=== PATIENT | male | born 1940 | race Caucasian/White ===

== ENCOUNTER 2023-10-18 14:44 | Outpatient (CLI) | payer MEDICARE, SELFPAY ==
--- NOTE | 2023-10-18 14:47 | CA_ITS ---
APPROVED REPORT EXAM: Comprehensive 2D, Doppler, and color-flow Echocardiogram Animal Cytologist: Ebony Arciniega RVT Ht: 5 ft 8 in Wt: 213lbs BSA: 2.10 BP: 121/71 mmHg Indications: SOA,ABN EKG,DM,EDEMA M-Mode Dimensions RVDd 3.42 cm (0.9-2.6) LA Diam 3.79 cm (1.9-4.0) LVDd 4.49 cm (3.5-5.7) LVDs 3.32 cm (3.5-5.7) IVSd 0.75 cm (0.6-1.1) PWd 0.56 cm (0.6-1.1) EF (Teich) 51.30% FS 26.10% EDV (Teich) 92.00 mL TAPSE 1.70 (<1.7) ESV (Teich) 44.80 mL LV Diastology E Decel Time 187 (160-240 msec) E/A Ratio 0.8 Aortic Valve NATALIA Index 1.13 cm2/m2 AoV Peak Chuck. 123.0 (50-130 cm/s) AO Peak GR. 6.10 mmHg AO Mean GR. 3.30 (<5 mmHg) AO VTI 24.2 (18-25 cm) NATALIA (VTI) 2.43 (2.5-4.5 cm2) Mitral Valve MV E Max Chuck. 69.0 (40-130 cm/s) MV A Velocity 90.0 (40-130 cm/s) E/A Ratio 0.77 MV PHT 55.0 ms Pulmonary Valve PV Peak Velocity 77.0 (50-150 cm/s) Tricuspid Valve TR P. Velocity 208.00 cm/s RAP Estimate 10.00 mmHg RVSP 27.30 mmHg Left Ventricle The left ventricle is normal size. The left ventricular systolic function is normal. The left ventricular ejection fraction is within the normal range. There is increased LV wall thickness. There is normal LV segmental wall motion. Transmitral Doppler flow pattern suggests impaired LV relaxation. LVEF is 55%. Right Ventricle Right ventricle is mildly dilated. The right ventricular systolic function is normal. Atria The left atrium size is normal. The right atrium size is normal. There is no Doppler evidence of interatrial shunt. Aortic Valve The aortic valve is mildly thickened. There is no aortic valvular stenosis. No aortic regurgitation is present. Mitral Valve The mitral valve is normal in structure. No evidence of mitral valve stenosis. There is no mitral valve regurgitation noted. Tricuspid Valve The tricuspid valve leaflets are thin and pliable. Mild tricuspid regurgitation. RVSP is 12 mmHg + RA pressure. Pulmonic Valve The pulmonary valve is normal in structure. Trace pulmonic regurgitation. Great Vessels The aortic root is normal in size. The ascending aorta is not well visualized. The IVC is not well visualized. Pericardium There is no pericardial effusion. Incidental finding of a 3 x 5 cm anechoic hepatic density in the liver. This most likely represents hepatic cyst. Other Information Study Quality: Fair Conclusion Normal biventricular systolic function. Mild TR. Incidental finding of a 3 x 5 cm anechoic hepatic density in the liver. This most likely represents hepatic cyst. Electronically signed by : Jeanette Dixon MD 10/23/2023 17:53:35
== END 2023-10-18 23:59 ==
LOC: RT 14:47
PROVIDERS: PCP Family Medicine; Visit Provider Physician Assistant
DX: R06.02 Shortness of breath (principal); R94.31 Abnormal electrocardiogram [ECG] [EKG]; I45.10 Unspecified right bundle-branch block; E11.9 Type 2 diabetes mellitus without complications; Z79.84 Long term (current) use of oral hypoglycemic drugs
CPT/HCPCS: 93306

== ENCOUNTER 2023-10-31 08:43 | Outpatient (CLI) | payer MEDICARE, SELFPAY ==
[2023-10-31] VITALS (8 sets, daily range): BP systolic 105–147; BP diastolic 52–74; PULSE 59–82; RESP 18; TEMP 36.1; O2SAT 93–98; BMI 31.3
--- NOTE | 2023-10-31 08:44 | CT_ITS ---
APPROVED REPORT Medical Logistics Specialist: CLINICAL INDICATION Chest Pain TECHNIQUE Image Acquisition: A 128 slice MDCT scanner ([employer]) was used for data acquisition. A noncontrast coronary calcium scan was performed. A CT attenuation threshold of 130 Hounsfield units (HU) was used for the detection of calcium in contiguous voxels of 1 sq mm in area to be counted as individual lesions. Bolus tracking in the ascending aorta with a threshold of 180 HU was performed. Immediately afterwards, ECG synchronized cardiac CT was then performed from the cardiac base to apex using retrospective gating with ECG tube current modulation. A total of 85 mL of Isovue 370 mg/mL contrast medium was administered at 5 mL/sec followed by a saline flush using a biphasic injection protocol. A tube voltage of 120 KVp was used. The patient received the following medications prior to the cardiac CT. 125 mg of oral metoprolol 10 mg of intravenous metoprolol 15 mg of oral ivabradine 0.8 mg of sublingual nitroglycerin The average heart rate at the time of acquisition was 87 bpm and regular. Image Reconstruction Transaxial images were reconstructed at 0.67 mm slide thickness. Data was reviewed interactively on an advanced workstation capable of 2 and 3-dimensional displays in all conventional reconstruction formats, including multiplanar reformations, maximum intensity projections, curved multiplanar reformations, and volume rendered reconstructions. When applicable, selected routine images describing the relevant coronary anatomy and pathology were saved and sent to PACS. Complications None Technical Quality Overall image quality was fair due to elevated HR and difficulty visualizing the mid RCA segment. Coronary artery opacification was fair. Total DLP (Dose-Length Product) is 2283.3 mGy-cm. The reported value represents the total of one or more individual components during the CT acquisition of this date and at this time, and as such, the same value may appear in more than one CT report depending on the interpreting/reporting physicians. COMPARISON None FINDINGS CT Coronary Calcium Scoring LMA (Left Main Artery) = 54 LAD (Left Anterior Descending) = 505 LCX (Left Coronary Circumflex) = 0 RCA (Right Coronary Artery) = 288 Total Calcium Score = 847 using the AJ-130 method. The observed calcium score of 847 is at 65th percentile for subjects of the same age, sex, and race/ethnicity. The interpretation of the calcium heart score is based on the following continuum*: 0 = no calcified plaque detected (risk of coronary artery disease is very low ??? less than 5%) 1-10 = calcium detected in extremely minimal levels (risk of coronary diseases is still low ??? less than 10%) 11-100 = mild levels of plaque detected with certainty (mild or minimal narrowing of heart arteries is likely) 101-400 = definite,at least moderate levels of plaque detected (relatively high risk of a heart attack within 3-5 years) >401-999 = extensive levels of plaque detected (high risk of heart attack, high levels of vascular disease are present, high likelihood of at least one significant coronary narrowing) *The calcium heart score quantifies the burden of coronary calcification/plaque in the coronary arteries. The calcium heart score is not able to evaluate the presence or burden of non-calcified (i.e. soft) plaque. There is also identifiable calcification in the aortic valve, mitral annulus, and the ascending and descending thoracic aorta. Coronary CT Angiography The coronary arterial system is right dominant. Quantitative Stenosis Grading: Left Main (LM): The left main originates normally from the left sinus of Valsalva. The LM bifurcates into the left anterior descending artery and left circumflex artery. There is calcification present at the ostial LM, but with no luminal stenosis. Left Anterior Descending (LAD) and Diagonal Branches: The LAD gives off 3 diagonal branches. There is mixed calcified/noncalcified plaque noted along the entire LAD segment, most notably in the proximal and mid segments and involving the diagonal branch with up to 70-90% luminal stenosis. There is no evidence of LAD-myocardial bridge. Left Circumflex (LCX) and Obtuse Marginals (OM): The LCX is a small caliber vessel. The LCX gives off 1 Obtuse Marginal (OM) branch. The LCX and its branches are patent with no evidence of atherosclerosis. Right Coronary Artery (RCA): The RCA is difficult to visualize due to significant motion in the setting of elevated HR. The RCA originates normally from the right sinus of Valsalva. The RCA gives off a posterior descending artery (PDA) and posterolateral (PL) branches. There is calcification present along the RCA, most notably in the proximal and mid RCA with likely up to 70-90% luminal stenosis. Non-Coronary Cardiac Findings: Analysis of the left ventricular (LV) structure and function was performed after 3-D reconstruction of the LV from axial images, with user-corrected automatic contouring for assessment of LV volumes and user-defined reconstruction from oblique planes for measurement of 3-D cardiac structure and function. -The left ventricle systolic function is normal. -There is no opacification in the distal LA appendage. This may likely reflect absence of contrast due to early image acquisition (no delayed images), but cannot entirely rule out ANDRESSA thrombus. Two right pulmonary veins and two left pulmonary veins drain normally into the left atrium. -No pericardial thickening or calcification. -Central and branch pulmonary arteries in the [id number] are unremarkable. -Thoracic aorta within the visualized thoracic aortic-branches in the [id number] is unremarkable. Extracardiac Structures No significant extra-cardiac findings. Note, however, that this study is focused on the cardiac findings. IMPRESSION -Suboptimal image quality due to elevated HR. segments of the RCA were difficult to visualize due to significant motion -Presence of extensive coronary calcification with an Agatston score = 847 using the AJ-130 method. -The observed calcium score of 847 is at 65th percentile for subjects of the same age, sex, and race/ethnicity. -Presence of significant flow-limiting atherosclerosis of the coronary arteries in the proximal and mid LAD (involving the diagonal branch) and possibly in the proximal RCA.. -CAD-RADS 4A. Management recommendations per ACC/AHA guidelines*, as clinically appropriate. *Recommendations: CAD RADS 0: Reassurance. Consider non-atherosclerotic causes of chest pain. CAD RADS 1: Consider non-atherosclerotic causes of chest pain. Consider preventive therapy and risk factor modification. CAD RADS 2: Consider non-atherosclerotic causes of chest pain. Consider preventive therapy and risk factor modification, particularly for patients with nonobstructive plaque in multiple segments. CAD RADS 3: Consider further functional testing. Consider symptom-guided anti-ischemic and preventive pharmacotherapy as well as risk factor modification per published guideline statements. CAD RADS 4A: Consider further functional testing or invasive coronary angiography with revascularization per published guideline statements. Consider symptom-guided anti-ischemic and preventive pharmacotherapy as well as risk factor modification per published guideline statements. CAD RADS 4B: Invasive coronary angiography recommended with revascularization per published guideline statements. Consider symptom-guided anti-ischemic and preventive pharmacotherapy as well as risk factor modification per published guideline statements. CAD RADS 5: Consider invasive angiography and/or viability assessment with revascularization per published guideline statements. Consider symptom-guided anti-ischemic and preventive pharmacotherapy as well as risk factor modification per published guideline statements. CRITICAL RESULT None COMMUNICATION Per this written report The coronary and cardiac findings of this CCTA were reviewed, reported, and signed by Chun Dixon MD (Software Implementation Project Manager) Conclusion Electronically signed by : Jeanette Dixon MD 11/03/2023 13:01:21
[2023-10-31 09:32] LABS: POC Glucose,Bedside 214 (70-110)
[2023-10-31 09:32] LABS: Chloride 103 mmol/L (98-107)
[2023-10-31 09:33] LABS: Potassium 3.5 mmoL/L (3.5-5.1); Sodium 136 mmol/L (136-145)
[2023-10-31 09:36] LABS: Anion Gap 8.5 mEq/L (5-15); Blood Urea Nitrogen 29 mg/dl (9-20); Calcium 9.2 mg/dl (8.4-10.2); Carbon Dioxide 28 mmol/L (22.0-30.0); Creatinine Clearance Estimated 59 mL/min (50-200); Estimated Glomerular Filt Rate 53 ml/min (>60); GFR (African American) 64 ML/MIN (>60); Glucose 203 mg/dl (74-100)
[2023-10-31] MEDS: METOPROLOL TARTRATE 50MG TABLET PO ×2 (09:41→10:26)
[2023-10-31] MEDS: METOPROLOL TARTRATE 25MG TABLET 25 MG (09:41)
[2023-10-31] MEDS: IVABRADINE HCL 7.5MG TABLET PO (09:41)
[2023-10-31] MEDS: METOPROLOL TARTRATE 5MG/5ML VIAL 5 MG IV ×2 (11:11→11:16)
[2023-10-31] MEDS: NITROGLYCERIN 0.4MG SL TABLET SL (11:16)
[2023-10-31] MEDS: IOPAMIDOL-370 (76%);100ML BOTTLE 85 ML IV (12:35)
[2023-10-31] MEDS: 0.9 % SODIUM CHLORIDE 50 ML VIAL IV (12:35)
== END 2023-10-31 12:00 | disposition home or self-care (01) ==
PROVIDERS: PCP Family Medicine; Visit Provider Physician Assistant
DX: I45.10 Unspecified right bundle-branch block (principal); R94.31 Abnormal electrocardiogram [ECG] [EKG]; R06.02 Shortness of breath; E13.69 Other specified diabetes mellitus with other specified complication; Z79.84 Long term (current) use of oral hypoglycemic drugs
CPT/HCPCS: 75571; 75574; 80048; 82962; Q9967

== ENCOUNTER 2023-11-08 12:59 | Observation (INO) | payer MEDICARE, SELFPAY ==
[2023-11-08] VITALS (16 sets, daily range): BP systolic 115–139; BP diastolic 62–85; PULSE 76–98; RESP 15–18; TEMP 36.4–36.8; O2SAT 94–98; BMI 32.3; BMI 31.9
--- NOTE | 2023-11-08 07:05 | IR_ITS ---
APPROVED REPORT Patient Location: Outpatient Assembly Person: REE Silveira RT (R) PROCEDURES Left heart catheterization Left ventriculogram Selective coronary angiogram Intravascular lithotripsy to the proximal LAD Intravascular ultrasound to the proximal LAD Drug-eluting stent deployment to the proximal and mid LAD in a contiguous manner Drug-eluting stent deployment to the ostial proximal first diagonal artery INDICATION Coronary artery disease, Angina pectoris, Extensive coronary calcification, Informed consent was obtained prior to the procedure. COMPLICATIONS None Estimated Blood Loss: Less than10 mls TECHNIQUE One percent lidocaine used to anesthetize the right anterior aspect of the wrist. The right radial artery was accessed via the Seldinger technique. A 6 Lebanese sheath was placed in the right radial artery. 2.5 mg of Verapamil, 800 mcg of nitroglycerin, 1mg Lidocaine and 5000 U Heparin were given through the arterial sheath. The papa catheter was also used to perform left heart catheterization, left ventriculogram and selective coronary angiogram. At the end of the diagnostic procedure therapeutic heparin was administered giving a therapeutic ACT and the guide catheter was placed in the left main artery followed by wire was placed into the first diagonal artery and LAD. A guide liner was required and predilatation was made. A total of 12 balloons were used during this procedure along with 5 various drug-eluting stents. Predilatation was made in the mid LAD and a 2.5 x 26 mm Ryder frontier stent was placed in the proximal to mid LAD and deployed at 26 erik. Postdilatation with a 3 mm x 12 mm noncompliant balloon was performed. An additional 3.5 x 12 mm Selden frontier stent was placed proximal to the for stent yet still overlapping it and deployed at 22 erik. The balloon was advanced and deployed at 20 erik. An additional 2.5 x 22 mm Selden frontier stent was placed distal to the first 2.5 stent yet still overlapping it and deployed at 20 erik. The balloon was brought back and deployed at 24 erik to mesh the 2 stents. There was a dissection identified in the first diagonal artery therefore wire was placed into the first diagonal artery where predilatation was made. Eventually an EBU 3.75 guide catheter was placed in the left main artery with wires placed on the LAD and first diagonal artery. A 2.25 x 18 mm Ryder frontier stent was placed in the proximal diagonal artery and deployed at 20 erik. An additional 2.5 x 8 mm Ryder frontier stent was placed proximal to this yet still overlapping and extending out into the LAD and deployed at 20 erik. An additional balloon was used to push the 2.5 mm struts out of the LAD and this was followed by a 3.75 x 12 mm noncompliant balloon deployed at 25 erik to further post dilate. Prior to the 3.5 mm stent being placed a shockwave 3.5 x 12 mm balloon was deployed at 4 erik with a total of 60 pulsations in the proximal and mid LAD to reduce the extensive calcification. The intravascular ultrasound probe was advanced due to extensive calcification in 2 to Nayeli the best size of post stent dilatation. Intravascular ultrasound demonstrated a critical heavily calcified proximal LAD stenosis with an MLA less than 3 mm??? at the end of the procedure JACEK-3 flow was present with wide patency down the first diagonal artery and LAD. The apparatus was removed the sheath was removed and hemostasis was achieved using TR banding patient was transferred to the postop holding in stable addition ANGIOGRAPHIC RESULTS The left main artery Normal The left anterior descending artery Has a proximal highly eccentric heavily calcified 80% stenosis followed by an additional 50% stenosis proximal to a large bifurcating septal manager of transportation. There is an additional 50% stenosis distal to the septal manager of transportation within the LAD. Further into the mid LAD is a concentric 80% calcified stenosis along a tortuous bend The circumflex artery Is nondominant and widely patent. The first obtuse marginal artery has proximal calcified 30% stenosis The right coronary artery Is a dominant vessel and has mid vessel calcified 30 to 40% stenosis with distal calcified 40% stenosis The IBRAHIM ventriculogram reveals Normal 65% The left ventricular end-diastolic pressure 10 mmHg IMPRESSION Severe proximal calcified LAD disease Successful intravascular lithotripsy with successful stenting of the proximal to mid LAD 3 drug-eluting stents used to reduce the calcified stenosis to less than 10% Successful stenting of the first diagonal artery severe disease reduced to 0% with 2 contiguous drug-eluting stents Normal ejection fraction Normal left ventricular end-diastolic pressure PLAN 1. Plavix 75 mg daily plus aspirin 81 mg daily 2. Patient received copious contrast today along with a complex procedure and should be admitted to the hospital for IV fluids and monitoring. 3. Chemistry panel and CBC in the morning to check for blood loss and contrast nephropathy 4. Cardiac rehabilitation 5. Avoidance of tobacco products 6. LDL less than 55 to achieve that high intensity statin Electronically signed by : Coleman Mercedes MD 11/08/2023 13:13:35
[2023-11-08 09:16] LABS: Basophils # 0.1 K/mm3 (0-0.2); Basophils % 0.9 % (0.1-2.0); Chloride 106 mmol/L (98-107); Eosinophils # 0.1 K/mm3 (0.0-0.4); Eosinophils % 0.8 % (0.1-12.0); Hematocrit 34.1 % (42.0-52.0); Hemoglobin 10.5 g/dL (14.1-18.0); Lymphocytes # 2.2 K/mm3 (0.7-4.5); Lymphocytes % 32.4 % (10-50); Mean Corpuscular HGB Conc 30.8 g/dL (31.8-35.4); Mean Corpuscular Hemoglobin 26.3 pg (27.0-31.2); Mean Corpuscular Volume 85.5 fl (80-94); Mean Platelet Volume 10.3 fl (7.4-10.4); Monocytes # 1.6 K/mm3 (0.1-1.0); Monocytes % 23.3 % (1.7-9.3); Neutrophils # 2.9 K/mm3 (1.8-7.8); Neutrophils % 42.6 % (37.0-80.0); Platelet Count 149 K/mm3 (142-424); Potassium 4.5 mmoL/L (3.5-5.1); Red Blood Count 3.99 M/mm3 (4.60-6.20); Red Cell Distribution Width 15.1 % (11.5-17.5); Sodium 138 mmol/L (136-145); White Blood Count 6.9 K/mm3 (4.8-10.8)
[2023-11-08 09:19] LABS: Blood Urea Nitrogen 20 mg/dl (9-20); Creatinine Clearance Estimated 79 mL/min (50-200); Estimated Glomerular Filt Rate 81 ml/min (>60); GFR (African American) 98 ML/MIN (>60)
[2023-11-08 09:20] LABS: Anion Gap 9.5 mEq/L (5-15); Calcium 9.2 mg/dl (8.4-10.2); Carbon Dioxide 27 mmol/L (22.0-30.0); Glucose 175 mg/dl (74-100)
[2023-11-08 09:37] LABS: MANUAL DIFFERENTIAL MANUAL DIFFERENTIAL (MANUAL DIFF)
[2023-11-08] MEDS: 0.9 % SODIUM CHLORIDE 500 ML 25 ML IV (10:57)
[2023-11-08] MEDS: VERAPAMIL 2.5MG/ML 2ML VIAL 2.5 MG IV (10:57)
[2023-11-08] MEDS: LIDOCAINE 1% 10ML MDV 20 ML IJ (10:57)
[2023-11-08] MEDS: diphenhydrAMINE 50MG/ML VIAL 50 MG IV (10:57)
[2023-11-08] MEDS: HEPARIN 1,000 UNITS/500ML NS (CATH LAB) 3000 UNIT IV (10:57)
[2023-11-08] MEDS: HEPARIN 1,000 UNITS/ML 10ML VIAL (CATH LAB) 10000 UNIT IV ×4 (10:57→12:59)
[2023-11-08] MEDS: NITROGLYCERIN 800MCG/8ML SYR (CATH LAB) 800 MCG IA (10:58)
[2023-11-08] MEDS: FENTANYL 100MCG/2ML VIAL 50 MCG IV ×2 (11:03→12:03)
[2023-11-08] MEDS: MIDAZOLAM HCL 1MG/1ML 5ML VIAL 1 MG IV (11:03)
[2023-11-08] MEDS: MIDAZOLAM 2MG/2ML VIAL 1 MG IV (12:03)
[2023-11-08] MEDS: PROPOFOL 10MG/ML 20ML VIAL 60 MG IV (12:03)
[2023-11-08 12:06] LABS: Lymphocytes % 43 % (10-50); Monocytes % 5 % (2-9); Neutrophils % 52 % (42-76); Total Cells Counted 100
[2023-11-08 12:11] LABS: Hypochromasia 1+; Platelet Estimate Normal
[2023-11-08] MEDS: CLOPIDOGREL 300MG TABLET 600 MG PO (12:40)
--- NOTE | 2023-11-08 13:11 | HMH.PHAINT1 ---
Pharmacy Intervention Comments: HOME MEDICATION LIST VERIFIED VIA OUTSIDE PHARMACY
[2023-11-08] MEDS: IOPAMIDOL-370 (76%);100ML BOTTLE 350 ML IV (13:41)
[2023-11-08 13:48] LABS: CATHL Activated Clotting Time 296 SEC (74-125)
[2023-11-08 13:49] LABS: CATHL Activated Clotting Time 305 SEC (74-125)
--- NOTE | 2023-11-08 13:49 | PC.NURSE ---
PT TO FLOOR VIA STRETCHER AT 1347.
[2023-11-08 13:50] LABS: CATHL Activated Clotting Time > 400 SEC (74-125)
--- NOTE | 2023-11-08 17:33 | EXP.HP ---
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 Patient initially presented to [employer] [employer] for cardiac catheterization, patient denies chest pain shortness of breath nausea vomiting diarrhea constipation dysuria fevers chills. Patient was admitted to the hospital for observation post cath. Patient was reportedly given significant amounts of contrast during cardiac cath, patient was admitted for observation for kidney function. Patient otherwise denies chest pain. [facility] Disclaimer: The information contained in this section may have been updated after the patient was seen, as this information can be updated by other users. Medical History (Updated 11/08/23 @ 17:34 by Jerri Nickerson MD) Shortness of breath Edema Seasonal allergies Essential tremor Diabetes Surgical History History of cataract surgery History of shoulder replacement S/P deep brain stimulator placement History of back surgery History of ankle surgery History of hand surgery History of colonoscopy Family History Father Stroke Mother Heart attack Sister Cancer Stroke Social History Smoking Status: Never smoker second hand exposure: No alcohol intake: current counseling given: No substance use type: denies use current occupational status: retired Travel in the last 8 weeks: None adopted: No caregiver/support person: No foster care: No household members: spouse housing: house lives independently: Yes marital status: Review of Systems Review of Systems Review of systems:: pertinent systems reviewed and negative unless documented below Meds Home Medications and Allergies Home Medications Medication Instructions Recorded Confirmed Type aspirin 81 mg tablet,delayed 81 mg PO DAILY 10/18/23 11/08/23 History release (Adult Aspirin Regimen) atorvastatin 20 mg tablet 20 mg PO HS 10/18/23 11/08/23 History blood sugar diagnostic (Accu-Chek #10 ea 10/18/23 11/08/23 History Reta Plus test strips) blood-glucose meter (Accu-Chek #1 ea 10/18/23 11/08/23 History Guide Me Glucose Meter) cetirizine 10 mg tablet 10 mg PO DAILY 10/18/23 11/08/23 History empagliflozin 25 mg tablet 25 mg PO DAILY 10/18/23 11/08/23 History (Jardiance) finasteride 5 mg tablet 5 mg PO HS 10/18/23 11/08/23 History fluticasone 250 mcg-salmeterol 50 1 inh inhalation DAILY 10/18/23 11/08/23 History mcg/dose blistr powdr for inhalation fluticasone propionate 50 2 spray intranasal DAILY 10/18/23 11/08/23 History mcg/actuation nasal spray,suspension glimepiride 4 mg tablet 4 mg PO BID 10/18/23 11/08/23 History lancets (Accu-Chek Softclix #100 ea 10/18/23 11/08/23 History Lancets) mecobalamin (vitamin B12) 1,000 1,000 mcg PO DAILY 10/18/23 11/08/23 History mcg lozenges montelukast 10 mg tablet 10 mg PO HS 10/18/23 11/08/23 History pioglitazone 15 mg tablet 15 mg PO DAILY 10/18/23 11/08/23 History propranolol 80 mg capsule,24 80 mg PO DAILY 10/18/23 11/08/23 History hr,extended release sitagliptin phosphate 100 mg 100 mg PO DAILY 10/18/23 11/08/23 History tablet (Januvia) tamsulosin 0.4 mg capsule 0.4 mg PO BID 10/18/23 11/08/23 History triamterene 37.5 1 cap PO DAILY 10/18/23 11/08/23 History mg-hydrochlorothiazide 25 mg capsule albuterol sulfate 90 mcg/actuation 1 mcg inhalation NEEDED PRN 10/31/23 11/08/23 History aerosol inhaler Shortness Of Breath New Prescriptions to Start Prescriptions: Allergies Allergy/AdvReac Type Severity Reaction Status Date / Time codiene Allergy Mild Rash Uncoded 10/18/23 13:31 Exam Data for Last 24 hours Vital signs and Labs for Last 24 Hours: Temp Pulse Resp BP Pulse Ox O2 Del Method 97.6 F 90 16 135/75 97 Room Air 11/08/23 13:24 11/08/23 16:00 11/08/23 13:30 11/08/23 13:30 11/08/23 13:30 11/08/23 17:00 Laboratory Results - last 24 hr 04/16/24 08:55: WBC 6.9, RBC 3.99 L, Hgb 10.5 L, Hct 34.1 L, MCV 85.5, MCH 26.3 L, MCHC 30.8 L, RDW 15.1, Plt Count 149, MPV 10.3, Neut % (Auto) 42.6, Lymph % (Auto) 32.4, Bladen % (Auto) 23.3 H, Eos % (Auto) 0.8, Baso % (Auto) 0.9, Neut # (Auto) 2.9, Lymph # (Auto) 2.2, Bladen # (Auto) 1.6 H, Eos # (Auto) 0.1, Baso # (Auto) 0.1, Total Counted 100, Neutrophils % (Manual) 52, Lymphocytes % (Manual) 43, Monocytes % (Manual) 5, Platelet Estimate Normal, Hypochromasia 1+, Sodium 138, Potassium 4.5, Chloride 106, Carbon Dioxide 27, Anion Gap 9.5, BUN 20, Creatinine 0.90, Estimated Creat Clear 79, Estimated GFR 81, Est GFR ( Amer) 98, Glucose 175 H, Calcium 9.2 11/08/23 11:11: Activated Clotting Time > 400 H* 11/08/23 12:02: Activated Clotting Time 305 H* D 11/08/23 12:39: Activated Clotting Time 296 H* I & O for Last 24 hours: Intake & Output 11/05/23 11/06/23 11/07/23 11/08/23 23:59 23:59 23:59 23:59 Weight 95.283 kg Constitutional Constitutional: no acute distress *Routine HEENT Exam Head: Present normocephalic Eye: Present EOMI and PERRL ENT: Present mucous membranes moist *Routine Neck Exam Neck: Present supple; Absent lymphadenopathy *Routine Respiratory Exam Respiratory: Present CTA bilaterally *Routine Cardiovascular Exam Cardiovascular: Present RRR *Routine Abdominal Exam Abdominal: Present soft and normoactive bowel sounds; Absent tenderness *Routine Rectal Exam Rectal:: deferred *Routine Genitalia Exam Genitalia:: deferred *Routine Extremities Exam Extremities: Absent cyanosis, clubbing or edema *Routine Skin Exam Skin: Present warm; Absent rash *Routine Neurological Exam Neurological: Present alert and oriented X3 Assessment and Plan *Assessment and plan (1) Abnormal electrocardiogram [ECG] [EKG]: Status: Acute Category: Medical Code(s): R94.31 - Abnormal electrocardiogram [ECG] [EKG] (2) Diabetes: Status: Acute Qualifiers: 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 type: other specified (including SHAMAR) 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 detention insulin use: unspecified intermediate teacher insulin use status 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 complication status: with other specified complication Qualified Code(s): E13.69 - Other specified diabetes mellitus with other specified complication Category: Medical Code(s): E11.9 - Type 2 diabetes mellitus without complications (3) HTN (hypertension): Status: Acute Category: Medical Code(s): I10 - Essential (primary) hypertension (4) CAD (coronary artery disease): Status: Acute Category: Medical Code(s): I25.10 - Atherosclerotic heart disease of [place] coronary artery without angina pectoris Plan patient is a 83-year-old male who 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 Patient initially presented to [employer] [employer] for cardiac catheterization, patient denies chest pain shortness of breath nausea vomiting diarrhea constipation dysuria fevers chills. Patient was admitted to the hospital for observation post cath. Patient was reportedly given significant amounts of contrast during cardiac cath, patient was admitted for observation for kidney function. Patient otherwise denies chest pain. Assessment and plan Severe proximal LAD disease CAD s/p cardiac cath with lithotripsy, status post stenting Started on aspirin and Plavix, continue IV fluids Monitor creatinine Monitor CBC Consult cardiology Monitor on cardiac telemetry 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 Hypertension Hyperlipidemia -Resume Jardiance, propranolol, Januvia, HCTZ- DVT prophylaxis-heparin
[2023-11-08] MEDS: 0.9 % SODIUM CHLORIDE 1000ML 1,000 ML 75 ML IV (17:49)
--- NOTE | 2023-11-08 18:07 | PC.NURSE ---
pt alert and orientated x3, at bs. cath site rt radial,when pt first came to floor cath site was bleeding. more air added to band with no other issues. vss. TR band off at 1800. education and instructions given to pt and on cath site care and to avoid applying pressure/using the rt hand at this time. cb within reach.
[2023-11-08] MEDS: TAMSULOSIN 0.4MG CAPSULE 0.400000000000000022 MG PO (20:09)
[2023-11-08] MEDS: ATORVASTATIN 20MG TABLET 20 MG PO (20:09)
[2023-11-08] MEDS: MONTELUKAST SODIUM 10MG TAB 10 MG PO (20:09)
[2023-11-09] VITALS: BP 119/66; PULSE 100; PULSE 102; RESP 16; TEMP 36.7; O2SAT 93
[2023-11-09 00:21] LABS: POC Glucose,Bedside 103 (70-110)
[2023-11-09 04:00] VITALS: BP 126/71; PULSE 100; PULSE 101; RESP 18; TEMP 36.6; O2SAT 96; BMI 32.6
--- NOTE | 2023-11-09 04:58 | PC.NURSE ---
Pt A&Ox4. Room air. Post right radial cath with 5 stents placed. Dressing is C/D/I over site. Pt has had no complaints through the night. IV fluids infusing at 75/hr. VSS this shift
[2023-11-09] MEDS: 0.9 % SODIUM CHLORIDE 1000ML 1,000 ML 75 ML IV (05:21)
[2023-11-09 05:32] LABS: POC Glucose,Bedside 137 (70-110)
[2023-11-09 06:03] LABS: Basophils # 0.1 K/mm3 (0-0.2); Basophils % 0.5 % (0.1-2.0); Eosinophils % 0.3 % (0.1-12.0); Hematocrit 29.3 % (42.0-52.0); Lymphocytes # 1.8 K/mm3 (0.7-4.5); Lymphocytes % 20.1 % (10-50); Mean Corpuscular HGB Conc 30.6 g/dL (31.8-35.4); Mean Corpuscular Hemoglobin 26.2 pg (27.0-31.2); Mean Corpuscular Volume 85.7 fl (80-94); Mean Platelet Volume 9.9 fl (7.4-10.4); Monocytes % 22.7 % (1.7-9.3); Neutrophils % 56.3 % (37.0-80.0); Platelet Count 122 K/mm3 (142-424); Red Blood Count 3.42 M/mm3 (4.60-6.20); Red Cell Distribution Width 15.1 % (11.5-17.5); White Blood Count 8.9 K/mm3 (4.8-10.8)
[2023-11-09 06:06] LABS: Chloride 110 mmol/L (98-107); Potassium 3.9 mmoL/L (3.5-5.1); Sodium 139 mmol/L (136-145)
[2023-11-09 06:09] LABS: Anion Gap 9.9 mEq/L (5-15); Blood Urea Nitrogen 13 mg/dl (9-20); Calcium 8.4 mg/dl (8.4-10.2); Carbon Dioxide 23 mmol/L (22.0-30.0); Creatinine Clearance Estimated 80 mL/min (50-200); Estimated Glomerular Filt Rate 93 ml/min (>60); GFR (African American) 112 ML/MIN (>60); Glucose 125 mg/dl (74-100); MANUAL DIFFERENTIAL MANUAL DIFFERENTIAL (MANUAL DIFF)
[2023-11-09 07:32] LABS: Lymphocytes % 17 % (10-50); Monocytes % 12 % (2-9); Neutrophils % 67 % (42-76); Total Cells Counted 100
[2023-11-09 07:37] LABS: Anisocytosis 1+; Hypochromasia 1+; Platelet Estimate Slight Decrease
[2023-11-09 08:00] VITALS: BP 120/76; PULSE 100; PULSE 82; RESP 23; TEMP 36.4; O2SAT 94
[2023-11-09] MEDS: ONDANSETRON 4MG/2ML VIAL 4 MG IV (08:56)
[2023-11-09] MEDS: FLUTICASONE PROP 50MCG NASAL SPRAY 16GM 2 SPRAY NS (08:56)
[2023-11-09] MEDS: EMPAGLIFLOZIN 10MG TABLET 20 MG PO (08:57)
[2023-11-09] MEDS: ASPIRIN EC 81MG TABLET 81 MG PO (08:57)
[2023-11-09] MEDS: CLOPIDOGREL 75MG TAB 75 MG PO (08:58)
[2023-11-09] MEDS: SITAGLIPTIN 50MG TABLET 100 MG PO (09:00)
[2023-11-09] MEDS: LORATADINE 10MG TABLET 10 MG PO (09:00)
[2023-11-09] MEDS: PIOGLITAZONE 15MG TAB 15 MG PO (09:01)
--- NOTE | 2023-11-09 10:53 | EXP.CARD.CON ---
History of Present Illness History of Present Illness Consult date: 11/09/23 Requesting physician: Jerri Nickerson Consult reason: known to you Chief complaint: CRENSHAW History of present illness: 83-year-old white male recently established in our office for worsening dyspnea on exertion for 3 to 4 months following COVID. He underwent CCTA which showed significant flow-limiting disease in LAD and RCA. He was referred for elective left heart cath. Yesterday left heart cath revealed severe proximal calcified LAD which required lithotripsy and 3 stents. He also received stenting of the first diagonal. RCA and left circumflex with 30 to 40% lesions which were left to medical management. Outpatient echo shows normal LV function. Patient was admitted overnight for hydration and repeat labs. This morning he reports no pain at his cath site. Denies chest pain shortness of breath or palpitations. His creatinine is unchanged. His hemoglobin is down from 10.5-9. [facility] Disclaimer: The information contained in this section may have been updated after the patient was seen, as this information can be updated by other users. Medical History Shortness of breath Edema Seasonal allergies Essential tremor Diabetes Surgical History History of cataract surgery History of shoulder replacement S/P deep brain stimulator placement History of back surgery History of ankle surgery History of hand surgery History of colonoscopy Family History Father Stroke Mother Heart attack Sister Cancer Stroke Social History Smoking Status: Never smoker second hand exposure: No alcohol intake: current counseling given: No substance use type: denies use current occupational status: retired Travel in the last 8 weeks: None adopted: No caregiver/support person: No foster care: No household members: spouse housing: house lives independently: Yes marital status: Review of Systems Constitutional Constitutional: Denies fatigue and Denies weakness Eyes Eyes: Denies loss of vision ENT Ears, Nose, Mouth, and Throat: Denies hearing loss and Denies vertigo *Cardiovascular Cardiovascular: Denies chest pain, Denies dyspnea and Denies syncope *Respiratory Respiratory: Denies cough and Denies dyspnea *Gastrointestinal Gastrointestinal: Denies change in stool character, Denies nausea and Denies vomiting *Genitourinary Genitourinary: Denies difficulty urinating *Musculoskeletal Musculoskeletal: Denies muscle weakness Integumentary/Breasts Skin/Breast: Denies changing lesions *Neurologic Neurologic: Denies loss of vision, Denies syncope, Denies vertigo and Denies weakness Endocrine Endocrine: Denies fatigue Exam Data for Last 24 hours Vital signs and Labs for Last 24 Hours: Temp Pulse Resp BP Pulse Ox O2 Del Method 97.6 F 82 23 120/76 94 L Room Air 11/09/23 08:00 11/09/23 08:00 11/09/23 08:00 11/09/23 08:00 11/09/23 08:00 11/09/23 09:00 Laboratory Results - last 24 hr 11/08/23 08:55: Total Counted 100, Neutrophils % (Manual) 52, Lymphocytes % (Manual) 43, Monocytes % (Manual) 5, Platelet Estimate Normal, Hypochromasia 1+ 11/08/23 11:11: Activated Clotting Time > 400 H* 11/08/23 12:02: Activated Clotting Time 305 H* D 11/08/23 12:39: Activated Clotting Time 296 H* 11/09/23 00:13: POC Glucose 103 11/09/23 05:24: WBC 8.9 D, RBC 3.42 L, Hgb 9.0 L D, Hct 29.3 L, MCV 85.7, MCH 26.2 L, MCHC 30.6 L, RDW 15.1, Plt Count 122 L, MPV 9.9, Neut % (Auto) 56.3, Lymph % (Auto) 20.1, [place] % (Auto) 22.7 H, Eos % (Auto) 0.3, Baso % (Auto) 0.5, Neut # (Auto) 5.0, Lymph # (Auto) 1.8, [place] # (Auto) 2.0 H, Eos # (Auto) 0.0, Baso # (Auto) 0.1, Total Counted 100, Neutrophils % (Manual) 67, Band Neutrophils % 4.0, Lymphocytes % (Manual) 17, Monocytes % (Manual) 12 H, Platelet Estimate Slight decrease, Hypochromasia 1+, Anisocytosis 1+, Sodium 139, Potassium 3.9, Chloride 110 H, Carbon Dioxide 23, Anion Gap 9.9, BUN 13 D, Creatinine 0.80, Estimated Creat Clear 80, Estimated GFR 93, Est GFR ( Amer) 112, Glucose 125 H D, POC Glucose 137 H, Calcium 8.4 I & O for Last 24 hours: Intake & Output 11/06/23 11/07/23 11/08/23 11/09/23 23:59 23:59 23:59 23:59 Intake Total 360 / 560 200 / 200 Output Total 0 / 0 300 / 300 Balance 360 / 560 -100 / -100 Weight 210 lb 1 oz 215 lb 4.8 oz Constitutional Constitutional: no acute distress and cooperative *Routine HEENT Exam Eye: Present PERRL *Routine Respiratory Exam Respiratory: Present CTA bilaterally; Absent accessory muscle use, wheezes or crackles *Routine Cardiovascular Exam Cardiovascular: Present RRR, Normal S1 and Normal S2; Absent murmur, gallop or rubs Comments: Mild bruising noted at right radial cath site but no pain redness or induration *Routine Abdominal Exam Abdominal: Present soft; Absent tenderness *Routine Extremities Exam Extremities: Present pulses intact; Absent cyanosis or edema *Routine Skin Exam Skin: Present intact; Absent erythema or wounds *Routine Neurological Exam Neurological: Present alert and oriented X3 Routine Psychiatric Exam Psychiatric: Present cooperative Meds Home Medications and Allergies Home Medications Medication Instructions Recorded Confirmed Type aspirin 81 mg tablet,delayed 81 mg PO DAILY 10/18/23 11/08/23 History release (Adult Aspirin Regimen) atorvastatin 20 mg tablet 20 mg PO HS 10/18/23 11/08/23 History blood sugar diagnostic (Accu-Chek #10 ea 10/18/23 11/08/23 History Reta Plus test strips) blood-glucose meter (Accu-Chek #1 ea 10/18/23 11/08/23 History Guide Me Glucose Meter) cetirizine 10 mg tablet 10 mg PO DAILY 10/18/23 11/08/23 History empagliflozin 25 mg tablet 25 mg PO DAILY 10/18/23 11/08/23 History (Jardiance) finasteride 5 mg tablet 5 mg PO HS 10/18/23 11/08/23 History fluticasone 250 mcg-salmeterol 50 1 inh inhalation BID 10/18/23 11/09/23 History mcg/dose blistr powdr for inhalation fluticasone propionate 50 2 spray intranasal DAILY 10/18/23 11/08/23 History mcg/actuation nasal spray,suspension glimepiride 4 mg tablet 4 mg PO BID 10/18/23 11/08/23 History lancets (Accu-Chek Softclix #100 ea 10/18/23 11/08/23 History Lancets) mecobalamin (vitamin B12) 1,000 1,000 mcg PO DAILY 10/18/23 11/08/23 History mcg lozenges montelukast 10 mg tablet 10 mg PO HS 10/18/23 11/08/23 History pioglitazone 15 mg tablet 15 mg PO DAILY 10/18/23 11/08/23 History propranolol 80 mg capsule,24 80 mg PO DAILY 10/18/23 11/08/23 History hr,extended release sitagliptin phosphate 100 mg 100 mg PO DAILY 10/18/23 11/08/23 History tablet (Januvia) tamsulosin 0.4 mg capsule 0.8 mg PO HS 10/18/23 11/09/23 History triamterene 37.5 1 cap PO DAILY 10/18/23 11/08/23 History mg-hydrochlorothiazide 25 mg capsule albuterol sulfate 90 mcg/actuation 1 puff inhalation Q6HP PRN 10/31/23 11/09/23 History aerosol inhaler Shortness Of Breath aspirin 81 mg tablet,delayed 81 mg PO DAILY 30 days #30 tabs 11/09/23 Rx release atorvastatin 40 mg tablet 80 mg (2 x 40 mg) PO HS 30 days 11/09/23 Rx #60 tabs clopidogrel 75 mg tablet 75 mg PO DAILY 30 days #30 tabs 11/09/23 Rx New Prescriptions to Start Prescriptions: aspirin Krishan,Irfan atorvastatin Krishan,Irfan clopidogrel Krishan,Irfan Allergies Allergy/AdvReac Type Severity Reaction Status Date / Time codiene Allergy Mild Rash Uncoded 10/18/23 13:31 Assessment and Plan *Assessment and plan (1) CAD (coronary artery disease): Status: Acute Category: Medical Code(s): I25.10 - Atherosclerotic heart disease of [place] coronary artery without angina pectoris (2) HTN (hypertension): Status: Acute Category: Medical Code(s): I10 - Essential (primary) hypertension (3) Anemia: Status: Acute Category: Medical Code(s): D64.9 - Anemia, unspecified Plan Multivessel CAD -New diagnosis this admission -[facility] 11/07 Severe prox LAD s/p lithotripsy and 3 stents. 1st Diag - stent. 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 He needs cardiac rehab arranged. He would like this done closer to home. Nurse will check with him and discussed best location. Patient needs follow-up in our office in 2 weeks. He needs repeat CBC in 1 week to check status of anemia
[2023-11-09] MEDS: IRBESARTAN 75MG TABLET 75 MG PO (10:57)
--- NOTE | 2023-11-09 11:12 | HMH.PHAINT1 ---
Pharmacy Intervention Comments: DISCHARGE MEDICATION COUNSELING WAS PROVIDED TO PATIENT AND FAMILY MEMBER ON CLOPIDOGREL AND IRBSARTAN FOR INDICATION, DOSE, AND POSSIBLE SIDE EFFECTS; AND THE DOSE CHANGE FOR ATORVASTATIN. THE PATIENT AND FAMILY MEMBER VERBALIZED UNDERSTANDING WITH NO FURTHER QUESTIONS.
--- NOTE | 2023-11-09 11:14 | EXP.DC.SUM ---
General Admission date:: 11/08/23 Discharge date: 11/09/23 HPI HPI HPI: patient is a 83-year-old male who presented to hospital from cardiac medical lab [facility]. Patient initially presented to [facility] for cardiac catheterization, patient denies chest pain shortness of breath nausea vomiting diarrhea constipation dysuria fevers chills. Patient was admitted to the hospital for observation post cath. Patient was reportedly given significant amounts of contrast during cardiac cath, patient was admitted for observation for kidney function. Patient otherwise denies chest pain. 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 Patient initially presented to [facility] for cardiac catheterization, patient denies chest pain shortness of breath nausea vomiting diarrhea constipation dysuria fevers chills. Patient was admitted to the hospital for observation post cath. Patient was reportedly given significant amounts of contrast during cardiac cath, patient was admitted for observation for kidney function. Patient otherwise denies chest pain. Assessment and plan Severe proximal LAD disease CAD s/p cardiac cath with lithotripsy, status post stenting Started on aspirin and Plavix, high intensity atorvastatin stable for discharge per cardiology standpoint and follow up as OP Exam Data for Last 24 hours Vital signs and Labs for Last 24 Hours: Temp Pulse Resp BP Pulse Ox O2 Del Method 97.6 F 82 23 120/76 94 L Room Air 11/09/23 08:00 11/09/23 08:00 11/09/23 08:00 11/09/23 08:00 11/09/23 08:00 11/09/23 09:00 Laboratory Results - last 24 hr 11/08/23 08:55: Total Counted 100, Neutrophils % (Manual) 52, Lymphocytes % (Manual) 43, Monocytes % (Manual) 5, Platelet Estimate Normal, Hypochromasia 1+ 11/08/23 11:11: Activated Clotting Time > 400 H* 11/08/23 12:02: Activated Clotting Time 305 H* D 11/08/23 12:39: Activated Clotting Time 296 H* 11/09/23 00:13: POC Glucose 103 11/09/23 05:24: WBC 8.9 D, RBC 3.42 L, Hgb 9.0 L D, Hct 29.3 L, MCV 85.7, MCH 26.2 L, MCHC 30.6 L, RDW 15.1, Plt Count 122 L, MPV 9.9, Neut % (Auto) 56.3, Lymph % (Auto) 20.1, [place] % (Auto) 22.7 H, Eos % (Auto) 0.3, Baso % (Auto) 0.5, Neut # (Auto) 5.0, Lymph # (Auto) 1.8, [place] # (Auto) 2.0 H, Eos # (Auto) 0.0, Baso # (Auto) 0.1, Total Counted 100, Neutrophils % (Manual) 67, Band Neutrophils % 4.0, Lymphocytes % (Manual) 17, Monocytes % (Manual) 12 H, Platelet Estimate Slight decrease, Hypochromasia 1+, Anisocytosis 1+, Sodium 139, Potassium 3.9, Chloride 110 H, Carbon Dioxide 23, Anion Gap 9.9, BUN 13 D, Creatinine 0.80, Estimated Creat Clear 80, Estimated GFR 93, Est GFR ( Amer) 112, Glucose 125 H D, POC Glucose 137 H, Calcium 8.4 I & O for Last 24 hours: Intake & Output 11/06/23 11/07/23 11/08/23 11/09/23 23:59 23:59 23:59 23:59 Intake Total 360 / 560 200 / 200 Output Total 0 / 0 300 / 300 Balance 360 / 560 -100 / -100 Weight 95.283 kg 97.658 kg Constitutional Constitutional: no acute distress *Routine HEENT Exam Head: Present normocephalic Eye: Present EOMI and PERRL ENT: Present mucous membranes moist *Routine Neck Exam Neck: Present supple; Absent lymphadenopathy *Routine Respiratory Exam Respiratory: Present CTA bilaterally *Routine Cardiovascular Exam Cardiovascular: Present RRR *Routine Abdominal Exam Abdominal: Present soft and normoactive bowel sounds; Absent tenderness *Routine Extremities Exam Extremities: Absent cyanosis, clubbing or edema *Routine Skin Exam Skin: Present warm; Absent rash *Routine Neurological Exam Neurological: Present alert and oriented X3 Results Data Completed and Pending Labs on day of discharge: Labs from last 24 hours 11/09/23 11/09/23 11/08/23 05:24 00:13 12:39 WBC 8.9 D RBC 3.42 L Hgb 9.0 L D Hct 29.3 L MCV 85.7 MCH 26.2 L MCHC 30.6 L RDW 15.1 Plt Count 122 L MPV 9.9 Neut % (Auto) 56.3 Lymph % (Auto) 20.1 [place] % (Auto) 22.7 H Eos % (Auto) 0.3 Baso % (Auto) 0.5 Neut # (Auto) 5.0 Lymph # (Auto) 1.8 [place] # (Auto) 2.0 H Eos # (Auto) 0.0 Baso # (Auto) 0.1 Total Counted 100 Neutrophils % (Manual) 67 Band Neutrophils % 4.0 Lymphocytes % (Manual) 17 Monocytes % (Manual) 12 H Platelet Estimate Slight decrease Hypochromasia 1+ Anisocytosis 1+ Activated Clotting Time 296 H* Sodium 139 Potassium 3.9 Chloride 110 H Carbon Dioxide 23 Anion Gap 9.9 BUN 13 D Creatinine 0.80 Estimated Creat Clear 80 Estimated GFR 93 Est GFR ( Amer) 112 Glucose 125 H D POC Glucose 137 H 103 Calcium 8.4 11/08/23 11/08/23 11/08/23 12:02 11:11 08:55 WBC RBC Hgb Hct MCV MCH MCHC RDW Plt Count MPV Neut % (Auto) Lymph % (Auto) [place] % (Auto) Eos % (Auto) Baso % (Auto) Neut # (Auto) Lymph # (Auto) [place] # (Auto) Eos # (Auto) Baso # (Auto) Total Counted 100 Neutrophils % (Manual) 52 Band Neutrophils % Lymphocytes % (Manual) 43 Monocytes % (Manual) 5 Platelet Estimate Normal Hypochromasia 1+ Anisocytosis Activated Clotting Time 305 H* D > 400 H* Sodium Potassium Chloride Carbon Dioxide Anion Gap BUN Creatinine Estimated Creat Clear Estimated GFR Est GFR ( Amer) Glucose POC Glucose Calcium DS: Diagnosis Discharge Diagnosis (1) CAD (coronary artery disease): Status: Acute Code(s): I25.10 - Atherosclerotic heart disease of [place] coronary artery without angina pectoris (2) HTN (hypertension): Status: Acute Code(s): I10 - Essential (primary) hypertension (3) Anemia: Status: Acute Code(s): D64.9 - Anemia, unspecified Meds Home Medications and Allergies Home Medications Medication Instructions Recorded Confirmed Type aspirin 81 mg tablet,delayed 81 mg PO DAILY 10/18/23 11/08/23 History release (Adult Aspirin Regimen) blood sugar diagnostic (Accu-Chek #10 ea 10/18/23 11/08/23 History Reta Plus test strips) blood-glucose meter (Accu-Chek #1 ea 10/18/23 11/08/23 History Guide Me Glucose Meter) cetirizine 10 mg tablet 10 mg PO DAILY 10/18/23 11/08/23 History empagliflozin 25 mg tablet 25 mg PO DAILY 10/18/23 11/08/23 History (Jardiance) finasteride 5 mg tablet 5 mg PO HS 10/18/23 11/08/23 History fluticasone 250 mcg-salmeterol 50 1 inh inhalation BID 10/18/23 11/09/23 History mcg/dose blistr powdr for inhalation fluticasone propionate 50 2 spray intranasal DAILY 10/18/23 11/08/23 History mcg/actuation nasal spray,suspension glimepiride 4 mg tablet 4 mg PO BID 10/18/23 11/08/23 History lancets (Accu-Chek Softclix #100 ea 10/18/23 11/08/23 History Lancets) mecobalamin (vitamin B12) 1,000 1,000 mcg PO DAILY 10/18/23 11/08/23 History mcg lozenges montelukast 10 mg tablet 10 mg PO HS 10/18/23 11/08/23 History pioglitazone 15 mg tablet 15 mg PO DAILY 10/18/23 11/08/23 History propranolol 80 mg capsule,24 80 mg PO DAILY 10/18/23 11/08/23 History hr,extended release sitagliptin phosphate 100 mg 100 mg PO DAILY 10/18/23 11/08/23 History tablet (Januvia) tamsulosin 0.4 mg capsule 0.8 mg PO HS 10/18/23 11/09/23 History triamterene 37.5 1 cap PO DAILY 10/18/23 11/08/23 History mg-hydrochlorothiazide 25 mg capsule albuterol sulfate 90 mcg/actuation 1 puff inhalation Q6HP PRN 10/31/23 11/09/23 History aerosol inhaler Shortness Of Breath aspirin 81 mg tablet,delayed 81 mg PO DAILY 30 days #30 tabs 11/09/23 Rx release atorvastatin 40 mg tablet 80 mg (2 x 40 mg) PO HS 30 days 11/09/23 Rx #60 tabs clopidogrel 75 mg tablet 75 mg PO DAILY 30 days #30 tabs 11/09/23 Rx irbesartan 75 mg tablet 75 mg PO DAILY 30 days #30 tabs 11/09/23 Rx New Prescriptions to Start Prescriptions: aspirin Krishan,Irfan atorvastatin Krishan,Irfan clopidogrel Krishan,Irfan irbesartan Krishan,Irfan Allergies Allergy/AdvReac Type Severity Reaction Status Date / Time codeine Allergy Mild Rash Verified 11/09/23 11:08 Discharge Plan Disposition Patient Disposition: Home, Self-Care Condition: Good Follow up Plan Follow up with: Marck Ribera DO [Primary Care Provider] - 11/16/23 2:30 pm Coleman Mercedes MD [Staff Physician] - 11/15/23 1:00 pm Prescriptions/Medication Reconciliation: New atorvastatin 40 mg Tablet 80 mg PO HS 30 Days Qty: 60 0RF clopidogrel 75 mg Tablet 75 mg PO DAILY 30 Days Qty: 30 0RF aspirin 81 mg Tablet,Delayed Release (Dr/Ec) 81 mg PO DAILY 30 Days Qty: 30 0RF irbesartan 75 mg Tablet 75 mg PO DAILY 30 Days Qty: 30 0RF Continued fluticasone propionate 50 mcg/actuation spray,suspension 2 spray intranasal DAILY Patient Comments: SHAKE LIQUID AND USE 2 SPRAYS IN EACH NOSTRIL DAILY glimepiride 4 mg tablet 4 mg PO BID Patient Comments: TAKE 1 TABLET BY MOUTH TWICE DAILY mecobalamin (vitamin B12) 1,000 mcg lozenge 1,000 mcg PO DAILY Rx Instructions: allow to dissolve in mouth OR may chew lightly before swallowing triamterene-hydrochlorothiazid 37.5-25 mg capsule 1 cap PO DAILY Patient Comments: TAKE 1 CAPSULE BY MOUTH DAILY cetirizine 10 mg tablet 10 mg PO DAILY Patient Comments: TAKE 1 TABLET BY MOUTH DAILY aspirin [Adult Aspirin Regimen] 81 mg tablet,delayed release (DR/EC) 81 mg PO DAILY fluticasone propion-salmeterol 250-50 mcg/dose blister with device 1 inh inhalation BID Patient Comments: INHALE 1 PUFF BY MOUTH TWICE DAILY (DME) blood-glucose meter [Accu-Chek Guide Me Glucose Mtr] Misc See Rx Instructions .ROUTE .MEDSUPPLY Qty: 1 Patient Comments: TEST EVERY DAY Rx Instructions: As directed (DME) Accu-Chek Reta Plus test strp Strip See Rx Instructions .ROUTE .MEDSUPPLY Qty: 10 Patient Comments: TEST TWICE DAILY Rx Instructions: As directed (DME) lancets [Accu-Chek Softclix Lancets] Misc See Rx Instructions .ROUTE .MEDSUPPLY Qty: 100 Patient Comments: TEST ONCE TO TWICE A DAY Rx Instructions: As directed Jardiance 25 mg tablet 25 mg PO DAILY Patient Comments: TAKE 1 TABLET BY MOUTH EVERY DAY tamsulosin 0.4 mg capsule 0.8 mg PO HS Patient Comments: TAKE 2 CAPSULES BY MOUTH AT BEDTIME propranolol 80 mg capsule,extended release 24 hr 80 mg PO DAILY Patient Comments: TAKE 1 CAPSULE BY MOUTH EVERY DAY Januvia 100 mg tablet 100 mg PO DAILY Patient Comments: TAKE 1 TABLET BY MOUTH DAILY pioglitazone 15 mg tablet 15 mg PO DAILY Patient Comments: TAKE 1 TABLET BY MOUTH DAILY finasteride 5 mg tablet 5 mg PO HS Patient Comments: TAKE 1 TABLET BY MOUTH DAILY AT BEDTIME montelukast 10 mg tablet 10 mg PO HS Patient Comments: TAKE 1 TABLET BY MOUTH DAILY albuterol sulfate 90 mcg/actuation HFA aerosol inhaler 1 puff INHALATION Q6HP PRN (Reason: Shortness Of Breath) Patient Comments: INHALE 1 PUFF BY MOUTH EVERY 6 HOURS NEEDED FOR SHORTNESS OF BREATH Discontinued atorvastatin 20 mg tablet 20 mg PO HS Patient Comments: TAKE 1 TABLET BY MOUTH DAILY Problem Reconciliation Problems Reviewed?: Yes Patient Discharge Instructions ACTIVITY: Ambulate as tolerated DIET: continue same diet Patient Instructions: DI for Cardiac Catheterization, DI for Surgical Site Infection, DI for Moderate Sedation Providers Primary Care Provider: Marck Ribera Admit Provider: Jerri Nickerson Attending Provider: Jerri Nickerson
[2023-11-09 12:00] VITALS: BP 118/57; PULSE 98; PULSE 99; RESP 21; TEMP 36.5; O2SAT 94
[2023-11-09 17:01] LABS: POC Glucose,Bedside 138 (70-110)
--- NOTE | 2023-11-10 10:45 | CARE MANAGER ---
Contacted patient's related to hospital discharge as patient was asleep. She states he is doing well. We discussed how they were sent in a prescription of 81mg ASA and he already took ASA. There is not listed anywhere in the chart that the patient needed to increase dose so he is just to take the one ASA 81mg. Cardiology had stated he needed to follow up in 2 weeks, but the appointment was scheduled for 1 week. Offered to transfer her to cardiology to change appt but she declined at this time and will call back later. She denies any other questions or concerns. LEE Sifuentes
== END 2023-11-09 12:30 | disposition home or self-care (01) ==
LOC: 2ND 12:59
PROVIDERS: Internal Medicine; Admitting Provider Internal Medicine; PCP Family Medicine; Visit Provider Internal Medicine
DX: R94.31 Abnormal electrocardiogram [ECG] [EKG] (principal); R93.1 Abnormal findings on diagnostic imaging of heart and coronary circulation; R06.02 Shortness of breath; E11.9 Type 2 diabetes mellitus without complications; I10 Essential (primary) hypertension; I25.118 Atherosclerotic heart disease of native coronary artery with other forms of angina pectoris; D64.9 Anemia, unspecified; Z86.16 Personal history of COVID-19; Z79.84 Long term (current) use of oral hypoglycemic drugs; Z79.899 Other long term (current) drug therapy
CPT/HCPCS: 36415; 80048; 82962; 85007; 85025; 85347; 92928; 92929; 92972; 92978; 93458; 99152; 99153; C1725; C1760; C1761; C1769; C1874; C1876; C9600; C9601; G0378; J1644; J2405; Q9967

== ENCOUNTER 2023-11-21 14:27 | Observation (INO) | payer MEDICARE, SELFPAY ==
[2023-11-21 14:44] VITALS: BP 108/56; PULSE 72; RESP 18; TEMP 36.5; O2SAT 96; BMI 31.3
--- NOTE | 2023-11-21 14:44 | PC.NURSE ---
arrived from ER admissions by w/c
[2023-11-21 14:57] VITALS: PULSE 70
--- NOTE | 2023-11-21 15:18 | CA_ITS ---
APPROVED REPORT EXAM: Limited 2D Echocardiogram [employer] Inspector Preflight: Ebony Arciniega RVT Ht: 5 ft 8 in Wt: 206lbs BSA: 2.07 BP: 100/65 mmHg Indications: LIMITED EF CHECK,DM,CAD,EDEMA,FATIGUE M-Mode Dimensions RVDd 2.63 cm (0.9-2.6) LA Diam 3.41 cm (1.9-4.0) LVDd 3.55 cm (3.5-5.7) LVDs 2.59 cm (3.5-5.7) IVSd 1.58 cm (0.6-1.1) PWd 0.89 cm (0.6-1.1) EF (Teich) 53.60% FS 27.00% EDV (Teich) 52.60 mL ESV (Teich) 24.40 mL Other Information Study Quality: Fair Conclusion This is a limited TTE to evaluate for LVEF and wall motion. Limited windows were obtained. The left ventricle is normal in size. There is increased LV wall thickness. The left ventricular systolic function is hyperdynamic. No regional wall motion abnormalities are noted. LVEF is 70%. Electronically signed by : Jeanette Dixon MD 11/23/2023 23:31:13
[2023-11-21 15:31] LABS: Basophils # 0.1 K/mm3 (0-0.2); Basophils % 0.9 % (0.1-2.0); Eosinophils % 0.5 % (0.1-12.0); Hematocrit 31.9 % (42.0-52.0); Hemoglobin 9.6 g/dL (14.1-18.0); Lymphocytes # 1.8 K/mm3 (0.7-4.5); Lymphocytes % 22.5 % (10-50); Mean Corpuscular HGB Conc 30.1 g/dL (31.8-35.4); Mean Corpuscular Hemoglobin 25.1 pg (27.0-31.2); Mean Corpuscular Volume 83.2 fl (80-94); Mean Platelet Volume 10.3 fl (7.4-10.4); Monocytes # 1.9 K/mm3 (0.1-1.0); Monocytes % 23.3 % (1.7-9.3); Neutrophils # 4.2 K/mm3 (1.8-7.8); Neutrophils % 52.9 % (37.0-80.0); Platelet Count 220 K/mm3 (142-424); Red Blood Count 3.83 M/mm3 (4.60-6.20); Red Cell Distribution Width 16.3 % (11.5-17.5)
--- NOTE | 2023-11-21 15:32 | XR_ITS ---
FINAL REPORT CLINICAL HISTORY: SOB COMPARISON: None FINDINGS: There is mild right basilar atelectasis. The left lung is clear. There is no evidence of effusion or pneumothorax. Mediastinum is unremarkable. Heart size is normal. IMPRESSION: Mild right basilar atelectasis. Reviewed, Interpreted and Dictated by Ochoa Gonzalez MD Transcribed by Lamar Chamberlain Authenticated and [facility]
[2023-11-21 15:34] LABS: Chloride 103 mmol/L (98-107); MANUAL DIFFERENTIAL MANUAL DIFFERENTIAL (MANUAL DIFF); Potassium 3.8 mmoL/L (3.5-5.1); Sodium 138 mmol/L (136-145)
[2023-11-21 15:36] LABS: Alanine Aminotransferase 16 U/L (12-78); Bilirubin,Unconjugated 0.2 mg/dL (0.0-1.1); Blood Urea Nitrogen 18 mg/dl (9-20); Creatinine Clearance Estimated 70 mL/min (50-200); Estimated Glomerular Filt Rate 64 ml/min (>60); GFR (African American) 78 ML/MIN (>60)
[2023-11-21 15:37] LABS: Albumin Level 4.2 g/dl (3.5-5.0); Alkaline Phosphatase 106 U/L (38-126); Anion Gap 7.8 mEq/L (5-15); Aspartate Amino Transferase 20 U/L (17-59); Bilirubin,Direct 0.3 mg/dl (0.0-0.4); Bilirubin,Indirect 0.2 mg/dL (0.0-0.9); Bilirubin,Total 0.5 mg/dl (0.2-1.3); Calcium 9.7 mg/dl (8.4-10.2); Carbon Dioxide 31 mmol/L (22.0-30.0); Glucose 168 mg/dl (74-100)
[2023-11-21 15:46] LABS: NT Pro Brain Natriuretic Pep. 351 pg/mL (0-450)
[2023-11-21 16:00] VITALS: BP 124/63; PULSE 77; PULSE 90; RESP 18; TEMP 36.4; O2SAT 96
[2023-11-21 16:01] LABS: Troponin I < 0.01 ng/ml (0.00-0.034)
--- NOTE | 2023-11-21 16:16 | CA_ITS ---
FINAL REPORT CLINICAL HISTORY: Patient has a mobile mass/knot in the right lateral aspect of wrist near radial artery. Patient had a heart cath with right radial access 11/08/23. Patient states he noticed the knot when bandages were removed 11/11/23. No pain noted in this area. HTN, HLD, CAD. FINDINGS: Spectral and Doppler waveform evaluations of the right wrist was performed. Spectral analysis was performed. The right radial artery is widely patent. There is no evidence of pseudoaneurysm. There is soft tissue swelling with a superficial adjacent presumed hematoma measuring up to 13 mm. IMPRESSION: Right radial artery patent without evidence of pseudoaneurysm. Superficial presumed hematoma. Reviewed, Interpreted and Dictated by Ochoa Gonzalez MD Transcribed by Ailyn Martin Authenticated and [facility]
[2023-11-21] MEDS: ENOXAPARIN 40MG/0.4ML SYRINGE 40 MG SQ (16:24)
[2023-11-21 17:08] LABS: Hypochromasia 1+; Lymphocytes % 19 % (10-50); Monocytes % 23 % (2-9); Neutrophils % 58 % (42-76); Platelet Estimate Normal; Total Cells Counted 100
--- NOTE | 2023-11-21 18:01 | P.HP_ITS ---
History of Present Illness *Admission Date: 11/21/23 *Reason for visit:: SOB *History of present illness: Patient is a 83-year-old male who presents to the hospital as a direct admit from cardiology clinic, patient initially presented to cardiology office for shortness of breath and for follow-up on his cardiac catheterization. Patient has been noticed to have increased weight gain of around 9 pounds as well as bilateral lower extremity edema, he also has been noticed to have drop in hemoglobin. Patient otherwise denied chest pain nausea vomiting diarrhea constipation dysuria fevers and chills. He has noticed bilateral lower extremity edema as well as exertional shortness of breath. [facility] Disclaimer: The information contained in this section may have been updated after the patient was seen, as this information can be updated by other users. Medical History Shortness of breath Edema Seasonal allergies Essential tremor Diabetes Surgical History History of cataract surgery History of shoulder replacement S/P deep brain stimulator placement History of back surgery History of ankle surgery History of hand surgery History of colonoscopy Family History Father Stroke Mother Heart attack Sister Cancer Stroke Social History (Updated 11/21/23 @ 14:48 by Janneth Dinero RN) Smoking Status: Never smoker second hand exposure: No alcohol intake: current alcohol intake frequency: a few times a week counseling given: No substance use type: denies use current occupational status: retired Travel in the last 8 weeks: None adopted: No caregiver/support person: No foster care: No household members: spouse housing: house lives independently: Yes marital status: Review of Systems Review of Systems Review of systems:: pertinent systems reviewed and negative unless documented below Meds Home Medications and Allergies Home Medications Medication Instructions Recorded Confirmed Type aspirin 81 mg tablet,delayed 81 mg PO DAILY 10/18/23 11/21/23 History release (Adult Aspirin Regimen) blood sugar diagnostic (Accu-Chek #10 ea 10/18/23 11/21/23 History Reta Plus test strips) blood-glucose meter (Accu-Chek #1 ea 10/18/23 11/21/23 History Guide Me Glucose Meter) cetirizine 10 mg tablet 10 mg PO DAILY 10/18/23 11/21/23 History empagliflozin 25 mg tablet 25 mg PO DAILY 10/18/23 11/21/23 History (Jardiance) finasteride 5 mg tablet 5 mg PO HS 10/18/23 11/21/23 History fluticasone 250 mcg-salmeterol 50 1 inh inhalation BID 10/18/23 11/21/23 History mcg/dose blistr powdr for inhalation fluticasone propionate 50 2 spray intranasal DAILY 10/18/23 11/21/23 History mcg/actuation nasal spray,suspension glimepiride 4 mg tablet 4 mg PO BID 10/18/23 11/21/23 History lancets (Accu-Chek Softclix #100 ea 10/18/23 11/21/23 History Lancets) mecobalamin (vitamin B12) 1,000 1,000 mcg PO DAILY 10/18/23 11/21/23 History mcg lozenges montelukast 10 mg tablet 10 mg PO HS 10/18/23 11/21/23 History pioglitazone 15 mg tablet 15 mg PO DAILY 10/18/23 11/21/23 History propranolol 80 mg capsule,24 80 mg PO DAILY 10/18/23 11/21/23 History hr,extended release sitagliptin phosphate 100 mg 100 mg PO DAILY 10/18/23 11/21/23 History tablet (Januvia) tamsulosin 0.4 mg capsule 0.8 mg PO HS 10/18/23 11/21/23 History triamterene 37.5 1 cap PO DAILY 10/18/23 11/21/23 History mg-hydrochlorothiazide 25 mg capsule albuterol sulfate 90 mcg/actuation 1 puff inhalation Q6HP PRN 10/31/23 11/21/23 History aerosol inhaler Shortness Of Breath atorvastatin 40 mg tablet 80 mg (2 x 40 mg) PO HS 30 days 11/09/23 11/21/23 Rx #60 tabs clopidogrel 75 mg tablet 75 mg PO DAILY 30 days #30 tabs 11/09/23 11/21/23 Rx irbesartan 75 mg tablet 75 mg PO DAILY 30 days #30 tabs 11/09/23 11/21/23 Rx ascorbate calcium (vitamin C) 500 500 mg PO DAILY 11/21/23 11/21/23 History mg tablet ferrous sulfate 325 mg (65 mg 325 mg PO DAILY 11/21/23 11/21/23 History iron) tablet (FeroSul) New Prescriptions to Start Prescriptions: Allergies Allergy/AdvReac Type Severity Reaction Status Date / Time codeine Allergy Mild Rash Verified 11/21/23 13:41 Exam Data for Last 24 hours Vital signs and Labs for Last 24 Hours: Temp Pulse Resp BP Pulse Ox O2 Del Method 97.6 F 77 18 124/63 96 Room Air 11/21/23 16:00 11/21/23 16:00 11/21/23 16:00 11/21/23 16:00 11/21/23 16:00 11/21/23 17:00 Laboratory Results - last 24 hr 11/21/23 14:55: WBC 8.0, RBC 3.83 L, Hgb 9.6 L, Hct 31.9 L, MCV 83.2, MCH 25.1 L , MCHC 30.1 L, RDW 16.3, Plt Count 220, MPV 10.3, Neut % (Auto) 52.9, Lymph % (Auto) 22.5, [place] % (Auto) 23.3 H, Eos % (Auto) 0.5, Baso % (Auto) 0.9, Neut # (Auto) 4.2, Lymph # (Auto) 1.8, [place] # (Auto) 1.9 H, Eos # (Auto) 0.0, Baso # (Auto) 0.1, Total Counted 100, Neutrophils % (Manual) 58, Lymphocytes % (Manual) 19, Monocytes % (Manual) 23 H, Platelet Estimate Normal, Hypochromasia 1+, Sodium 138, Potassium 3.8, Chloride 103, Carbon Dioxide 31 H, Anion Gap 7.8, BUN 18, Creatinine 1.10, Estimated Creat Clear 70, Estimated GFR 64, Est GFR ( Amer) 78, Glucose 168 H, Calcium 9.7, Total Bilirubin 0.5, Direct Bilirubin 0.3, Conjugated Bilirubin 0.0, Indirect Bilirubin 0.2, Unconjugated Bilirubin 0.2, AST 20, ALT 16, Alkaline Phosphatase 106, Troponin I < 0.01, NT-Pro-B Natriuret Pep 351, Total Protein 7.0, Albumin 4.2 I & O for Last 24 hours: Intake & Output 04/2611/19/23 11/20/23 11/21/23 23:59 23:59 23:59 23:59 Weight 93.525 kg Constitutional Constitutional: no acute distress *Routine HEENT Exam Head: Present normocephalic Eye: Present EOMI and PERRL ENT: Present mucous membranes moist *Routine Neck Exam Neck: Present supple; Absent lymphadenopathy *Routine Respiratory Exam Respiratory: Present CTA bilaterally *Routine Cardiovascular Exam Cardiovascular: Present RRR *Routine Abdominal Exam Abdominal: Present soft and normoactive bowel sounds; Absent tenderness *Routine Rectal Exam Rectal:: deferred *Routine Genitalia Exam Genitalia:: deferred *Routine Extremities Exam Extremities: Present edema; Absent cyanosis or clubbing Comments: b/l LE edema noted *Routine Skin Exam Skin: Present warm; Absent rash *Routine Neurological Exam Neurological: Present alert and oriented X3 Assessment and Plan *Assessment and plan (1) CAD (coronary artery disease): Status: Acute Qualifiers: Associated angina: unspecified whether angina present Coronary Disease- Associated Artery/Lesion type: [place] artery [place] vs. transplanted heart: [place] heart Qualified Code(s): I25.10 - Atherosclerotic heart disease of [place] coronary artery without angina pectoris Category: Medical Code(s): I25.10 - Atherosclerotic heart disease of [place] coronary artery without angina pectoris (2) Anemia: Status: Acute Qualifiers: Anemia type: iron deficiency Iron deficiency anemia type: unspecified iron deficiency Qualified Code(s): D50.9 - Iron deficiency anemia, unspecified Category: Medical Code(s): D64.9 - Anemia, unspecified (3) Shortness of breath: Status: Acute Category: Medical Code(s): R06.02 - Shortness of breath (4) HTN (hypertension): Status: Acute Category: Medical Code(s): I10 - Essential (primary) hypertension (5) Diabetes: Status: Acute Qualifiers: 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 complication status: with other specified complication 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 care home 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 Patient has been noticed to have increased weight gain of around 9 pounds as well as bilateral lower extremity edema, he also has been noticed to have drop in hemoglobin. Patient otherwise denied chest pain nausea vomiting diarrhea constipation dysuria fevers and chills. He has noticed bilateral lower extremity edema as well as exertional shortness of breath. Assessment and plan Exertional shortness of breath, bilateral lower extremity edema suspect acute CHF Check proBNP, monitor on cardiac telemetry Consult cardiology Will order 1 time 40 IV lasix and monitor response Chest x-ray performed negative for pulmonary effusions, does show right basilar atelectasis Recent echo 09/2023 did show EF 55%, increased LV wall thickness, no regional wall motion abnormalities Resume home aspirin, Plavix, high intensity statin 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 Insulin sliding scale Hypertension Hyperlipidemia Resume home Jardiance, propranolol, Januvia, HCTZ DVT prophylaxis-heparin
[2023-11-21] MEDS: FUROSEMIDE 40MG/4ML VIAL 40 MG IV (18:41)
--- NOTE | 2023-11-21 18:43 | PC.NURSE ---
PT ALREADY TOOK HOME MEDICATIONS THAT WERE REORDERED FOR 1800 THIS EVENING BEFORE ARRIVING TO THE HOSPITAL. MEDICATIONS WERE REVIEWED BY THIS RN AND PATIENT AT THE BEDSIDE WITH A COPY OF PATIENTS HOME MEDICATIONS LIST. THE MEDICATIONS THAT THE PATIENT ALREADY RECEIVED TODAY WERE HELD.
[2023-11-21 19:17] LABS: Troponin I < 0.01 ng/ml (0.00-0.034)
[2023-11-21 20:00] VITALS: BP 128/57; PULSE 80; PULSE 82; RESP 18; TEMP 36.7; O2SAT 97
[2023-11-21] MEDS: ATORVASTATIN 40MG TABLET 80 MG PO (20:51)
[2023-11-21] MEDS: MONTELUKAST SODIUM 10MG TAB 10 MG PO (20:51)
[2023-11-21] MEDS: TAMSULOSIN 0.4MG CAPSULE 0.800000000000000044 MG PO (20:51)
[2023-11-21] MEDS: FLUTICASONE/SALMETEROL 250/50MCG DISKUS 1 PUFF IH (20:59)
[2023-11-21] MEDS: humaLOG 100 UNITS/ML 3ML VIAL (SSI) SQ (21:00)
[2023-11-21 21:01] LABS: POC Glucose,Bedside 191 (70-110)
[2023-11-21 21:22] LABS: POC Glucose,Bedside 192 (70-110)
[2023-11-21] MEDS: MELATONIN 5MG TABLET 5 MG PO (21:22)
[2023-11-21 21:57] LABS: Troponin I < 0.01 ng/ml (0.00-0.034)
[2023-11-22] VITALS (26 sets, daily range): BP systolic 105–143; BP diastolic 41–62; PULSE 70–90; RESP 16–18; TEMP 36.5–37.3; O2SAT 95–100; BMI 31.7
--- NOTE | 2023-11-22 04:15 | PC.NURSE ---
Pt has slept well throughout the night. He requested medication to help him sleep; Dr. Guallpa ordered Melatonin and stated to skip midnight vitals so he could sleep a period of time without interruption. Rounds still completed on pt but without waking pt up. Pt has been NPO since midnight per MD order. He states he continues to feel short of breath; this has not changed since admission. Vital signs stable; pt on room air with pulse ox in high 90s.
[2023-11-22 06:06] LABS: POC Glucose,Bedside 187 (70-110)
[2023-11-22] MEDS: humaLOG 100 UNITS/ML 3ML VIAL (SSI) SQ ×4 (06:06→21:59)
[2023-11-22 06:23] LABS: Basophils # 0.1 K/mm3 (0-0.2); Basophils % 0.9 % (0.1-2.0); Eosinophils % 0.4 % (0.1-12.0); Hematocrit 27.6 % (42.0-52.0); Hemoglobin 8.7 g/dL (14.1-18.0); Lymphocytes # 1.9 K/mm3 (0.7-4.5); Lymphocytes % 25.5 % (10-50); Mean Corpuscular HGB Conc 31.5 g/dL (31.8-35.4); Mean Corpuscular Hemoglobin 25.4 pg (27.0-31.2); Mean Corpuscular Volume 80.5 fl (80-94); Mean Platelet Volume 10.8 fl (7.4-10.4); Monocytes # 1.9 K/mm3 (0.1-1.0); Monocytes % 26.2 % (1.7-9.3); Neutrophils # 3.4 K/mm3 (1.8-7.8); Platelet Count 190 K/mm3 (142-424); Red Blood Count 3.43 M/mm3 (4.60-6.20); Red Cell Distribution Width 16.4 % (11.5-17.5); White Blood Count 7.3 K/mm3 (4.8-10.8)
[2023-11-22] MEDS: FLUTICASONE/SALMETEROL 250/50MCG DISKUS 1 PUFF IH ×2 (06:26→20:48)
[2023-11-22 06:27] LABS: MANUAL DIFFERENTIAL MANUAL DIFFERENTIAL (MANUAL DIFF)
[2023-11-22 06:29] LABS: Chloride 102 mmol/L (98-107); Sodium 136 mmol/L (136-145)
[2023-11-22 06:30] LABS: Potassium 3.4 mmoL/L (3.5-5.1)
[2023-11-22 06:32] LABS: Anion Gap 6.4 mEq/L (5-15); Blood Urea Nitrogen 21 mg/dl (9-20); Carbon Dioxide 31 mmol/L (22.0-30.0); Creatinine Clearance Estimated 65 mL/min (50-200); Estimated Glomerular Filt Rate 58 ml/min (>60); GFR (African American) 70 ML/MIN (>60)
[2023-11-22 06:33] LABS: Cholesterol 81 mg/dl (140-200); Glucose 171 mg/dl (74-100); HDL Cholesterol 27 mg/dl (40-60); Triglycerides 128 mg/dl (30-150); VLDL Cholesterol 26 mg/dL (0-40)
[2023-11-22 06:44] LABS: Direct LDL Cholesterol 37.18 mg/dL (100-129)
[2023-11-22 06:47] LABS: Iron 28 ug/dL (49-181)
[2023-11-22 06:56] LABS: Total Iron Binding Capacity 338 ug/dL (261-462)
[2023-11-22 07:22] LABS: Ferritin 6.94 ng/ml (17.9-464)
[2023-11-22 07:27] LABS: Eosinophils % 1 % (0-3); Hypochromasia 1+; Lymphocytes % 37 % (10-50); Monocytes % 10 % (2-9); Neutrophils % 52 % (42-76); Platelet Estimate Normal; Total Cells Counted 100
--- NOTE | 2023-11-22 08:12 | HMH.PHAINT1 ---
Pharmacy Intervention Comments: HOME MEDICATION LIST VERIFIED USING LIST FROM OUTPATIENT PHARMACY
[2023-11-22] MEDS: FLUTICASONE PROP 50MCG NASAL SPRAY 16GM 2 SPRAY NS (08:13)
[2023-11-22] MEDS: CLOPIDOGREL 75MG TAB 75 MG PO (08:13)
[2023-11-22] MEDS: ASPIRIN EC 81MG TABLET 81 MG PO (08:13)
[2023-11-22] MEDS: LORATADINE 10MG TABLET 10 MG PO (08:14)
[2023-11-22] MEDS: IRBESARTAN 75MG TABLET 75 MG PO (08:14)
[2023-11-22] MEDS: HCTZ PO (08:14)
[2023-11-22] MEDS: TRIAMTERENE PO (08:14)
--- NOTE | 2023-11-22 10:25 | HMH.PTEV ---
Physical Therapy Evaluation Rehab PT IP Evaluation Start: 11/21/23 20:54 Freq: ONCE Status: Active Protocol: Document 11/22/23 10:10 ELIZABETH (Rec: 11/22/23 10:25 PHOBASHIR [id number]) Subjective/History History History This is this initial evaluation for Kennedy Oconnor, 83 yowm, who presents to [facility] with primary complaints of SOB and SOA. The patient was sent to the ED from the cardilogist clinic. He recently had 5 stents placed. His PMH is significant for Shortness of breath Edema Seasonal allergies Essential tremor Diabetes Subjective Subjective The patient is agreeable to PT and oriented x4. He reports that he is fully independent with all ADLs, dressing, bathing, and ambulation. He has both a cane and a walker but he does not use them currently. He reports that he gets up and walks, but he does get out of breath quickly which is his normal for now. Rehab PT IP Eval Objective Appearance Patient Behavior Appropriate,Patient Baseline Patient Orientation Person,Place,Time,Birthday Difficulty following instructions none Speech Pattern Clear,Patient Baseline Ambulation Patient Able to Ambulate Yes Ambulation Observation IP General Gait Pattern Observation No Deviations/Normal Ambulation Distance (feet) 20 Ambulation Assistive Device None Ambulation Ability Supervision/Stand by Balance Ability to Arise Able, w/o using arms Sitting Balance Steady, safe Standing Balance Narrow stance w/o support Dynamic Sitting Balance Ability Normal Dynamic Standing Balance Ability Normal Transfers Bed Transfer Ability Independent Sit to Stand Bed Transfer Ability Independent Rehab PT IP prob,goals,plan Problems Date of Evaluation: 11/22/23 Discharge Plan PT Discharge Plan Patient presents for Initial evaluation and presents at his baseline for functional mobility. Skilled PT is not indicated for this patient during his stay. The patient presents safely for discharge to home, when deemed medically stable. Eval Complexity Eval Charge Codes 58633 - High Complexity PHYSICIAN CERTIFICATION: I certify the specified therapy services for Kennedy Oconnor are required, authorized, and reviewed every 30 days.
--- NOTE | 2023-11-22 10:56 | HMH.OTEV ---
OT Inpatient Evaluation Rehab OT IP Evaluation Start: 11/21/23 20:54 Freq: ONCE Status: Active Protocol: Document 11/22/23 10:46 CATALINA (Rec: 11/22/23 10:55 CATALINA [id number]) Rehab OT IP Assessment Subjective History Patient is a 83-year-old male who presents to the hospital as a direct admit from cardiology clinic, patient initially presented to cardiology office for shortness of breath and for follow-up on his cardiac catheterization. Patient has been noticed to have increased weight gain of around 9 pounds as well as bilateral lower extremity edema, he also has been noticed to have drop in hemoglobin. Patient otherwise denied chest pain nausea vomiting diarrhea constipation dysuria fevers and chills. He has noticed bilateral lower extremity edema as well as exertional shortness of breath. I can get up. Patient lives with in 1 story home with 2-3 SPIKE. Patient independent with ADLs and fx'l mobility prior to hospitalization. drives with transportation and completes all household tasks at needed. Patient reported having AE/devices of RW, w/c and straight cane. Subjective I can get up. Analysis Patient's bed mobility, transfers, and LB drsg during initial evaluation . Patient independent with all tasks. Patient required RB in between due to SOB. Instructed Patient on PLB during task for enegry conservation strategies. Objective Patient Orientation Person,Place,Name,Age,Birthday ,Year Right Upper Extremity Gross ROM WFL Left Upper Extremity Gross ROM WFL Bed Mobility bed mobility - supine/sit Assist Level Independent Transfer Training Sit/Stand/Pivot Transfer Assist Level Independent Chair Transfer Ability Independent Chair Transfer Technique Sit to/from Ambulatory Chair Transfer Assistive Devices None Lower Body Dressing Ability Independent Rehab OT IP prob,goals,plan Problems Date of Evaluation: 11/22/23 Rehab Potential Rehab Potential Innapropriate for Skilled Therapy Discharge Plan OT Discharge Plan Recommend patient to return home after medical d/c. Patient is planned to have cardiac rehab after d/c. Eval Complexity Eval Charge Codes 91474 - Low Complexity PHYSICIAN CERTIFICATION: I certify the specified therapy services for Kennedy Oconnor are required, authorized, and reviewed every 30 days.
[2023-11-22 11:19] LABS: POC Glucose,Bedside 211 (70-110)
--- NOTE | 2023-11-22 11:21 | PC.NURSE ---
Patient down to [employer]
--- NOTE | 2023-11-22 11:52 | EXP.CARD.CON ---
History of Present Illness History of Present Illness Consult date: 11/22/23 Requesting physician: Raudel Guallpa Consult reason: shortness of breath Chief complaint: SOA History of present illness: This is an 83-year-old white gentleman who was directly admitted to the hospital yesterday from cardiology clinic due to shortness of breath following recent cardiac catheterization. The patient underwent left cardiac catheterization on 11/08/2023 and he had successful lithotripsy and stenting to the proximal LAD with 3 drug-eluting stents and 2 stents placed to the first diagonal artery. He did tolerate that procedure well. However, he states that he has had no improvement in his symptoms since that time. His shortness of breath may have even worsened a little bit. He states that he is fine when he is at rest but any amount of exertion causes profound shortness of breath. He states that he cannot even walk to the bathroom without being significantly short of breath. He denies any chest pain or pressure. He denies any lower extremity edema. He denies any fever, chills, nausea, vomiting, diarrhea, PND or orthopnea. He does report that he has gained 9 pounds since his procedure on the . [facility] Disclaimer: The information contained in this section may have been updated after the patient was seen, as this information can be updated by other users. Medical History (Updated 11/22/23 @ 11:59 by Chantelle Mccarthy APRN) Hyperlipidemia HTN (hypertension) CAD (coronary artery disease) Anemia Atypical angina Shortness of breath Edema Seasonal allergies Essential tremor Diabetes Surgical History History of cataract surgery History of shoulder replacement S/P deep brain stimulator placement History of back surgery History of ankle surgery History of hand surgery History of colonoscopy Family History Father Stroke Mother Heart attack Sister Cancer Stroke Social History (Updated 11/21/23 @ 14:48 by Janneth Dinero RN) Smoking Status: Never smoker second hand exposure: No alcohol intake: current alcohol intake frequency: a few times a week counseling given: No substance use type: denies use current occupational status: retired Travel in the last 8 weeks: None adopted: No caregiver/support person: No foster care: No household members: spouse housing: house lives independently: Yes marital status: Review of Systems Review of Systems Review of systems:: pertinent systems reviewed and negative unless documented below Constitutional Constitutional: Reports system reviewed and no additional complaints, except as documented Eyes Eyes: Reports system reviewed and no additional complaints, except as documented ENT Ears, Nose, Mouth, and Throat: Reports system reviewed and no additional complaints, except as documented *Cardiovascular Cardiovascular: Reports system reviewed and no additional complaints, except as documented, Denies chest pain, Reports dyspnea, Reports dyspnea on exertion and Denies leg edema *Respiratory Respiratory: Reports system reviewed and no additional complaints, except as documented, Denies cough, Reports dyspnea and Reports dyspnea on exertion *Gastrointestinal Gastrointestinal: Reports system reviewed and no additional complaints, except as documented *Genitourinary Genitourinary: Reports system reviewed and no additional complaints, except as documented *Musculoskeletal Musculoskeletal: Reports system reviewed and no additional complaints, except as documented Integumentary/Breasts Skin/Breast: Reports system reviewed and no additional complaints, except as documented *Neurologic Neurologic: Reports system reviewed and no additional complaints, except as documented Psychiatric Psychiatric: Reports system reviewed and no additional complaints, except as documented Endocrine Endocrine: Reports system reviewed and no additional complaints, except as documented Hematologic/Lymphatic Hematologic/Lymphatic: Reports system reviewed and no additional complaints, except as documented Allergic/Immunologic Allergic/Immunologic: Reports system reviewed and no additional complaints, except as documented Exam Data for Last 24 hours Vital signs and Labs for Last 24 Hours: Temp Pulse Resp BP Pulse Ox O2 Del Method 98.1 F 87 18 109/62 L 95 Room Air 11/22/23 08:00 11/22/23 08:00 11/22/23 08:00 11/22/23 08:00 11/22/23 08:00 11/22/23 11:00 Laboratory Results - last 24 hr 11/21/23 14:55: WBC 8.0, RBC 3.83 L, Hgb 9.6 L, Hct 31.9 L, MCV 83.2, MCH 25.1 L, MCHC 30.1 L, RDW 16.3, Plt Count 220, MPV 10.3, Neut % (Auto) 52.9, Lymph % (Auto) 22.5, [place] % (Auto) 23.3 H, Eos % (Auto) 0.5, Baso % (Auto) 0.9, Neut # (Auto) 4.2, Lymph # (Auto) 1.8, [place] # (Auto) 1.9 H, Eos # (Auto) 0.0, Baso # (Auto) 0.1, Total Counted 100, Neutrophils % (Manual) 58, Lymphocytes % (Manual) 19, Monocytes % (Manual) 23 H, Platelet Estimate Normal, Hypochromasia 1+, Sodium 138, Potassium 3.8, Chloride 103, Carbon Dioxide 31 H, Anion Gap 7.8, BUN 18, Creatinine 1.10, Estimated Creat Clear 70, Estimated GFR 64, Est GFR ( Amer) 78, Glucose 168 H, Calcium 9.7, Total Bilirubin 0.5, Direct Bilirubin 0.3, Conjugated Bilirubin 0.0, Indirect Bilirubin 0.2, Unconjugated Bilirubin 0.2, AST 20, ALT 16, Alkaline Phosphatase 106, Troponin I < 0.01, NT-Pro-B Natriuret Pep 351, Total Protein 7.0, Albumin 4.2 11/21/23 18:30: Troponin I < 0.01 11/21/23 20:38: POC Glucose 191 H 11/21/23 21:15: POC Glucose 192 H 11/21/23 21:25: Troponin I < 0.01 11/22/23 05:50: WBC 7.3, RBC 3.43 L, Hgb 8.7 L, Hct 27.6 L, MCV 80.5, MCH 25.4 L, MCHC 31.5 L, RDW 16.4, Plt Count 190, MPV 10.8 H, Neut % (Auto) 47.0, Lymph % (Auto) 25.5, [place] % (Auto) 26.2 H, Eos % (Auto) 0.4, Baso % (Auto) 0.9, Neut # (Auto) 3.4, Lymph # (Auto) 1.9, [place] # (Auto) 1.9 H, Eos # (Auto) 0.0, Baso # (Auto) 0.1, Total Counted 100, Neutrophils % (Manual) 52, Lymphocytes % (Manual) 37, Monocytes % (Manual) 10 H, Eosinophils % (Manual) 1, Platelet Estimate Normal, Hypochromasia 1+, Sodium 136, Potassium 3.4 L, Chloride 102, Carbon Dioxide 31 H, Anion Gap 6.4, BUN 21 H, Creatinine 1.20, Estimated Creat Clear 65, Estimated GFR 58 L, Est GFR ( Amer) 70, Glucose 171 H, Calcium 9.0, Iron 28 L, TIBC 338, Iron Saturation 8.19783 L, Ferritin 6.94 L, Triglycerides 128, Cholesterol 81 L, LDL Cholesterol Direct 37.18 L, VLDL Cholesterol 26, HDL Cholesterol 27 L, Cholesterol/HDL Ratio 3.0 11/22/23 05:51: POC Glucose 187 H 11/22/23 11:12: POC Glucose 211 H I & O for Last 24 hours: Intake & Output 11/19/23 11/20/23 11/21/23 11/22/23 23:59 23:59 23:59 23:59 Intake Total 390 / 390 Output Total 0 / 0 0 / 0 Balance 390 / 390 0 / 0 Weight 206 lb 2.997 oz 209 lb 6 oz Constitutional Constitutional: no acute distress and obese *Routine HEENT Exam Head: Present normocephalic and atraumatic ENT: Present mucous membranes moist *Routine Neck Exam Neck: Present supple, full ROM and normal carotid upstroke; Absent JVD, carotid bruit or lymphadenopathy *Routine Respiratory Exam Respiratory: Present CTA bilaterally, normal respiratory effort, able to speak in complete sentences and symmetric chest movement *Routine Cardiovascular Exam Cardiovascular: Present RRR, Normal S1 and Normal S2; Absent murmur or gallop *Routine Abdominal Exam Abdominal: Present soft and normoactive bowel sounds; Absent tenderness, distended or organomegaly *Routine Extremities Exam Extremities: Present full ROM, pulses intact and normal capillary refill; Absent cyanosis, clubbing or edema *Routine Skin Exam Skin: Present intact and warm; Absent erythema *Routine Neurological Exam Neurological: Present alert, oriented X3 and CN II-XII intact; Absent sensory deficit or motor deficit Routine Psychiatric Exam Psychiatric: Present normal affect Meds Home Medications and Allergies Home Medications Medication Instructions Recorded Confirmed Type aspirin 81 mg tablet,delayed 81 mg PO DAILY 10/18/23 11/21/23 History release (Adult Aspirin Regimen) cetirizine 10 mg tablet 10 mg PO DAILY 10/18/23 11/21/23 History empagliflozin 25 mg tablet 25 mg PO DAILY 10/18/23 11/21/23 History (Jardiance) finasteride 5 mg tablet 5 mg PO HS 10/18/23 11/21/23 History fluticasone 250 mcg-salmeterol 50 1 inh inhalation BID 10/18/23 11/21/23 History mcg/dose blistr powdr for inhalation fluticasone propionate 50 2 spray intranasal DAILY 10/18/23 11/21/23 History mcg/actuation nasal spray,suspension glimepiride 4 mg tablet 4 mg PO BID 10/18/23 11/21/23 History mecobalamin (vitamin B12) 1,000 1,000 mcg PO DAILY 10/18/23 11/21/23 History mcg lozenges montelukast 10 mg tablet 10 mg PO HS 10/18/23 11/21/23 History pioglitazone 15 mg tablet 15 mg PO DAILY 10/18/23 11/21/23 History propranolol 80 mg capsule,24 80 mg PO DAILY 10/18/23 11/21/23 History hr,extended release sitagliptin phosphate 100 mg 100 mg PO DAILY 10/18/23 11/21/23 History tablet (Januvia) tamsulosin 0.4 mg capsule 0.8 mg PO HS 10/18/23 11/21/23 History triamterene 37.5 1 cap PO DAILY 10/18/23 11/21/23 History mg-hydrochlorothiazide 25 mg capsule albuterol sulfate 90 mcg/actuation 1 puff inhalation Q6HP PRN 10/31/23 11/21/23 History aerosol inhaler Shortness Of Breath atorvastatin 40 mg tablet 80 mg (2 x 40 mg) PO HS 30 days 11/09/23 11/21/23 Rx #60 tabs clopidogrel 75 mg tablet 75 mg PO DAILY 30 days #30 tabs 11/09/23 11/21/23 Rx irbesartan 75 mg tablet 75 mg PO DAILY 30 days #30 tabs 11/09/23 11/21/23 Rx ascorbate calcium (vitamin C) 500 500 mg PO DAILY 11/21/23 11/21/23 History mg tablet ferrous sulfate 325 mg (65 mg 325 mg PO DAILY 11/21/23 11/21/23 History iron) tablet (FeroSul) New Prescriptions to Start Prescriptions: Allergies Allergy/AdvReac Type Severity Reaction Status Date / Time codeine Allergy Mild Rash Verified 11/21/23 13:41 Assessment and Plan *Assessment and plan (1) Atypical angina: Status: Acute Category: Medical Code(s): I20.89 - Other forms of angina pectoris (2) Shortness of breath: Status: Acute Category: Medical Code(s): R06.02 - Shortness of breath (3) Anemia: Status: Acute Qualifiers: Anemia type: iron deficiency Iron deficiency anemia type: unspecified iron deficiency Qualified Code(s): D50.9 - Iron deficiency anemia, unspecified Category: Medical Code(s): D64.9 - Anemia, unspecified (4) CAD (coronary artery disease): Status: Acute Qualifiers: Associated angina: with unstable angina Coronary Disease-Associated Artery/Lesion type: [place] artery Teller vs. 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 The patient was admitted to the hospital with unstable angina/atypical angina. The patient had 5 stents placed on November 08, 2023 and he has had no improvement in his symptoms and if anything his shortness of breath may have worsened. His shortness of breath is likely his anginal equivalent. Will plan to proceed with left cardiac catheterization today to reevaluate his coronary artery disease and the recent stents that he had placed. 2. The patient has been educated the risk and benefits of proceeding with left cardiac catheterization. The patient verbalized understanding and is agreeable in proceeding with the procedure. 3. The patient will be n.p.o. in preparation for left cardiac catheterization. 4. Coronary artery disease is present. He remains on his aspirin and Plavix for dual antiplatelet therapy. 5. His blood pressure is well-controlled. 6. His LDL goal is less than 55. His LDL is 37. He is on a statin. 7. The patient is diabetic. He will need aggressive control of his diabetes. Will defer this to the hospitalist. 8. The patient does have iron deficiency anemia. He is scheduled to get IV iron replacement today. This may be contributing to his shortness of breath as well. He denies any black tarry stools or blood in his stool or urine. 9. His BNP is negative and no signs of pulmonary edema on chest x-ray. 10. Further recommendations will be made pending the patient's response to treatment and the results of his left cardiac catheterization today. Thank you for the opportunity to participate in the care of this patient. All recommendations and orders are per Dr. Dixon. 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 His hemoglobin today was down to 8.7. Dr. Mercedes canceled his left cardiac catheterization due to concerns of the patient having an active bleed. Dr. Mercedes has ordered a unit of packed red blood cells to be transfused today. The patient has also been started on a Protonix drip for possible GI bleed. Consider proceeding with left cardiac catheterization tomorrow if his anemia improves. AMB Pre-cath Criteria Pre-cath considerations: How many antianginals is the patient taking?: 1 Patient is taking:: beta fatuma Risks and benefits:: We will plan to proceed with LHC/coronary angiography with right radial access. The patient has been educated on the risks and benefits of proceeding with LHC/coronary angiography with right radial access. The patient verbalized understanding and is agreeable in proceeding with the procedure.
[2023-11-22 11:59] LABS: Basophils # 0.1 K/mm3 (0-0.2); Basophils % 0.9 % (0.1-2.0); Eosinophils % 0.5 % (0.1-12.0); Hematocrit 28.1 % (42.0-52.0); Hemoglobin 8.7 g/dL (14.1-18.0); Lymphocytes # 1.9 K/mm3 (0.7-4.5); Mean Corpuscular HGB Conc 30.9 g/dL (31.8-35.4); Mean Corpuscular Hemoglobin 25.5 pg (27.0-31.2); Mean Corpuscular Volume 82.6 fl (80-94); Mean Platelet Volume 10.3 fl (7.4-10.4); Monocytes # 1.8 K/mm3 (0.1-1.0); Monocytes % 24.1 % (1.7-9.3); Neutrophils # 3.7 K/mm3 (1.8-7.8); Neutrophils % 49.5 % (37.0-80.0); Platelet Count 209 K/mm3 (142-424); Red Blood Count 3.41 M/mm3 (4.60-6.20); Red Cell Distribution Width 16.5 % (11.5-17.5); White Blood Count 7.4 K/mm3 (4.8-10.8)
--- NOTE | 2023-11-22 12:26 | P.DS_ITS ---
General Admission date:: 11/21/23 HPI HPI HPI: Patient is a 83-year-old male who presents to the hospital as a direct admit from cardiology clinic, patient initially presented to cardiology office for shortness of breath and for follow-up on his cardiac catheterization. Patient has been noticed to have increased weight gain of around 9 pounds as well as bilateral lower extremity edema, he also has been noticed to have drop in hemogl obin. Patient otherwise denied chest pain nausea vomiting diarrhea constipation dysuria fevers and chills. He has noticed bilateral lower extremity edema as well as exertional shortness of breath. Exam Data for Last 24 hours Vital signs and Labs for Last 24 Hours: Temp Pulse Resp BP Pulse Ox O2 Del Method 98.1 F 87 18 109/62 L 95 Room Air 11/22/23 08:00 11/22/23 08:00 11/22/23 08:00 11/22/23 08:00 11/22/23 08:00 11/22/23 11:00 Laboratory Results - last 24 hr 11/21/23 14:55: WBC 8.0, RBC 3.83 L, Hgb 9.6 L, Hct 31.9 L, MCV 83.2, MCH 25.1 L , MCHC 30.1 L, RDW 16.3, Plt Count 220, MPV 10.3, Neut % (Auto) 52.9, Lymph % (Auto) 22.5, Humphreys % (Auto) 23.3 H, Eos % (Auto) 0.5, Baso % (Auto) 0.9, Neut # (Auto) 4.2, Lymph # (Auto) 1.8, [place] # (Auto) 1.9 H, Eos # (Auto) 0.0, Baso # (Auto) 0.1, Total Counted 100, Neutrophils % (Manual) 58, Lymphocytes % (Manual) 19, Monocytes % (Manual) 23 H, Platelet Estimate Normal, Hypochromasia 1+, Sodium 138, Potassium 3.8, Chloride 103, Carbon Dioxide 31 H, Anion Gap 7.8, BUN 18, Creatinine 1.10, Estimated Creat Clear 70, Estimated GFR 64, Est GFR ( Amer) 78, Glucose 168 H, Calcium 9.7, Total Bilirubin 0.5, Direct Bilirubin 0.3, Conjugated Bilirubin 0.0, Indirect Bilirubin 0.2, Unconjugated Bilirubin 0.2, AST 20, ALT 16, Alkaline Phosphatase 106, Troponin I < 0.01, NT-Pro-B Natriuret Pep 351, Total Protein 7.0, Albumin 4.2 11/21/23 18:30: Troponin I < 0.01 11/21/23 20:38: POC Glucose 191 H 11/21/23 21:15: POC Glucose 192 H 11/21/23 21:25: Troponin I < 0.01 11/22/23 05:50: WBC 7.3, RBC 3.43 L, Hgb 8.7 L, Hct 27.6 L, MCV 80.5, MCH 25.4 L , MCHC 31.5 L, RDW 16.4, Plt Count 190, MPV 10.8 H, Neut % (Auto) 47.0, Lymph % (Auto) 25.5, [place] % (Auto) 26.2 H, Eos % (Auto) 0.4, Baso % (Auto) 0.9, Neut # (Auto) 3.4, Lymph # (Auto) 1.9, [place] # (Auto) 1.9 H, Eos # (Auto) 0.0, Baso # (Auto) 0.1, Total Counted 100, Neutrophils % (Manual) 52, Lymphocytes % (Manual) 37, Monocytes % (Manual) 10 H, Eosinophils % (Manual) 1, Platelet Estimate Normal, Hypochromasia 1+, Sodium 136, Potassium 3.4 L, Chloride 102, Carbon Dioxide 31 H, Anion Gap 6.4, BUN 21 H, Creatinine 1.20, Estimated Creat Clear 65, Estimated GFR 58 L, Est GFR ( Amer) 70, Glucose 171 H, Calcium 9.0, Iron 28 L, TIBC 338, Iron Saturation 8.57130 L, Ferritin 6.94 L, Triglycerides 128, Cholesterol 81 L, LDL Cholesterol Direct 37.18 L, VLDL Cholesterol 26, HDL Cholesterol 27 L, Cholesterol/HDL Ratio 3.0 11/22/23 05:51: POC Glucose 187 H 11/22/23 11:12: POC Glucose 211 H 11/22/23 11:55: WBC 7.4, RBC 3.41 L, Hgb 8.7 L, Hct 28.1 L, MCV 82.6, MCH 25.5 L , MCHC 30.9 L, RDW 16.5, Plt Count 209, MPV 10.3, Neut % (Auto) 49.5, Lymph % (Auto) 25.0, Humphreys % (Auto) 24.1 H, Eos % (Auto) 0.5, Baso % (Auto) 0.9, Neut # (Auto) 3.7, Lymph # (Auto) 1.9, [place] # (Auto) 1.8 H, Eos # (Auto) 0.0, Baso # (Auto) 0.1 I & O for Last 24 hours: Intake & Output 11/19/23 11/20/23 11/21/23 11/22/23 23:59 23:59 23:59 23:59 Intake Total 390 / 390 Output Total 0 / 0 0 / 0 Balance 390 / 390 0 / 0 Weight 93.525 kg 94.971 kg Results Data Completed and Pending Labs on day of discharge: Labs from last 24 hours 11/22/23 11/22/23 11/22/23 11:55 11:12 05:51 WBC 7.4 RBC 3.41 L Hgb 8.7 L Hct 28.1 L MCV 82.6 MCH 25.5 L MCHC 30.9 L RDW 16.5 Plt Count 209 MPV 10.3 Neut % (Auto) 49.5 Lymph % (Auto) 25.0 Humphreys % (Auto) 24.1 H Eos % (Auto) 0.5 Baso % (Auto) 0.9 Neut # (Auto) 3.7 Lymph # (Auto) 1.9 Humphreys # (Auto) 1.8 H Eos # (Auto) 0.0 Baso # (Auto) 0.1 Total Counted Neutrophils % (Manual) Lymphocytes % (Manual) Monocytes % (Manual) Eosinophils % (Manual) Platelet Estimate Hypochromasia Sodium Potassium Chloride Carbon Dioxide Anion Gap BUN Creatinine Estimated Creat Clear Estimated GFR Est GFR ( Amer) Glucose POC Glucose 211 H 187 H Calcium Iron TIBC Iron Saturation Ferritin Total Bilirubin Direct Bilirubin Conjugated Bilirubin Indirect Bilirubin Unconjugated Bilirubin AST ALT Alkaline Phosphatase Troponin I NT-Pro-B Natriuret Pep Total Protein Albumin Triglycerides Cholesterol LDL Cholesterol Direct VLDL Cholesterol HDL Cholesterol Cholesterol/HDL Ratio 11/22/23 11/21/23 11/21/23 05:50 21:25 21:15 WBC 7.3 RBC 3.43 L Hgb 8.7 L Hct 27.6 L MCV 80.5 MCH 25.4 L MCHC 31.5 L RDW 16.4 Plt Count 190 MPV 10.8 H Neut % (Auto) 47.0 Lymph % (Auto) 25.5 Humphreys % (Auto) 26.2 H Eos % (Auto) 0.4 Baso % (Auto) 0.9 Neut # (Auto) 3.4 Lymph # (Auto) 1.9 Humphreys # (Auto) 1.9 H Eos # (Auto) 0.0 Baso # (Auto) 0.1 Total Counted 100 Neutrophils % (Manual) 52 Lymphocytes % (Manual) 37 Monocytes % (Manual) 10 H Eosinophils % (Manual) 1 Platelet Estimate Normal Hypochromasia 1+ Sodium 136 Potassium 3.4 L Chloride 102 Carbon Dioxide 31 H Anion Gap 6.4 BUN 21 H Creatinine 1.20 Estimated Creat Clear 65 Estimated GFR 58 L Est GFR ( Amer) 70 Glucose 171 H POC Glucose 192 H Calcium 9.0 Iron 28 L TIBC 338 Iron Saturation 8.96210 L Ferritin 6.94 L Total Bilirubin Direct Bilirubin Conjugated Bilirubin Indirect Bilirubin Unconjugated Bilirubin AST ALT Alkaline Phosphatase Troponin I < 0.01 NT-Pro-B Natriuret Pep Total Protein Albumin Triglycerides 128 Cholesterol 81 L LDL Cholesterol Direct 37.18 L VLDL Cholesterol 26 HDL Cholesterol 27 L Cholesterol/HDL Ratio 3.0 11/21/23 11/21/23 11/21/23 20:38 18:30 14:55 WBC 8.0 RBC 3.83 L Hgb 9.6 L Hct 31.9 L MCV 83.2 MCH 25.1 L MCHC 30.1 L RDW 16.3 Plt Count 220 MPV 10.3 Neut % (Auto) 52.9 Lymph % (Auto) 22.5 Humphreys % (Auto) 23.3 H Eos % (Auto) 0.5 Baso % (Auto) 0.9 Neut # (Auto) 4.2 Lymph # (Auto) 1.8 Humphreys # (Auto) 1.9 H Eos # (Auto) 0.0 Baso # (Auto) 0.1 Total Counted 100 Neutrophils % (Manual) 58 Lymphocytes % (Manual) 19 Monocytes % (Manual) 23 H Eosinophils % (Manual) Platelet Estimate Normal Hypochromasia 1+ Sodium 138 Potassium 3.8 Chloride 103 Carbon Dioxide 31 H Anion Gap 7.8 BUN 18 Creatinine 1.10 Estimated Creat Clear 70 Estimated GFR 64 Est GFR ( Amer) 78 Glucose 168 H POC Glucose 191 H Calcium 9.7 Iron TIBC Iron Saturation Ferritin Total Bilirubin 0.5 Direct Bilirubin 0.3 Conjugated Bilirubin 0.0 Indirect Bilirubin 0.2 Unconjugated Bilirubin 0.2 AST 20 ALT 16 Alkaline Phosphatase 106 Troponin I < 0.01 < 0.01 NT-Pro-B Natriuret Pep 351 Total Protein 7.0 Albumin 4.2 Triglycerides Cholesterol LDL Cholesterol Direct VLDL Cholesterol HDL Cholesterol Cholesterol/HDL Ratio DS: Diagnosis Discharge Diagnosis (1) Atypical angina: Status: Acute Code(s): I20.89 - Other forms of angina pectoris (2) Shortness of breath: Status: Acute Code(s): R06.02 - Shortness of breath (3) Anemia: Status: Acute Code(s): D64.9 - Anemia, unspecified Qualifiers: Anemia type: iron deficiency Iron deficiency anemia type: unspecified iron deficiency Qualified Code(s): D50.9 - Iron deficiency anemia, unspecified (4) CAD (coronary artery disease): Status: Acute Code(s): I25.10 - Atherosclerotic heart disease of [place] coronary artery without angina pectoris Qualifiers: Coronary Disease-Associated Artery/Lesion type: [place] artery [place] vs. transplanted heart: [place] heart Associated angina: with unstable angina Qualified Code(s): I25.110 - Atherosclerotic heart disease of [place] coronary artery with unstable angina pectoris (5) HTN (hypertension): Status: Acute Code(s): I10 - Essential (primary) hypertension Qualifiers: Hypertension type: primary hypertension Qualified Code(s): I10 - Essential (primary) hypertension (6) Diabetes: Status: Acute Code(s): E11.9 - Type 2 diabetes mellitus without complications Qualifiers: 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 type: other specified (including SHAMAR) 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 tank terminal gauger insulin use: unspecified tank terminal gauger insulin use status 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 complication status: with other specified complication Qualified Code(s): E13.69 - Other specified diabetes mellitus with other specified complication (7) Hyperlipidemia: Status: Acute Code(s): E78.5 - Hyperlipidemia, unspecified Qualifiers: Hyperlipidemia type: mixed hyperlipidemia Qualified Code(s): E78.2 - Mixed hyperlipidemia Meds Home Medications and Allergies Home Medications Medication Instructions Recorded Confirmed Type aspirin 81 mg tablet,delayed 81 mg PO DAILY 10/18/23 11/21/23 History release (Adult Aspirin Regimen) cetirizine 10 mg tablet 10 mg PO DAILY 10/18/23 11/21/23 History empagliflozin 25 mg tablet 25 mg PO DAILY 10/18/23 11/21/23 History (Jardiance) finasteride 5 mg tablet 5 mg PO HS 10/18/23 11/21/23 History fluticasone 250 mcg-salmeterol 50 1 inh inhalation BID 10/18/23 11/21/23 History mcg/dose blistr powdr for inhalation fluticasone propionate 50 2 spray intranasal DAILY 10/18/23 11/21/23 History mcg/actuation nasal spray,suspension glimepiride 4 mg tablet 4 mg PO BID 10/18/23 11/21/23 History mecobalamin (vitamin B12) 1,000 1,000 mcg PO DAILY 10/18/23 11/21/23 History mcg lozenges montelukast 10 mg tablet 10 mg PO HS 10/18/23 11/21/23 History pioglitazone 15 mg tablet 15 mg PO DAILY 10/18/23 11/21/23 History propranolol 80 mg capsule,24 80 mg PO DAILY 10/18/23 11/21/23 History hr,extended release sitagliptin phosphate 100 mg 100 mg PO DAILY 10/18/23 11/21/23 History tablet (Januvia) tamsulosin 0.4 mg capsule 0.8 mg PO HS 10/18/23 11/21/23 History triamterene 37.5 1 cap PO DAILY 10/18/23 11/21/23 History mg-hydrochlorothiazide 25 mg capsule albuterol sulfate 90 mcg/actuation 1 puff inhalation Q6HP PRN 10/31/23 11/21/23 History aerosol inhaler Shortness Of Breath atorvastatin 40 mg tablet 80 mg (2 x 40 mg) PO HS 30 days 11/09/23 11/21/23 Rx #60 tabs clopidogrel 75 mg tablet 75 mg PO DAILY 30 days #30 tabs 11/09/23 11/21/23 Rx irbesartan 75 mg tablet 75 mg PO DAILY 30 days #30 tabs 11/09/23 11/21/23 Rx ascorbate calcium (vitamin C) 500 500 mg PO DAILY 11/21/23 11/21/23 History mg tablet ferrous sulfate 325 mg (65 mg 325 mg PO DAILY 11/21/23 11/21/23 History iron) tablet (FeroSul) New Prescriptions to Start Prescriptions: Allergies Allergy/AdvReac Type Severity Reaction Status Date / Time codeine Allergy Mild Rash Verified 11/21/23 13:41 Discharge Plan Disposition Patient Disposition: Home, Self-Care Condition: Fair Follow up Plan Follow up with: Dakota Klein MD [Primary Care Provider] - Enter time for follow up Coleman Mercedes MD [Staff Physician] - Enter time for follow up Prescriptions/Medication Reconciliation: No Action fluticasone propionate 50 mcg/actuation spray,suspension 2 spray intranasal DAILY Patient Comments: SHAKE LIQUID AND USE 2 SPRAYS IN EACH NOSTRIL DAILY glimepiride 4 mg tablet 4 mg PO BID Patient Comments: TAKE 1 TABLET BY MOUTH TWICE DAILY mecobalamin (vitamin B12) 1,000 mcg lozenge 1,000 mcg PO DAILY Rx Instructions: allow to dissolve in mouth OR may chew lightly before swallowing triamterene-hydrochlorothiazid 37.5-25 mg capsule 1 cap PO DAILY Patient Comments: TAKE 1 CAPSULE BY MOUTH DAILY cetirizine 10 mg tablet 10 mg PO DAILY Patient Comments: TAKE 1 TABLET BY MOUTH DAILY aspirin [Adult Aspirin Regimen] 81 mg tablet,delayed release (DR/EC) 81 mg PO DAILY fluticasone propion-salmeterol 250-50 mcg/dose blister with device 1 inh inhalation BID Patient Comments: INHALE 1 PUFF BY MOUTH TWICE DAILY Jardiance 25 mg tablet 25 mg PO DAILY Patient Comments: TAKE 1 TABLET BY MOUTH EVERY DAY tamsulosin 0.4 mg capsule 0.8 mg PO HS Patient Comments: TAKE 2 CAPSULES BY MOUTH AT BEDTIME propranolol 80 mg capsule,extended release 24 hr 80 mg PO DAILY Patient Comments: TAKE 1 CAPSULE BY MOUTH EVERY DAY Januvia 100 mg tablet 100 mg PO DAILY Patient Comments: TAKE 1 TABLET BY MOUTH DAILY pioglitazone 15 mg tablet 15 mg PO DAILY Patient Comments: TAKE 1 TABLET BY MOUTH DAILY finasteride 5 mg tablet 5 mg PO HS Patient Comments: TAKE 1 TABLET BY MOUTH DAILY AT BEDTIME montelukast 10 mg tablet 10 mg PO HS Patient Comments: TAKE 1 TABLET BY MOUTH DAILY ferrous sulfate [FeroSul] 325 mg (65 mg iron) tablet 325 mg PO DAILY Patient Comments: TAKE 1 TABLET BY MOUTH EVERY DAY WITH BREAKFAST ascorbate calcium (vitamin C) 500 mg tablet 500 mg PO DAILY albuterol sulfate 90 mcg/actuation HFA aerosol inhaler 1 puff INHALATION Q6HP PRN (Reason: Shortness Of Breath) Patient Comments: INHALE 1 PUFF BY MOUTH EVERY 6 HOURS NEEDED FOR SHORTNESS OF BREATH atorvastatin 40 mg Tablet 80 mg PO HS 30 Days Qty: 60 0RF clopidogrel 75 mg Tablet 75 mg PO DAILY 30 Days Qty: 30 0RF irbesartan 75 mg Tablet 75 mg PO DAILY 30 Days Qty: 30 0RF Problem Reconciliation Problems Reviewed?: Yes Patient Discharge Instructions ACTIVITY: Continue current activity DIET: continue same diet Patient Instructions: Anemia, DI for Cardiac Catheterization, DI for Shortness of Breath, DI for Surgical Site Infection, DI for Coronary Artery Disease, How to Manage Shortness of Breath Providers Primary Care Provider: Dakota Klein Admcharly Provider: Jerri Nickerson Attending Provider: Jerri Nickerson
[2023-11-22] MEDS: SUCRALFATE 1GM/10ML SUSP UDC 1 GM PO ×3 (12:52→21:43)
[2023-11-22] MEDS: IRON SUCROSE COMPLEX 200 MG in 0.9 % SODIUM CHLORIDE 100 ML 220 MG IV (12:53)
--- NOTE | 2023-11-22 13:13 | P.PN_ITS ---
Subjective *Date: 11/22/23 *Time: 15:42 Interval history: Continues to have dyspnea with exertion. Stable on room air. Had no nausea, vomiting, chest pain, confusion. Denies any melenic stools or diarrhea. Alert and oriented x 3 on exam. Medical Exam Vital signs and Labs for Last 24 Hours: Vital Signs Temp Pulse Pulse Resp BP Pulse Ox O2 Del Method 11/22/23 13:00 Room Air 11/22/23 11:00 Room Air 11/22/23 08:44 Room Air 11/22/23 08:00 90 11/22/23 08:00 Room Air 11/22/23 08:00 98.1 F 87 18 109/62 L 95 Room Air 11/22/23 06:37 Room Air 11/22/23 05:00 Room Air 11/22/23 04:00 97.7 F 84 18 124/59 L 95 Room Air 11/22/23 04:00 81 11/22/23 03:00 Room Air 11/22/23 00:47 Room Air 11/22/23 00:00 79 11/21/23 23:00 Room Air 11/21/23 21:00 Room Air 11/21/23 20:00 82 11/21/23 20:00 98.1 F 80 18 128/57 L 97 Room Air 11/21/23 19:49 Room Air 11/21/23 18:46 Room Air 11/21/23 17:00 Room Air 11/21/23 16:00 90 11/21/23 16:00 97.6 F 77 18 124/63 96 Room Air 11/21/23 15:10 Room Air 11/21/23 15:05 Room Air 11/21/23 14:57 70 11/21/23 14:44 97.7 F 72 18 108/56 L 96 Room Air Intake and Output 11/21/23 11/22/23 11/22/23 23:59 07:59 15:59 Intake Total 390 / 390 Output Total 0 / 0 0 / 0 0 / 0 Balance 390 / 390 0 / 0 0 / 0 Intake: Intake, Oral Amount 390 / 390 Output: Output, Urine Amount 0 / 0 0 / 0 0 / 0 Other: Number of Unmeasured Voids 2 1 1 Weight 94.971 kg Patient Weight 11/22/23 23:59 Weight 94.971 kg Laboratory Results - last 24 hr 11/21/23 14:55: WBC 8.0, RBC 3.83 L, Hgb 9.6 L, Hct 31.9 L, MCV 83.2, MCH 25.1 L , MCHC 30.1 L, RDW 16.3, Plt Count 220, MPV 10.3, Neut % (Auto) 52.9, Lymph % (Auto) 22.5, [place] % (Auto) 23.3 H, Eos % (Auto) 0.5, Baso % (Auto) 0.9, Neut # (Auto) 4.2, Lymph # (Auto) 1.8, [place] # (Auto) 1.9 H, Eos # (Auto) 0.0, Baso # (Auto) 0.1, Total Counted 100, Neutrophils % (Manual) 58, Lymphocytes % (Manual) 19, Monocytes % (Manual) 23 H, Platelet Estimate Normal, Hypochromasia 1+, Sodium 138, Potassium 3.8, Chloride 103, Carbon Dioxide 31 H, Anion Gap 7.8, BUN 18, Creatinine 1.10, Estimated Creat Clear 70, Estimated GFR 64, Est GFR ( Amer) 78, Glucose 168 H, Calcium 9.7, Total Bilirubin 0.5, Direct Bilirubin 0.3, Conjugated Bilirubin 0.0, Indirect Bilirubin 0.2, Unconjugated Bilirubin 0.2, AST 20, ALT 16, Alkaline Phosphatase 106, Troponin I < 0.01, NT-Pro-B Natriuret Pep 351, Total Protein 7.0, Albumin 4.2 11/21/23 18:30: Troponin I < 0.01 11/21/23 20:38: POC Glucose 191 H 11/21/23 21:15: POC Glucose 192 H 11/21/23 21:25: Troponin I < 0.01 11/22/23 05:50: WBC 7.3, RBC 3.43 L, Hgb 8.7 L, Hct 27.6 L, MCV 80.5, MCH 25.4 L , MCHC 31.5 L, RDW 16.4, Plt Count 190, MPV 10.8 H, Neut % (Auto) 47.0, Lymph % (Auto) 25.5, [place] % (Auto) 26.2 H, Eos % (Auto) 0.4, Baso % (Auto) 0.9, Neut # (Auto) 3.4, Lymph # (Auto) 1.9, [place] # (Auto) 1.9 H, Eos # (Auto) 0.0, Baso # (Auto) 0.1, Total Counted 100, Neutrophils % (Manual) 52, Lymphocytes % (Manual) 37, Monocytes % (Manual) 10 H, Eosinophils % (Manual) 1, Platelet Estimate Normal, Hypochromasia 1+, Sodium 136, Potassium 3.4 L, Chloride 102, Carbon Dioxide 31 H, Anion Gap 6.4, BUN 21 H, Creatinine 1.20, Estimated Creat Clear 65, Estimated GFR 58 L, Est GFR ( Amer) 70, Glucose 171 H, Calcium 9.0, Iron 28 L, TIBC 338, Iron Saturation 8.49703 L, Ferritin 6.94 L, Triglycerides 128, Cholesterol 81 L, LDL Cholesterol Direct 37.18 L, VLDL Cholesterol 26, HDL Cholesterol 27 L, Cholesterol/HDL Ratio 3.0 11/22/23 05:51: POC Glucose 187 H 11/22/23 11:12: POC Glucose 211 H 11/22/23 11:55: WBC 7.4, RBC 3.41 L, Hgb 8.7 L, Hct 28.1 L, MCV 82.6, MCH 25.5 L , MCHC 30.9 L, RDW 16.5, Plt Count 209, MPV 10.3, Neut % (Auto) 49.5, Lymph % (Auto) 25.0, [place] % (Auto) 24.1 H, Eos % (Auto) 0.5, Baso % (Auto) 0.9, Neut # (Auto) 3.7, Lymph # (Auto) 1.9, [place] # (Auto) 1.8 H, Eos # (Auto) 0.0, Baso # (Auto) 0.1 11/22/23 12:40: Crossmatch (AHG) See Detail I & O for Labs for Last 24 Hours: Intake & Output 11/19/23 11/20/23 11/21/23 11/22/23 23:59 23:59 23:59 23:59 Intake Total 390 / 390 Output Total 0 / 0 0 / 0 Balance 390 / 390 0 / 0 Weight 93.525 kg 94.971 kg Constitutional: Present no acute distress, obese and cooperative Head: Present atraumatic and normocephalic ENT: Present normal exam Neck: Present normal inspection Respiratory: Present normal respiratory effort; Absent rhonchi, wheezes or crackles Cardiac: Present Reg Rate and Rhythm GI: Present soft and normal bowel sounds; Absent distention or tenderness Extremities: Present normal inspection, full ROM and edema Skin: Present intact; Absent erythema Neuro: Present Grossly Intact, alert, awake, oriented x 3 and moves all extremities Assessment and Plan *Assessment and plan (1) CAD (coronary artery disease): Status: Acute Qualifiers: Coronary Disease-Associated Artery/Lesion type: [place] artery [place] vs. transplanted heart: [place] heart Associated angina: with unstable angina Qualified Code(s): I25.110 - Atherosclerotic heart disease of [place] coronary artery with unstable angina pectoris Category: Medical Code(s): I25.10 - Atherosclerotic heart disease of [place] coronary artery without angina pectoris (2) Atypical angina: Status: Acute Category: Medical Code(s): I20.89 - Other forms of angina pectoris (3) Anemia: Status: Acute Qualifiers: Anemia type: iron deficiency [place] deficiency anemia type: unspecified iron deficiency Qualified Code(s): D50.9 - Iron deficiency anemia, unspecified Category: Medical Code(s): D64.9 - Anemia, unspecified (4) Shortness of breath: Status: Acute Category: Medical Code(s): R06.02 - Shortness of breath (5) HTN (hypertension): Status: Acute Qualifiers: Hypertension type: primary hypertension Qualified Code(s): I10 - Essential (primary) hypertension Category: Medical Code(s): I10 - Essential (primary) hypertension (6) Diabetes: Status: Acute Qualifiers: 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 type: other specified (including SHAMAR) 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 termite helper insulin use: unspecified termite helper insulin use status 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 complication status: with other specified complication Qualified Code(s): E13.69 - Other specified diabetes mellitus with other specified complication Category: Medical Code(s): E11.9 - Type 2 diabetes mellitus without complications (7) Hyperlipidemia: Status: Acute Qualifiers: Hyperlipidemia type: mixed hyperlipidemia Qualified Code(s): E78.2 - Mixed hyperlipidemia Category: Medical Code(s): E78.5 - Hyperlipidemia, unspecified Plan Patient is a 83-year-old male who presents to the hospital as a direct admit from cardiology clinic, patient initially presented to cardiology office for shortness of breath and for follow-up on his cardiac catheterization. Patient has been noticed to have increased weight gain of around 9 pounds as well as bilateral lower extremity edema, he also has been noticed to have drop in hemoglobin. Patient otherwise denied chest pain nausea vomiting diarrhea constipation dysuria fevers and chills. He has noticed bilateral lower extremity edema as well as exertional shortness of breath. Cardiology assisting with care. Continues to require inpatient management. Cath aborted this mor bossman due to anemia and low blood pressure when arrived to the [employer] [facility]. Receiving 2 units packed red blood cells. Reevaluate cath in the morning. Problems addressed as follows: CAD Atypical angina Exertional dyspnea -Attention/hyperlipidemia -BNP 351. No signs of CHF. Recent echo from 2 weeks ago showed normal EF and no diastolic dysfunction. -Discussed case with cardiology, original plan was to go for heart cath. Patient noted to be anemic at 8.7 (within the range of his normal) but was hypotensive when he arrived to the [employer] [facility]. Decision made to abort cath, transfuse, reevaluate need for heart cath in the morning. -Continue aspirin 81 mg daily, Plavix 75 mg daily, Lipitor 80 mg daily. -Continue empagliflozin 25 mg daily for CHF and diabetes -Continue propranolol, Januvia, HCTZ. -Kidney function at baseline with BUN 21, creatinine 1.2 Iron deficiency anemia -Ferritin 6.9, iron saturation low at 8.2%. Recently started on outpatient oral iron replacement. Hemoglobin 8.7. -Will administer 200 mg Venofer x 1 -Transfuse 2 units packed red blood cells today. Hemoglobin transfusion threshold less than 9 in the setting of CAD and ACS. -Protonix 40 mg IV twice daily -Repeat BMP, CBC ordered for the morning. 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 - A1c pending. Continue sliding scale insulin with fingersticks ACHS. Tamsulosin 0.8 mg nightly for BPH Discontinue DVT prophylaxis in the setting of anemia Regular diet Full code
[2023-11-22] MEDS: PANTOPRAZOLE SODIUM 80 MG in 0.9 % SODIUM CHLORIDE 100 ML 100 MG IV (14:02)
[2023-11-22] MEDS: 0.9 % SODIUM CHLORIDE 250 ML 25 ML IV ×2 (14:26→17:00)
[2023-11-22 17:40] LABS: POC Glucose,Bedside 223 (70-110)
--- NOTE | 2023-11-22 18:51 | PC.NURSE ---
A&OX4. TOLERATING RA WELL. PT HAS HAD NO C/O SOA TODAY. HAS STATED HE FEELS DIZZY WHEN HE SITS UP FROM LYING DOWN. RECEIVING 2 UNITS OF PRBC, TOLERATING WELL. ASKED TO NOT BE BOTHERED AFTER 10PM UNTIL LABS IN THE MORNING. MD MARKS AWARE, WILL PASS ON TO NEXT SHIFT. VSS.
[2023-11-22 21:24] LABS: Hematocrit 34.1 % (42.0-52.0)
--- NOTE | 2023-11-22 21:26 | PC.NURSE ---
Notified hospice of pt passing at this time.
[2023-11-22 21:31] LABS: Hemoglobin 10.7 g/dL (14.1-18.0)
[2023-11-22] MEDS: PAT OWN MED ***MONTELUKAST SODIUM 10MG 10 MG PO (21:42)
[2023-11-22] MEDS: PANTOPRAZOLE 40MG VIAL 40 MG IV (21:42)
[2023-11-22] MEDS: PAT OWN MED ***TAMSULOSIN 0.4MG 0.800000000000000044 MG PO (21:42)
[2023-11-22] MEDS: PAT OWN MED ***ATORVASTATIN 40MG 80 MG PO (21:42)
[2023-11-22 21:57] LABS: POC Glucose,Bedside 176 (70-110)
[2023-11-23] VITALS: PULSE 95
[2023-11-23 04:00] VITALS: PULSE 89; BMI 31.7
[2023-11-23 05:30] VITALS: BP 126/55; PULSE 100; RESP 14; TEMP 36.5; O2SAT 93
[2023-11-23 05:59] LABS: POC Glucose,Bedside 159 (70-110)
[2023-11-23] MEDS: humaLOG 100 UNITS/ML 3ML VIAL (SSI) SQ (06:04)
[2023-11-23] MEDS: SITAGLIPTIN 100 MG 1 EACH PO (06:04)
[2023-11-23] MEDS: FLUTICASONE/SALMETEROL 250/50MCG DISKUS 1 PUFF IH (06:27)
[2023-11-23 06:37] LABS: Basophils % 0.6 % (0.1-2.0); Eosinophils % 0.4 % (0.1-12.0); Hematocrit 33.8 % (42.0-52.0); Hemoglobin 10.6 g/dL (14.1-18.0); Lymphocytes # 1.9 K/mm3 (0.7-4.5); Lymphocytes % 25.5 % (10-50); Mean Corpuscular HGB Conc 31.4 g/dL (31.8-35.4); Mean Corpuscular Hemoglobin 25.3 pg (27.0-31.2); Mean Corpuscular Volume 80.7 fl (80-94); Monocytes # 1.9 K/mm3 (0.1-1.0); Monocytes % 26.2 % (1.7-9.3); Neutrophils # 3.4 K/mm3 (1.8-7.8); Neutrophils % 47.2 % (37.0-80.0); Platelet Count 173 K/mm3 (142-424); Red Blood Count 4.19 M/mm3 (4.60-6.20); Red Cell Distribution Width 17.2 % (11.5-17.5); White Blood Count 7.3 K/mm3 (4.8-10.8)
[2023-11-23 06:45] LABS: MANUAL DIFFERENTIAL MANUAL DIFFERENTIAL (MANUAL DIFF)
[2023-11-23 06:47] LABS: Anion Gap 9.2 mEq/L (5-15); Blood Urea Nitrogen 25 mg/dl (9-20); Calcium 8.6 mg/dl (8.4-10.2); Carbon Dioxide 28 mmol/L (22.0-30.0); Chloride 103 mmol/L (98-107); Creatinine Clearance Estimated 60 mL/min (50-200); Estimated Glomerular Filt Rate 53 ml/min (>60); GFR (African American) 64 ML/MIN (>60); Glucose 153 mg/dl (74-100); Potassium 3.2 mmoL/L (3.5-5.1); Sodium 137 mmol/L (136-145)
[2023-11-23 08:00] VITALS: BP 110/73; PULSE 110; PULSE 113; RESP 17; TEMP 36.3; O2SAT 94
[2023-11-23] MEDS: SUCRALFATE 1GM/10ML SUSP UDC 1 GM PO ×2 (08:41→13:15)
[2023-11-23] MEDS: LORATADINE 10MG TABLET 10 MG PO (08:41)
[2023-11-23] MEDS: FLUTICASONE PROP 50MCG NASAL SPRAY 16GM 2 SPRAY NS (08:42)
[2023-11-23] MEDS: PAT OWN MED ***ASPIRIN EC 81MG 81 MG PO (08:42)
[2023-11-23] MEDS: PAT OWN MED ***CLOPIDOGREL 75MG 75 MG PO (08:42)
[2023-11-23] MEDS: PROPRANOLOL 80 MG 1 EACH PO (08:43)
[2023-11-23] MEDS: EMPAGLIFLOZIN 25 MG 1 EACH PO (08:43)
[2023-11-23] MEDS: PANTOPRAZOLE 40MG VIAL 40 MG IV (08:44)
[2023-11-23] MEDS: SODIUM CHLORIDE 0.9% 10ML VIAL 10 ML IV (08:44)
[2023-11-23 09:02] LABS: Eosinophils % 2 % (0-3); Lymphocytes % 16 % (10-50); Monocytes % 25 % (2-9); Neutrophils % 53 % (42-76); Total Cells Counted 100
[2023-11-23 09:04] LABS: Anisocytosis 1+; Hypochromasia 1+; Platelet Estimate Normal
[2023-11-23 09:10] LABS: Macrocytosis 1+; Poikilocytosis 1+; Spherocytes 1+
[2023-11-23] MEDS: POTASSIUM CHLORIDE 20MEQ TAB 40 MEQ PO (11:34)
[2023-11-23 11:45] LABS: POC Glucose,Bedside 157 (70-110)
[2023-11-23 12:00] VITALS: BP 150/69; PULSE 100; PULSE 93; RESP 17; TEMP 36.6; O2SAT 95
[2023-11-23 12:36] LABS: Hemoglobin A1C 6.5 % (4.0-6.0)
--- NOTE | 2023-11-23 13:32 | P.DS_ITS ---
General Admission date:: 11/21/23 Discharge date: 11/23/23 HPI HPI HPI: Patient is a 83-year-old male who presents to the hospital as a direct admit from cardiology clinic, patient initially presented to cardiology office for shortness of breath and for follow-up on his cardiac catheterization. Patient has been noticed to have increased weight gain of around 9 pounds as well as bilateral lower extremity edema, he also has been noticed to have drop in hemoglobin. Patient otherwise denied chest pain nausea vomiting diarrhea constipation dysuria fevers and chills. He has noticed bilateral lower extremity edema as well as exertional shortness of breath. Hospital Course Hospital Course Hospital Course: Patient is a 83-year-old male who presents to the hospital as a direct admit from cardiology clinic, patient initially presented to cardiology office for shortness of breath and for follow-up on his cardiac catheterization. Patient has been noticed to have increased weight gain of around 9 pounds as well as bilateral lower extremity edema, he also has been noticed to have drop in hemoglobin. Patient otherwise denied chest pain nausea vomiting diarrhea constipation dysuria fevers and chills. He has noticed bilateral lower extremity edema as well as exertion shortness of breath. Exertional shortness of breath, bilateral lower extremity edema suspect acute CHF - stable 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 Insulin sliding scale Hypertension Hyperlipidemia Resume home -- Jardiance, propranolol, Januvia, HCTZ, follow up with cardiology as OP Exam Data for Last 24 hours Vital signs and Labs for Last 24 Hours: Temp Pulse Resp BP Pulse Ox O2 Del Method 97.8 F 93 H 17 150/69 H 95 Room Air 11/23/23 12:00 11/23/23 12:00 11/23/23 12:00 11/23/23 12:00 11/23/23 12:00 11/23/23 12:43 Laboratory Results - last 24 hr 11/22/23 05:50: Blood Type Confirm O Positive 11/22/23 12:40: Blood Type O Positive, Antibody Screen Negative, Crossmatch ([facility]) See Detail 11/22/23 17:29: POC Glucose 223 H 11/22/23 21:06: Hgb 10.7 L D, Hct 34.1 L 11/22/23 21:41: POC Glucose 176 H 11/23/23 05:52: POC Glucose 159 H 11/23/23 05:55: WBC 7.3, RBC 4.19 L, Hgb 10.6 L, Hct 33.8 L, MCV 80.7, MCH 25.3 L, MCHC 31.4 L, RDW 17.2, Plt Count 173, MPV 10.0, Neut % (Auto) 47.2, Lymph % (Auto) 25.5, [place] % (Auto) 26.2 H, Eos % (Auto) 0.4, Baso % (Auto) 0.6, Neut # (Auto) 3.4, Lymph # (Auto) 1.9, [place] # (Auto) 1.9 H, Eos # (Auto) 0.0, Baso # (Auto) 0.0, Total Counted 100, Neutrophils % (Manual) 53, Band Neutrophils % 4.0, Lymphocytes % (Manual) 16, Monocytes % (Manual) 25 H, Eosinophils % (Manual) 2, Platelet Estimate Normal, Hypochromasia 1+, Poikilocytosis 1+, Anisocytosis 1+, Macrocytosis 1+, Spherocytes 1+, Sodium 137, Potassium 3.2 L, Chloride 103, Carbon Dioxide 28, Anion Gap 9.2, BUN 25 H, Creatinine 1.30 H, Estimated Creat Clear 60, Estimated GFR 53 L, Est GFR ( Amer) 64, Glucose 153 H, Hemoglobin A1c 6.5 H, Calcium 8.6 11/23/23 11:36: POC Glucose 157 H I & O for Last 24 hours: Intake & Output 11/20/23 11/21/23 11/22/23 11/23/23 23:59 23:59 23:59 23:59 Intake Total 390 / 390 520 / 520 720 / 720 Output Total 0 / 0 0 / 0 Balance 390 / 390 520 / 520 720 / 720 Weight 93.525 kg 94.971 kg 94.971 kg Constitutional Constitutional: no acute distress *Routine HEENT Exam Head: Present normocephalic Eye: Present EOMI and PERRL ENT: Present mucous membranes moist *Routine Neck Exam Neck: Present supple; Absent lymphadenopathy *Routine Respiratory Exam Respiratory: Present CTA bilaterally *Routine Cardiovascular Exam Cardiovascular: Present RRR *Routine Abdominal Exam Abdominal: Present soft and normoactive bowel sounds; Absent tenderness *Routine Extremities Exam Extremities: Absent cyanosis, clubbing or edema *Routine Skin Exam Skin: Present warm; Absent rash *Routine Neurological Exam Neurological: Present alert and oriented X3 Results Data Completed and Pending Labs on day of discharge: Labs from last 24 hours 11/23/23 11/23/23 11/23/23 11:36 05:55 05:52 WBC 7.3 RBC 4.19 L Hgb 10.6 L Hct 33.8 L MCV 80.7 MCH 25.3 L MCHC 31.4 L RDW 17.2 Plt Count 173 MPV 10.0 Neut % (Auto) 47.2 Lymph % (Auto) 25.5 [place] % (Auto) 26.2 H Eos % (Auto) 0.4 Baso % (Auto) 0.6 Neut # (Auto) 3.4 Lymph # (Auto) 1.9 [place] # (Auto) 1.9 H Eos # (Auto) 0.0 Baso # (Auto) 0.0 Total Counted 100 Neutrophils % (Manual) 53 Band Neutrophils % 4.0 Lymphocytes % (Manual) 16 Monocytes % (Manual) 25 H Eosinophils % (Manual) 2 Platelet Estimate Normal Hypochromasia 1+ Poikilocytosis 1+ Anisocytosis 1+ Macrocytosis 1+ Spherocytes 1+ Sodium 137 Potassium 3.2 L Chloride 103 Carbon Dioxide 28 Anion Gap 9.2 BUN 25 H Creatinine 1.30 H Estimated Creat Clear 60 Estimated GFR 53 L Est GFR ( Amer) 64 Glucose 153 H POC Glucose 157 H 159 H Hemoglobin A1c 6.5 H Calcium 8.6 Blood Type Blood Type Confirm Antibody Screen Crossmatch ([facility]) 11/22/23 11/22/23 11/22/23 21:41 21:06 17:29 WBC RBC Hgb 10.7 L D Hct 34.1 L MCV MCH MCHC RDW Plt Count MPV Neut % (Auto) Lymph % (Auto) [place] % (Auto) Eos % (Auto) Baso % (Auto) Neut # (Auto) Lymph # (Auto) [place] # (Auto) Eos # (Auto) Baso # (Auto) Total Counted Neutrophils % (Manual) Band Neutrophils % Lymphocytes % (Manual) Monocytes % (Manual) Eosinophils % (Manual) Platelet Estimate Hypochromasia Poikilocytosis Anisocytosis Macrocytosis Spherocytes Sodium Potassium Chloride Carbon Dioxide Anion Gap BUN Creatinine Estimated Creat Clear Estimated GFR Est GFR ( Amer) Glucose POC Glucose 176 H 223 H Hemoglobin A1c Calcium Blood Type Blood Type Confirm Antibody Screen Crossmatch ([facility]) 11/22/23 11/22/23 12:40 05:50 WBC RBC Hgb Hct MCV MCH MCHC RDW Plt Count MPV Neut % (Auto) Lymph % (Auto) [place] % (Auto) Eos % (Auto) Baso % (Auto) Neut # (Auto) Lymph # (Auto) [place] # (Auto) Eos # (Auto) Baso # (Auto) Total Counted Neutrophils % (Manual) Band Neutrophils % Lymphocytes % (Manual) Monocytes % (Manual) Eosinophils % (Manual) Platelet Estimate Hypochromasia Poikilocytosis Anisocytosis Macrocytosis Spherocytes Sodium Potassium Chloride Carbon Dioxide Anion Gap BUN Creatinine Estimated Creat Clear Estimated GFR Est GFR ( Amer) Glucose POC Glucose Hemoglobin A1c Calcium Blood Type O Positive Blood Type Confirm O Positive Antibody Screen Negative Crossmatch ([facility]) See Detail DS: Diagnosis Discharge Diagnosis (1) CAD (coronary artery disease): Status: Acute Code(s): I25.10 - Atherosclerotic heart disease of [place] coronary artery without angina pectoris Qualifiers: Coronary Disease-Associated Artery/Lesion type: [place] artery [place] vs. transplanted heart: [place] heart Associated angina: with unstable angina Qualified Code(s): I25.110 - Atherosclerotic heart disease of [place] coronary artery with unstable angina pectoris (2) Atypical angina: Status: Acute Code(s): I20.89 - Other forms of angina pectoris (3) Anemia: Status: Acute Code(s): D64.9 - Anemia, unspecified Qualifiers: Anemia type: iron deficiency Iron deficiency anemia type: unspecified iron deficiency Qualified Code(s): D50.9 - Iron deficiency anemia, unspecified (4) Shortness of breath: Status: Acute Code(s): R06.02 - Shortness of breath (5) HTN (hypertension): Status: Acute Code(s): I10 - Essential (primary) hypertension Qualifiers: Hypertension type: primary hypertension Qualified Code(s): I10 - Essential (primary) hypertension (6) Diabetes: Status: Acute Code(s): E11.9 - Type 2 diabetes mellitus without complications Qualifiers: 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 type: other specified (including SHAMAR) 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 manufacturing project manager insulin use: unspecified manufacturing project manager insulin use status 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 complication status: with other specified complication Qualified Code(s): E13.69 - Other specified diabetes mellitus with other specified complication (7) Hyperlipidemia: Status: Acute Code(s): E78.5 - Hyperlipidemia, unspecified Qualifiers: Hyperlipidemia type: mixed hyperlipidemia Qualified Code(s): E78.2 - Mixed hyperlipidemia Meds Home Medications and Allergies Home Medications Medication Instructions Recorded Confirmed Type aspirin 81 mg tablet,delayed 81 mg PO DAILY 10/18/23 11/21/23 History release (Adult Aspirin Regimen) cetirizine 10 mg tablet 10 mg PO DAILY 10/18/23 11/21/23 History empagliflozin 25 mg tablet 25 mg PO DAILY 10/18/23 11/21/23 History (Jardiance) finasteride 5 mg tablet 5 mg PO HS 10/18/23 11/21/23 History fluticasone 250 mcg-salmeterol 50 1 inh inhalation BID 10/18/23 11/21/23 History mcg/dose blistr powdr for inhalation fluticasone propionate 50 2 spray intranasal DAILY 10/18/23 11/21/23 History mcg/actuation nasal spray,suspension glimepiride 4 mg tablet 4 mg PO BID 10/18/23 11/21/23 History mecobalamin (vitamin B12) 1,000 1,000 mcg PO DAILY 10/18/23 11/21/23 History mcg lozenges montelukast 10 mg tablet 10 mg PO HS 10/18/23 11/21/23 History pioglitazone 15 mg tablet 15 mg PO DAILY 10/18/23 11/21/23 History propranolol 80 mg capsule,24 80 mg PO DAILY 10/18/23 11/21/23 History hr,extended release sitagliptin phosphate 100 mg 100 mg PO DAILY 10/18/23 11/21/23 History tablet (Januvia) tamsulosin 0.4 mg capsule 0.8 mg PO HS 10/18/23 11/21/23 History triamterene 37.5 1 cap PO DAILY 10/18/23 11/21/23 History mg-hydrochlorothiazide 25 mg capsule albuterol sulfate 90 mcg/actuation 1 puff inhalation Q6HP PRN 10/31/23 11/21/23 History aerosol inhaler Shortness Of Breath atorvastatin 40 mg tablet 80 mg (2 x 40 mg) PO HS 30 days 11/09/23 11/21/23 Rx #60 tabs clopidogrel 75 mg tablet 75 mg PO DAILY 30 days #30 tabs 11/09/23 11/21/23 Rx irbesartan 75 mg tablet 75 mg PO DAILY 30 days #30 tabs 11/09/23 11/21/23 Rx ascorbate calcium (vitamin C) 500 500 mg PO DAILY 11/21/23 11/21/23 History mg tablet ferrous sulfate 325 mg (65 mg 325 mg PO DAILY 11/21/23 11/21/23 History iron) tablet (FeroSul) New Prescriptions to Start Prescriptions: Allergies Allergy/AdvReac Type Severity Reaction Status Date / Time codeine Allergy Mild Rash Verified 11/21/23 13:41 Discharge Plan Disposition Patient Disposition: Home, Self-Care Condition: Fair Follow up Plan Follow up with: Dakota Klein MD [Primary Care Provider] - Enter time for follow up Coleman Mercedes MD [Staff Physician] - Enter time for follow up Prescriptions/Medication Reconciliation: Continued fluticasone propionate 50 mcg/actuation spray,suspension 2 spray intranasal DAILY Patient Comments: SHAKE LIQUID AND USE 2 SPRAYS IN EACH NOSTRIL DAILY glimepiride 4 mg tablet 4 mg PO BID Patient Comments: TAKE 1 TABLET BY MOUTH TWICE DAILY mecobalamin (vitamin B12) 1,000 mcg lozenge 1,000 mcg PO DAILY Rx Instructions: allow to dissolve in mouth OR may chew lightly before swallowing triamterene-hydrochlorothiazid 37.5-25 mg capsule 1 cap PO DAILY Patient Comments: TAKE 1 CAPSULE BY MOUTH DAILY cetirizine 10 mg tablet 10 mg PO DAILY Patient Comments: TAKE 1 TABLET BY MOUTH DAILY aspirin [Adult Aspirin Regimen] 81 mg tablet,delayed release (DR/EC) 81 mg PO DAILY fluticasone propion-salmeterol 250-50 mcg/dose blister with device 1 inh inhalation BID Patient Comments: INHALE 1 PUFF BY MOUTH TWICE DAILY Jardiance 25 mg tablet 25 mg PO DAILY Patient Comments: TAKE 1 TABLET BY MOUTH EVERY DAY tamsulosin 0.4 mg capsule 0.8 mg PO HS Patient Comments: TAKE 2 CAPSULES BY MOUTH AT BEDTIME propranolol 80 mg capsule,extended release 24 hr 80 mg PO DAILY Patient Comments: TAKE 1 CAPSULE BY MOUTH EVERY DAY Januvia 100 mg tablet 100 mg PO DAILY Patient Comments: TAKE 1 TABLET BY MOUTH DAILY pioglitazone 15 mg tablet 15 mg PO DAILY Patient Comments: TAKE 1 TABLET BY MOUTH DAILY finasteride 5 mg tablet 5 mg PO HS Patient Comments: TAKE 1 TABLET BY MOUTH DAILY AT BEDTIME montelukast 10 mg tablet 10 mg PO HS Patient Comments: TAKE 1 TABLET BY MOUTH DAILY ferrous sulfate [FeroSul] 325 mg (65 mg iron) tablet 325 mg PO DAILY Patient Comments: TAKE 1 TABLET BY MOUTH EVERY DAY WITH BREAKFAST ascorbate calcium (vitamin C) 500 mg tablet 500 mg PO DAILY albuterol sulfate 90 mcg/actuation HFA aerosol inhaler 1 puff INHALATION Q6HP PRN (Reason: Shortness Of Breath) Patient Comments: INHALE 1 PUFF BY MOUTH EVERY 6 HOURS NEEDED FOR SHORTNESS OF BREATH atorvastatin 40 mg Tablet 80 mg PO HS 30 Days Qty: 60 0RF clopidogrel 75 mg Tablet 75 mg PO DAILY 30 Days Qty: 30 0RF irbesartan 75 mg Tablet 75 mg PO DAILY 30 Days Qty: 30 0RF Problem Reconciliation Problems Reviewed?: Yes Patient Discharge Instructions ACTIVITY: Continue current activity DIET: continue same diet Patient Instructions: Anemia, DI for Cardiac Catheterization, DI for Shortness of Breath, DI for Surgical Site Infection, DI for Coronary Artery Disease, How to Manage Shortness of Breath Providers Primary Care Provider: Dakota Klein Admit Provider: Jerri Nickerson Attending Provider: Jerri Nickerson
--- NOTE | 2023-11-23 13:41 | P.PN_ITS ---
Subjective Subjective Date: 11/23/23 Time: 09:30 Principal diagnosis: SOA, iron deficiency anemia Interval history: This is an 83-year-old gentleman who is admitted to the hospital from cardiology clinic due to shortness of breath following a recent cardiac catheterization. The patient was scheduled to undergo a repeat left cardiac catheterization yesterday when he got down to the cardiac Welding Equipment Sales Representative the patient became hypotensive with a blood pressure in the 50s over 30s and he was anemic with a hemoglobin of 8.7. The cardiac catheterization was aborted and the patient was transfused with 2 units of packed red blood cells. He states that his shortness of breath has significantly improved today. He states that he is feeling much better. He denies any chest pain or pressure. He denies any fever, chills, nausea, vomiting, diarrhea, PND or orthopnea. He denies any lower extremity edema. Exam Data for Last 24 hours Vital signs and Labs for Last 24 Hours: Temp Pulse Resp BP Pulse Ox O2 Del Method 97.8 F 93 H 17 150/69 H 95 Room Air 11/23/23 12:00 11/23/23 12:00 11/23/23 12:00 11/23/23 12:00 11/23/23 12:00 11/23/23 12:43 Laboratory Results - last 24 hr 11/22/23 05:50: Blood Type Confirm O Positive 11/22/23 12:40: Blood Type O Positive, Antibody Screen Negative, Crossmatch ([facility]) See Detail 11/22/23 17:29: POC Glucose 223 H 11/22/23 21:06: Hgb 10.7 L D, Hct 34.1 L 11/22/23 21:41: POC Glucose 176 H 11/23/23 05:52: POC Glucose 159 H 11/23/23 05:55: WBC 7.3, RBC 4.19 L, Hgb 10.6 L, Hct 33.8 L, MCV 80.7, MCH 25.3 L, MCHC 31.4 L, RDW 17.2, Plt Count 173, MPV 10.0, Neut % (Auto) 47.2, Lymph % (Auto) 25.5, [place] % (Auto) 26.2 H, Eos % (Auto) 0.4, Baso % (Auto) 0.6, Neut # (Auto) 3.4, Lymph # (Auto) 1.9, [place] # (Auto) 1.9 H, Eos # (Auto) 0.0, Baso # (Auto) 0.0, Total Counted 100, Neutrophils % (Manual) 53, Band Neutrophils % 4.0, Lymphocytes % (Manual) 16, Monocytes % (Manual) 25 H, Eosinophils % (Manual) 2, Platelet Estimate Normal, Hypochromasia 1+, Poikilocytosis 1+, Anisocytosis 1+, Macrocytosis 1+, Spherocytes 1+, Sodium 137, Potassium 3.2 L, Chloride 103, Carbon Dioxide 28, Anion Gap 9.2, BUN 25 H, Creatinine 1.30 H, Estimated Creat Clear 60, Estimated GFR 53 L, Est GFR ( Amer) 64, Glucose 153 H, Hemoglobin A1c 6.5 H, Calcium 8.6 11/23/23 11:36: POC Glucose 157 H I & O for Last 24 hours: Intake & Output 11/20/23 11/21/23 11/22/23 11/23/23 23:59 23:59 23:59 23:59 Intake Total 390 / 390 520 / 520 720 / 720 Output Total 0 / 0 0 / 0 Balance 390 / 390 520 / 520 720 / 720 Weight 206 lb 2.997 oz 209 lb 6 oz 209 lb 6.003 oz Constitutional Constitutional: no acute distress and obese *Routine HEENT Exam Head: Present normocephalic and atraumatic ENT: Present mucous membranes moist *Routine Neck Exam Neck: Present supple, full ROM and normal carotid upstroke; Absent JVD, carotid bruit or lymphadenopathy *Routine Respiratory Exam Respiratory: Present CTA bilaterally, normal respiratory effort, able to speak in complete sentences and symmetric chest movement *Routine Cardiovascular Exam Cardiovascular: Present RRR, Normal S1 and Normal S2; Absent murmur or gallop *Routine Abdominal Exam Abdominal: Present soft and normoactive bowel sounds; Absent tenderness, distended or organomegaly *Routine Extremities Exam Extremities: Present full ROM, pulses intact and normal capillary refill; Absent cyanosis, clubbing or edema *Routine Skin Exam Skin: Present intact and warm; Absent erythema *Routine Neurological Exam Neurological: Present alert, oriented X3 and CN II-XII intact; Absent sensory deficit or motor deficit Routine Psychiatric Exam Psychiatric: Present normal affect Progress Note: A&P Assessment and plan (1) Shortness of breath: Status: Acute (2) CAD (coronary artery disease): Status: Acute (3) Anemia: Status: Acute (4) HTN (hypertension): Status: Acute (5) Diabetes: Status: Acute (6) Hyperlipidemia: Status: Acute Assessment and Plan Assessment and Plan for All Diagnoses:: Plan: 1. The patient was admitted to the hospital with shortness of breath. He was also anemic and did get hypotensive yesterday. There was a concern for an acute bleed so his left cardiac catheterization was canceled and the patient was transfused with 2 units of packed red blood cells. His hemoglobin has improved to 10.6 today and he states that his shortness of breath has significantly improved. No plans for invasive left cardiac catheterization at this time as his shortness of breath was most likely from his anemia. 2. We do recommend that the patient continue with IV iron as an outpatient due to his iron deficiency anemia. This can be set up on an outpatient basis. 3. The patient will need to have a workup with GI due to his iron deficiency anemia. The patient already sees a double cut off saw operator as he does have an extensive history of having colonoscopies and bowel surgeries due to polyps in his colon. The patient is going to call his double cut off saw operator and get an appointment to be evaluated due to the new onset iron deficiency anemia. 4. Coronary artery disease is present. He ruled out for an DC. No plans for invasive left cardiac catheterization at this time. His coronary artery disease is likely stable. 5. His blood pressure is well-controlled. 6. His LDL goal is less than 55. His LDL was 37. He is on a statin. 7. The patient is diabetic. He will need aggressive control of his diabetes. Will defer this to the hospitalist. 8. No overt signs of CHF noted. No diuresis at this time. 9. The patient can be discharged home today from a cardiac standpoint. The patient will need to follow-up in cardiology clinic in 1 to 2 weeks on an outpatient basis. 10. The patient can be discharged on the following cardiac medications: Aspirin 81 mg daily, atorvastatin 80 mg p.o. nightly, Plavix 75 mg daily, Jardiance 25 mg daily, irbesartan 75 mg p.o. daily, propranolol ER 80 mg p.o. daily, Protonix 40 mg p.o. twice daily, Maxide 37.5/25 mg p.o. daily. Thank you for the opportunity to help participate in the care of this patient. All recommendations and orders are per Dr. Dixon.
--- NOTE | 2023-11-24 10:48 | CARE MANAGER ---
Contacted patient and related to hospital discharge. They state he is doing much better. He had no new medications and they are aware of their appointments. Deny any questions or concerns. LEE Sifuentes
== END 2023-11-23 14:49 | disposition home or self-care (01) ==
PROVIDERS: Family Medicine; Internal Medicine; Internal Medicine Adolescent Medicine; Nurse Practitioner Family; Admitting Provider Internal Medicine; PCP Internal Medicine; Visit Provider Internal Medicine
DX: D50.9 Iron deficiency anemia, unspecified; R06.02 Shortness of breath; I10 Essential (primary) hypertension; E78.5 Hyperlipidemia, unspecified; I25.110 Atherosclerotic heart disease of native coronary artery with unstable angina pectoris; Z79.899 Other long term (current) drug therapy; Z95.5 Presence of coronary angioplasty implant and graft; Z79.84 Long term (current) use of oral hypoglycemic drugs; R60.0 Localized edema; E13.59 Other specified diabetes mellitus with other circulatory complications
CPT/HCPCS: G0379; 36415; 36430; 71045; 80048; 80061; 80076; 82728; 82962; 83036; 83540; 83550; 83880; 84484; 85007; 85014; 85018; 85025; 86850; 93308; 93931; 94640; 97163; 97165; G0378; J1756; P9016

== ENCOUNTER 2023-12-07 15:01 | Outpatient (CLI) | payer MEDICARE, SELFPAY ==
[2023-12-07 15:51] LABS: Basophils # 0.1 K/mm3 (0-0.2); Basophils % 0.7 % (0.1-2.0); Eosinophils # 0.1 K/mm3 (0.0-0.4); Eosinophils % 0.8 % (0.1-12.0); Hematocrit 35.9 % (42.0-52.0); Hemoglobin 11.1 g/dL (14.1-18.0); Lymphocytes # 2.1 K/mm3 (0.7-4.5); Lymphocytes % 26.5 % (10-50); Mean Corpuscular HGB Conc 30.8 g/dL (31.8-35.4); Mean Corpuscular Hemoglobin 26.3 pg (27.0-31.2); Mean Corpuscular Volume 85.2 fl (80-94); Mean Platelet Volume 9.6 fl (7.4-10.4); Monocytes # 1.7 K/mm3 (0.1-1.0); Monocytes % 21.2 % (1.7-9.3); Neutrophils % 50.9 % (37.0-80.0); Platelet Count 223 K/mm3 (142-424); Red Blood Count 4.22 M/mm3 (4.60-6.20); Red Cell Distribution Width 18.6 % (11.5-17.5); White Blood Count 7.9 K/mm3 (4.8-10.8)
[2023-12-07 15:52] LABS: MANUAL DIFFERENTIAL MANUAL DIFFERENTIAL (MANUAL DIFF)
[2023-12-07 16:26] LABS: Alanine Aminotransferase 16 U/L (12-78); Alkaline Phosphatase 94 U/L (38-126); Aspartate Amino Transferase 21 U/L (17-59); Bilirubin,Direct 0.1 mg/dl (0.0-0.4); Bilirubin,Indirect 0.4 mg/dL (0.0-0.9); Bilirubin,Total 0.5 mg/dl (0.2-1.3); Bilirubin,Unconjugated 0.4 mg/dL (0.0-1.1); Blood Urea Nitrogen 28 mg/dl (9-20); Calcium 9.5 mg/dl (8.4-10.2); Carbon Dioxide 26 mmol/L (22.0-30.0); Chloride 99 mmol/L (98-107); Chol/HDL Ratio 2.3 (1-3.5); Cholesterol 104 mg/dl (140-200); Estimated Glomerular Filt Rate 64 ml/min (>60); GFR (African American) 78 ML/MIN (>60); Glucose 160 mg/dl (74-100); HDL Cholesterol 46 mg/dl (40-60); Sodium 135 mmol/L (136-145); Total Protein,Serum 6.4 g/dl (6.3-8.2); Triglycerides 131 mg/dl (30-150); VLDL Cholesterol 26 mg/dL (0-40)
[2023-12-07 16:29] LABS: Eosinophils % 1 % (0-3); Lymphocytes % 23 % (10-50); Monocytes % 17 % (2-9); Neutrophils % 58 % (42-76); Platelet Estimate Normal; RBC Morphology Normal; Total Cells Counted 100
[2023-12-07 16:37] LABS: Direct LDL Cholesterol 47.64 mg/dL (100-129)
[2023-12-07 16:41] LABS: Free T4 (Free Thyroxine) 1.05 ng/dl (0.78-2.19)
[2023-12-07 16:57] LABS: Thyroid Stimulating Hormone 1.44 uIU/mL (0.465-4.68)
== END 2023-12-07 23:59 | disposition home or self-care (01) ==
LOC: LAB 15:03
PROVIDERS: PCP Internal Medicine; Visit Provider Nurse Practitioner Family
DX: I25.110 Atherosclerotic heart disease of native coronary artery with unstable angina pectoris (principal); D50.9 Iron deficiency anemia, unspecified; I45.10 Unspecified right bundle-branch block; R94.31 Abnormal electrocardiogram [ECG] [EKG]; R06.02 Shortness of breath; R60.9 Edema, unspecified; G25.0 Essential tremor; E13.69 Other specified diabetes mellitus with other specified complication; Z79.899 Other long term (current) drug therapy
CPT/HCPCS: 36415; 80048; 80061; 80076; 83735; 84439; 84443; 85007; 85025

== ENCOUNTER 2024-01-19 12:07 | Observation (INO) | payer MEDICARE, SELFPAY ==
[2024-01-19] VITALS (12 sets, daily range): BP systolic 87–156; BP diastolic 40–68; PULSE 82–143; RESP 16–23; TEMP 36.4–36.8; O2SAT 94–100; BMI 30.4; BMI 36.0
--- NOTE | 2024-01-19 12:12 | ECG_ITS ---
APPROVED REPORT Exam: Resting ECG HR:116 bpm ECG Measurements Heart Rate 116 AXES WY 170 P 50 QRSd 101 QRS 247 QT 324 T 15 QTc 393 Conclusion SINUS TACHYCARDIA WITH OCCASIONAL SUPRAVENTRICULAR PREMATURE COMPLEXES PATTERN CONSISTENT WITH PULMONARY DISEASE INCOMPLETE RIGHT BUNDLE BRANCH BLOCK [90+ ms QRS DURATION, TERMINAL R IN V1/V2, 40+ ms S IN I/aVL/V4/V5/V6] RIGHT VENTRICULAR HYPERTROPHY [SOME/ALL OF: PROMINENT R IN V1, LATE TRANSITION, RAD, GLORIA, SSS] Electronically signed by : PEPE RAMIREZ, 01/20/2024 16:00:09
--- NOTE | 2024-01-19 12:23 | XR_ITS ---
FINAL REPORT CLINICAL HISTORY: Shortness of breath COMPARISON: 11/21/2023 FINDINGS: No acute pulmonary opacity is present. The lungs are hypoinflated. There is no evidence of effusion or pneumothorax. Mediastinum is unremarkable. Heart size is normal. IMPRESSION: No acute abnormality. Reviewed, Interpreted and Dictated by Ochoa Gonzalez MD Transcribed by Lamar Chamberlain Authenticated and [facility]
--- NOTE | 2024-01-19 12:24 | PC.NURSE ---
DR RAMIREZ AT BEDSIDE
--- NOTE | 2024-01-19 12:24 | PC.NURSE ---
DR RAMIREZ AT BEDSIDE
[2024-01-19 12:31] LABS: Basophils % 0.3 % (0.1-2.0); Eosinophils % 0.2 % (0.1-12.0); Hemoglobin 10.7 g/dL (14.1-18.0); Lymphocytes # 1.2 K/mm3 (0.7-4.5); Lymphocytes % 14.5 % (10-50); Mean Corpuscular HGB Conc 31.5 g/dL (31.8-35.4); Mean Corpuscular Hemoglobin 27.4 pg (27.0-31.2); Mean Corpuscular Volume 86.9 fl (80-94); Mean Platelet Volume 8.9 fl (7.4-10.4); Monocytes # 1.7 K/mm3 (0.1-1.0); Neutrophils # 5.5 K/mm3 (1.8-7.8); Platelet Count 219 K/mm3 (142-424); Red Blood Count 3.91 M/mm3 (4.60-6.20); Red Cell Distribution Width 17.7 % (11.5-17.5); White Blood Count 8.4 K/mm3 (4.8-10.8)
[2024-01-19 12:34] LABS: MANUAL DIFFERENTIAL MANUAL DIFFERENTIAL (MANUAL DIFF)
[2024-01-19 12:38] LABS: Chloride 101 mmol/L (98-107); Potassium 3.8 mmoL/L (3.5-5.1); Sodium 135 mmol/L (136-145)
[2024-01-19] MEDS: IPRATROPIUM/ALBUTEROL 3 ML NEB IH (12:38)
[2024-01-19 12:40] LABS: Blood Urea Nitrogen 24 mg/dl (9-20); Creatinine Clearance Estimated 68 mL/min (50-200); Estimated Glomerular Filt Rate 64 ml/min (>60); GFR (African American) 78 ML/MIN (>60)
[2024-01-19 12:41] LABS: Alanine Aminotransferase 17 U/L (12-78); Albumin Level 4.1 g/dl (3.5-5.0); Albumin/Globulin Ratio 1.6 (1.1-1.8); Alkaline Phosphatase 105 U/L (38-126); Anion Gap 9.8 mEq/L (5-15); Aspartate Amino Transferase 19 U/L (17-59); Bilirubin,Total 0.3 mg/dl (0.2-1.3); Calcium 9.5 mg/dl (8.4-10.2); Carbon Dioxide 28 mmol/L (22.0-30.0); Globulin 2.5 g/dL (1.3-3.2); Glucose 166 mg/dl (74-100); Total Protein,Serum 6.6 g/dl (6.3-8.2)
--- NOTE | 2024-01-19 12:42 | PC.NURSE ---
PORTABLE XRAY AT BEDSIDE
[2024-01-19 12:46] LABS: D-Dimer 0.36 ug/mL (0.0-0.5)
[2024-01-19 12:51] LABS: NT Pro Brain Natriuretic Pep. 104 pg/mL (0-450)
--- NOTE | 2024-01-19 12:55 | ED_ITS ---
Discharge Plan Disposition Patient Disposition: Admitted Condition: Good Prescriptions Prescriptions: No Action fluticasone propionate 50 mcg/actuation spray,suspension 2 spray intranasal DAILY Patient Comments: SHAKE LIQUID AND USE 2 SPRAYS IN EACH NOSTRIL DAILY glimepiride 4 mg tablet 4 mg PO BID Patient Comments: TAKE 1 TABLET BY MOUTH TWICE DAILY mecobalamin (vitamin B12) 1,000 mcg lozenge 1,000 mcg PO DAILY Rx Instructions: allow to dissolve in mouth OR may chew lightly before swallowing triamterene-hydrochlorothiazid 37.5-25 mg capsule 1 cap PO DAILY Patient Comments: TAKE 1 CAPSULE BY MOUTH DAILY cetirizine 10 mg tablet 10 mg PO DAILY Patient Comments: TAKE 1 TABLET BY MOUTH DAILY aspirin [Adult Aspirin Regimen] 81 mg tablet,delayed release (DR/EC) 81 mg PO DAILY fluticasone propion-salmeterol 250-50 mcg/dose blister with device 1 inh inhalation BID Patient Comments: INHALE 1 PUFF BY MOUTH TWICE DAILY Jardiance 25 mg tablet 25 mg PO DAILY Patient Comments: TAKE 1 TABLET BY MOUTH EVERY DAY tamsulosin 0.4 mg capsule 0.8 mg PO HS Patient Comments: TAKE 2 CAPSULES BY MOUTH AT BEDTIME propranolol 80 mg capsule,extended release 24 hr 80 mg PO DAILY Patient Comments: TAKE 1 CAPSULE BY MOUTH EVERY DAY Januvia 100 mg tablet 100 mg PO DAILY Patient Comments: TAKE 1 TABLET BY MOUTH DAILY pioglitazone 15 mg tablet 15 mg PO DAILY Patient Comments: TAKE 1 TABLET BY MOUTH DAILY finasteride 5 mg tablet 5 mg PO HS Patient Comments: TAKE 1 TABLET BY MOUTH DAILY AT BEDTIME montelukast 10 mg tablet 10 mg PO HS Patient Comments: TAKE 1 TABLET BY MOUTH DAILY Breztri Aerosphere 160-9-4.8 mcg/actuation HFA aerosol inhaler 2 inh inhalation BID Patient Comments: INHALE 2 PUFFS BY MOUTH TWICE DAILY ferrous sulfate [FeroSul] 325 mg (65 mg iron) tablet 325 mg PO DAILY Patient Comments: TAKE 1 TABLET BY MOUTH EVERY DAY WITH BREAKFAST ascorbate calcium (vitamin C) 500 mg tablet 500 mg PO DAILY clopidogrel 75 mg tablet 75 mg PO DAILY Qty: 90 3RF albuterol sulfate 90 mcg/actuation HFA aerosol inhaler 1 puff INHALATION Q6HP PRN (Reason: Shortness Of Breath) Patient Comments: INHALE 1 PUFF BY MOUTH EVERY 6 HOURS NEEDED FOR SHORTNESS OF BREATH atorvastatin 40 mg Tablet 80 mg PO HS 30 Days Qty: 60 0RF Referrals Follow up/Referrals: Marck Ribera DO [Referring] - See instructions Activity Restrictions/Add. Instructions Additional Instructions/Restrictions: Please see Dr. Mercedes tomorrow at 10am. Return to the ED for new or worsening symptoms. Clinical Impressions Clinical Impression: Exertional shortness of breath, Orthostatic hypotension, Chronic anemia, COPD (chronic obstructive pulmonary disease) Discharge ED Provider: Inna Villasenor HPI <Inna Villasenor DO - Last Filed: 01/19/24 15:08> General Chief Complaint: Shortness of Breath/Dyspnea Stated Complaint: soa, weakness Time Seen by Provider: 01/19/24 12:14 Mode of Arrival: Wheelchair Source of Information: Patient and Spouse Limitations: No Limitations Description of Symptoms (Recalled from ER Triage Doc. by RN): PT REPORTS INCREASED SHORTNESS OF BREATH, CHEST TIGHTNESS AND FATIGUE SINCE 01/07/2024. RECENT FOLLOW-UP WITH CARDIOLOGY AND PULMONOLOGY History of Present Illness HPI narrative: This patient is an 83-year-old male with a history of symptomatic anemia, hypertension, diabetes, hyperlipidemia, CAD status post stenting, COPD, and known right bundle branch block presenting to the emergency department for evaluation with concern for shortness of breath. Patient reports shortness of breath is been present since 01/07/2024. He notes that it feels similar to back in October when he was found to have anemia and required blood transfusion. He states that his symptoms significant improved that time after blood transfusion. On medical record review, his hemoglobin is around 8.7 at that time, and after transfusion he had increased to 10.7. He is been stable around there since then. He notes that he is also had cough. He was prescribed inhalers by pulmonology for wheezing, and he states that initially he was having difficulty getting the inhaler, so his PCP prescribed him a different one. This 1 seem to help, but then his occupational therapist's assistant changed it because the other 1 was making him anxious and jittery. Since then, he is gotten no relief with inhalers. He denies any fevers, chills, chest pain, significant cough, abdominal pain, vomiting, or other concerns. His shortness of breath is significantly worse with ambulation. Related Data Home Medications Medication Instructions Recorded Confirmed aspirin 81 mg tablet,delayed 81 mg PO DAILY 10/18/23 01/05/24 release (Adult Aspirin Regimen) cetirizine 10 mg tablet 10 mg PO DAILY 10/18/23 01/05/24 empagliflozin 25 mg tablet 25 mg PO DAILY 10/18/23 01/05/24 (Jardiance) finasteride 5 mg tablet 5 mg PO HS 10/18/23 01/05/24 fluticasone 250 mcg-salmeterol 50 1 inh inhalation BID 10/18/23 01/05/24 mcg/dose blistr powdr for inhalation fluticasone propionate 50 2 spray intranasal DAILY 10/18/23 01/05/24 mcg/actuation nasal spray,suspension glimepiride 4 mg tablet 4 mg PO BID 10/18/23 01/05/24 mecobalamin (vitamin B12) 1,000 1,000 mcg PO DAILY 10/18/23 01/05/24 mcg lozenges montelukast 10 mg tablet 10 mg PO HS 10/18/23 01/05/24 pioglitazone 15 mg tablet 15 mg PO DAILY 10/18/23 01/05/24 propranolol 80 mg capsule,24 80 mg PO DAILY 10/18/23 01/05/24 hr,extended release sitagliptin phosphate 100 mg 100 mg PO DAILY 10/18/23 01/05/24 tablet (Januvia) tamsulosin 0.4 mg capsule 0.8 mg PO HS 10/18/23 01/05/24 triamterene 37.5 1 cap PO DAILY 10/18/23 01/05/24 mg-hydrochlorothiazide 25 mg capsule albuterol sulfate 90 mcg/actuation 1 puff inhalation Q6HP PRN 10/31/23 01/05/24 aerosol inhaler Shortness Of Breath ascorbate calcium (vitamin C) 500 500 mg PO DAILY 11/21/23 01/05/24 mg tablet ferrous sulfate 325 mg (65 mg 325 mg PO DAILY 11/21/23 01/05/24 iron) tablet (FeroSul) budesonide 160 mcg-glycopyr 9 2 inh inhalation BID 01/05/24 01/05/24 mcg-formot 4.8 mcg/actuation HFA inhaler (Breztri Aerosphere) Previous Rx's Medication Instructions Recorded atorvastatin 40 mg tablet 80 mg (2 x 40 mg) PO HS 30 days 11/09/23 #60 tabs clopidogrel 75 mg tablet 75 mg PO DAILY #90 tabs 12/07/23 Allergies Allergy/AdvReac Type Severity Reaction Status Date / Time codeine Allergy Mild Rash Verified 01/05/24 13:43 PFS <Inna Villasenor DO - Last Filed: 01/19/24 15:08> [facility] Disclaimer: The information contained in this section may have been updated after the patient was seen, as this information can be updated by other users. Medical History Abnormal computed tomography angiography of heart Hyperlipidemia HTN (hypertension) CAD (coronary artery disease) Anemia Atypical angina Shortness of breath Edema Seasonal allergies Essential tremor Diabetes Surgical History History of cataract surgery History of shoulder replacement S/P deep brain stimulator placement History of back surgery History of ankle surgery History of hand surgery History of colonoscopy Family History Father Stroke Mother Heart attack Sister Cancer Stroke Social History Smoking Status: Never smoker second hand exposure: No alcohol intake: current alcohol intake frequency: a few times a week counseling given: No substance use type: denies use current occupational status: retired Travel in the last 8 weeks: None adopted: No caregiver/support person: No foster care: No household members: spouse housing: house lives independently: Yes marital status: <Inna Villasenor DO - Last Filed: 01/19/24 15:08> ROS Obtained: Yes All systems reviewed & no additional complaints except as documented Physical Exam <Inna Villasenor DO - Last Filed: 01/19/24 15:08> General General appearance: alert, in no apparent distress and obese Head Head exam: atraumatic and normocephalic Eye Eye exam: Present normal appearance, PERRL and EOMI ENT ENT exam: Present normal exam, normal oropharynx, mucous membranes moist and normal external ear exam Neck Neck exam: Present normal inspection, full ROM and trachea midline; Absent tenderness Chest Chest inspection: Present normal inspection and symmetric chest wall rise; Absent tenderness Respiratory Respiratory exam: Present normal lung sounds bilaterally; Absent respiratory distress, wheezes, stridor or accessory muscle use Cardiovascular Cardiovascular exam: Present regular rate and normal rhythm Abdominal Exam Abdominal exam: Present soft; Absent distention, tenderness or guarding Extremities Exam Extremities exam: Present normal inspection, full ROM and normal capillary refill; Absent tenderness or edema Back Exam Back exam: Present normal inspection and full ROM; Absent tenderness Neurological Exam Neurological exam: Present alert, oriented X3, CN II-XII intact and normal gait; Absent motor sensory deficit Psychiatric Psychiatric exam: Present normal affect and normal mood Skin Skin exam: Present warm and dry HEART Score <Inna Villasenor DO - Last Filed: 01/19/24 15:08> HEART Score HEART Score assessment performed?: Yes History (anamnesis): Slightly suspicious ECG: Normal Age: >65 years Risk factors: Atherosclerosis history Troponin: </= normal limit HEART Score: 4 <Samson Boswell MD - Last Filed: 01/19/24 16:24> HEART Score HEART Score: 4 Procedures <Inna Villasenor DO - Last Filed: 01/19/24 15:08> Risk/Benefits of Procedure(s) Were Explained: Yes Limited Ultrasound Findings:: Limited cardiac ultrasound Indication: Shortness of breath, weakness Identified cardiac views: [-Cardiac parasternal long axis] [-Cardiac apical four-chamber] Findings: [-Cardiac activity present -Gross wall motion normal -Pericardial effusion absent -Right heart strain absent] Impression: -[From above] Images were saved to permanent archive The study was technically adequate CPT: 54258 This study was performed by me, and I personally interpreted all images/videos. Based on my clinical judgement, these images were adequate and did not necessitate further imaging. Critical Care <Inna Villasenor DO - Last Filed: 01/19/24 15:08> Critical Care Time Critical Care Time: No <Samson Boswell MD - Last Filed: 01/19/24 16:24> Critical Care Time Critical Care Time: Yes Attestation: On 01/19/24, the high probability of a clinically significant, sudden or life threatening deterioration of the following system(s) required my full and direct attention, intervention and personal management. The time I documented below is in addition to time spent performing reported procedures but includes the following listed in this critical care notation. Total Time Total Critical Care Time: 2 Medical Decision Making <Inna Villasenor DO - Last Filed: 01/19/24 15:08> Medical Records Medical records reviewed: Yes I reviewed the patient's medical records. [place]rade Inquiry Pt receiving controlled substance: No Vital Signs Vital Signs: 01/19/24 12:08 01/19/24 12:16 01/19/24 12:31 Temperature 98.0 F Temperature Source Oral Pulse Rate 82 121 H Pulse Rate [Apical] 124 H Pulse Rate [Orthostatic Lying Left Radial] Pulse Rate [Orthostatic Sitting Left Radial] Pulse Rate [Orthostatic Standing Left Radial] Respiratory Rate 18 20 Blood Pressure 106/61 L 96/48 L Blood Pressure [Orthostatic Lying Right Arm] Blood Pressure [Orthostatic Sitting Right Arm] Blood Pressure [Orthostatic Standing Right Arm] Blood Pressure [Right Arm] 106/61 L Blood Pressure Mean [Right Arm] 76 Blood Pressure Source [Right Arm] Automatic Cuff Blood Pressure Position [Right Arm] Sitting 02 Sat by Pulse Oximetry 98 94 L 99 Oxygen Delivery Method Room Air Room Air Room Air 01/19/24 13:00 01/19/24 13:27 01/19/24 14:00 Temperature Temperature Source Pulse Rate 112 H 101 H Pulse Rate [Apical] Pulse Rate [Orthostatic Lying Left Radial] 124 H Pulse Rate [Orthostatic Sitting Left Radial] 110 H Pulse Rate [Orthostatic Standing Left Radial] 143 H Respiratory Rate 20 18 Blood Pressure 104/55 L 111/51 L Blood Pressure [Orthostatic Lying Right Arm] 103/47 L Blood Pressure [Orthostatic Sitting Right Arm] 107/40 L Blood Pressure [Orthostatic Standing Right Arm] 87/55 L Blood Pressure [Right Arm] Blood Pressure Mean [Right Arm] Blood Pressure Source [Right Arm] Blood Pressure Position [Right Arm] 02 Sat by Pulse Oximetry 100 94 L Oxygen Delivery Method Room Air Room Air 01/19/24 14:30 Temperature Temperature Source Pulse Rate 109 H Pulse Rate [Apical] Pulse Rate [Orthostatic Lying Left Radial] Pulse Rate [Orthostatic Sitting Left Radial] Pulse Rate [Orthostatic Standing Left Radial] Respiratory Rate 17 Blood Pressure 120/52 L Blood Pressure [Orthostatic Lying Right Arm] Blood Pressure [Orthostatic Sitting Right Arm] Blood Pressure [Orthostatic Standing Right Arm] Blood Pressure [Right Arm] Blood Pressure Mean [Right Arm] Blood Pressure Source [Right Arm] Blood Pressure Position [Right Arm] 02 Sat by Pulse Oximetry 95 Oxygen Delivery Method Room Air Lab Data Labs: Lab Results 01/19/24 12:25: WBC 8.4, RBC 3.91 L, Hgb 10.7 L, Hct 34.0 L, MCV 86.9, MCH 27.4, MCHC 31.5 L, RDW 17.7 H, Plt Count 219, MPV 8.9, Neut % (Auto) 65.0, Lymph % (Auto) 14.5, [place] % (Auto) 20.0 H, Eos % (Auto) 0.2, Baso % (Auto) 0.3, Neut # (Auto) 5.5, Lymph # (Auto) 1.2, [place] # (Auto) 1.7 H, Eos # (Auto) 0.0, Baso # (Auto) 0.0, Total Counted 100, Neutrophils % (Manual) 63, Lymphocytes % (Manual) 15, Monocytes % (Manual) 22 H, Platelet Estimate Normal, Hypochromasia 1+, D- Dimer 0.36, Sodium 135 L, Potassium 3.8, Chloride 101, Carbon Dioxide 28, Anion Gap 9.8, BUN 24 H, Creatinine 1.10, Estimated Creat Clear 68, Estimated GFR 64, Est GFR ( Amer) 78, Glucose 166 H, Calcium 9.5, Total Bilirubin 0.3, AST 19, ALT 17, Alkaline Phosphatase 105, Troponin I < 0.01, NT-Pro-B Natriuret Pep 104, Total Protein 6.6, Albumin 4.1, Globulin 2.5, Albumin/Globulin Ratio 1.6 01/19/24 12:40: Blood Type O Positive, Antibody Screen Negative 01/19/24 12:25 01/19/24 12:25 Response Orders (Tests/Meds): ED MEDICATIONS Discontinued Medications Generic Name Dose Route Start Last Admin Trade Name Freq PRN Reason Stop Dose Admin Albuterol/Ipratropium 3 ml 01/19/24 12:31 01/19/24 12:38 Ipratropium/Albuterol 3 Ml Neb IH 01/19/24 12:32 3 ml ONCE ONE Administration Lactated Ringer's 1,000 mls @ 999 mls/hr 01/19/24 14:03 01/19/24 14:08 Lactated Ringer's 1000 Ml Bag IV 01/19/24 15:03 999 mls/hr .Q1H1M ONE Administration Iopamidol 70 ml 01/19/24 14:09 01/19/24 14:10 Iopamidol-370 (76%);100ml Bottle IV 01/19/24 14:10 70 ml ONCE ONE Administration Sodium Chloride 10 ml 01/19/24 14:09 01/19/24 14:10 Sodium Chloride 0.9% 10ml Syr (Rad Only) IV 01/19/24 14:10 10 ml ONCE ONE Administration Sodium Chloride 50 ml 01/19/24 14:09 01/19/24 14:10 0.9 % Sodium Chloride 50 Ml Vial IV 01/19/24 14:10 50 ml ONCE ONE Administration ORDERS Category Date Time Status Type and Screen Stat BBK 01/19/24 12:40 Completed CTA Chest [CT angio chest PE protocol] Stat Cat Scan 01/19/24 13:27 Completed POCUS Point of Care (ER Only) Stat Exams 01/19/24 14:33 Ordered XR chest portable Stat Exams 01/19/24 12:23 Completed BNP [NT Pro Brain Natriuretic Pep.] Stat Lab 01/19/24 12:25 Completed Basic Metabolic Panel AMLAB Lab 01/20/24 06:00 Ordered Basic Metabolic Panel AMLAB Lab 01/21/24 06:00 Ordered Basic Metabolic Panel AMLAB Lab 01/22/24 06:00 Ordered Complete Blood Count Auto Diff AMLAB Lab 01/20/24 06:00 Ordered Complete Blood Count Auto Diff AMLAB Lab 01/21/24 06:00 Ordered Complete Blood Count Auto Diff AMLAB Lab 01/22/24 06:00 Ordered Complete Blood Count Auto Diff Stat Lab 01/19/24 12:25 Completed Comprehensive Metabolic Panel Stat Lab 01/19/24 12:25 Completed D-Dimer Stat Lab 01/19/24 12:25 Completed Trop I [Troponin I] Stat Lab 01/19/24 12:25 Completed Troponin I Q3H Lab 01/19/24 15:40 Received Troponin I Q3H Lab 01/19/24 18:30 Ordered ECG Data Tracing #1: Attestation: I reviewed this ECG and interpreted as documented below: ECG Narrative: Sinus tachycardia with a ventricular rate of [address] changes concerning for ischemia. Incomplete right bundle branch block noted. ECG initial impression date: 01/19/24 ECG initial impression time: 12:14 MDM Narrative Medical Decision Narrative: In summary, this patient is a 83-year-old male presenting to the Emergency Department for evaluation of shortness of breath. Differential diagnoses considered include but are not limited to symptomatic anemia, COPD exacerbation, pneumonia, ACS, dysrhythmia, CHF exacerbation, PE. Ruling out the most morbid conditions drove assessment. It should be noted patient's history includes CAD, hypertension, hyperlipidemia, and chronic anemia which may or may not be at goal therapy. This complicates all aspects of care by increasing patient's risk for morbidity. I reviewed patient's past medical records and noted previous admission back in October/November as per HPI at which point patient had symptomatic anemia. He also had cardiac cath with stent placement/. On exam, the patient is resting comfortably in a wheelchair. He is tachycardic but oxygen saturation is normal on room air. Sinus tachycardia in the 1 teens to 120s. Cardiopulmonary exam is reassuring. Patient did have significant drop in his blood pressure and increase in his heart rate with standing. Positive for orthostatic hypotension. Workup included CBC, CMP, troponin, BNP, D-dimer, EKG, and chest x-ray. He was given a DuoNeb to assess for symptomatic improvement. I independently interpreted chest x-ray prior to the radiologist read and noted no acute focal consolidation. Please see their read for final interpretation. Labs were obtained that demonstrated stable anemia from baseline. Patient does have mildly elevated BUN and very mild hyponatremia. Thyroid studies are reassuring. Initial troponin negative. D-dimer is negative. On reassessment, patient states he got no improvement from DuoNeb. He states he could tell no difference at all. He continues to be significantly short of air. I did a bedside cardiac ultrasound which demonstrated a hyperdynamic heart but no pericardial effusion and no obvious gross wall motion abnormalities. Given his continued shortness of breath, decision was made to order CT PE protocol. At this time, workup is only been positive for orthostatic hypotension and hyperdynamic heart on cardiac ultrasound, for which a liter bolus of IV fluids was ordered. CT scan pending. Patient care was signed out to the oncoming provider, Dr. Boswell. <Samson Boswell MD - Last Filed: 01/19/24 16:24> Vital Signs Vital Signs: 01/19/24 12:08 01/19/24 12:16 01/19/24 12:31 Temperature 98.0 F Temperature Source Oral Pulse Rate 82 121 H Pulse Rate [Apical] 124 H Pulse Rate [Orthostatic Lying Left Radial] Pulse Rate [Orthostatic Sitting Left Radial] Pulse Rate [Orthostatic Standing Left Radial] Respiratory Rate 18 20 Blood Pressure 106/61 L 96/48 L Blood Pressure [Orthostatic Lying Right Arm] Blood Pressure [Orthostatic Sitting Right Arm] Blood Pressure [Orthostatic Standing Right Arm] Blood Pressure [Right Arm] 106/61 L Blood Pressure Mean [Right Arm] 76 Blood Pressure Source [Right Arm] Automatic Cuff Blood Pressure Position [Right Arm] Sitting 02 Sat by Pulse Oximetry 98 94 L 99 Oxygen Delivery Method Room Air Room Air Room Air 01/19/24 13:00 01/19/24 13:27 01/19/24 14:00 Temperature Temperature Source Pulse Rate 112 H 101 H Pulse Rate [Apical] Pulse Rate [Orthostatic Lying Left Radial] 124 H Pulse Rate [Orthostatic Sitting Left Radial] 110 H Pulse Rate [Orthostatic Standing Left Radial] 143 H Respiratory Rate 20 18 Blood Pressure 104/55 L 111/51 L Blood Pressure [Orthostatic Lying Right Arm] 103/47 L Blood Pressure [Orthostatic Sitting Right Arm] 107/40 L Blood Pressure [Orthostatic Standing Right Arm] 87/55 L Blood Pressure [Right Arm] Blood Pressure Mean [Right Arm] Blood Pressure Source [Right Arm] Blood Pressure Position [Right Arm] 02 Sat by Pulse Oximetry 100 94 L Oxygen Delivery Method Room Air Room Air 01/19/24 14:30 Temperature Temperature Source Pulse Rate 109 H Pulse Rate [Apical] Pulse Rate [Orthostatic Lying Left Radial] Pulse Rate [Orthostatic Sitting Left Radial] Pulse Rate [Orthostatic Standing Left Radial] Respiratory Rate 17 Blood Pressure 120/52 L Blood Pressure [Orthostatic Lying Right Arm] Blood Pressure [Orthostatic Sitting Right Arm] Blood Pressure [Orthostatic Standing Right Arm] Blood Pressure [Right Arm] Blood Pressure Mean [Right Arm] Blood Pressure Source [Right Arm] Blood Pressure Position [Right Arm] 02 Sat by Pulse Oximetry 95 Oxygen Delivery Method Room Air Lab Data Lab results reviewed: Yes I reviewed the patient's lab results. Labs: Lab Results 01/19/24 12:25: WBC 8.4, RBC 3.91 L, Hgb 10.7 L, Hct 34.0 L, MCV 86.9, MCH 27.4, MCHC 31.5 L, RDW 17.7 H, Plt Count 219, MPV 8.9, Neut % (Auto) 65.0, Lymph % (Auto) 14.5, [place] % (Auto) 20.0 H, Eos % (Auto) 0.2, Baso % (Auto) 0.3, Neut # (Auto) 5.5, Lymph # (Auto) 1.2, [place] # (Auto) 1.7 H, Eos # (Auto) 0.0, Baso # (Auto) 0.0, Total Counted 100, Neutrophils % (Manual) 63, Lymphocytes % (Manual) 15, Monocytes % (Manual) 22 H, Platelet Estimate Normal, Hypochromasia 1+, D- Dimer 0.36, Sodium 135 L, Potassium 3.8, Chloride 101, Carbon Dioxide 28, Anion Gap 9.8, BUN 24 H, Creatinine 1.10, Estimated Creat Clear 68, Estimated GFR 64, Est GFR ( Amer) 78, Glucose 166 H, Calcium 9.5, Total Bilirubin 0.3, AST 19, ALT 17, Alkaline Phosphatase 105, Troponin I < 0.01, NT-Pro-B Natriuret Pep 104, Total Protein 6.6, Albumin 4.1, Globulin 2.5, Albumin/Globulin Ratio 1.6 01/19/24 12:40: Blood Type O Positive, Antibody Screen Negative Response Orders (Tests/Meds): ED MEDICATIONS Discontinued Medications Generic Name Dose Route Start Last Admin Trade Name Freq PRN Reason Stop Dose Admin Albuterol/Ipratropium 3 ml 01/19/24 12:31 01/19/24 12:38 Ipratropium/Albuterol 3 Ml Neb IH 01/19/24 12:32 3 ml ONCE ONE Administration Lactated Ringer's 1,000 mls @ 999 mls/hr 01/19/24 14:03 01/19/24 14:08 Lactated Ringer's 1000 Ml Bag IV 01/19/24 15:03 999 mls/hr .Q1H1M ONE Administration Iopamidol 70 ml 01/19/24 14:09 01/19/24 14:10 Iopamidol-370 (76%);100ml Bottle IV 01/19/24 14:10 70 ml ONCE ONE Administration Sodium Chloride 10 ml 01/19/24 14:09 01/19/24 14:10 Sodium Chloride 0.9% 10ml Syr (Rad Only) IV 01/19/24 14:10 10 ml ONCE ONE Administration Sodium Chloride 50 ml 01/19/24 14:09 01/19/24 14:10 0.9 % Sodium Chloride 50 Ml Vial IV 01/19/24 14:10 50 ml ONCE ONE Administration ORDERS Category Date Time Status Type and Screen Stat BBK 01/19/24 12:40 Completed CTA Chest [CT angio chest PE protocol] Stat Cat Scan 01/19/24 13:27 Completed POCUS Point of Care (ER Only) Stat Exams 01/19/24 14:33 Ordered XR chest portable Stat Exams 01/19/24 12:23 Completed BNP [NT Pro Brain Natriuretic Pep.] Stat Lab 01/19/24 12:25 Completed Basic Metabolic Panel AMLAB Lab 01/20/24 06:00 Ordered Basic Metabolic Panel AMLAB Lab 01/21/24 06:00 Ordered Basic Metabolic Panel AMLAB Lab 01/22/24 06:00 Ordered Complete Blood Count Auto Diff AMLAB Lab 01/20/24 06:00 Ordered Complete Blood Count Auto Diff AMLAB Lab 01/21/24 06:00 Ordered Complete Blood Count Auto Diff AMLAB Lab 01/22/24 06:00 Ordered Complete Blood Count Auto Diff Stat Lab 01/19/24 12:25 Completed Comprehensive Metabolic Panel Stat Lab 01/19/24 12:25 Completed D-Dimer Stat Lab 01/19/24 12:25 Completed Trop I [Troponin I] Stat Lab 01/19/24 12:25 Completed Troponin I Q3H Lab 01/19/24 15:40 Received Troponin I Q3H Lab 01/19/24 18:30 Ordered MDM Narrative Medical Decision Narrative: In summary, this patient is a 83-year-old male presenting to the Emergency Department for evaluation of shortness of breath. Differential diagnoses considered include but are not limited to symptomatic anemia, COPD exacerbation, pneumonia, ACS, dysrhythmia, CHF exacerbation, PE. Ruling out the most morbid conditions drove assessment. It should be noted patient's history includes CAD, hypertension, hyperlipidemia, and chronic anemia which may or may not be at goal therapy. This complicates all aspects of care by increasing patient's risk for morbidity. I reviewed patient's past medical records and noted previous admission back in October/November as per HPI at which point patient had symptomatic anemia. He also had cardiac cath with stent placement/. On exam, the patient is resting comfortably in a wheelchair. He is tachycardic but oxygen saturation is normal on room air. Sinus tachycardia in the 1 teens to 120s. Cardiopulmonary exam is reassuring. Patient did have significant drop in his blood pressure and increase in his heart rate with standing. Positive for orthostatic hypotension. Workup included CBC, CMP, troponin, BNP, D-dimer, EKG, and chest x-ray. He was given a DuoNeb to assess for symptomatic improvement. I independently interpreted chest x-ray prior to the radiologist read and noted no acute focal consolidation. Please see their read for final interpretation. Labs were obtained that demonstrated stable anemia from baseline. Patient does have mildly elevated BUN and very mild hyponatremia. Thyroid studies are reassuring. Initial troponin negative. D-dimer is negative. On reassessment, patient states he got no improvement from DuoNeb. He states he could tell no difference at all. He continues to be significantly short of air. I did a bedside cardiac ultrasound which demonstrated a hyperdynamic heart but no pericardial effusion and no obvious gross wall motion abnormalities. Given his continued shortness of breath, decision was made to order CT PE protocol. At this time, workup is only been positive for orthostatic hypotension and hyperdynamic heart on cardiac ultrasound, for which a liter bolus of IV fluids was ordered. CT scan pending. Patient care was signed out to the oncoming provider, Dr. Boswell. Reassessment this is Dr. Boswell took over from Dr. Villasenor at 3 PM. I personally viewed the patient's images and labs no evidence of ischemia and troponin negative no evidence of pulmonary embolism or acute abnormality on CT scan. Dr. Burrows spoke with Dr. Mercedes who is okay with outpatient follow-up however patient is still severely symptomatic on my reassessment still having exertional dyspnea with any minimal exertion also he lives 2 hours away and would prefer to stay in the hospital possible. I spoke with Dr. Nickerson who agreed to accept the patient for further management.
[2024-01-19 13:04] LABS: Lymphocytes % 15 % (10-50); Monocytes % 22 % (2-9); Neutrophils % 63 % (42-76); Total Cells Counted 100
[2024-01-19 13:05] LABS: Hypochromasia 1+; Platelet Estimate Normal
--- NOTE | 2024-01-19 13:06 | PC.NURSE ---
ROUNDED ON PT WAS GIVEN A WATER NO OTHER NEEDS AT THIS TIME,CALL LIGHT AT BS ALONG WITH HIS IN ROOM
--- NOTE | 2024-01-19 13:07 | PC.NURSE ---
DR RAMIREZ AT BEDSIDE TO REEVALUATE AND UPDATE PT
[2024-01-19 13:12] LABS: Troponin I < 0.01 ng/ml (0.00-0.034)
--- NOTE | 2024-01-19 13:27 | CT_ITS ---
FINAL REPORT CLINICAL HISTORY: SOA FINDINGS: CTA CHEST WITH CONTRAST TECHNIQUE: Thin section axial CT with IV contrast supplemented with 3D reconstructed MIP images. FINDINGS: Pulmonary vessels enhance in a normal fashion without evidence of embolic disease. Thoracic aorta is normal in caliber without evidence of aneurysm or dissection. Mild scarring or atelectasis is noted lung bases. There is no evidence of pneumonia or edema.. No pleural or pericardial effusion is seen . No adenopathy or mass lesion is present . IMPRESSION: 1. No evidence of pulmonary embolism. This study was performed using automated techniques to achieve radiation exposure as low as reasonably achievable Authenticated and ERN
[2024-01-19] MEDS: LACTATED RINGERS 1000ML 1,000 ML 999 ML IV (14:08)
[2024-01-19] MEDS: 0.9 % SODIUM CHLORIDE 50 ML VIAL IV (14:10)
[2024-01-19] MEDS: SODIUM CHLORIDE 0.9% 10ML SYR (RAD ONLY) 10 ML IV (14:10)
[2024-01-19] MEDS: IOPAMIDOL-370 (76%);100ML BOTTLE 70 ML IV (14:10)
--- NOTE | 2024-01-19 14:30 | PC.NURSE ---
PT TO CT
--- NOTE | 2024-01-19 14:30 | PC.NURSE ---
DR RAMIREZ AT BEDSIDE
--- NOTE | 2024-01-19 14:30 | PC.NURSE ---
PT TRANSPORTED TO RADIOLOGY VIA WHEELCHAIR.
--- NOTE | 2024-01-19 14:43 | PC.NURSE ---
PT RETURNED FROM CT
--- NOTE | 2024-01-19 14:53 | PC.NURSE ---
DR GONZALEZ PAGED
--- NOTE | 2024-01-19 15:08 | PC.NURSE ---
DR GONZALEZ PAGED AGAIN
--- NOTE | 2024-01-19 15:08 | PC.NURSE ---
DR RAMIREZ SPEAKING WITH DR GONZALEZ
--- NOTE | 2024-01-19 16:11 | PC.NURSE ---
PT AND FAMILY UPDATED AT THIS TIME
--- NOTE | 2024-01-19 16:16 | PC.NURSE ---
DR SOUZA AT BEDSIDE TO EVALUATE PT
--- NOTE | 2024-01-19 16:18 | PC.NURSE ---
DR SOUZA SPEAKING WITH DR GONZALES FOR ADMISSION
--- NOTE | 2024-01-19 16:28 | PC.NURSE ---
PT AND SPOUSE PROVIDED SANDWICH AND CHIPS
[2024-01-19 16:32] LABS: Troponin I < 0.01 ng/ml (0.00-0.034)
--- NOTE | 2024-01-19 16:41 | PC.NURSE ---
report called to jacqueline on second floor. per nurse on second floor, room needs to be cleaned. pt will be transported when room clean.
--- NOTE | 2024-01-19 17:41 | P.HP_ITS ---
History of Present Illness *Admission Date: 01/19/24 *Reason for visit:: SOB *History of present illness: Patient is a 83-year-old male with past medical history of COPD CAD hypertension hyperlipidemia diabetes mellitus who presents to the hospital due to shortness of breath. Patient has been feeling shortness of breath for past 10 days, it has been getting worse. Patient mentions his shortness of breath initially improved after blood transfusion due to anemia. He mentions his shortness of breath is worse with ambulation, He also has cough wheezing. Patient mentions he has been using home breathing treatments without much relief, he mentions he has been compliant with his medications. Patient otherwise denies chest pain, nausea vomiting diarrhea constipation dysuria. [facility] Disclaimer: The information contained in this section may have been updated after the patient was seen, as this information can be updated by other users. Medical History Abnormal computed tomography angiography of heart Hyperlipidemia HTN (hypertension) CAD (coronary artery disease) Anemia Atypical angina Shortness of breath Edema Seasonal allergies Essential tremor Diabetes Surgical History History of cataract surgery History of shoulder replacement S/P deep brain stimulator placement History of back surgery History of ankle surgery History of hand surgery History of colonoscopy Family History Father Stroke Mother Heart attack Sister Cancer Stroke Social History Smoking Status: Never smoker second hand exposure: No alcohol intake: current alcohol intake frequency: a few times a week counseling given: No substance use type: denies use current occupational status: retired Travel in the last 8 weeks: None adopted: No caregiver/support person: No foster care: No household members: spouse housing: house lives independently: Yes marital status: Review of Systems Review of Systems Review of systems:: pertinent systems reviewed and negative unless documented below Meds Home Medications and Allergies Home Medications Medication Instructions Recorded Confirmed Type aspirin 81 mg tablet,delayed 81 mg PO DAILY 10/18/23 01/19/24 History release (Adult Aspirin Regimen) cetirizine 10 mg tablet 10 mg PO DAILY 10/18/23 01/19/24 History empagliflozin 25 mg tablet 25 mg PO DAILY 10/18/23 01/19/24 History (Jardiance) finasteride 5 mg tablet 5 mg PO HS 10/18/23 01/19/24 History fluticasone 250 mcg-salmeterol 50 1 inh inhalation BID 10/18/23 01/19/24 History mcg/dose blistr powdr for inhalation fluticasone propionate 50 2 spray intranasal DAILY 10/18/23 01/19/24 History mcg/actuation nasal spray,suspension glimepiride 4 mg tablet 4 mg PO BID 10/18/23 01/19/24 History mecobalamin (vitamin B12) 1,000 1,000 mcg PO DAILY 10/18/23 01/19/24 History mcg lozenges montelukast 10 mg tablet 10 mg PO HS 10/18/23 01/19/24 History pioglitazone 15 mg tablet 15 mg PO DAILY 10/18/23 01/19/24 History propranolol 80 mg capsule,24 80 mg PO DAILY 10/18/23 01/19/24 History hr,extended release sitagliptin phosphate 100 mg 100 mg PO DAILY 10/18/23 01/19/24 History tablet (Januvia) tamsulosin 0.4 mg capsule 0.8 mg PO HS 10/18/23 01/19/24 History triamterene 37.5 1 cap PO DAILY 10/18/23 01/19/24 History mg-hydrochlorothiazide 25 mg capsule albuterol sulfate 90 mcg/actuation 1 puff inhalation Q6HP PRN 10/31/23 01/19/24 History aerosol inhaler Shortness Of Breath atorvastatin 40 mg tablet 80 mg (2 x 40 mg) PO HS 30 days 11/09/23 01/19/24 Rx #60 tabs ascorbate calcium (vitamin C) 500 500 mg PO DAILY 11/21/23 01/19/24 History mg tablet ferrous sulfate 325 mg (65 mg 325 mg PO DAILY 11/21/23 01/19/24 History iron) tablet (FeroSul) clopidogrel 75 mg tablet 75 mg PO DAILY #90 tabs 12/07/23 01/19/24 Rx budesonide 160 mcg-glycopyr 9 2 inh inhalation BID 01/05/24 01/19/24 History mcg-formot 4.8 mcg/actuation HFA inhaler (Breztri Aerosphere) irbesartan 75 mg tablet 75 mg PO DAILY 01/19/24 01/19/24 History New Prescriptions to Start Prescriptions: Allergies Allergy/AdvReac Type Severity Reaction Status Date / Time codeine Allergy Mild Rash Verified 01/19/24 17:36 Exam Data for Last 24 hours Vital signs and Labs for Last 24 Hours: Temp Pulse Resp BP Pulse Ox O2 Del Method 98.0 F 102 H 23 142/68 H 100 Room Air 01/19/24 17:01/19/24 17:01/19/24 17:01/19/24 17:01/19/24 16:28 01/19/24 16:28 Laboratory Results - last 24 hr 01/19/24 12:25: WBC 8.4, RBC 3.91 L, Hgb 10.7 L, Hct 34.0 L, MCV 86.9, MCH 27.4, MCHC 31.5 L, RDW 17.7 H, Plt Count 219, MPV 8.9, Neut % (Auto) 65.0, Lymph % (Auto) 14.5, [place] % (Auto) 20.0 H, Eos % (Auto) 0.2, Baso % (Auto) 0.3, Neut # (Auto) 5.5, Lymph # (Auto) 1.2, [place] # (Auto) 1.7 H, Eos # (Auto) 0.0, Baso # (Auto) 0.0, Total Counted 100, Neutrophils % (Manual) 63, Lymphocytes % (Manual) 15, Monocytes % (Manual) 22 H, Platelet Estimate Normal, Hypochromasia 1+, D- Dimer 0.36, Sodium 135 L, Potassium 3.8, Chloride 101, Carbon Dioxide 28, Anion Gap 9.8, BUN 24 H, Creatinine 1.10, Estimated Creat Clear 68, Estimated GFR 64, Est GFR ( Amer) 78, Glucose 166 H, Calcium 9.5, Total Bilirubin 0.3, AST 19, ALT 17, Alkaline Phosphatase 105, Troponin I < 0.01, NT-Pro-B Natriuret Pep 104, Total Protein 6.6, Albumin 4.1, Globulin 2.5, Albumin/Globulin Ratio 1.6 01/19/24 12:40: Blood Type O Positive, Antibody Screen Negative 01/19/24 15:40: Troponin I < 0.01 I & O for Last 24 hours: Intake & Output 01/16/24 01/17/24 01/18/24 01/19/24 23:59 23:59 23:59 23:59 Weight 90.718 kg Constitutional Constitutional: no acute distress *Routine HEENT Exam Head: Present normocephalic Eye: Present EOMI and PERRL ENT: Present mucous membranes moist *Routine Neck Exam Neck: Present supple; Absent lymphadenopathy *Routine Respiratory Exam Respiratory: Present CTA bilaterally *Routine Cardiovascular Exam Cardiovascular: Present RRR *Routine Abdominal Exam Abdominal: Present soft and normoactive bowel sounds; Absent tenderness *Routine Rectal Exam Rectal:: deferred *Routine Genitalia Exam Genitalia:: deferred *Routine Extremities Exam Extremities: Absent cyanosis, clubbing or edema *Routine Skin Exam Skin: Present warm; Absent rash *Routine Neurological Exam Neurological: Present alert and oriented X3 Assessment and Plan *Assessment and plan (1) CAD (coronary artery disease): Status: Acute Qualifiers: Associated angina: with unstable angina Coronary Disease-Associated Artery/Lesion type: [place] artery [place] vs. transplanted heart: minto heart Qualified Code(s): I25.110 - Atherosclerotic heart disease of [place] coronary artery with unstable angina pectoris Category: Medical Code(s): I25.10 - Atherosclerotic heart disease of m[place] coronary artery without angina pectoris (2) Anemia: Status: Acute Qualifiers: Anemia type: iron deficiency Iron deficiency anemia type: unspecified iron deficiency Qualified Code(s): D50.9 - Iron deficiency anemia, unspecified Category: Medical Code(s): D64.9 - Anemia, unspecified (3) Shortness of breath: Status: Acute Category: Medical Code(s): R06.02 - Shortness of breath (4) HTN (hypertension): Status: Acute Qualifiers: Hypertension type: primary hypertension Qualified Code(s): I10 - Essential (primary) hypertension Category: Medical Code(s): I10 - Essential (primary) hypertension (5) Diabetes: Status: Acute Qualifiers: 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 complication status: with other specified complication 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 tank terminal gauger insulin use: unspecified custodial insulin use status 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 type: other specified (including SHAMAR) Qualified Code(s): E13.69 - Other specified diabetes mellitus with other specified complication Category: Medical Code(s): E11.9 - Type 2 diabetes mellitus without complications (6) Hyperlipidemia: Status: Acute Qualifiers: Hyperlipidemia type: mixed hyperlipidemia Qualified Code(s): E78.2 - Mixed hyperlipidemia Category: Medical Code(s): E78.5 - Hyperlipidemia, unspecified Plan Patient is a 83-year-old male with past medical history of COPD CAD hypertension hyperlipidemia diabetes mellitus who presents to the hospital due to shortness of breath. Patient has been feeling shortness of breath for past 10 days, it has been getting worse. Patient mentions his shortness of breath initially improved after blood transfusion due to anemia. He mentions his shortness of breath is worse with ambulation, He also has cough wheezing. Patient mentions he has been using home breathing treatments without much relief, he mentions he has been compliant with his medications. Patient otherwise denies chest pain, nausea vomiting diarrhea constipation dysuria. Assessment and plan Shortness of breath likely multifactorial, COPD CHF, chronic anemia, CAD Check proBNP Check troponin Monitor on cardiac telemetry Consult cardiology Check blood gas DuoNebs CTA chest performed-negative for PE Will defer ordering echocardiogram to cardiology Check respiratory viral panel As needed Robitussin Orthostatic hypotension Monitor Recheck in the morning Hypertension Hyperlipidemia 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 Insulin sliding scale DVT PPx - heparin
[2024-01-19 18:41] LABS: VBG Base Excess 0.7 mmol/L (-2.4-2.3); VBG HCO3 25.7 mmol/L (23-30); VBG Oxygen Saturation 69.5 % (50-70); VBG PH 7.39 mmol/L (7.31-7.41); VBG PO2 39.8 mmol/L (28-40); VBG Total CO2 27.1 mmol/L (23-27)
[2024-01-19] MEDS: HEPARIN SODIUM 5,000 UNIT/ML VIAL 5000 UNIT SQ (18:43)
[2024-01-19 18:45] LABS: Lactate Venous 3.1 mmol/L (0.4-2.0)
[2024-01-19 18:51] LABS: NT Pro Brain Natriuretic Pep. 105 pg/mL (0-450)
[2024-01-19 19:00] LABS: Troponin I < 0.01 ng/ml (0.00-0.034)
[2024-01-19 20:37] LABS: Coronavirus 19, PCR Not Detected (NotDetected); Influenza A, PCR Not Detected (NotDetected); Influenza B, PCR Not Detected (NotDetected)
[2024-01-19 20:42] LABS: POC Glucose,Bedside 197 (70-110)
[2024-01-19] MEDS: ATORVASTATIN 40MG TABLET 80 MG PO (21:04)
[2024-01-19] MEDS: MONTELUKAST SODIUM 10MG TAB 10 MG PO (21:04)
[2024-01-19] MEDS: TAMSULOSIN 0.4MG CAPSULE 0.8 MG PO (21:04)
[2024-01-19 22:44] LABS: Reflex Lactic Add Lactic Reflex
[2024-01-19 23:49] LABS: Lactic Acid Follow Up (RFLX 1) 1.9 mmol/L (0.7-2.1)
[2024-01-20] VITALS (20 sets, daily range): BP systolic 95–137; BP diastolic 47–87; PULSE 82–113; RESP 16–25; TEMP 36.6–37.2; O2SAT 94–99; BMI 36.8
[2024-01-20 00:02] LABS: Troponin I < 0.01 ng/ml (0.00-0.034)
[2024-01-20] MEDS: HEPARIN SODIUM 5,000 UNIT/ML VIAL 5000 UNIT SQ ×2 (00:08→09:02)
[2024-01-20 05:44] LABS: POC Glucose,Bedside 127 (70-110)
--- NOTE | 2024-01-20 06:11 | PC.NURSE ---
Patient is alert and oriented x4. Patient's has remained with him at bedside during the night. Patient has rested very comfortably and states he feels better this morning. Patient was swabbed for a viral culture respiratory panel; nothing was detected. Patient's lung sounds were clear upon auscultation. His heart rate on telemetry has shown sinus tachycardia with occasional SVTs during exertion throughout the night. A continuous pulse ox was applied earlier this shift. Patient tolerates room air; his oxygen sats have remained between 95 and 94 this shift. His IV is saline locked. Patient's bowel sounds were active in all 4 quadrants; he has had a bowel movement and has gotten up to void multiple times during the night. He had some swelling in his lower extremities. Patient has tremors; he stated that his tremoring is worse on his right side. Patient stated he has been having trouble voiding due to an enlarged prostate from receiving his inhalers. Patient also stated that he refuses to take any more inhalers because they make him feel worse. Patient's fingerstick reading at 21:00 was 197; his reading at around 05:30 was 127. Patient did not have any complaints of dizziness, pain, or nausea during this shift. He did not report of any worsening of shortness of air. No acute changes at this time. Patient has been NPO since midnight for his cardiology consult today. Patient is resting in bed at this time. Call light is within reach.
[2024-01-20 06:31] LABS: Chloride 101 mmol/L (98-107)
[2024-01-20 06:32] LABS: Potassium 4.4 mmoL/L (3.5-5.1); Sodium 130 mmol/L (136-145)
[2024-01-20 06:34] LABS: Blood Urea Nitrogen 22 mg/dl (9-20); Creatinine Clearance Estimated 77 mL/min (50-200); Estimated Glomerular Filt Rate 81 ml/min (>60); GFR (African American) 98 ML/MIN (>60)
[2024-01-20 06:35] LABS: Anion Gap 8.4 mEq/L (5-15); Calcium 8.4 mg/dl (8.4-10.2); Carbon Dioxide 25 mmol/L (22.0-30.0); Glucose 105 mg/dl (74-100)
[2024-01-20 07:23] LABS: Basophils % 0.5 % (0.1-2.0); Eosinophils # 0.1 K/mm3 (0.0-0.4); Eosinophils % 0.8 % (0.1-12.0); Hematocrit 29.1 % (42.0-52.0); Lymphocytes # 1.7 K/mm3 (0.7-4.5); Lymphocytes % 20.7 % (10-50); Mean Corpuscular HGB Conc 32.2 g/dL (31.8-35.4); Mean Corpuscular Hemoglobin 28.5 pg (27.0-31.2); Mean Corpuscular Volume 88.4 fl (80-94); Mean Platelet Volume 8.3 fl (7.4-10.4); Monocytes # 1.9 K/mm3 (0.1-1.0); Monocytes % 22.8 % (1.7-9.3); Neutrophils # 4.5 K/mm3 (1.8-7.8); Neutrophils % 55.2 % (37.0-80.0); Platelet Count 178 K/mm3 (142-424); Red Blood Count 3.29 M/mm3 (4.60-6.20); Red Cell Distribution Width 17.6 % (11.5-17.5); White Blood Count 8.2 K/mm3 (4.8-10.8)
[2024-01-20 07:52] LABS: MANUAL DIFFERENTIAL MANUAL DIFFERENTIAL (MANUAL DIFF)
[2024-01-20] MEDS: LORATADINE 10MG TABLET 10 MG PO (08:57)
[2024-01-20] MEDS: ASPIRIN EC 81MG TABLET 81 MG PO (08:57)
[2024-01-20] MEDS: PROPRANOLOL 20MG TAB 20 MG PO (08:57)
[2024-01-20] MEDS: CLOPIDOGREL 75MG TAB 75 MG PO (08:57)
[2024-01-20] MEDS: ASCORBIC ACID 500MG TAB 500 MG PO (08:58)
[2024-01-20] MEDS: FERROUS SULFATE 325MG TABLET 325 MG PO (08:58)
[2024-01-20] MEDS: SITAGLIPTIN 50MG TABLET 100 MG PO (08:58)
[2024-01-20] MEDS: EMPAGLIFLOZIN 10MG TABLET 20 MG PO (08:58)
[2024-01-20] MEDS: HCTZ PO (08:59)
[2024-01-20] MEDS: TRIAMTERENE PO (08:59)
[2024-01-20] MEDS: FLUTICASONE PROP 50MCG NASAL SPRAY 16GM 2 SPRAY NS (08:59)
--- NOTE | 2024-01-20 09:44 | EXP.PULM.CON ---
History of Present Illness History of present illness: Mr. Oconnor is a 83-year-old male with reported history of COPD, CAD hypertension dyslipidemia diabetes mellitus presented with abnormal worsening respiratory distress worsening for the last 10 days prior to admission pulmonary was called for further evaluation and management. Patient admits baseline respiratory symptoms, interfering with activities of daily living. [facility] Disclaimer: The information contained in this section may have been updated after the patient was seen, as this information can be updated by other users. Medical History (Updated 01/20/24 @ 11:40 by Jaden Ortiz MD) Dyspnea on exertion COPD (chronic obstructive pulmonary disease) Abnormal computed tomography angiography of heart Hyperlipidemia HTN (hypertension) CAD (coronary artery disease) Anemia Atypical angina Shortness of breath Edema Seasonal allergies Essential tremor Diabetes Surgical History History of cataract surgery History of shoulder replacement S/P deep brain stimulator placement History of back surgery History of ankle surgery History of hand surgery History of colonoscopy Family History Father Stroke Mother Heart attack Sister Cancer Stroke Social History Smoking Status: Never smoker second hand exposure: No alcohol intake: current alcohol intake frequency: a few times a week counseling given: No substance use type: denies use current occupational status: retired Travel in the last 8 weeks: None adopted: No caregiver/support person: No foster care: No household members: spouse housing: house lives independently: Yes marital status: Review of Systems Constitutional Constitutional: Denies anorexia, Denies body ache(s) and Denies fatigue Eyes Eyes: Denies eye discharge, Denies dry eyes, Denies irritation and Denies itchy eyes ENT Ears, Nose, Mouth, and Throat: Denies epistaxis, Denies facial pain, Denies lip swelling and Denies throat swelling *Cardiovascular Cardiovascular: Reports dyspnea and Reports dyspnea on exertion *Respiratory Respiratory: Denies chest congestion, Denies cough, Reports dyspnea, Reports dyspnea on exertion, Denies excessive phlegm production, Denies hemoptysis, Denies pain on inspiration, Denies pain with cough and Denies wheezing *Gastrointestinal Gastrointestinal: Denies abdominal pain, Denies belching and Denies cramping Psychiatric Psychiatric: Denies homicidal ideation and Denies suicidal ideation Endocrine Endocrine: Denies fatigue and Denies heat intolerance Hematologic/Lymphatic Hematologic/Lymphatic: Denies easy bleeding and Denies lymphadenopathy Allergic/Immunologic Allergic/Immunologic: Denies itchy eyes, Denies lip swelling, Denies throat swelling and Denies wheezing Pulmonology Exam Inpatient Vital signs and Labs for Last 24 Hours: Temp Pulse Resp BP Pulse Ox O2 Del Method 97.9 F 110 H 25 H 133/65 96 Room Air 01/20/24 07:44 01/20/24 08:00 01/20/24 07:44 01/20/24 07:44 01/20/24 07:44 01/20/24 07:44 Laboratory Results - last 24 hr 01/19/24 12:25: WBC 8.4, RBC 3.91 L, Hgb 10.7 L, Hct 34.0 L, MCV 86.9, MCH 27.4, MCHC 31.5 L, RDW 17.7 H, Plt Count 219, MPV 8.9, Neut % (Auto) 65.0, Lymph % (Auto) 14.5, [place] % (Auto) 20.0 H, Eos % (Auto) 0.2, Baso % (Auto) 0.3, Neut # (Auto) 5.5, Lymph # (Auto) 1.2, [place] # (Auto) 1.7 H, Eos # (Auto) 0.0, Baso # (Auto) 0.0, Total Counted 100, Neutrophils % (Manual) 63, Lymphocytes % (Manual) 15, Monocytes % (Manual) 22 H, Platelet Estimate Normal, Hypochromasia 1+, D-Dimer 0.36, Sodium 135 L, Potassium 3.8, Chloride 101, Carbon Dioxide 28, Anion Gap 9.8, BUN 24 H, Creatinine 1.10, Estimated Creat Clear 68, Estimated GFR 64, Est GFR ( Amer) 78, Glucose 166 H, Calcium 9.5, Total Bilirubin 0.3, AST 19, ALT 17, Alkaline Phosphatase 105, Troponin I < 0.01, NT-Pro-B Natriuret Pep 104, Total Protein 6.6, Albumin 4.1, Globulin 2.5, Albumin/Globulin Ratio 1.6 01/19/24 12:40: Blood Type O Positive, Antibody Screen Negative 01/19/24 15:40: Troponin I < 0.01 01/19/24 17:41: VBG pH 7.39, VBG pCO2 44.0, VBG pO2 39.8, VBG HCO3 25.7, VBG Total CO2 27.1 H, VBG O2 Saturation 69.5, VBG Base Excess 0.7, VBG Lactic Acid 3.1 H 01/19/24 18:10: Troponin I < 0.01, NT-Pro-B Natriuret Pep 105 01/19/24 20:18: POC Glucose 197 H 01/19/24 20:30: SARS-CoV-2 (PCR) Not detected, Influenza A Untype (PCR) Not detected, Influenza Type B (PCR) Not detected 01/19/24 23:34: Lactate 1.9, Troponin I < 0.01 01/20/24 05:32: WBC 8.2, RBC 3.29 L, Hct 29.1 L, MCV 88.4, MCH 28.5, MCHC 32.2, RDW 17.6 H, Plt Count 178, MPV 8.3, Neut % (Auto) 55.2, Lymph % (Auto) 20.7, [place] % (Auto) 22.8 H, Eos % (Auto) 0.8, Baso % (Auto) 0.5, Neut # (Auto) 4.5, Lymph # (Auto) 1.7, [place] # (Auto) 1.9 H, Eos # (Auto) 0.1, Baso # (Auto) 0.0, Sodium 130 L, Potassium 4.4, Chloride 101, Carbon Dioxide 25, Anion Gap 8.4, BUN 22 H, Creatinine 0.90, Estimated Creat Clear 77, Estimated GFR 81, Est GFR ( Amer) 98 D, Glucose 105 H D, Calcium 8.4 01/20/24 05:35: POC Glucose 127 H I & O for Labs for Last 24 Hours: Intake & Output 01/17/24 01/18/24 01/19/24 01/20/24 23:59 23:59 23:59 23:59 Intake Total 240 / 462 222 / 222 Output Total 0 / 0 0 / 0 Balance 240 / 462 222 / 222 Weight 203 lb 5 oz 207 lb 14.4 oz Constitutional: Present mild distress Head: Present normocephalic and atraumatic ENT: Present normal exam, normal oropharynx and mucous membranes moist Neck: Present normal inspection and full ROM Respiratory: Present normal respiratory effort and able to speak in complete sentences; Absent respiratory distress, wheezes, crackles or diminished air movement Cardiac: Present S1/S2, Tachycardia and radial pulses present GI: Present soft and distention; Absent tenderness or guarding Skin: Present intact; Absent cyanosis or jaundice Neuro: Present alert, awake and oriented x 3 Extremities: Present normal inspection; Absent clubbing or cyanosis Psychiatric: Present normal affect and cooperative Meds Home Medications and Allergies Home Medications Medication Instructions Recorded Confirmed Type aspirin 81 mg tablet,delayed 81 mg PO DAILY 10/18/23 01/19/24 History release (Adult Aspirin Regimen) cetirizine 10 mg tablet 10 mg PO DAILY 10/18/23 01/19/24 History empagliflozin 25 mg tablet 25 mg PO DAILY 10/18/23 01/19/24 History (Jardiance) finasteride 5 mg tablet 5 mg PO HS 10/18/23 01/19/24 History fluticasone propionate 50 2 spray intranasal DAILY 10/18/23 01/19/24 History mcg/actuation nasal spray,suspension glimepiride 4 mg tablet 4 mg PO BID 10/18/23 01/19/24 History mecobalamin (vitamin B12) 1,000 1,000 mcg PO DAILY 10/18/23 01/19/24 History mcg lozenges montelukast 10 mg tablet 10 mg PO HS 10/18/23 01/19/24 History pioglitazone 15 mg tablet 15 mg PO DAILY 10/18/23 01/19/24 History propranolol 80 mg capsule,24 80 mg PO DAILY 10/18/23 01/19/24 History hr,extended release sitagliptin phosphate 100 mg 100 mg PO DAILY 10/18/23 01/19/24 History tablet (Januvia) tamsulosin 0.4 mg capsule 0.8 mg PO HS 10/18/23 01/19/24 History triamterene 37.5 1 cap PO DAILY 10/18/23 01/19/24 History mg-hydrochlorothiazide 25 mg capsule albuterol sulfate 90 mcg/actuation 1 puff inhalation Q6HP PRN 10/31/23 01/19/24 History aerosol inhaler Shortness Of Breath ascorbate calcium (vitamin C) 500 500 mg PO DAILY 11/21/23 01/19/24 History mg tablet ferrous sulfate 325 mg (65 mg 325 mg PO DAILY 11/21/23 01/19/24 History iron) tablet (FeroSul) clopidogrel 75 mg tablet 75 mg PO DAILY #90 tabs 12/07/23 01/19/24 Rx budesonide 160 mcg-glycopyr 9 2 inh inhalation BID 01/05/24 01/19/24 History mcg-formot 4.8 mcg/actuation HFA inhaler (Breztri Aerosphere) irbesartan 75 mg tablet 75 mg PO DAILY 01/19/24 01/19/24 History atorvastatin 80 mg tablet 80 mg PO HS 01/20/24 01/20/24 History fluticasone fur. 100 mcg-umeclid 1 ea inhalation DAILY 01/20/24 01/20/24 History 62.5 mcg-vilant 25 mcg inhalat.powder (Trelegy Ellipta) New Prescriptions to Start Prescriptions: Allergies Allergy/AdvReac Type Severity Reaction Status Date / Time codeine Allergy Mild Rash Verified 01/19/24 17:36 Results Laboratory Findings 01/20/24 05:32 01/20/24 05:32 PT/INR, D-dimer D-Dimer 0.36 ug/mL (0.0-0.5) 01/19/24 12:25 Abnormal lab findings: Abnormal Labs 01/19/24 01/19/24 01/19/24 12:25 17:41 20:18 RBC 3.91 L Hgb 10.7 L Hct 34.0 L MCHC 31.5 L RDW 17.7 H [place] % (Auto) 20.0 H [place] # (Auto) 1.7 H Monocytes % (Manual) 22 H VBG Total CO2 27.1 H VBG Lactic Acid 3.1 H Sodium 135 L BUN 24 H Glucose 166 H POC Glucose 197 H 01/20/24 01/20/24 05:32 05:35 RBC 3.29 L Hgb Hct 29.1 L MCHC RDW 17.6 H [place] % (Auto) 22.8 H [place] # (Auto) 1.9 H Monocytes % (Manual) VBG Total CO2 VBG Lactic Acid Sodium 130 L BUN 22 H Glucose 105 H D POC Glucose 127 H Assessment and Plan *Assessment and plan (1) Dyspnea on exertion: Status: Acute Category: Medical Code(s): R06.09 - Other forms of dyspnea (2) COPD (chronic obstructive pulmonary disease): Status: Acute Qualifiers: COPD type: unspecified COPD Qualified Code(s): J44.9 - Chronic obstructive pulmonary disease, unspecified Category: Medical Code(s): J44.9 - Chronic obstructive pulmonary disease, unspecified Plan Mr. Oconnor is a 83-year-old male with reported history of COPD, CAD hypertension dyslipidemia diabetes mellitus presented with abnormal worsening respiratory distress worsening for the last 10 days prior to admission pulmonary was called for further evaluation and management. Patient admits baseline respiratory symptoms, interfering with activities of daily living. 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 PFT November 2023, V1 VC ratio 67, FEV1 and VC at 70% predicted, 1.84 L and VC at 81% predicted, 2.76 L with no significant reversibility. TLC within normal limits at 82% predicted, 4.79 L. Diffusion capacity within normal limits at 92% predicted. CTA upon admission no evidence of pulmonary embolism. No emphysematous changes noted. Bilateral diffuse groundglass opacities noted along with small left pleural effusion concernign for volume overload. No dense consolidative changes noted. Afebrile. Hemodynamically stable. No evidence of leukocytosis. Blood gas upon admission did not show any evidence of hypoxic/hypercarbic respiratory failure. Lactic acidosis noted. COVID-19 and flu PCR panel negative. Patient on examination does not appear to be in any respiratory distress. Saturating 98% on room air. He previously using rescue inhaler with side effects, no significant improvement in his symptoms. Plan: Initiate levalbuterol inhaler every 6 hours on as-needed basis Volume optimization as per cardiology and primary team. # Thank you for involving pulmonary in this patient care. Patient can be discharged from pulmonary standpoint at this point of time. Recommend 6-minute walk testing prior to discharge.
[2024-01-20 09:52] LABS: Hemoglobin 9.4 g/dL (14.1-18.0)
[2024-01-20 10:01] LABS: Lymphocytes % 27 % (10-50); Monocytes % 11 % (2-9); Neutrophils % 62 % (42-76); Platelet Estimate Normal; RBC Morphology Normal; Total Cells Counted 100
--- NOTE | 2024-01-20 11:01 | EXP.CARD.CON ---
History of Present Illness History of Present Illness Consult date: 01/20/24 Requesting physician: Jerri Nickerson Consult reason: shortness of breath Chief complaint: SOA History of present illness: This is an 83-year-old white gentleman who presented to the emergency department complaints of shortness of breath. He has a past medical history of coronary artery disease, hypertension, hyperlipidemia, diabetes, COPD and iron deficiency anemia. The patient has been profoundly short of breath for the last 10 days. He states that he is short of breath all the time and this is worse with exertion. It does improve with rest but does not completely resolve. The patient was admitted to the hospital in October for the same symptoms but was found to be profoundly anemic and transfused with packed red blood cells with improvement in his shortness of breath. He states that his shortness of breath was only improved for about 2 or 3 days after discharge and then the shortness of breath came back and has progressively worsened. He did have a recent coronary stenting with 5 stents to the LAD and first diagonal artery. He denies any chest pain or pressure. He denies any lower extremity edema. He denies any fever, chills, nausea, vomiting, diarrhea, PND or orthopnea. His reports that even standing up from his chair causes profound shortness of breath and fatigue that is very unusual for him. [facility] Disclaimer: The information contained in this section may have been updated after the patient was seen, as this information can be updated by other users. Medical History (Updated 01/20/24 @ 11:04 by Chantelle Mccarthy APRN) COPD (chronic obstructive pulmonary disease) Abnormal computed tomography angiography of heart Hyperlipidemia HTN (hypertension) CAD (coronary artery disease) Anemia Atypical angina Shortness of breath Edema Seasonal allergies Essential tremor Diabetes Surgical History History of cataract surgery History of shoulder replacement S/P deep brain stimulator placement History of back surgery History of ankle surgery History of hand surgery History of colonoscopy Family History Father Stroke Mother Heart attack Sister Cancer Stroke Social History Smoking Status: Never smoker second hand exposure: No alcohol intake: current alcohol intake frequency: a few times a week counseling given: No substance use type: denies use current occupational status: retired Travel in the last 8 weeks: None adopted: No caregiver/support person: No foster care: No household members: spouse housing: house lives independently: Yes marital status: Review of Systems Review of Systems Review of systems:: pertinent systems reviewed and negative unless documented below Constitutional Constitutional: Reports system reviewed and no additional complaints, except as documented, Reports fatigue and Reports lethargy Eyes Eyes: Reports system reviewed and no additional complaints, except as documented ENT Ears, Nose, Mouth, and Throat: Reports system reviewed and no additional complaints, except as documented *Cardiovascular Cardiovascular: Reports system reviewed and no additional complaints, except as documented, Denies chest pain, Reports dyspnea and Reports dyspnea on exertion *Respiratory Respiratory: Reports system reviewed and no additional complaints, except as documented, Reports dyspnea and Reports dyspnea on exertion *Gastrointestinal Gastrointestinal: Reports system reviewed and no additional complaints, except as documented *Genitourinary Genitourinary: Reports system reviewed and no additional complaints, except as documented *Musculoskeletal Musculoskeletal: Reports system reviewed and no additional complaints, except as documented Integumentary/Breasts Skin/Breast: Reports system reviewed and no additional complaints, except as documented *Neurologic Neurologic: Reports system reviewed and no additional complaints, except as documented Psychiatric Psychiatric: Reports system reviewed and no additional complaints, except as documented Endocrine Endocrine: Reports system reviewed and no additional complaints, except as documented and Reports fatigue Hematologic/Lymphatic Hematologic/Lymphatic: Reports system reviewed and no additional complaints, except as documented Allergic/Immunologic Allergic/Immunologic: Reports system reviewed and no additional complaints, except as documented Exam Data for Last 24 hours Vital signs and Labs for Last 24 Hours: Temp Pulse Resp BP Pulse Ox O2 Del Method 97.9 F 110 H 25 H 133/65 96 Room Air 01/20/24 07:44 01/20/24 08:00 01/20/24 07:44 01/20/24 07:44 01/20/24 07:44 01/20/24 07:44 Laboratory Results - last 24 hr 01/19/24 12:25: WBC 8.4, RBC 3.91 L, Hgb 10.7 L, Hct 34.0 L, MCV 86.9, MCH 27.4, MCHC 31.5 L, RDW 17.7 H, Plt Count 219, MPV 8.9, Neut % (Auto) 65.0, Lymph % (Auto) 14.5, [place] % (Auto) 20.0 H, Eos % (Auto) 0.2, Baso % (Auto) 0.3, Neut # (Auto) 5.5, Lymph # (Auto) 1.2, [place] # (Auto) 1.7 H, Eos # (Auto) 0.0, Baso # (Auto) 0.0, Total Counted 100, Neutrophils % (Manual) 63, Lymphocytes % (Manual) 15, Monocytes % (Manual) 22 H, Platelet Estimate Normal, Hypochromasia 1+, D-Dimer 0.36, Sodium 135 L, Potassium 3.8, Chloride 101, Carbon Dioxide 28, Anion Gap 9.8, BUN 24 H, Creatinine 1.10, Estimated Creat Clear 68, Estimated GFR 64, Est GFR ( Amer) 78, Glucose 166 H, Calcium 9.5, Total Bilirubin 0.3, AST 19, ALT 17, Alkaline Phosphatase 105, Troponin I < 0.01, NT-Pro-B Natriuret Pep 104, Total Protein 6.6, Albumin 4.1, Globulin 2.5, Albumin/Globulin Ratio 1.6 01/19/24 12:40: Blood Type O Positive, Antibody Screen Negative 01/19/24 15:40: Troponin I < 0.01 01/19/24 17:41: VBG pH 7.39, VBG pCO2 44.0, VBG pO2 39.8, VBG HCO3 25.7, VBG Total CO2 27.1 H, VBG O2 Saturation 69.5, VBG Base Excess 0.7, VBG Lactic Acid 3.1 H 01/19/24 18:10: Troponin I < 0.01, NT-Pro-B Natriuret Pep 105 01/19/24 20:18: POC Glucose 197 H 01/19/24 20:30: SARS-CoV-2 (PCR) Not detected, Influenza A Untype (PCR) Not detected, Influenza Type B (PCR) Not detected 01/19/24 23:34: Lactate 1.9, Troponin I < 0.01 01/20/24 05:32: WBC 8.2, RBC 3.29 L, Hgb 9.4 L D, Hct 29.1 L, MCV 88.4, MCH 28.5, MCHC 32.2, RDW 17.6 H, Plt Count 178, MPV 8.3, Neut % (Auto) 55.2, Lymph % (Auto) 20.7, [place] % (Auto) 22.8 H, Eos % (Auto) 0.8, Baso % (Auto) 0.5, Neut # (Auto) 4.5, Lymph # (Auto) 1.7, [place] # (Auto) 1.9 H, Eos # (Auto) 0.1, Baso # (Auto) 0.0, Total Counted 100, Neutrophils % (Manual) 62, Lymphocytes % (Manual) 27, Monocytes % (Manual) 11 H, Platelet Estimate Normal, RBC Morphology Normal, Sodium 130 L, Potassium 4.4, Chloride 101, Carbon Dioxide 25, Anion Gap 8.4, BUN 22 H, Creatinine 0.90, Estimated Creat Clear 77, Estimated GFR 81, Est GFR ( Amer) 98 D, Glucose 105 H D, Calcium 8.4 01/20/24 05:35: POC Glucose 127 H I & O for Last 24 hours: Intake & Output 01/17/24 01/18/24 01/19/24 01/20/24 23:59 23:59 23:59 23:59 Intake Total 240 / 462 222 / 222 Output Total 0 / 0 0 / 0 Balance 240 / 462 222 / 222 Weight 203 lb 5 oz 207 lb 14.4 oz Constitutional Constitutional: no acute distress and average body habitus *Routine HEENT Exam Head: Present normocephalic and atraumatic ENT: Present mucous membranes moist *Routine Neck Exam Neck: Present supple, full ROM and normal carotid upstroke; Absent JVD, carotid bruit or lymphadenopathy *Routine Respiratory Exam Respiratory: Present CTA bilaterally, normal respiratory effort, able to speak in complete sentences and symmetric chest movement *Routine Cardiovascular Exam Cardiovascular: Present RRR, Normal S1 and Normal S2; Absent murmur or gallop *Routine Abdominal Exam Abdominal: Present soft and normoactive bowel sounds; Absent tenderness, distended or organomegaly *Routine Extremities Exam Extremities: Present full ROM, pulses intact and normal capillary refill; Absent cyanosis, clubbing or edema *Routine Skin Exam Skin: Present intact and warm; Absent erythema *Routine Neurological Exam Neurological: Present alert, oriented X3 and CN II-XII intact; Absent sensory deficit or motor deficit Routine Psychiatric Exam Psychiatric: Present normal affect Meds Home Medications and Allergies Home Medications Medication Instructions Recorded Confirmed Type aspirin 81 mg tablet,delayed 81 mg PO DAILY 10/18/23 01/19/24 History release (Adult Aspirin Regimen) cetirizine 10 mg tablet 10 mg PO DAILY 10/18/23 01/19/24 History empagliflozin 25 mg tablet 25 mg PO DAILY 10/18/23 01/19/24 History (Jardiance) finasteride 5 mg tablet 5 mg PO HS 10/18/23 01/19/24 History fluticasone propionate 50 2 spray intranasal DAILY 10/18/23 01/19/24 History mcg/actuation nasal spray,suspension glimepiride 4 mg tablet 4 mg PO BID 10/18/23 01/19/24 History mecobalamin (vitamin B12) 1,000 1,000 mcg PO DAILY 10/18/23 01/19/24 History mcg lozenges montelukast 10 mg tablet 10 mg PO HS 10/18/23 01/19/24 History pioglitazone 15 mg tablet 15 mg PO DAILY 10/18/23 01/19/24 History propranolol 80 mg capsule,24 80 mg PO DAILY 10/18/23 01/19/24 History hr,extended release sitagliptin phosphate 100 mg 100 mg PO DAILY 10/18/23 01/19/24 History tablet (Januvia) tamsulosin 0.4 mg capsule 0.8 mg PO HS 10/18/23 01/19/24 History triamterene 37.5 1 cap PO DAILY 10/18/23 01/19/24 History mg-hydrochlorothiazide 25 mg capsule albuterol sulfate 90 mcg/actuation 1 puff inhalation Q6HP PRN 10/31/23 01/19/24 History aerosol inhaler Shortness Of Breath ascorbate calcium (vitamin C) 500 500 mg PO DAILY 11/21/23 01/19/24 History mg tablet ferrous sulfate 325 mg (65 mg 325 mg PO DAILY 11/21/23 01/19/24 History iron) tablet (FeroSul) clopidogrel 75 mg tablet 75 mg PO DAILY #90 tabs 12/07/23 01/19/24 Rx budesonide 160 mcg-glycopyr 9 2 inh inhalation BID 01/05/24 01/19/24 History mcg-formot 4.8 mcg/actuation HFA inhaler (Breztri Aerosphere) irbesartan 75 mg tablet 75 mg PO DAILY 01/19/24 01/19/24 History atorvastatin 80 mg tablet 80 mg PO HS 01/20/24 01/20/24 History fluticasone fur. 100 mcg-umeclid 1 ea inhalation DAILY 01/20/24 01/20/24 History 62.5 mcg-vilant 25 mcg inhalat.powder (Trelegy Ellipta) New Prescriptions to Start Prescriptions: Allergies Allergy/AdvReac Type Severity Reaction Status Date / Time codeine Allergy Mild Rash Verified 01/19/24 17:36 Assessment and Plan *Assessment and plan (1) Shortness of breath: Status: Acute Category: Medical Code(s): R06.02 - Shortness of breath (2) Atypical angina: Status: Acute Category: Medical Code(s): I20.89 - Other forms of angina pectoris (3) CAD (coronary artery disease): Status: Acute Qualifiers: Associated angina: with unstable angina Coronary Disease-Associated Artery/Lesion type: lummi artery [place] vs. transplanted heart: lummi heart Qualified Code(s): I25.110 - Atherosclerotic heart disease of lummi coronary artery with unstable angina pectoris Category: Medical Code(s): I25.10 - Atherosclerotic heart disease of lummi coronary artery without angina pectoris (4) HTN (hypertension): Status: Acute Qualifiers: Hypertension type: primary hypertension Qualified Code(s): I10 - Essential (primary) hypertension Category: Medical Code(s): I10 - Essential (primary) hypertension (5) Hyperlipidemia: Status: Acute Qualifiers: Hyperlipidemia type: mixed hyperlipidemia Qualified Code(s): E78.2 - Mixed hyperlipidemia Category: Medical Code(s): E78.5 - Hyperlipidemia, unspecified (6) Chronic anemia: Status: Acute Category: Medical Code(s): D64.9 - Anemia, unspecified (7) COPD (chronic obstructive pulmonary disease): Status: Acute Qualifiers: COPD type: unspecified COPD Qualified Code(s): J44.9 - Chronic obstructive pulmonary disease, unspecified Category: Medical Code(s): J44.9 - Chronic obstructive pulmonary disease, unspecified Plan Plan: 1. The patient was admitted to the hospital with shortness of breath. He states that he has been progressively worse with his shortness of breath over the last 10 days. He states that since his coronary stenting back in October he has never really had a significant recovery with his shortness of breath. He states that since that time he has been short of breath but did have an admission to the hospital where he was found to be anemic and was transfused with blood and did have improvement in his shortness of breath for a few days but then his shortness of breath came right back and has been progressively worsening since that time. 2. Shortness of breath has been his atypical angina previously. He did have recent stenting to the proximal LAD with 3 stents and 2 stents placed to the first diagonal artery. There is a high pretest likelihood of worsening of his coronary artery disease or even that the stents may have been jailed causing worsening symptoms. Will plan to proceed with left cardiac catheterization today to reevaluate his coronary artery disease. 3. The patient has been educated the risk and benefits of proceeding with left cardiac catheterization. The patient verbalized understanding and is agreeable in proceeding with the procedure. 4. The patient will be n.p.o. in preparation for left cardiac catheterization. 5. Chest x-ray and CTA of the chest are normal and have ruled out a PE. 6. His BNP is negative. 7. Recent echocardiogram shows normal ejection fraction. 8. His blood pressure is well-controlled. Continue Maxide, propranolol and irbesartan. 9. His LDL goal is less than 55. His LDL was 47 in November 2023. Continue statin. 10. Continue aspirin and Plavix for dual antiplatelet therapy. 11. He is diabetic and will need aggressive control of his diabetes. Will defer this to the hospitalist. 12. The patient is also concerned about his new diagnosis of COPD and not having any inhalers that work for him. 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 13. Further recommendations will be made pending the patient's response to treatment and the results of his left cardiac catheterization today. Thank you for the opportunity to help participate in the care of this patient. All recommendations and orders are per Dr. Dixon. AMB Pre-cath Criteria Pre-cath considerations: Clinical evaluation and indication for coronary angiography includes:: know CAD, new onset angina <= 2 months and worsening angina Patient is describing chest pain symtom as:: atypical angina Clinical risk factors:: CAD, HTN, HLD, DM How many antianginals is the patient taking?: 1 Patient is taking:: beta fatuma Risks and benefits:: We will plan to proceed with LHC/coronary angiography with right radial access. The patient has been educated on the risks and benefits of proceeding with LHC/coronary angiography with right radial access. The patient verbalized understanding and is agreeable in proceeding with the procedure.
--- NOTE | 2024-01-20 11:29 | IR_ITS ---
APPROVED REPORT Patient Location: Inpatient PROCEDURES Left heart catheterization Left ventriculogram Selective coronary angiogram FFR angiography to the right coronary artery INDICATION Coronary artery disease, Persistent angina pectoris, Angiographic ambiguity to the right coronary Informed consent was obtained prior to the procedure. COMPLICATIONS NONE Estimated Blood Loss: LESS THAN 10 ML TECHNIQUE One percent lidocaine used to anesthetize the right anterior aspect of the wrist. The right radial artery was accessed via the Seldinger technique. A 6 Bulgarian sheath was placed in the right radial artery. 2.5 mg of Verapamil, 800 mcg of nitroglycerin, 1mg Lidocaine and 5000 U Heparin were given through the arterial sheath. The papa catheter was also used to perform left heart catheterization, left ventriculogram and selective coronary angiogram. At the end of the diagnostic angiogram cath works FFR angiography was performed which indicated the RCA lesion had a 0.89 FFR index. Given this to not achieve hemodynamic significance the apparatus was removed the sheath was removed and hemostasis was achieved to use TR banding patient was transferred to the postop putting in stable condition ANGIOGRAPHIC RESULTS The left main artery Normal The left anterior descending artery Has an ostial 20 to 30% stenosis followed by widely patent proximal stent which is widely patent free of in-stent restenosis with excellent distal transitioning. The stent bifurcates into the large first diagonal artery which is also widely patent with excellent proximal distal transitioning The circumflex artery Nondominant with 10% luminal irregularities The right coronary artery Large dominant with a distal 60 to 70% stenosis which produced an FFR index of 0.89 The IBRAHIM ventriculogram reveals Normal 65% The left ventricular end-diastolic pressure 10 mmHg IMPRESSION Coronary artery disease as described above Normal ejection fraction Normal left ventricular end-diastolic pressure PLAN 1. Treatment of noncardiac chest pain 2. It is still reasonable continue with antianginal medications and perform risk factor modification Electronically signed by : Coleman Mercedes MD 01/20/2024 14:05:48
[2024-01-20] MEDS: MIDODRINE HCL 5 MG TABLET PO (11:39)
--- NOTE | 2024-01-20 11:41 | PC.NURSE ---
CARDIAC CATH TEAM OK'D ADMIN OF MIDODRINE
[2024-01-20 11:58] LABS: POC Glucose,Bedside 181 (70-110)
[2024-01-20] MEDS: 0.9 % SODIUM CHLORIDE 500 ML 25 ML IV (13:34)
[2024-01-20] MEDS: HEPARIN 1,000 UNITS/500ML NS (CATH LAB) 3000 UNIT IV (13:34)
[2024-01-20] MEDS: LIDOCAINE 1% 10ML MDV 20 ML IJ (13:34)
[2024-01-20] MEDS: NITROGLYCERIN 800MCG/8ML SYR (CATH LAB) 800 MCG IA (13:35)
[2024-01-20] MEDS: HEPARIN 1,000 UNITS/ML 10ML VIAL (CATH LAB) 10000 UNIT IV (13:35)
[2024-01-20] MEDS: diphenhydrAMINE 50MG/ML VIAL 50 MG IV (13:35)
[2024-01-20] MEDS: VERAPAMIL 2.5MG/ML 2ML VIAL 2.5 MG IV (13:35)
[2024-01-20] MEDS: FENTANYL 100MCG/2ML VIAL 50 MCG IV (14:02)
[2024-01-20] MEDS: MIDAZOLAM HCL 1MG/1ML 5ML VIAL 1 MG IV (14:02)
--- NOTE | 2024-01-20 14:21 | EXP.DC.SUM ---
General Admission date:: 01/19/24 Discharge date: 01/20/24 HPI HPI HPI: Patient is a 83-year-old male with past medical history of COPD CAD hypertension hyperlipidemia diabetes mellitus who presents to the hospital due to shortness of breath. Patient has been feeling shortness of breath for past 10 days, it has been getting worse. Patient mentions his shortness of breath initially improved after blood transfusion due to anemia. He mentions his shortness of breath is worse with ambulation, He also has cough wheezing. Patient mentions he has been using home breathing treatments without much relief, he mentions he has been compliant with his medications. Patient otherwise denies chest pain, nausea vomiting diarrhea constipation dysuria. Hospital Course Hospital Course Hospital Course: Patient is a 83-year-old male with past medical history of COPD CAD hypertension hyperlipidemia diabetes mellitus who presents to the hospital due to shortness of breath. Patient has been feeling shortness of breath for past 10 days, it has been getting worse. Patient mentions his shortness of breath initially improved after blood transfusion due to anemia. He mentions his shortness of breath is worse with ambulation, He also has cough wheezing. Patient mentions he has been using home breathing treatments without much relief, he mentions he has been compliant with his medications. Patient otherwise denies chest pain, nausea vomiting diarrhea constipation dysuria. patient is s/p cardiac cath, which was unremarkable for any acute blockages, patient was also evaluated by pulmonary who recommended levalbuterol as needed. Patient will be dischagred in stable condition per cardiology recommendations. On the date of discharge, the patient reported feeling stable. The patient was found not to be in any acute distress, and no new abnormalities on physical examination. Further, the patient expressed appropriate understanding of, and agreement with, the discharge recommendations, medications, and plan. Time spent 37 mins Exam Data for Last 24 hours Vital signs and Labs for Last 24 Hours: Temp Pulse Resp BP Pulse Ox O2 Del Method 98.4 F 91 H 18 110/65 96 Room Air 01/20/24 12:00 01/20/24 14:15 01/20/24 14:15 01/20/24 14:15 01/20/24 14:15 01/20/24 12:00 Laboratory Results - last 24 hr 01/19/24 15:40: Troponin I < 0.01 01/19/24 17:41: VBG pH 7.39, VBG pCO2 44.0, VBG pO2 39.8, VBG HCO3 25.7, VBG Total CO2 27.1 H, VBG O2 Saturation 69.5, VBG Base Excess 0.7, VBG Lactic Acid 3.1 H 01/19/24 18:10: Troponin I < 0.01, NT-Pro-B Natriuret Pep 105 01/19/24 20:18: POC Glucose 197 H 01/19/24 20:30: SARS-CoV-2 (PCR) Not detected, Influenza A Untype (PCR) Not detected, Influenza Type B (PCR) Not detected 01/19/24 23:34: Lactate 1.9, Troponin I < 0.01 01/20/24 05:32: WBC 8.2, RBC 3.29 L, Hgb 9.4 L D, Hct 29.1 L, MCV 88.4, MCH 28.5, MCHC 32.2, RDW 17.6 H, Plt Count 178, MPV 8.3, Neut % (Auto) 55.2, Lymph % (Auto) 20.7, Gillespie % (Auto) 22.8 H, Eos % (Auto) 0.8, Baso % (Auto) 0.5, Neut # (Auto) 4.5, Lymph # (Auto) 1.7, Gillespie # (Auto) 1.9 H, Eos # (Auto) 0.1, Baso # (Auto) 0.0, Total Counted 100, Neutrophils % (Manual) 62, Lymphocytes % (Manual) 27, Monocytes % (Manual) 11 H, Platelet Estimate Normal, RBC Morphology Normal, Sodium 130 L, Potassium 4.4, Chloride 101, Carbon Dioxide 25, Anion Gap 8.4, BUN 22 H, Creatinine 0.90, Estimated Creat Clear 77, Estimated GFR 81, Est GFR ( Amer) 98 D, Glucose 105 H D, Calcium 8.4 01/20/24 05:35: POC Glucose 127 H 01/20/24 11:51: POC Glucose 181 H I & O for Last 24 hours: Intake & Output 01/17/24 01/18/24 01/19/24 01/20/24 23:59 23:59 23:59 23:59 Intake Total 240 / 462 222 / 222 Output Total 0 / 0 0 / 0 Balance 240 / 462 222 / 222 Weight 92.221 kg 94.302 kg Constitutional Constitutional: no acute distress *Routine HEENT Exam Head: Present normocephalic Eye: Present EOMI and PERRL ENT: Present mucous membranes moist *Routine Neck Exam Neck: Present supple; Absent lymphadenopathy *Routine Respiratory Exam Respiratory: Present CTA bilaterally *Routine Cardiovascular Exam Cardiovascular: Present RRR *Routine Abdominal Exam Abdominal: Present soft and normoactive bowel sounds; Absent tenderness *Routine Extremities Exam Extremities: Absent cyanosis, clubbing or edema *Routine Skin Exam Skin: Present warm; Absent rash *Routine Neurological Exam Neurological: Present alert and oriented X3 Results Data Completed and Pending Labs on day of discharge: Labs from last 24 hours 01/20/24 01/20/24 01/20/24 11:51 05:35 05:32 WBC 8.2 RBC 3.29 L Hgb 9.4 L D Hct 29.1 L MCV 88.4 MCH 28.5 MCHC 32.2 RDW 17.6 H Plt Count 178 MPV 8.3 Neut % (Auto) 55.2 Lymph % (Auto) 20.7 Gillespie % (Auto) 22.8 H Eos % (Auto) 0.8 Baso % (Auto) 0.5 Neut # (Auto) 4.5 Lymph # (Auto) 1.7 Gillespie # (Auto) 1.9 H Eos # (Auto) 0.1 Baso # (Auto) 0.0 Total Counted 100 Neutrophils % (Manual) 62 Lymphocytes % (Manual) 27 Monocytes % (Manual) 11 H Platelet Estimate Normal RBC Morphology Normal VBG pH VBG pCO2 VBG pO2 VBG HCO3 VBG Total CO2 VBG O2 Saturation VBG Base Excess VBG Lactic Acid Sodium 130 L Potassium 4.4 Chloride 101 Carbon Dioxide 25 Anion Gap 8.4 BUN 22 H Creatinine 0.90 Estimated Creat Clear 77 Estimated GFR 81 Est GFR ( Amer) 98 D Glucose 105 H D POC Glucose 181 H 127 H Lactate Calcium 8.4 Troponin I NT-Pro-B Natriuret Pep SARS-CoV-2 (PCR) Influenza A Untype (PCR) Influenza Type B (PCR) 01/19/24 01/19/24 01/19/24 23:34 20:30 20:18 WBC RBC Hgb Hct MCV MCH MCHC RDW Plt Count MPV Neut % (Auto) Lymph % (Auto) Gillespie % (Auto) Eos % (Auto) Baso % (Auto) Neut # (Auto) Lymph # (Auto) Gillespie # (Auto) Eos # (Auto) Baso # (Auto) Total Counted Neutrophils % (Manual) Lymphocytes % (Manual) Monocytes % (Manual) Platelet Estimate RBC Morphology VBG pH VBG pCO2 VBG pO2 VBG HCO3 VBG Total CO2 VBG O2 Saturation VBG Base Excess VBG Lactic Acid Sodium Potassium Chloride Carbon Dioxide Anion Gap BUN Creatinine Estimated Creat Clear Estimated GFR Est GFR ( Amer) Glucose POC Glucose 197 H Lactate 1.9 Calcium Troponin I < 0.01 NT-Pro-B Natriuret Pep SARS-CoV-2 (PCR) Not detected Influenza A Untype (PCR) Not detected Influenza Type B (PCR) Not detected 01/19/24 01/19/24 01/19/24 18:10 17:41 15:40 WBC RBC Hgb Hct MCV MCH MCHC RDW Plt Count MPV Neut % (Auto) Lymph % (Auto) Gillespie % (Auto) Eos % (Auto) Baso % (Auto) Neut # (Auto) Lymph # (Auto) Gillespie # (Auto) Eos # (Auto) Baso # (Auto) Total Counted Neutrophils % (Manual) Lymphocytes % (Manual) Monocytes % (Manual) Platelet Estimate RBC Morphology VBG pH 7.39 VBG pCO2 44.0 VBG pO2 39.8 VBG HCO3 25.7 VBG Total CO2 27.1 H VBG O2 Saturation 69.5 VBG Base Excess 0.7 VBG Lactic Acid 3.1 H Sodium Potassium Chloride Carbon Dioxide Anion Gap BUN Creatinine Estimated Creat Clear Estimated GFR Est GFR ( Amer) Glucose POC Glucose Lactate Calcium Troponin I < 0.01 < 0.01 NT-Pro-B Natriuret Pep 105 SARS-CoV-2 (PCR) Influenza A Untype (PCR) Influenza Type B (PCR) DS: Diagnosis Discharge Diagnosis (1) Dyspnea on exertion: Status: Acute Code(s): R06.09 - Other forms of dyspnea (2) COPD (chronic obstructive pulmonary disease): Status: Acute Code(s): J44.9 - Chronic obstructive pulmonary disease, unspecified Qualifiers: COPD type: unspecified COPD Qualified Code(s): J44.9 - Chronic obstructive pulmonary disease, unspecified Meds Home Medications and Allergies Home Medications Medication Instructions Recorded Confirmed Type aspirin 81 mg tablet,delayed 81 mg PO DAILY 10/18/23 01/19/24 History release (Adult Aspirin Regimen) cetirizine 10 mg tablet 10 mg PO DAILY 10/18/23 01/19/24 History empagliflozin 25 mg tablet 25 mg PO DAILY 10/18/23 01/19/24 History (Jardiance) finasteride 5 mg tablet 5 mg PO HS 10/18/23 01/19/24 History fluticasone propionate 50 2 spray intranasal DAILY 10/18/23 01/19/24 History mcg/actuation nasal spray,suspension glimepiride 4 mg tablet 4 mg PO BID 10/18/23 01/19/24 History mecobalamin (vitamin B12) 1,000 1,000 mcg PO DAILY 10/18/23 01/19/24 History mcg lozenges montelukast 10 mg tablet 10 mg PO HS 10/18/23 01/19/24 History pioglitazone 15 mg tablet 15 mg PO DAILY 10/18/23 01/19/24 History propranolol 80 mg capsule,24 80 mg PO DAILY 10/18/23 01/19/24 History hr,extended release sitagliptin phosphate 100 mg 100 mg PO DAILY 10/18/23 01/19/24 History tablet (Januvia) tamsulosin 0.4 mg capsule 0.8 mg PO HS 10/18/23 01/19/24 History triamterene 37.5 1 cap PO DAILY 10/18/23 01/19/24 History mg-hydrochlorothiazide 25 mg capsule albuterol sulfate 90 mcg/actuation 1 puff inhalation Q6HP PRN 10/31/23 01/19/24 History aerosol inhaler Shortness Of Breath ascorbate calcium (vitamin C) 500 500 mg PO DAILY 11/21/23 01/19/24 History mg tablet ferrous sulfate 325 mg (65 mg 325 mg PO DAILY 11/21/23 01/19/24 History iron) tablet (FeroSul) clopidogrel 75 mg tablet 75 mg PO DAILY #90 tabs 12/07/23 01/19/24 Rx budesonide 160 mcg-glycopyr 9 2 inh inhalation BID 01/05/24 01/19/24 History mcg-formot 4.8 mcg/actuation HFA inhaler (Breztri Aerosphere) irbesartan 75 mg tablet 75 mg PO DAILY 01/19/24 01/19/24 History atorvastatin 80 mg tablet 80 mg PO HS 01/20/24 01/20/24 History fluticasone fur. 100 mcg-umeclid 1 ea inhalation DAILY 01/20/24 01/20/24 History 62.5 mcg-vilant 25 mcg inhalat.powder (Trelegy Ellipta) New Prescriptions to Start Prescriptions: Allergies Allergy/AdvReac Type Severity Reaction Status Date / Time codeine Allergy Mild Rash Verified 01/19/24 17:36 Discharge Plan Disposition Patient Disposition: Home, Self-Care Condition: Good Follow up Plan Follow up with: Dakota Klein MD [Primary Care Provider] - Enter time for follow up (office will call tuesday with appointment) Coleman Mercedes MD [Staff Physician] - 01/30/24 11:45 am Prescriptions/Medication Reconciliation: Continued fluticasone propionate 50 mcg/actuation spray,suspension 2 spray intranasal DAILY Patient Comments: SHAKE LIQUID AND USE 2 SPRAYS IN EACH NOSTRIL DAILY glimepiride 4 mg tablet 4 mg PO BID Patient Comments: TAKE 1 TABLET BY MOUTH TWICE DAILY mecobalamin (vitamin B12) 1,000 mcg lozenge 1,000 mcg PO DAILY Rx Instructions: allow to dissolve in mouth OR may chew lightly before swallowing triamterene-hydrochlorothiazid 37.5-25 mg capsule 1 cap PO DAILY Patient Comments: TAKE 1 CAPSULE BY MOUTH DAILY cetirizine 10 mg tablet 10 mg PO DAILY Patient Comments: TAKE 1 TABLET BY MOUTH DAILY aspirin [Adult Aspirin Regimen] 81 mg tablet,delayed release (DR/EC) 81 mg PO DAILY Jardiance 25 mg tablet 25 mg PO DAILY Patient Comments: TAKE 1 TABLET BY MOUTH EVERY DAY tamsulosin 0.4 mg capsule 0.8 mg PO HS Patient Comments: TAKE 2 CAPSULES BY MOUTH AT BEDTIME propranolol 80 mg capsule,extended release 24 hr 80 mg PO DAILY Patient Comments: TAKE 1 CAPSULE BY MOUTH EVERY DAY Januvia 100 mg tablet 100 mg PO DAILY Patient Comments: TAKE 1 TABLET BY MOUTH DAILY pioglitazone 15 mg tablet 15 mg PO DAILY Patient Comments: TAKE 1 TABLET BY MOUTH DAILY finasteride 5 mg tablet 5 mg PO HS Patient Comments: TAKE 1 TABLET BY MOUTH DAILY AT BEDTIME montelukast 10 mg tablet 10 mg PO HS Patient Comments: TAKE 1 TABLET BY MOUTH DAILY Breztri Aerosphere 160-9-4.8 mcg/actuation HFA aerosol inhaler 2 inh inhalation BID Patient Comments: INHALE 2 PUFFS BY MOUTH TWICE DAILY ferrous sulfate [FeroSul] 325 mg (65 mg iron) tablet 325 mg PO DAILY Patient Comments: TAKE 1 TABLET BY MOUTH EVERY DAY WITH BREAKFAST ascorbate calcium (vitamin C) 500 mg tablet 500 mg PO DAILY clopidogrel 75 mg tablet 75 mg PO DAILY Qty: 90 3RF irbesartan 75 mg tablet 75 mg PO DAILY atorvastatin 80 mg tablet 80 mg PO HS Trelegy Ellipta 100-62.5-25 mcg blister with device 1 ea INHALATION DAILY Patient Comments: INHALE 1 PUFF BY MOUTH DAILY albuterol sulfate 90 mcg/actuation HFA aerosol inhaler 1 puff INHALATION Q6HP PRN (Reason: Shortness Of Breath) Patient Comments: INHALE 1 PUFF BY MOUTH EVERY 6 HOURS NEEDED FOR SHORTNESS OF BREATH Problem Reconciliation Problems Reviewed?: Yes Patient Discharge Instructions ACTIVITY: Continue current activity DIET: continue same diet Patient Instructions: Cardiac Catheterization, DI for Orthostatic Hypotension, DI for Chronic Obstructive Pulmonary Disease, Surgical Site Infection, Moderate Sedation, DI for Post-Surgical Bleeding Providers Primary Care Provider: Dakota Klein Admit Provider: Jerri Nickerson Attending Provider: Jerri Nickerson
[2024-01-20] MEDS: IOPAMIDOL-370 (76%);100ML BOTTLE 95 ML IV (14:22)
--- NOTE | 2024-01-23 15:10 | CARE MANAGER ---
Contacted patient related to hospital discharge. He states he is doing better, but still has some shortness of breath. He denies questions or concerns. He had no new medications. He is aware of follow up appointments. LEE Sifuentes
== END 2024-01-20 18:13 | disposition home or self-care (01) ==
LOC: ER 16:23 → 2ND 16:37
PROVIDERS: Internal Medicine; Admitting Provider Internal Medicine; Emergency Provider Emergency Medicine; PCP Internal Medicine; Visit Provider Internal Medicine
DX: I25.110 Atherosclerotic heart disease of native coronary artery with unstable angina pectoris (principal); D50.9 Iron deficiency anemia, unspecified; R06.02 Shortness of breath; I10 Essential (primary) hypertension; E13.69 Other specified diabetes mellitus with other specified complication; E78.2 Mixed hyperlipidemia; J44.9 Chronic obstructive pulmonary disease, unspecified; Z79.899 Other long term (current) drug therapy
CPT/HCPCS: 36415; 71045; 71275; 80048; 80053; 82803; 82962; 83605; 83880; 84484; 85007; 85025; 85027; 85378; 86850; 87636; 93005; 93458; 93571; 99152; 99285; C1725; C1769; G0378; J1644; J2250; J3010; J7120; J7620; Q9967

== ENCOUNTER 2024-04-17 14:08 | Outpatient (CLI) | payer MEDICARE, SELFPAY ==
[2024-04-17 14:09] VITALS: BMI 31.4
[2024-04-17 14:51] LABS: Chloride 109 mmol/L (98-107)
[2024-04-17 14:52] LABS: Potassium 3.9 mmoL/L (3.5-5.1); Sodium 138 mmol/L (136-145)
[2024-04-17 14:54] LABS: Alanine Aminotransferase 16 U/L (12-78); Anion Gap 6.9 mEq/L (5-15); Aspartate Amino Transferase 18 U/L (17-59); Blood Urea Nitrogen 16 mg/dl (9-20); Carbon Dioxide 26 mmol/L (22.0-30.0); Creatinine Clearance Estimated 77 mL/min (50-200); Estimated Glomerular Filt Rate 81 ml/min (>60); GFR (African American) 98 ML/MIN (>60)
[2024-04-17 14:55] LABS: Albumin/Globulin Ratio 1.7 (1.1-1.8); Alkaline Phosphatase 94 U/L (38-126); Bilirubin,Total 0.4 mg/dl (0.2-1.3); Calcium 9.4 mg/dl (8.4-10.2); Globulin 2.4 g/dL (1.3-3.2); Glucose 116 mg/dl (74-100); Total Protein,Serum 6.4 g/dl (6.3-8.2)
[2024-04-17 15:12] LABS: Lactate Dehydrogenase 153 U/L (313-618)
[2024-04-17 15:18] LABS: Basophils % 0.6 % (0.1-2.0); Eosinophils # 0.1 K/mm3 (0.0-0.4); Eosinophils % 1.4 % (0.1-12.0); Hematocrit 29.7 % (42.0-52.0); Hemoglobin 8.3 g/dL (14.1-18.0); Lymphocytes # 1.5 K/mm3 (0.7-4.5); Lymphocytes % 33.1 % (10-50); Mean Corpuscular Hemoglobin 24.6 pg (27.0-31.2); Mean Corpuscular Volume 87.7 fl (80-94); Mean Platelet Volume 8.4 fl (7.4-10.4); Monocytes # 1.2 K/mm3 (0.1-1.0); Monocytes % 25.5 % (1.7-9.3); Neutrophils # 1.8 K/mm3 (1.8-7.8); Neutrophils % 39.4 % (37.0-80.0); Platelet Count 136 K/mm3 (142-424); Red Blood Count 3.39 M/mm3 (4.60-6.20); Red Cell Distribution Width 21.5 % (11.5-17.5); White Blood Count 4.6 K/mm3 (4.8-10.8)
[2024-04-17 15:21] LABS: Reticulocyte % (Auto) 3.2 % (0.9-3.2)
[2024-04-17 15:23] LABS: MANUAL DIFFERENTIAL MANUAL DIFFERENTIAL (MANUAL DIFF)
[2024-04-17 15:27] LABS: Thyroid Stimulating Hormone 0.34 uIU/mL (0.465-4.68)
[2024-04-17 15:42] LABS: Iron 35 ug/dL (49-181)
[2024-04-17 15:44] LABS: Eosinophils % 1 % (0-3); Lymphocytes % 37 % (10-50); Monocytes % 13 % (2-9); Neutrophils % 49 % (42-76); Total Cells Counted 100
[2024-04-17 15:45] LABS: Anisocytosis 1+; Hypochromasia 3+; Platelet Estimate Slight Decrease
[2024-04-17 15:51] LABS: Total Iron Binding Capacity 344 ug/dL (261-462)
[2024-04-17 16:04] LABS: Vitamin B12 924 pg/mL (239-931)
[2024-04-19 07:14] LABS: Haptoglobin 121 mg/dL (38-329)
[2024-04-19 14:43] LABS: Peripheral Smear Review Scanned Result
== END 2024-04-17 14:09 | disposition home or self-care (01) ==
LOC: INF 14:09
PROVIDERS: Visit Provider Internal Medicine Medical Oncology
DX: D50.0 Iron deficiency anemia secondary to blood loss (chronic) (principal); D64.9 Anemia, unspecified
CPT/HCPCS: 80053; 82607; 82746; 83010; 83540; 83550; 83615; 84443; 85007; 85025; 85027; 85044; 86880

== ENCOUNTER 2024-05-16 13:54 | Outpatient (CLI) | payer MEDICARE, SELFPAY ==
[2024-05-16 14:26] LABS: Basophils % 0.6 % (0.1-2.0); Eosinophils # 0.1 K/mm3 (0.0-0.4); Eosinophils % 1.6 % (0.1-12.0); Hematocrit 28.2 % (42.0-52.0); Hemoglobin 8.6 g/dL (14.1-18.0); Lymphocytes # 1.5 K/mm3 (0.7-4.5); Lymphocytes % 27.8 % (10-50); Mean Corpuscular HGB Conc 30.5 g/dL (31.8-35.4); Mean Corpuscular Hemoglobin 24.5 pg (27.0-31.2); Mean Corpuscular Volume 80.2 fl (80-94); Mean Platelet Volume 11.3 fl (7.4-10.4); Monocytes # 1.6 K/mm3 (0.1-1.0); Monocytes % 31.3 % (1.7-9.3); Neutrophils % 38.5 % (37.0-80.0); Platelet Count 117 K/mm3 (142-424); Red Blood Count 3.51 M/mm3 (4.60-6.20); Red Cell Distribution Width 19.5 % (11.5-17.5); White Blood Count 5.2 K/mm3 (4.8-10.8)
[2024-05-16 14:29] LABS: MANUAL DIFFERENTIAL MANUAL DIFFERENTIAL (MANUAL DIFF)
[2024-05-16 14:39] LABS: Albumin Level 3.6 g/dl (3.5-5.0); Chloride 105 mmol/L (98-107); Sodium 138 mmol/L (136-145)
[2024-05-16 14:41] LABS: Blood Urea Nitrogen 16 mg/dl (9-20); Estimated Glomerular Filt Rate 81 ml/min (>60); GFR (African American) 98 ML/MIN (>60)
[2024-05-16 14:42] LABS: Alanine Aminotransferase 12 U/L (12-78); Albumin/Globulin Ratio 1.6 (1.1-1.8); Alkaline Phosphatase 88 U/L (38-126); Aspartate Amino Transferase 16 U/L (17-59); Bilirubin,Total 0.4 mg/dl (0.2-1.3); Calcium 8.2 mg/dl (8.4-10.2); Carbon Dioxide 26 mmol/L (22.0-30.0); Globulin 2.2 g/dL (1.3-3.2); Glucose 108 mg/dl (74-100); Iron 32 ug/dL (49-181); Total Protein,Serum 5.8 g/dl (6.3-8.2)
[2024-05-16 14:51] LABS: Total Iron Binding Capacity 345 ug/dL (261-462)
[2024-05-16 15:19] LABS: Ferritin 6.26 ng/ml (17.9-464)
[2024-05-16 16:11] LABS: Anisocytosis 1+; Lymphocytes % 27 % (10-50); Macrocytosis 1+; Microcytosis 1+; Monocytes % 37 % (2-9); Neutrophils % 36 % (42-76); Total Cells Counted 100
[2024-05-16 16:12] LABS: Hypochromasia 1+; Platelet Estimate Slight Decrease
== END 2024-05-16 23:59 | disposition home or self-care (01) ==
LOC: LAB 13:56
PROVIDERS: PCP Internal Medicine; Visit Provider Internal Medicine Medical Oncology
DX: D50.9 Iron deficiency anemia, unspecified (principal)
CPT/HCPCS: 36415; 80053; 82728; 83540; 83550; 85007; 85025; 85027

== ENCOUNTER 2024-08-14 13:50 | Outpatient (CLI) | payer MEDICARE, SELFPAY ==
[2024-08-14 14:12] LABS: Basophils % 0.7 % (0.1-2.0); Eosinophils # 0.1 K/mm3 (0.0-0.4); Eosinophils % 1.5 % (0.1-12.0); Hematocrit 35.1 % (42.0-52.0); Lymphocytes # 1.5 K/mm3 (0.7-4.5); Mean Corpuscular HGB Conc 28.5 g/dL (31.8-35.4); Mean Corpuscular Hemoglobin 24.2 pg (27.0-31.2); Mean Corpuscular Volume 84.8 fl (80-94); Mean Platelet Volume 12.1 fl (7.4-10.4); Monocytes # 1.6 K/mm3 (0.1-1.0); Monocytes % 26.3 % (1.7-9.3); Neutrophils # 2.9 K/mm3 (1.8-7.8); Neutrophils % 46.7 % (37.0-80.0); Platelet Count 154 K/mm3 (142-424); Red Blood Count 4.14 M/mm3 (4.60-6.20); Red Cell Distribution Width 17.9 % (11.5-17.5); White Blood Count 6.1 K/mm3 (4.8-10.8)
--- NOTE | 2024-08-14 14:12 | PC.NURSE ---
1400- labs drawn by Meño, Nurse director of physical security via butterfly needle in left ac. needle removed and coban applied. pt tolerated well.
[2024-08-14 14:20] LABS: MANUAL DIFFERENTIAL MANUAL DIFFERENTIAL (MANUAL DIFF)
[2024-08-14 14:30] LABS: Albumin Level 4.2 g/dl (3.5-5.0); Chloride 103 mmol/L (98-107); Potassium 4.4 mmoL/L (3.5-5.1); Sodium 137 mmol/L (136-145)
[2024-08-14 14:33] LABS: Alanine Aminotransferase 17 U/L (12-78); Albumin/Globulin Ratio 1.8 (1.1-1.8); Alkaline Phosphatase 122 U/L (38-126); Anion Gap 14.4 mEq/L (5-15); Aspartate Amino Transferase 20 U/L (17-59); Bilirubin,Total 0.2 mg/dl (0.2-1.3); Blood Urea Nitrogen 17 mg/dl (9-20); Calcium 9.2 mg/dl (8.4-10.2); Carbon Dioxide 24 mmol/L (22.0-30.0); Estimated Glomerular Filt Rate 72 ml/min (>60); GFR (African American) 87 ML/MIN (>60); Globulin 2.4 g/dL (1.3-3.2); Glucose 184 mg/dl (74-100); Iron 32 ug/dL (49-181); Total Protein,Serum 6.6 g/dl (6.3-8.2)
[2024-08-14 14:44] LABS: Total Iron Binding Capacity 372 ug/dL (261-462)
[2024-08-14 14:50] LABS: Eosinophils % 2 % (0-3); Hypochromasia 2+; Lymphocytes % 30 % (10-50); Monocytes % 14 % (2-9); Neutrophils % 54 % (42-76); Total Cells Counted 100
[2024-08-14 14:51] LABS: Platelet Estimate Normal
[2024-08-14 15:09] LABS: Ferritin 8.22 ng/ml (17.9-464)
== END 2024-08-14 14:07 | disposition home or self-care (01) ==
LOC: INF 13:52
PROVIDERS: PCP Internal Medicine; Visit Provider Internal Medicine Medical Oncology
DX: C93.10 Chronic myelomonocytic leukemia not having achieved remission (principal)
CPT/HCPCS: 36415; 80053; 82728; 83540; 83550; 85007; 85025

== ENCOUNTER 2024-10-23 14:34 | Outpatient (CLI) | payer MEDICARE, SELFPAY ==
[2024-10-23 15:30] LABS: Basophils # 0.1 K/mm3 (0-0.2); Basophils % 0.5 % (0.1-2.0); Eosinophils # 0.1 K/mm3 (0.0-0.4); Eosinophils % 1.1 % (0.1-12.0); Hemoglobin 10.8 g/dL (14.1-18.0); Lymphocytes # 2.6 K/mm3 (0.7-4.5); Lymphocytes % 25.3 % (10-50); Mean Corpuscular HGB Conc 30.9 g/dL (31.8-35.4); Mean Corpuscular Hemoglobin 27.6 pg (27.0-31.2); Mean Corpuscular Volume 89.3 fl (80-94); Mean Platelet Volume 12.1 fl (7.4-10.4); Monocytes % 29.6 % (1.7-9.3); Platelet Count 203 K/mm3 (142-424); Red Blood Count 3.92 M/mm3 (4.60-6.20); White Blood Count 10.1 K/mm3 (4.8-10.8)
[2024-10-23 15:32] LABS: MANUAL DIFFERENTIAL MANUAL DIFFERENTIAL (MANUAL DIFF)
[2024-10-23 16:19] LABS: Alanine Aminotransferase 18 U/L (12-78); Albumin Level 3.4 g/dl (3.5-5.0); Alkaline Phosphatase 112 U/L (38-126); Anion Gap 10.8 mEq/L (5-15); Aspartate Amino Transferase 17 U/L (17-59); Bilirubin,Direct 0.2 mg/dl (0.0-0.4); Bilirubin,Indirect 0.3 mg/dL (0.0-0.9); Bilirubin,Total 0.5 mg/dl (0.2-1.3); Bilirubin,Unconjugated 0.3 mg/dL (0.0-1.1); Blood Urea Nitrogen 22 mg/dl (9-20); Calcium 8.8 mg/dl (8.4-10.2); Carbon Dioxide 26 mmol/L (22.0-30.0); Chloride 105 mmol/L (98-107); Chol/HDL Ratio 2.1 (1-3.5); Cholesterol 83 mg/dl (140-200); Estimated Glomerular Filt Rate 81 ml/min (>60); GFR (African American) 98 ML/MIN (>60); Glucose 133 mg/dl (74-100); HDL Cholesterol 40 mg/dl (40-60); Potassium 3.8 mmoL/L (3.5-5.1); Sodium 138 mmol/L (136-145); Total Protein,Serum 5.6 g/dl (6.3-8.2); Triglycerides 137 mg/dl (30-150); VLDL Cholesterol 27 mg/dL (0-40)
[2024-10-23 16:31] LABS: NT Pro Brain Natriuretic Pep. 166 pg/mL (0-450)
[2024-10-23 16:35] LABS: Free T4 (Free Thyroxine) 1.26 ng/dl (0.78-2.19)
[2024-10-23 16:43] LABS: Eosinophils % 1 % (0-3); Lymphocytes % 33 % (10-50); Monocytes % 26 % (2-9); Neutrophils % 39 % (42-76); Total Cells Counted 100
[2024-10-23 16:44] LABS: Ovalocytes 1+; Platelet Estimate Normal; Poikilocytosis 1+; Target Cells 1+; Tear Drop Cells 1+
[2024-10-23 16:47] LABS: Hemoglobin A1C 5.1 % (4.0-6.0)
[2024-10-23 16:49] LABS: Direct LDL Cholesterol < 30.00 mg/dL (100-129); Thyroid Stimulating Hormone 2.25 uIU/mL (0.465-4.68); Troponin I < 0.01 ng/ml (0.00-0.034)
[2024-10-23 17:15] LABS: Iron 44 ug/dL (49-181)
[2024-10-23 18:15] LABS: Total Iron Binding Capacity 327 ug/dL (261-462)
[2024-10-23 18:45] LABS: Ferritin 9.92 ng/ml (17.9-464)
== END 2024-10-23 23:59 | disposition home or self-care (01) ==
LOC: LAB 14:35
PROVIDERS: PCP Internal Medicine; Visit Provider Physician Assistant
DX: D50.0 Iron deficiency anemia secondary to blood loss (chronic) (principal); E78.2 Mixed hyperlipidemia; I10 Essential (primary) hypertension; I25.110 Atherosclerotic heart disease of native coronary artery with unstable angina pectoris; E13.69 Other specified diabetes mellitus with other specified complication
CPT/HCPCS: 36415; 80048; 80061; 80076; 82728; 83036; 83540; 83550; 83880; 84439; 84443; 84484; 85007; 85025; 85027

== ENCOUNTER 2024-11-13 12:07 | Outpatient (CLI) | payer MEDICARE, SELFPAY ==
--- NOTE | 2024-11-13 | CA_ITS ---
APPROVED REPORT Exam: Pharmacologic Technologist: Elayne Richter Ht: 5 ft 8 in Wt: 215 lbs BSA: 2.11 m2 HR: 96 bpm BP: 139/80 mmHg Stress Test Details Test: Lexiscan HR Resting HR: 96 bpm Max Heart Rate (APMHR): 138 bpm Max HR Achieved: 117 bpm Target HR (85% APMHR): 117 bpm % of APMHR: 85 Recovery HR: 112 bpm BP Resting BP: 139.0/80.0 mmHg Max BP: 139.0/80.0 mmHg Recovery BP: 122.0/66.0 mmHg ECG Resting ECG: Normal sinus rhythm, right bundle branch block Stress ECG Conclusion Symptoms: Lightheaded Arrhythmias/Ectopy: PVC ST-T Changes: Baseline abnormalities Conclusion: EKG baseline abnormalities. Lexiscan infusion. Electronically signed by : Jeanette Dixon MD 11/13/2024 15:29:54
--- OUTSIDE RECORDS SUMMARY | 2024-11-13 12:09 | XMS_ITS | Data Portability ---
Author Organization [place] - [facility] - [place] & NEO Vicente ADMIN Address [address] [place] [address] Care Team Providers Care Tungsten Tender Name Role Phone SCOTT RIBERASHUA Primary Care Provider Assessment Encounter Date Assessment Date Assessment LastModified by Organization Details LastModified Time 09/14/2022 09/14/2022 Will increase patient's Viagra dose up to 100 mg daily p.r.n. as directed. He has been instructed to avoid taking the medication along with the Flomax and will hold the Flomax on the evening that he uses Viagra. F/U late 11/14. [email or web address] Not available 09/14/2022 17:17:39 12/14/2022 12/14/2022 I have reviewed the outside labs with the patient today. I do not feel that pursuing low testosterone and testosterone replacement is beneficial to the patient. If he is concerned about sexual dysfunction and he should discontinue finasteride while continuing Flomax b.i.d.. He has other factors in his healthcare equation that are more likely to be the source of his fatigue. I will continue to see the patient every 4-6 months with PVR and UA. Will continue to screen patient for prostate cancer with PSA and JARETT on an annual basis. [email or web address] Not available 12/14/2022 13:55:11 Plan of Treatment Reminders Order Date Submit Date Provider Last Modified By Organization Details Last Modified Time Details Appointments None recorded. Lab PSA, serum or plasma 2022 023 [email or web address] Not available 15:21:00 urinalysis, dipstick 2022 023 [email or web address] [facility] ([facility] [address], [address], [place], [address], 11:37:47 urinalysis, dipstick [address], [address] [place] [address], [facility] [place], [address], 15:35:18 urinalysis, dipstick [address], [address] [place] [address], [facility] [address] [place], [address], 16:30:05 Referral None recorded. Procedures bladder scan (PROC) [address], [address] [place] [address], [facility] [place], [address], 11:37:47 bladder scan (PROC) [address], [address] [place] [address], [facility] [address], [facility] [place], [address], 15:35:18 bladder scan (PROC) [address], [address] [place] [address], [facility] [address] [place], [address], 14:55:15 Surgeries None recorded. Imaging None recorded. Medication Orders sildenafil 100 mg tablet 2022 023 [id number], [address], [place], [address], 15:35:18 Patient TargetsNo targets recorded. Patient InstructionsNo instructions recorded. Reason for Referral None Reported. Results Created Date Observation Date Name Description Value Unit Range Abnormal Flag Note LastModifiedBy Organization Detail LastModifiedTime 05/06/2005/06/2022 bladd er scan (PROC ) Calculated Residual Urine: 103cc Not Available [facility] [place], [address], 05/06/2022 14:31:22 05/06/2005/06/2022 urina lysis , dipst ick Leukocytes Negati ve Not Available [facility] [place], [address], 05/06/2022 14:26:01 05/06/2005/06/2022 urina lysis , dipst ick Nitrite negati ve Not Available [facility] [address] [place], [address], 05/06/2022 14:26:01 05/06/2005/06/2022 urina lysis , dipst ick Urobilinogen .2 Not Available [facility] [place], [address], 05/06/2022 14:26:01 05/06/2005/06/2022 urina lysis , dipst ick Protein Negati ve Not Available [facility] [address] [place], [address], 05/06/2022 14:26:01 05/06/2005/06/2022 urina lysis , dipst ick pH 5.0 Not Available [facility] [address] [place], [address], 05/06/2022 14:26:01 05/06/2005/0605/06/2022 urina lysis , dipst ick Blood Negati ve Not Available [facility] [address], [place], [address], 05/06/2022 14:26:01 05/06/2005/06/2022 urina lysis , dipst ick Specific Sidney 1.015 Not Available [facility] [address], [place], [address], 05/06/2022 14:26:01 05/06/2005/06/2022 urina lysis , dipst ick Ketone Negati ve Not Available [facility] [address] [place], [address], 05/06/2022 14:26:01 05/06/2005/06/2022 urina lysis , dipst ick Bilirubin Negati ve Not Available [facility] [address] [place], [address], 05/06/2022 14:26:01 05/06/2005/06/2022 urina lysis , dipst ick Glucose Negati ve Not Available [facility] [address] [place], [address], 05/06/2022 14:26:01 05/06/2005/06/2022 urina lysis , dipst ick Appearance Clear Not Available [facility] [address] [place], [address], 05/06/2022 14:26:01 05/06/2005/06/2022 urina lysis , dipst ick Color Yellow Not Available [facility], [place], [address], 05/06/2022 14:26:01 09/14/19 23 09/14/2022 bladd er scan (PROC ) Calculated Residual Urine: 172cc Not Available [facility] [address] [place], [address], 09/14/2022 14:36:47 09/14/19 23 09/14/2022 urina lysis , dipst ick Leukocytes Negati ve Not Available [facility] [address] [place], [address], 09/14/2022 14:20:53 09/14/19 23 09/14/2022 urina lysis , dipst ick Nitrite negati ve Not Available [facility] [address] [place], [address], 09/14/2022 14:20:53 09/14/19 23 09/14/2022 urina lysis , dipst ick Urobilinogen .2 Not Available [facility] [address] [place], [address], 09/14/2022 14:20:53 09/14/19 23 09/14/2022 urina lysis , dipst ick Protein Negati ve Not Available [facility] [address] [place], [address], 09/14/2022 14:20:53 09/14/19 23 09/14/2022 urina lysis , dipst ick pH 6.0 Not Available [facility] [address] [place], [address], 09/14/2022 14:20:53 09/14/19 23 09/14/2022 urina lysis , dipst ick Blood Negati ve Not Available [facility], [place], [address], 09/14/2022 14:20:53 09/14/19 23 09/14/2022 urina lysis , dipst ick Specific Sidney 1.015 Not Available [facility] [place], [address], 09/14/2022 14:20:53 09/14/19 23 09/14/2022 urina lysis , dipst ick Ketone Negati ve Not Available [facility] [address] [place], [address], 09/14/2022 14:20:53 09/14/19 23 09/14/2022 urina lysis , dipst ick Bilirubin Negati ve Not Available [facility] [address] [place], [address], 09/14/2022 14:20:53 09/14/19 23 09/14/2022 urina lysis , dipst ick Glucose 250 Not Available [facility] [address] [place], [address], 09/14/2022 14:20:53 09/14/19 23 09/14/2022 urina lysis , dipst ick Appearance Clear Not Available [facility] [address] [place], [address], 09/14/2022 14:20:53 09/14/19 23 09/14/2022 urina lysis , dipst ick Color Yellow Not Available [facility] [address] [place], [address], 09/14/2022 14:20:53 12/15/1912/14/2022 urina lysis , dipst ick Leukocytes Negati ve Not Available [facility] [address] [place], [place], [address], 12/14/2022 10:18:50 12/15/1912/14/2022 urina lysis , dipst ick Nitrite negati ve Not Available [facility] [place], [place], [address], 12/14/2022 10:18:50 12/15/1912/14/2022 urina lysis , dipst ick Urobilinogen .2 Not Available [facility] [address], [place], [address], 12/14/2022 10:18:50 12/15/1912/14/2022 urina lysis , dipst ick Protein Negati ve Not Available [facility] [place], [place], [address], 12/14/2022 10:18:50 12/15/1912/14/2022 urina lysis , dipst ick pH 5.0 Not Available [facility] [address] [place], [place], [address], 12/14/2022 10:18:50 12/15/1912/14/2022 urina lysis , dipst ick Blood Negati ve Not Available [facility] [address] [place], [address], 12/14/2022 10:18:50 12/15/19 23 12/14/2022 urina lysis , dipst ick Specific Sidney 1.015 Not Available [facility] [address], [place], [address], 12/14/2022 10:18:50 12/15/19 23 12/14/2022 urina lysis , dipst ick Ketone Negati ve Not Available [facility] [address] [place], [place], [address], 12/14/2022 10:18:50 12/15/19 23 12/14/2022 urina lysis , dipst ick Bilirubin Negati ve Not Available [address] [place], [address], 12/14/2022 10:18:50 12/15/19 23 12/14/2022 urina lysis , dipst ick Glucose 500 Not Available [facility] [address] [place], [place], [address], 12/14/2022 10:18:50 12/15/19 23 12/14/2022 urina lysis , dipst ick Appearance Clear Not Available [address] [place], [address], 12/14/2022 10:18:50 12/15/19 23 12/14/2022 urina lysis , dipst ick Color Yellow Not Available [address] [place], [address], 12/14/2022 10:18:50 12/15/19 23 12/14/2022 bladd er scan (PROC ) Calculated Residual Urine: 166cc Not Available [facility] [address] [place], [place], [address], 12/14/2022 10:18:08 05/07/20 22 04/01/2022 XR, kidne y + urete r + bladd er No observ ation record ed. [email or web address] Not Available 2021 16:10:02 05/07/20 22 04/01/2022 XR, kidne y + urete r + bladd er No observ ation record ed. [email or web address] Not Available 2021 16:10:03 05/07/20 22 04/01/2022 US, renal No observ ation record ed. [email or web address] Not Available 2021 12:04:36 Result Notes None recorded. Problems Name Problem SNOMED Code Status Onset Date Resolution Date Notes Provider Name and Address Organization Details Recorded Time History of diabetes mellitus type 2 128557064 Active Millie Haines null, [place] - [facility] [place] & [place] 2 10:04:08 Retention of urine 620040592 Active Millie Haines [place], [place] [facility] [place] & [place] 2 10:04:08 Incomplete emptying of urinary bladder 353856088 Active Millie Haines null, [place] - [facility] [place] & [place] 2 10:04:08 Malignant tumor of colon 601383526 Active Millie Haines null, [place] [facility] [place] & [place] 2 10:04:08 Slowing of urinary stream 92733692 Active Millie Haines [place], [place] [facility] [place] & [place] 2 10:04:08 Patient encounter status 470719207 Active Millie Haines null, [place] - [facility] [place] & [place] 2 10:04:08 Large prostate 046203013 Active Millie Haines null, [place] - [facility] [place] & [place] 2 10:04:08 Nocturia 267383495 Active Millie Haines null, [place] - [facility] [place] & [place] 2 10:04:08 Impotence [facility] [place] 2 10:04:08 Increased frequency of urination 168762004 Active KATHY Daniel [facility] & [place] 2 10:04:08 Problem Notes None recorded. Procedures Surgical History None recorded. Imaging Results Imaging Date Name Status LastModified by Organiz ation Details LastModified Time 04/01/2022 XR, kidney + ureter + bladder completed Information not available 05/10/2022 16:10:02 04/01/2022 XR, kidney + ureter + bladder completed Information not available 05/10/2022 16:10:03 04/01/2022 US, renal completed BARCODE Information no t available 05/07/2022 12:04:36 Procedure Notes None recorded. Medical Equipment None Reported. Allergies Allergen ID Allergen Name Allergen Category Reaction Reaction Severity Criticality Documentation Date Start Date Code Code System Note Provider Name and Address Organization Details Recorded Time 60497 codeine medicatio n Not available Not available Not available 04/12/2022 2670 RxNorm Millie carvalho [facility] & [place] 2 10:04:07 85810 propoxyph luca hydrochlo ride medicatio n Not available Not available Not available 05/03/2022 12130 RxNorm Ebony carvalho [facility] & [place] 2 16:28:14 Medications Name Sig Start Date Stop Date Status Note LastModified by Organization Details LastModified Time pioglitazon e 15 mg tablet TAKE 1 TABLET BY MOUTH DAILY active Not Available Not Available No t Available fluticasone 250 mcg-salmete rol 50 mcg/dose blistr powdr for inhalation INHALE 1 PUFF BY MOUTH TWICE DAILY active Not Available Not Available No t Available gabapentin 600 mg tablet active Not Available Not Available Not Available atorvastati n 20 mg tablet TAKE 1 TABLET BY MOUTH AT BEDTIME active Not Available Not Available No t Available sildenafil 50 mg tablet TAKE 1 TABLET BY MOUTH EVERY DAY NEEDED active Not Available Not Available No t Available cetirizine 10 mg tablet TAKE 1 TABLET BY MOUTH DAILY active Not Available Not Available No t Available meloxicam 15 mg tablet active Not Available Not Available Not Available aspirin 81 mg tablet,coy yed release 1 {tablet} by oral route. active Not Available Not Available No t Available triamterene 37.5 mg-hydrochl orothiazide 25 mg capsule TAKE 1 CAPSULE BY MOUTH DAILY active Not Available Not Available No t Available sildenafil 100 mg tablet TAKE 1 TABLET BY MOUTH EVERY DAY NEEDED active Not Available Not Available No t Available tamsulosin 0.4 mg capsule TAKE 2 CAPSULES BY MOUTH AT BEDTIME active Not Available Not Available No t Available cephalexin 500 mg capsule TAKE ONE CAPSULE BY MOUTH THREE TIMES DAILY UNTIL GONE 09/14 completed Not Available Not Available Not Available glimepiride 4 mg tablet TAKE 1 TABLET BY MOUTH TWICE DAILY active Not Available Not Available No t Available propranolol ER 80 mg capsule,24 hr,extended release TAKE 1 CAPSULE BY MOUTH EVERY DAY active Not Available Not Available No t Available triamterene 37.5 mg-hydrochl orothiazide 25 mg tablet active Not Available Not Available Not Available montelukast 10 mg tablet TAKE 1 TABLET BY MOUTH DAILY active Not Available Not Available No t Available albuterol sulfate HFA 90 mcg/actuati on aerosol inhaler active Not Available Not Available Not Available fluticasone propionate 50 mcg/actuati on nasal spray,suspe nsion SHAKE LIQUID AND USE 2 SPRAYS IN EACH NOSTRIL EVERY DAY NEEDED active Not Available Not Available No t Available finasteride 5 mg tablet TAKE 1 TABLET BY MOUTH DAILY AT BEDTIME active Not Available Not Available No t Available Januvia 100 mg tablet TAKE 1 TABLET BY MOUTH DAILY active Not Available Not Available No t Available Accu-Chek Reta Plus test strips TEST TWICE DAILY DIRECTED active Not Available Not Available No t Available Combivent Respimat 20 mcg-100 mcg/actuati on solution for inhalation active Not Available Not Available N ot Available Jardiance 25 mg tablet TAKE 1 TABLET BY MOUTH EVERY DAY active Not Available Not Available No t Available Sutab 1.479-0.188 -0.225 gram tablet TAKE BY MOUTH DIRECTED active Not Available Not Available No t Available Vitals Date Recorded Body height Provider Name an d Address Organization Details Last Updated DateTime 09/14/2022 167.64 cm Ebony Farias [facility] 09/14/2022 14:16:48 Date Recorded Body mass index (BMI) Body weight Body temperature Systolic blood pressure Diastolic blood pressure Provider Name and Address Organization Details Last Updated DateTime 09/14/2022 35.8 kg/m2 324842. 51 g 97.6 [degF] 140 mm[Hg] 80 mm[Hg] Renata CHAVEZ [facility] & [place] 3 14:31:18 Date Recorded Body height Body mass index (BMI) Body weight Body temperature Systolic blood pressure Diastolic blood pressure Provider Name and Address Organization Details Last Updated DateTime 2 167.64 cm 35.7 kg/m2 562626. 91 g 97.5 [degF] 130 mm[Hg] 70 mm[Hg] Ebony CHAVEZ [facility] & [place] 2 14:23:08 Social History Question Answer Notes LastModified by Organizat ion Details LastModified Time Tobacco Smoking Status Never Smoker Ebony Farias [facility] & [place] 05/03/2022 16:33:34 What Is Your Level Of Alcohol Consumption? None [email or web address] Information not available 05/03/2022 What Is Your Level Of Caffeine Consumption? Occasional Information not available 05/03/2022 Do You Use Any Illicit Or Recreational Drugs? No Information not available 05/03/2022 Do You Or Have You Ever Used Any Other Forms Of Tobacco Or Nicotine? No [email or web address] Information not available 05/03/2022 Sex: Unknown Functional Status None recorded. Mental Status None recorded. Family History Nothing Reported Notes:mother heart condition father stroke, cancer, sister breast cancer alive brother alive Medical History No medical history recorded. Past Encounters Encounter ID Performer Location Encounter Start Date Encounter Closed Date Diagnosis/Indication Diagnosis SNOMED-CT Code Diagnosis ICD10 Code Diagnosis Note [id number] Ebony Allan NP, S [facility] [address] [facility],[address] [place] [address] 05/06/2022 14:05:39 05/06/2022 14:52:50 Incomplete emptying of urinary bladder 563328999 R39.14 urinalysis clear today. PVR 103 much improved from previous. Renal ultrasound , KUB, urine cytology, and PSA results discussed with patient clinic today.Cont inue Flomax and finasterid ereturn to clinic in 4 months for follow-up with UA and PVR. Nocturia 830863258 R35.1 Large prostate 424952047 N40.0 [id number] Tin Lorenz MD [facility] [address],[facility] [place] [address] 09/14/2022 14:06:56 09/14/2022 14:59:28 Incomplete emptying of urinary bladder 034470847 R39.14 Nocturia 572379750 R35.1 Erectile dysfunction 860 172833 F52.21 [id number] Tin Lorenz MD [facility] [address],[facility] [place] [address] 12/14/2022 10:05:36 12/14/2022 10:41:17 Incomplete emptying of urinary bladder 694521389 R39.14 Nocturia 128249965 R35.1 Erectile dysfunction 860 774105 F52.21 Screening for malignant neoplasm of prostate 437609991 Z12.5 Fatigue 61028600 R53.83 Health Concerns Section Related Observation LastModified by Organization Detai ls LastModified Time None Recorded Concern Status LastModified by Organization Details LastModified Time None Recorded Advance Directives Directive None Recorded Payers Encounter Date Sequence Insurance Name Policy Number Policy Isaac Covered Member ID Isaac Member ID Guarantor Name 05/06/2022 1 [employer] (MEDICARE REPLACEMENT/A DVANTAGE - PPO) Kennedy Oconnor [id number] Kennedy Oconnor 09/14/2022 1 [employer] (MEDICARE REPLACEMENT/A DVANTAGE - PPO) Kennedy Oconnor [id number] Kennedy Oconnor 12/14/2022 1 [employer] (MEDICARE REPLACEMENT/A DVANTAGE - PPO) Kennedy Oconnor [id number] Kennedy Oconnor Notes Date Note Type Note Provider Name and Address Organization Details Recorded Time 05/06/2022 text/html 79 [email or web address] RTC for 4 week f/u of incomplete bladder emptying. patient has a history of weak urinary stream, enlarged prostate, and incomplete bladder emptying. Patient is on Flomax 0.4 mg twice a day as well as finasteride 5 mg daily. Recent PSA was 0.7 on 03/31/2022. Urine cytology was negative for malignant cells on 03/31/2022. Renal ultrasound and KUB were both unremarkable on 04/29/2022. Patient reports currently urinary stream is stable. Nocturia x1. He denies any dysuria or gross hematuria. PVR at last visit on 03/31/2022 was 398. PVR today was 103. Patient has a history of malignant neoplasm of the colon. Ebony Allan NP, [address], [place], [address], [facility] & [place] 05/06/2022 15:11:54 09/14/2022 text/html Patient returns to clinic today for management of ED. The the patient has been prescribed triple mix in the past. Shortly after that his suffered a number of severe health setbacks that have been resolved late last year. The patient has been on Silfenadil 50 mg a day p.r.n. but would like to consider moving up the dose. He has had no side effects on the medication. He is also on finasteride and tamsulosin 2 capsules by mouth at bedtime. SEE Below:History of incomplete bladder emptying. patient has a history of weak urinary stream, enlarged prostate, and incomplete bladder emptying. Patient is on Flomax 0.4 mg twice a day as well as finasteride 5 mg daily. Recent PSA was 0.7 on 03/31/2022. Urine cytology was negative for malignant cells on 03/31/2022. Renal ultrasound and KUB were both unremarkable on 04/29/2022. Patient reports currently urinary stream is stable. Nocturia x1. He denies any dysuria or gross hematuria. PVR at last visit on 03/31/2022 was 398. PVR today was 103. Patient has a history of malignant neoplasm of the colon. Tin Lorenz MD [address], [place], [address], [place] - [place] [facility] & [place] 09/14/2022 17:17:57 12/14/2022 text/html patient presents today complaining of generalized fatigue. patient states that he recently spoke to his brother law who is a physician transition assistant do question whether it at a testosterone checked. Patient saw his PCP, Dr. Ribera who performs testosterone serologies which the patient brings along with him today. I have reviewed these serologies in all are in normal reference range. Patient also has a history of ED and a history of diabetes. His PVR today is 166 cc. He is on Flomax b.i.d. and finasteride. He has had normal PSA values within the last year. See below past history:Patient returns to clinic today for management of ED. The the patient has been prescribed triple mix in the past. Shortly after that his suffered a number of severe health setbacks that have been resolved late last year. The patient has been on Sildenafil 50 mg a day p.r.n. but would like to consider moving up the dose. He has had no side effects on the medication. He is also on finasteride and tamsulosin 2 capsules by mouth at bedtime. SEE Below:History of incomplete bladder emptying. patient has a history of weak urinary stream, enlarged prostate, and incomplete bladder emptying. Patient is on Flomax 0.4 mg twice a day as well as finasteride 5 mg daily. Recent PSA was 0.7 on 03/31/2022. Urine cytology was negative for malignant cells on 03/31/2022. Renal ultrasound and KUB were both unremarkable on 04/29/2022. Patient reports currently urinary stream is stable. Nocturia x1. He denies any dysuria or gross hematuria. PVR at last visit on 03/31/2022 was 398. PVR today was 103. Patient has a history of malignant neoplasm of the colon. Tin Lorenz MD [address] [facility], [place], [address], [facility] - [place] - [place] & [place] 12/14/2022 13:56:00
--- OUTSIDE RECORDS SUMMARY | 2024-11-13 12:10 | XMS_ITS | Data Portability ---
Author Organization [facility] [place] [facility] Address [address] [place] [address] Care Team Providers Care Gambling Floor Supervisor Name Role Phone KRISTINE BLUE Customer Business Manager TERRI RAPP Hematology/Oncology SUHA PHILLIP Urologist KATY OBRIEN Primary Care Provider [phone] Assessment No assessment recorded. Plan of Treatment Reminders Order Date Submit Date Provider Last Modified By Organization Details Last Modified Time Details Appointments LEVEL 2 2024 02:15P M KRISTINE BLUE MD Not available Not available Not available RECHECK 2024 01:00P Oracio PHILLIP MD Not available Not available Not available Lab urinalys is panel, auto 2023 024 [facility], [address], [place], [address], 07/03/2024 15:48:32 PSA, serum or plasma 2023 024 [facility], [address], [address], [place], [address], 07/03/2024 15:48:32 CBC w/ auto diff 2023 024 [facility], [address] [place] [address], [address], 09/08/2023 22:39:41 pro BNP (pro B-type natriure tic peptide) , serum or plasma 2023 024 [facility], [address] [place] [address], [address], 09/08/2023 19:59:31 CMP, serum or plasma 2023 024 [facility], [address] [place] [address], [address], 09/08/2023 19:31:44 TSH, serum, reflex free T4 2023 024 [facility], [address] [place] [address], [address], 09/08/2023 19:43:10 Referral otolaryn gologist referral - 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, [place], [address], 09/19/2023 12:29:47 Procedures None recorded . Surgeries None recorded . Imaging XR, chest, 2 view 2023 024 [facility], [address] [place] [address], [address], 09/09/2023 15:50:05 electroc ardiogra m 2023 024 [email or web address] [facility], [address] , [place], [address], 09/05/2023 15:04:49 Medication Orders tamsulos in 0.4 mg capsule 2023 024 [id number], [address], [place], [place], [id number], 07/03/2024 15:48:39 finaster levi 5 mg tablet 2023 024 [id number], [address], [place], [id number], 07/03/2024 15:48:39 Patient TargetsNo targets recorded. Patient InstructionsNo instructions recorded. 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 METAB OLIC PANEL glucose 173 mg/dL 74-100 high Not Available [facility] [address] [place] [address], [address], 09/08/2023 19:31:43 09/08/19 24 09/08/2023 COMP. METAB OLIC PANEL blood urea nitrogen 24 mg/dL 6-20 high Not Available [facility] [address] [place], [address], 09/08/2023 19:31:43 09/08/19 24 09/08/2023 COMP. METAB OLIC PANEL creatinine 1.07 mg/dL 0.70-1 .28 normal Not Available [facility] [address] [place] [address], [address], 09/08/2023 19:31:43 09/08/19 24 09/08/2023 COMP. METAB OLIC PANEL BUN/creatini ne ratio 22 (calc ) 10-20 high Not Available [facility] [address] [place] [address], [address], 09/08/2023 19:31:43 09/08/19 24 09/08/2023 COMP. METAB OLIC PANEL sodium 136 mmol/ L 136-14 5 normal Not Available [facility] [address] [place] [address], [address], 09/08/2023 19:31:43 09/08/19 24 09/08/2023 COMP. METAB OLIC PANEL potassium 3.7 mmol/ L 3.4-5. 0 normal Not Available [facility] [address] [place] [address], [address], 09/08/2023 19:31:43 09/08/19 24 09/08/2023 COMP. METAB OLIC PANEL chloride 101 mmol/ L 98-107 normal Not Available [facility] [address] [place] [address], [address], 09/08/2023 19:31:43 09/08/19 24 09/08/2023 COMP. METAB OLIC PANEL carbon dioxide 27 mmol/ L 22-31 normal Not Available [facility] [address] [place] [address], [address], 09/08/2023 19:31:43 09/08/19 24 09/08/2023 COMP. METAB OLIC PANEL anion gap 8 (calc ) 7-25 normal Not Available [facility] [address] [place] [address], [address], 09/08/2023 19:31:43 09/08/19 24 09/08/2023 COMP. METAB OLIC PANEL calcium 8.8 mg/dL 8.6-10 .2 normal Not Available [facility] [address] [place] [address], [address], 09/08/2023 19:31:43 09/08/19 24 09/08/2023 COMP. METAB OLIC PANEL total protein 7.2 g/dL 6.4-8. 3 normal Not Available [facility] [address] [place] [address], [address], 09/08/2023 19:31:43 09/08/19 24 09/08/2023 COMP. METAB OLIC PANEL albumin 3.9 g/dL 3.5-5. 2 normal Not Available [facility] [address] [place] [address], [address], 09/08/2023 19:31:43 09/08/19 24 09/08/2023 COMP. METAB OLIC PANEL globulin 3.3 1.5-4. 5 normal Not Available [facility] [address] [place] [address], [address], 09/08/2023 19:31:43 09/08/19 24 09/08/2023 COMP. METAB OLIC PANEL albumin/glob ulin ratio 1.2 (calc ) 1.1-2. 5 normal Not Available [facility] [address] [place] [address], [address], 09/08/2023 19:31:43 09/08/19 24 09/08/2023 COMP. METAB OLIC PANEL bilirubin, total 0.4 mg/dL 0.1-1. 2 normal Not Available [facility] [address] [place] [address], [address], 09/08/2023 19:31:43 09/08/19 24 09/08/2023 COMP. METAB OLIC PANEL alkaline phosphatase 90 U/L 40-129 normal Not Available [facility] [address] [place] [address], [address], 09/08/2023 19:31:43 09/08/19 24 09/08/2023 COMP. METAB OLIC PANEL AST 12 U/L 0-40 normal Not Available [facility] [address] [place] [address], [address], 09/08/2023 19:31:43 09/08/19 24 09/08/2023 COMP. METAB OLIC PANEL ALT 12 U/L 0-41 normal Not Available [facility] [address] [place] [address], [address], 09/08/2023 19:31:43 09/08/19 24 09/08/2023 COMP. METAB OLIC PANEL GFR 70 >= 60 normal NOT E New calcu latio n for GFR (CKD- EPI 2020) is formu lated witho ut race adjus tment facto rs at the recom menda tion of the [place] and [employer] of Nephr ology . This calcu latio n has not been valid ated in pregn ant women . For pedia tric patie nts refer to https ://francheska w.ivonne naranjo.o rg/pr ofess ional s/KDO QI/gf r_cal culat orPed Not Available [facility] [address] [place] [address], [address], 09/08/2023 19:31:43 09/08/19 24 09/08/2023 TSH WITH REFLE X FT4 TSH with reflex FT4 1.510 u[IU] /mL 0.270- 4.200 normal Not Available [facility] [address] [place] [address], [address], 09/08/2023 19:43:10 09/08/19 24 09/08/2023 PRO-B DIRECTOR PEDIATRIC pro-BNP 49 pg/mL 0-1800 normal PLEAS E NOTE: For optim al appli catio n of ProBN P in the diagn osis of CHF, it is essen tial to incor porat e the resul ts with the routi ne clini siena asses sment . Not Available [facility] [address] [place], [address], 09/08/2023 19:59:31 09/08/19 24 09/08/2023 COMPL ETE BLOOD COUNT white blood cells 7.4 10*3/ uL 3.8-10 .8 normal Not Available [facility] [address] [place], [address], 09/08/2023 22:39:41 09/08/19 24 09/08/2023 COMPL ETE BLOOD COUNT red blood cells 4.38 10*6/ uL 4.20-5 .80 normal Not Available [facility] [address] [place], [address], 09/08/2023 22:39:41 09/08/19 24 09/08/2023 COMPL ETE BLOOD COUNT hemoglobin 12.5 g/dL 14.0-1 8.0 low Not Available [facility] [address] [place] [address], [address], 09/08/2023 22:39:41 09/08/19 24 09/08/2023 COMPL ETE BLOOD COUNT hematocrit 37.8 % 40.0-5 2.0 low Not Available [facility] [address] [place] [address], [address], 09/08/2023 22:39:41 09/08/19 24 09/08/2023 COMPL ETE BLOOD COUNT MCV 86 fL 80-100 normal Not Available [facility] [address] [place] [address], [address], 09/08/2023 22:39:41 09/08/19 24 09/08/2023 COMPL ETE BLOOD COUNT MCH 29 pg 26-35 normal Not Available [facility] [address] [place] [address], [address], 09/08/2023 22:39:41 09/08/19 24 09/08/2023 COMPL ETE BLOOD COUNT MCHC 33 g/dL 32-36 normal Not Available [facility] [address] [place] [address], [address], 09/08/2023 22:39:41 09/08/19 24 09/08/2023 COMPL ETE BLOOD COUNT RDW 15.2 % 11.0-1 5.0 high Not Available [facility] [address] [place] [address], [address], 09/08/2023 22:39:41 09/08/19 24 09/08/2023 COMPL ETE BLOOD COUNT MPV 10.1 fL 6.2-10 .5 normal Not Available [facility] [address] [place] [address], [address], 09/08/2023 22:39:41 09/08/19 24 09/08/2023 COMPL ETE BLOOD COUNT platelet count 148 10*3/ uL 150-40 0 low Not Available [facility] [address] [place] [address], [address], 09/08/2023 22:39:41 09/08/19 24 09/08/2023 COMPL ETE BLOOD COUNT neutrophil,a bsolute 3.5 10*3/ uL 1.6-8. 4 normal Not Available [facility] [address] [place] [address], [address], 09/08/2023 22:39:41 09/08/19 24 09/08/2023 COMPL ETE BLOOD COUNT lymphocyte,a bsolute 2.1 10*3/ uL 0.4-5. 1 normal Not Available [facility] [address] [place] [address], [address], 09/08/2023 22:39:41 09/08/19 24 09/08/2023 COMPL ETE BLOOD COUNT monocyte,abs olute 1.7 10*3/ uL 0.0-1. 2 high Not Available [facility] [address] [place] [address], [address], 09/08/2023 22:39:41 09/08/19 24 09/08/2023 COMPL ETE BLOOD COUNT eosinophil,a bsolute 0.1 10*3/ uL 0.0-0. 8 normal Not Available [facility] [address] [place] [address], [address], 09/08/2023 22:39:41 09/08/19 24 09/08/2023 COMPL ETE BLOOD COUNT basophil,abs olute 0.1 10*3/ uL 0.0-0. 3 normal Smear revie wed to confi rm cell morph ology . Not Available [facility] [address] [place] [address], [address], 09/08/2023 22:39:41 09/08/19 24 09/08/2023 COMPL ETE BLOOD COUNT % neutrophils 46.8 % 42.0-7 8.0 normal Not Available [facility] [address] [place] [address], [address], 09/08/2023 22:39:41 09/08/19 24 09/08/2023 COMPL ETE BLOOD COUNT % lymphocytes 28.5 % 11.0-4 7.0 normal Not Available [facility] [address] [place] [address], [address], 09/08/2023 22:39:41 09/08/19 24 09/08/2023 COMPL ETE BLOOD COUNT % monocytes 22.5 % 0.0-11 .0 high Not Available [facility] [address] [place] [address], [address], 09/08/2023 22:39:41 09/08/19 24 09/08/2023 COMPL ETE BLOOD COUNT % eosinophils 1.1 % 0.0-7. 0 normal Not Available [facility] [address] [place] [address], [address], 09/08/2023 22:39:41 09/08/19 24 09/08/2023 COMPL ETE BLOOD COUNT % basophils 1.1 % 0.0-3. 0 normal Not Available [facility] [address] [place] [address], [address], 09/08/2023 22:39:41 09/08/19 24 09/08/2023 COMPL ETE BLOOD COUNT nucleated red cells 0.1 % 0.0-0. 9 normal Not Available [facility] [address] [place] [address], [address], 09/08/2023 22:39:41 09/08/19 24 09/08/2023 COMPL ETE BLOOD COUNT nucleated RBCs, absolute 0.01 10*3/ uL not estab. normal Not Available [facility] [address] [place] [address], [address], 09/08/2023 22:39:41 09/08/19 24 09/08/2023 MORPH OLOGY RBC morphology NORMAL normal Not Available [facility] [address] [place], [address], 09/08/2023 22:39:43 09/08/19 24 09/08/2023 MORPH OLOGY platelet morphology NORMAL normal Not Available [facility] [address] [place], [address], 09/08/2023 22:39:43 07/03/2007/03/2024 PSA, serum or plasm a PSA 0.25 NG/mL 0.0 - 4.0 Not Available [facility] [address], [place], [address], 07/03/2024 15:30:13 07/03/20 24 07/03/2024 urina lysis panel , auto Unknown Analyte Clean Catch Not Available [facility] [address], [place], [address], 07/03/2024 14:54:41 07/03/20 24 07/03/2024 urina lysis panel , auto Unknown Analyte Yellow Not Available [facility] [address], [place], [address], 07/03/2024 14:54:41 07/03/20 24 07/03/2024 urina lysis panel , auto Unknown Analyte Clear Not Available [facility] [address], [place], [address], 07/03/2024 14:54:41 07/03/20 24 07/03/2024 urina lysis panel , auto Unknown Analyte 1.015 Not Available [facility] [address], [place], [address], 07/03/2024 14:54:41 07/03/20 24 07/03/2024 urina lysis panel , auto Unknown Analyte 1.003- 1.035 Not Available [facility] [address], [place], [address], 07/03/2024 14:54:41 07/03/2007/03/2024 urina lysis panel , auto Unknown Analyte 5.0 Not Available [facility] [address], [place], [address], 07/03/2024 14:54:41 07/03/2007/03/2024 urina lysis panel , auto Unknown Analyte 5.0-8. 0 Not Available [facility] [address], [place], [address], 07/03/2024 14:54:41 07/03/20 24 07/03/2024 urina lysis panel , auto Unknown Analyte Negati ve Not Available [facility] [address], [place], [address], 07/03/2024 14:54:41 07/03/2007/03/2024 urina lysis panel , auto Unknown Analyte Negati ve Not Available [facility] [address], [place], [address], 07/03/2024 14:54:41 07/03/20 24 07/03/2024 urina lysis panel , auto Unknown Analyte Negati ve Not Available [facility] [address], [place], [address], 07/03/2024 14:54:41 07/03/2007/03/2024 urina lysis panel , auto Unknown Analyte Negati ve Not Available [facility] [address], [place], [address], 07/03/2024 14:54:41 07/03/2007/03/2024 urina lysis panel , auto Unknown Analyte Negati ve Not Available [facility] [address], [place], [address], 07/03/2024 14:54:41 07/03/2007/03/2024 urina lysis panel , auto Unknown Analyte Negati ve Not Available [facility] [address], [place], [address], 07/03/2024 14:54:41 07/03/20 24 07/03/2024 urina lysis panel , auto Unknown Analyte >1000 mg/dl Not Available [facility] [address], [place], [address], 07/03/2024 14:54:41 07/03/2007/03/2024 urina lysis panel , auto Unknown Analyte Normal Not Available [facility] [address], [place], [address], 07/03/2024 14:54:41 07/03/20 24 07/03/2024 urina lysis panel , auto Unknown Analyte Negati ve Not Available [facility] [address], [place], [address], 07/03/2024 14:54:41 07/03/20 24 07/03/2024 urina lysis panel , auto Unknown Analyte Negati ve Not Available [facility] [address], [place], [address], 07/03/2024 14:54:41 07/03/2007/03/2024 urina lysis panel , auto Unknown Analyte Normal Not Available [facility] [address], [place], [address], 07/03/2024 14:54:41 07/03/2007/03/2024 urina lysis panel , auto Unknown Analyte Normal 1 mg/dl Not Available [facility] [address], [place], [address], 07/03/2024 14:54:41 07/03/20 24 07/03/2024 urina lysis panel , auto Unknown Analyte Negati ve Not Available [facility] [address], [place], [address], 07/03/2024 14:54:41 07/03/20 24 07/03/2024 urina lysis panel , auto Unknown Analyte Negati ve Not Available [facility] [address], [place], [address], 07/03/2024 14:54:41 07/03/20 24 07/03/2024 urina lysis panel , auto Unknown Analyte Negati ve Not Available [facility] [address], [place], [address], 07/03/2024 14:54:41 07/03/20 24 07/03/2024 urina lysis panel , auto Unknown Analyte Negati ve Not Available [facility] [address], [place], [address], 07/03/2024 14:54:41 09/05/19 24 09/05/2023 elect rocar diogr am No observ ation record ed. [email or web address] [facility] [address], [place], [address], 09/05/2023 22:26:27 09/07/19 24 09/05/2023 elect rocar diogr am No observ ation record ed. BARCODE Not Available 2023 10:51:36 09/09/19 24 09/09/2023 XR, chest , 2 view [facility] [address] [place] [address] Jayden mc Name: JINNY mc : 1939 Jayden mc 1 Orderi ng Provid er: MARCK VALENZUELA EXAM DATE: 2023 EXAM: XR CHEST PA/LAT CLINIC AL INFORM ATION: Cough. IMAGES PROVID ED: PA and latera l views of the chest. COMPAR REFUGIO: None. FINDIN GS: Heart size is within normal limits . Patchy infilt rate is seen in the left lung base. IMPRES MEHREEN: Appear ance is sugges tive of left lung base pneumo ten. Interp reted By: Chester Bennett MD Electr onical ly Signed By: Chester Bennett MD on 024 3:44 PM [email or web address] [facility] [place] [address] [place], [address], 09/09/2023 16:14:26 03/31/20 24 10/18/2023 elect amelia stantongr am No observ ation record ed. [email or web address] [facility] [address], [place], [address], 10/24/2023 13:58:38 11/03/19 24 10/31/2023 CT, angio gram, coron jazmin arter ies, w/ contr ast No observ ation record ed. [email or web address] [facility] [address], [place], [address], 11/03/2023 15:31:42 Result Notes None recorded. Problems Name Problem SNOMED Code Status Onset Date Resolution Date Notes Provider Name and Address Organization Details Recorded Time Screenin g for malignan t neoplasm of prostate Completed 201604/14/2020 MARCK VALENZUELA DO [address] [place], [address] , [facility] 0 12:32:34 Hyperlip idemia 12936185 Active 2016 MARCK VALENZUELA DO [address] [place], [address] , [facility] 2 20:38:45 [facility] hyperten mehreen 20552213 Completed 201608/14/2020 MARCK VALENZUELA DO [address] [place], [address] , [facility] 1 13:01:15 Moderate persiste nt asthma 644827441 Active 2016 Chantelle Jc [facility] 3 15:37:46 Hearing loss 50084952 Active 2016 Chantelle Jc [facility] 3 15:37:46 Primary erectile dysfunct ion 150602995 Active 2016 Chantelle Jc [facility] 3 15:37:46 Vitamin B12 deficien cy (non anemic) 13812078 Active 2016 Chantelle Jc [facility] 3 15:37:47 Chronic low back pain 430779027 Active 2016 [facility] 3 15:37:46 Malignan t tumor of colon 078566845 Completed 201607/01/2022 1989 colon resectio n CScope 06/2022: divertic ulosis, 2 polyps (1-23mm) , path pend, rec 4m f/u Dr Brayan VALENZUELA, DO [address] [place], [address] , [facility] 2 16:30:48 Electroc ardiogra m abnormal 656452397 Active 2016 [facility] 3 15:37:46 Measurem ent finding Completed 201504/14/2020 From Automate d Load;Pro vider: Sneha Bianchi;St atus: Active MARCK VALENZUELA, DO [address] [place], [address] , [facility] 0 12:32:12 Bilatera l cataract s 45542805 Completed 201602/09/2018 KRISTINE BLUE MD [address] [place], [address] , [facility] 8 13:07:22 Pseudoph autumn 08842472 Active 2017 [facility] 3 15:37:47 Depressi ve disorder 56621191 Active 2017 [facility] 3 15:37:46 Body mass index 30+ - obesity 735433610 Active 2017 [facility] 3 15:37:46 Antiplat elet agent therapy Active 2019 [facility] 15:37:46 Seasonal allergy 138578688 Active 2019 [facility] 3 15:37:46 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 844478593 Active 03/2022 psa 0.7 Chantelleelgin Jc [facility] 3 15:37:46 Polyp of colon 14812022 Active 2019 MARCK VALENZUELA, DO [address] [place], [address] , [facility] 3 13:34:11 Benign prostati c hyperpla guido with outflow obstruct ion 515210712 Active 2021 Chantelle Jc null, [facility] 3 15:37:46 Monocyto sis 85843401 Active 2021 [facility] 3 15:37:46 History of malignan t neoplasm of colon 880114167 Active 2021 colon resectio n, CScope 12/2022, polyps, cecal TA s/p lap colectom y MARCK VALENZUELA, DO [address] [place], [address] , [facility] 3 14:27:45 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 Monitor MARCK VALENZUELA, DO [address] [place], [address] , [facility] 3 11:25:10 Chronic kidney disease stage 2 808435470 Active 2022 MARCK VALENZUELA, DO [address] [place], [address] , [facility] 3 22:13:22 Morbid obesity 732512280 Active Not Available [employer] 3 13:54:06 Vitamin D deficien cy 53187012 Active 11/2022 rec 1000IU MARCK VALENZUELA, DO [address] [place], [address] , [facility] 3 09:10:30 Type 2 diabetes mellitus 03377916 Active 2022 [place] [address] [place] [address], [address] , [facility] 3 22:13:14 Thromboc ytopenic disorder 956010068 Active Not Available [employer] 3 14:15:48 Recurren t major depressi on in partial remissio n [id number] Active 2022 MARCK VALENZUELA, DO [address] [place] [address], [phone] , [facility] 3 14:16:48 Atherosc lerosis of aorta 58551182 Active Not Available [employer] 3 20:55:57 Coronary atherosc lerosis 866109939 Active 2023 CCTA 09/2023 sig CAD in LAD and possible pRCA. CAC [address] [facility] Cardio MARCK VALENZUELA, DO [address] [place] [address], [address] [place] [address] , [facility] 4 15:00:22 Type 2 diabetes mellitus without complica tion 756350994 Completed 201408/14/2020 From Automate d Load;Pro vider: Sneha Bianchi;St atus: Active MARCK VALENZUELA, DO [address] [place] [address], [phone] , [facility] 1 13:00:15 Sensorin eural hearing loss of bilatera l ears 787892797 Active 2015 From Automate d Load;Pro vider: Jozef Purcell;St atus: [facility] 3 15:37:46 Noise effects on inner ear 38359829 Completed 201508/14/2020 From Automate d Load;Pro vider: Jozef Purcell;St atus: Active MARCK VALENZUELA, DO [address] [place], [address] , [facility] 1 13:00:35 Bilatera l tinnitus 87275981720 02 Active 2015 From Automate d Load;Pro vider: Jozef Purcell;St atus: [facility] 3 15:37:46 Eustachi an tube disorder 20257556 Active 2015 Provider : Jozef Purcell;St atus: Active [facility] 3 15:37:47 Vertigo of central origin 58334383 Active 2015 From Automate d Load;Pro vider: Jozef Purcell;St atus: Active [facility] 3 15:37:46 Disorder of nervous system due to type 2 diabetes mellitus 119810571 Active 2014 From Automate d Load;Pro vider: GutierrezFemi;St atus: Active Chantelle Jc [facility] 3 15:37:46 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 818145440 Active 2014 From Automate d Load;Pro vider: Gutierrez, Femi;St atus: Active Chantelle Jc [facility] 3 15:37:46 Essentia l tremor 653541867 Active 2014 From Automate d Load;Pro vider: Gutierrez, Femi;St atus: Active Chantelle Jc [facility] 3 15:37:46 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 59863765 Active 2014 From Automate d Load;Pro vider: Gutierrez, Femi;St atus: [facility] 3 15:37:46 Acute sinusiti s 85152292 Completed 201504/14/2020 From Automate d Load;Pro vider: Sneha Bianchi;St atus: Active MARCK VALENZUELA, DO [address] [place], [address] , [facility] 0 12:30:26 Restless legs 20672251 Active 2015 From Automate d Load;Pro vider: Sneha Bianchi;St atus: Active [facility] 3 15:37:46 Asthma 088597845 Active 2015 From Automate d Load;Pro vider: Sneha Bianchi;St atus: Active Chantelle Jc [facility] 3 15:37:46 Familial combined hyperlip idemia 272663725 Active 2014 From Automate d Load;Pro vider: Sneha Bianchi;St atus: Active Chantelle Jc [facility] 3 15:37:46 Hyperten sive disorder 64753995 Active 2014 From Automate d Load;Pro vider: Sneha Bianchi;St atus: Active Chantelle Jc [facility] 3 15:37:46 Exacerba tion of intermit tent asthma 888728485 Completed 201404/14/2020 From Automate d Load;Pro vider: Sneha Bianchi;St atus: Active MARKC VALENZUELA DO [facility] [place], [address] [facility] 0 12:32:20 Dizzines s and giddines s 313593032 Completed 201508/14/2020 Status: Active MARCK VALENZUELA DO [facility] [place], [address] , [facility] 1 13:00:26 Problem Notes Documentation Provider Name and Address Organization Details Recorded Time Customer Business Manager Consult Note : [facility] ? ? [address] [facility] [id number], Larry L (id #[id number], : 1940) [facility] [address] [place]?[address] Phone:?? Fax:?? Encounter Summary - Progress Note Date Printed: ?09/05/2023 Documents sent via fax will include the followingmessage: This fax may contain sensitive and confidential personal health information that is being sent for the sole use of the intended recipient. Unintended recipients are directed to securely destroy any materials received. You are hereby notified that the unauthorized disclosure or other unlawful use of this fax or any personal health information is prohibited. To the extent patient information contained in this fax is subject to 42 CFR Part 2, this regulation prohibits unauthorized disclosure of these records. If you received this fax in error, please visit [email or web address] to notify the sender and confirm that the information will be destroyed. If you do not have internet access, please call to notify the sender and confirm that the information will be destroyed. Thank you for your attention and cooperation. [ID:[id number]] Patient Jinny Rubio (83yo, M) #[id number] 1940 ?? Patient Demographics: Address [address] [place] [id number] ? Work Phone ?? Encounter Notes: Encounter Reason/Date 83 y/o wm w/mild pco os returns for yearly complete eye exam pt states that he has been having trouble with his vision since he had COVID during the holidays. Pt states his hearing has gotten worse, and his vision is not what it should be. Pt said he will use his distance [facility] and his eyes do not want to adjust. Pt states that he can see road signs and tv okay, pt can read and do his crossword puzzles okay but his eyes get tired. Pt states bright lights hurt his eyes. Pt denies any pain or irritation but does occasionally have watery eyes. Pt has no other eye concerns at the moment. gtts: none AG diff with focusing colon surgery february - had infxn 09/05/2023 - 03:15PM - [facility]THALMOLOGY [facility] History of Present IllnessNone recorded Review of Systems Patient reports currently taking blood thinners;Pt takes baby aspirin daily (81mg). He reportspast flomax usage;pt is on Tamulosin 0.4mg (flomax) BID. He reports no difficulty hearing. He reports no neurological symptoms reported. He reports no cardiovascular symptoms. He reports no systemic symptoms. He reports no myalgia, no arthralgia, and no back pain. He reports no cough, no wheezing, and no sleep apnea. He reports no allergy symptoms, no sinus pressure, and no itching. He reports no proptosis and no muscle weakness. [id number] 15:27 Ht: 5 ft 6 in Results/InterpretationsNone recorded Physical ExamExternal Exam:General Appearance normal. Face: normal. Lids: normal. Pupils normal. Muscle Balance Testing: normal. EOM: normal. Visual Hartman Exam normal to count fingers OU. Slit Lamp Exam:Lidsabnormal(2+dmc ou). Conjunctiva: normal. Cornea: normal. Anterior Chamber: normal. Iris: normal. Lens:abnormal(Diffuse pco os PP OU). Fundus Exam:Vitreous:abnormal(PVD OU). Disc C/D Ratio normal, OD: 0.3, and OS: 0.3. Retinal Vessels normal. Macula: normal. Peripheral Retina normal. Psychiatric:Orientation: oriented to time, place, and person. Mental Status: affect normal. Procedure DocumentationNone recorded Assessment and Plan1. Type 2 diabetes mellitus without complication- no retinopathy ouI discussed diabetes with this patient. I discussed the importance of sugar control for reducing risk of diabetic complications in the eyes. I recommend they follow up with their PCP/herbicide service sales representative for continue sugar evaluation/management. Also discussed importance of cardiovascular risk reduction. Call with changing/fluctuating vision.E11.9: Type 2 diabetes mellitus without complications 2. Bilateral uxberygghrvgR86.1: Presence of intraocular lens 3. After-cataract with vision obscured following extraction of cataract-progressed os - rec yag laser osscheudle H26.499: Other secondary cataract, unspecified eye Return to Office to see KRISTINE BLUE MD for LEVEL 2 at OPHTHALMOLOGY [facility] on or around 09/05/2023 FAME_RESP_SICK_POD_3 for RESPIRATORY SICK VISIT at [facility] on 09/05/2023 at 02:00 PM KYENT_AUDIO_CB for AUDIOGRAM at [facility] on 10/20/2023 at 01:20 PM XAVIER GTZ MD for NEW PATIENT at [facility] on 10/20/2023 at 01:20 PM JOSE WEISS MD for DERMATOLOGY VISIT at [facility] on 11/22/2023 at 03:00 PM MARCK VALENZUELA DO for RECHECK at [facility] on 12/21/2023 at 01:45 PM SUHA PHILLIP MD for RECHECK at [facility] on 01/05/2024 at 02:15 PM Patient Medical History: Allergies List Reviewed Allergies CODEINE: - Comment: Created By: Omar Costa;Created Date: 09/24/2005 1:06:24 PM; DARVON: - Comment: Created By: Omar Costa;Created Date: 09/24/2005 1:06:11 PM; DIETHYLPROPION: Other METFORMIN: Diarrhea (Severe) PENICILLINS: - Comment: states no longer allergic;Created By: Omar Costa;Created Date: 09/24/2005 1:06:38 PM; PROPOXYPHENE: Other (Moderate severity) Medications Reviewed Medications NameDate Source Accu-Chek Reta Plus Metertest 2x daily07/27/17?entered Smita Mullikin Accu-Chek Reta Plus test stripsTake 1 strip(s) twice a day by [employer]. route as directed.05/30/23?prescri bed MARCK VALENZUELA, DO Accu-Chek Softclix Lancetsuse BID07/27/17?entered Smita Loza acetaminophen 500 mg tabletEvery four to six hours Internal Note:Duration: 10 days;Frequency: q4-q6h;Medication Description: acetaminophen; Dosage:1-2; Route:oral; refills:0; Quantity:30 inilgj10/02/16?entered judy.221 Actos 15 mg tabletTAKE 1 TABLET BY MOUTH DAILY08/02/23?renewed MARCK VALENZUELA, DO aspirin 81 mg tabletDaily Internal Note:Frequency: daily;Medication Description: aspirin; Dosage:1; Route:oral; refills:0; Quantity:30 /02/16?entered judy.222 atorvastatin 20 mg qkaofi5cgswhr po daily08/02/23?renewed MARCK VALENZUELA, DO cetirizine 10 mg tabletTAKE 1 TABLET BY MOUTH EVERY DAY11/11/22?renewed MARCK VALENZUELA, DO cyanocobalamin (vit B-12) 1,000 mcg tabletTake 1 tablet(s) every day by oral route.04/14/20?entered Yvonne Walter finasteride 5 mg tablet1 daily at bedtime.08/02/23?renewed MARCK VALENZUELA, DO Flonase Allergy Relief 50 mcg/actuation nasal spray,suspension2 sprays in each nostril daily03/01/23?renewed MARCK VALENZUELA, DO fluticasone 250 mcg-salmeteroL 50 mcg/dose blistr powdr for inhalationInhale 1 puff(s) twice a day by inhalation route.05/31/23?renewed MARCK VALENZUELA, DO glimepiride 4 mg tabletTAKE 1 TABLET BY MOUTH TWICE DAILY06/23/23?renewed MARCK VALENZUELA, DO Januvia 100 mg tabletTAKE 1 TABLET BY MOUTH DAILY08/17/23?renewed ARMANI WONG MD Jardiance 25 mg tabletTAKE 1 TABLET BY MOUTH EVERY DAY08/30/23?renewed MARCK VALENZUELA, DO lancetsAs Directed Internal Note:Frequency: as direct.;Medication Description: Supplies; Dosage:as directed; refills:5; Quantity:100, start 01/10/?gisella kim.242 montelukast 10 mg tabletTAKE 1 TABLET BY MOUTH DAILY11/11/22?renewed MARCK VALENZUELA, DO propranoloL ER 80 mg capsule,24 hr,extended releaseTAKE 1 CAPSULE BY MOUTH EVERY DAY06/23/23?renewed MARCK VALENZUELA, DO sildenafiL 100 mg tabletTake 1 tablet(s) as needed by oral route.07/05/23?prescribed SUHA PHILLIP MD tamsulosin 0.4 mg capsuleTAKE 2 CAPSULES BY MOUTH AT MPEHWXN29/14/23?renewed MARCK VALENZUELA, DO triamterene 37.5 mg-hydrochlorothiazide 25 mg capsule1 DAILY07/19/23?renewed MARCK VALENZUELA, DO Viagra 50 mg tabletTake 1 tablet(s) every day by oral route as needed for 30 days. Internal Note:using 100mg from Dr Lorenz, start ?starte d Yulisa Arita Family HistoryReviewed Family History Father - 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 ?? - Family history of stroke ?? - Family history of cancer ?? - Hypertensive disorder ?? - Hyperlipidemia Mother - Myocardial infarction ?? - Arthritis Past Medical HistoryReviewed Past Medical History Diabetes:Y Glasses/Contacts:Y Vaccine HistoryVaccines not reviewed (last reviewed 06/22/2023) Vaccine Type Date Amt. Route Site NDC Lot??# Mfr. Exp. 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 COVID-19, mRNA, LNP-S, PF, 30 mcg/0.3 mL dose (Tempronics) 07/28/21 0.3 mL Intramuscular [id number] [employer] 09/21/21 COVID-19, mRNA, LNP-S, PF, 30 mcg/0.3 mL dose (Tempronics) 12/09/20 0.3 mL Intramuscular [id number] [employer] 03/24/21 COVID-19, mRNA, LNP-S, PF, 30 mcg/0.3 mL dose (Tempronics) 11/18/20 0.3 mL Intramuscular [id number] [employer] 02/21/21 Diphtheria, Tetanus Td (adult) preservative free 09/29/21 0.5 mL Intramuscular Deltoid, Left [id number] Sanofi Paste[employer] 12/06/21 Td 02/27/2021 09/29/21 Yulisa Arita Td (adult), adsorbed 01/16/01 Diphtheria, Tetanus, Pertussis Tdap 05/03/14 0.5 mL Influenza influenza, high-dose, quadrivalent 05/11/23 0.7 mL Intramuscular Deltoid, Left [id number] San[employer]i Paste[employer] 12/24/23 Inactivated Influenza 02/27/2021 05/11/23 Yulisa Arita influenza, high-dose, quadrivalent 05/03/22 0.7 mL Intramuscular Deltoid, Left [id number] San[employer]i Paste[employer] 01/21/23 Inactivated Influenza 02/27/2021 05/03/22 Yulisa Arita Influenza vaccine, quadrivalent, adjuvanted 07/28/21 0.5 mL Intramuscular [id number] [employer] 01/21/22 influenza, high-dose, quadrivalent 04/14/20 0.7 mL Intramuscular Deltoid, Left [id number] San[employer]i Paste[employer] 01/21/21 Inactivated Influenza 03/08/2019 04/14/20 Yvonne Walter influenza, trivalent, adjuvanted 05/09/19 0.5 mL Intramuscular Deltoid, Left [id number] [employer] 12/23/19 Inactivated Influenza 03/08/2019 05/09/19 Cami Lynn influenza, trivalent, adjuvanted 05/15/18 0.5 mL Intramuscular Deltoid, Left [id number] [employer] 12/22/18 TIV/QIV 02/28/2015 05/15/18 Smita Loza, Termed influenza, high dose seasonal 05/24/17 0.5 mL Intramuscular Deltoid, Left [id number] San[employer]i Paste[employer] 12/02/17 TIV/QIV 02/28/2015 05/24/17 Smita Loza, Termed influenza, high dose seasonal 05/21/16 influenza, high dose seasonal 05/03/14 0.5 mL influenza, seasonal, injectable 08/28/12 Pneumococcal pneumococcal polysaccharide PPV23 08/19/17 0.5 mL Injection Deltoid, Left [id number] [employer] and [employer] 11/12/18 PPSV23 11/15/2014 08/19/17 Horace Aguilar, Termed pneumococcal conjugate PCV 13 10/17/14 pneumococcal polysaccharide PPV23 03/30/12 Zoster zoster live 08/28/12 Electronically Signed by: KRISTINE BLUE MD [facility] 09/06/2023 08:22:02 Ophthalmology Note : [facility] ? ? [address] [facility] [id number], Larry L (id #[id number], : 1940) [facility] [address] [place]?[address] Phone:?? Fax:?? Encounter Summary - Progress Note Date Printed: ?09/14/2023 Documents sent via fax will include the followingmessage: This fax may contain sensitive and confidential personal health information that is being sent for the sole use of the intended recipient. Unintended recipients are directed to securely destroy any materials received. You are hereby notified that the unauthorized disclosure or other unlawful use of this fax or any personal health information is prohibited. To the extent patient information contained in this fax is subject to 42 CFR Part 2, this regulation prohibits unauthorized disclosure of these records. If you received this fax in error, please visit [email or web address] to notify the sender and confirm that the information will be destroyed. If you do not have internet access, please call to notify the sender and confirm that the information will be destroyed. Thank you for your attention and cooperation. [ID:[id number]] Patient Jinny Rubio (83yo, M) #[id number] 1940 ?? Patient Demographics: Address [address] [place] [phone] ? Work Phone ?? Encounter Notes: Encounter Reason/Date YAG Capsulotomy 83 yo wm w/PCO is here for YAG laser OS Pt reports no new changes since last OV gtts: none ~BN no changes 09/14/2023 - 01:00PM - [facility]ALMOLOGY [facility] History of Present IllnessNone recorded Review of SystemsNone recorded [id number] 13:01 Ht: 5 ft 6 in Results/InterpretationsNone recorded Physical ExamExternal Exam:General Appearance normal. Face: normal. Lids: normal. Pupils normal. Muscle Balance Testing: normal. EOM: normal. Visual Hartman Exam normal to count fingers OU. Slit Lamp Exam:Lidsabnormal(2+dmc ou). Conjunctiva: normal. Cornea: normal. Anterior Chamber: normal. Iris: normal. Lens:abnormal(Diffuse pco os PP OU). Psychiatric:Orientation: oriented to time, place, and person. Mental Status: affect normal. Procedure DocumentationYAG Capsulotomy:Pre Operative diagnosis: Visually significant posterior capsular opacification of the left eyeProcedure: Yag capsulotomy of the left eye.The patient was identified and the procedure was verified. Pupil was dilated with 1% tropicamide and 2.5% phenylephrine x 2. The patient was give a drop of Iopidine. Patient was positioned at the YAG laser. Then 2.0 mJ of energy were used to perform a posterior laser capsulotomy. A total of 25 shots were used. Total energy was 51 mJ.The patient tolerated the procedure well and there were no complications.Post-laser intraocular pressure measured 17mmHg one hour following the procedure. Postoperative instructions were provided and the patient had no further questions.Patient instructed to follow up in the office 2 weeks and prn Assessment and Plan1. After-cataract with vision obscured following extraction of cataract-r/b/a discussedproceed with yag os po check - excellentrd si/sx discussed2 week po dil osH26.499: Other secondary cataract, unspecified eye Return to Office to see KRISTINE BLUE MD for LEVEL 2 at OPHTHALMOLOGY [facility] on or around 09/28/2023 XAVIER GTZ MD for NEW PATIENT at [facility] on 10/13/2023 at 02:40 PM [email or web address]_CB for AUDIOGRAM at [facility] on 10/13/2023 at 02:40 PM JOSE WEISS MD for DERMATOLOGY VISIT at [facility] on 11/22/2023 at 03:00 PM MARCK VALENZUELA DO for RECHECK at [facility] on 12/21/2023 at 01:45 PM SUHA PHILLIP MD for RECHECK at [facility] on 01/05/2024 at 02:15 PM Patient Medical History: Allergies List Reviewed Allergies CODEINE: - Comment: Created By: Omar Costa;Created Date: 09/24/2005 1:06:24 PM; DARVON: - Comment: Created By: Omar Costa;Created Date: 09/24/2005 1:06:11 PM; DIETHYLPROPION: Other METFORMIN: Diarrhea (Severe) PENICILLINS: - Comment: states no longer allergic;Created By: Omar Costa;Created Date: 09/24/2005 1:06:38 PM; PROPOXYPHENE: Other (Moderate severity) Medications Reviewed Medications NameDate Source Accu-Chek Reta Plus Metertest 2x daily07/27/17?entered Smita Loza Accu-Chek Reta Plus test stripsTake 1 strip(s) twice a day by dm. route as directed.05/30/23?prescri bed MARCK VALENZUELA, DO Accu-Chek Softclix Lancetsuse BID07/27/17?entered Smita Loza acetaminophen 500 mg tabletEvery four to six hours Internal Note:Duration: 10 days;Frequency: q4-q6h;Medication Description: acetaminophen; Dosage:1-2; Route:oral; refills:0; Quantity:30 trdzdy44/02/16?entered judy.221 Actos 15 mg tabletTAKE 1 TABLET BY MOUTH DAILY08/02/23?renewed MARCK VALENZUELA, DO aspirin 81 mg tabletDaily Internal Note:Frequency: daily;Medication Description: aspirin; Dosage:1; Route:oral; refills:0; Quantity:30 gqsqna89/02/16?entered judy.222 atorvastatin 20 mg wxkmcg8dmisbl po daily08/02/23?renewed MARCK VALENZUELA, DO azithromycin 250 mg tabletTAKE 2 TABLETS (500 MG) BY ORAL ROUTE ONCE DAILY FOR 1 DAY THEN 1 TABLET (250 MG) BY ORAL ROUTE ONCE DAILY FOR 4 DAYS Note:Complete both Azithromycin and Hfvhqbztgbi32/16/24?presc ribed MARCK VALENZUELA, DO cefPODOXime 200 mg tabletTake 1 tablet(s) every 12 hours by oral route.09/09/23?prescribed MARCK VALENZUELA, DO cetirizine 10 mg tabletTAKE 1 TABLET BY MOUTH EVERY DAY11/11/22?renewed MARCK VALENZUELA, DO cyanocobalamin (vit B-12) 1,000 mcg tabletTake 1 tablet(s) every day by oral route.04/14/20?entered Yvonne Walter finasteride 5 mg tablet1 daily at bedtime.08/02/23?renewed MARCK VALENZUELA, DO Flonase Allergy Relief 50 mcg/actuation nasal spray,suspension2 sprays in each nostril daily03/01/23?renewed MARCK VALENZUELA, DO fluticasone 250 mcg-salmeteroL 50 mcg/dose blistr powdr for inhalationInhale 1 puff(s) twice a day by inhalation route.09/06/23?renewed MARCK VALENZUELA, DO glimepiride 4 mg tabletTAKE 1 TABLET BY MOUTH TWICE DAILY06/23/23?renewed MARCK VALENZUELA, DO Januvia 100 mg tabletTAKE 1 TABLET BY MOUTH DAILY08/17/23?renewed ARMANI WONG MD Jardiance 25 mg tabletTAKE 1 TABLET BY MOUTH EVERY DAY08/30/23?renewed MARCK VALENZUELA, DO [facility] Directed Internal Note:Frequency: as direct.;Medication Description: Supplies; Dosage:as directed; refills:5; Quantity:100, start ?gisella kim.242 montelukast 10 mg tabletTAKE 1 TABLET BY MOUTH DAILY11/11/22?renewed MARCK VALENZUELA, DO propranoloL ER 80 mg capsule,24 hr,extended releaseTAKE 1 CAPSULE BY MOUTH EVERY DAY06/23/23?renewed MARCK VALENZUELA, DO sildenafiL 100 mg tabletTake 1 tablet(s) as needed by oral route.07/05/23?prescribed SUHA PHILLIP MD tamsulosin 0.4 mg capsuleTAKE 2 CAPSULES BY MOUTH AT EPLNFRK29/14/23?renewed MARCK VALENZUELA, DO triamterene 37.5 mg-hydrochlorothiazide 25 mg capsule1 DAILY07/19/23?michelet VALENZUELA, DO Viagra 50 mg tabletTake 1 tablet(s) every day by oral route as needed for 30 days. Internal Note:using 100mg from Dr Lorenz, start ?startradha Arita Family HistoryReviewed Family History Father - 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 ?? - Family history of stroke ?? - Family history of cancer ?? - Hypertensive disorder ?? - Hyperlipidemia Mother - Myocardial infarction ?? - Arthritis Past Medical HistoryReviewed Past Medical History Diabetes:Y Glasses/Contacts:Y Vaccine HistoryVaccines not reviewed (last reviewed 06/22/2023) Vaccine Type Date Amt. Route Site NDC Lot??# Mfr. Exp. 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 COVID-19, mRNA, LNP-S, PF, 30 mcg/0.3 mL dose (Tem[employer]onics) 07/28/21 0.3 mL Intramuscular [id number] [employer] 09/21/21 COVID-19, mRNA, LNP-S, PF, 30 mcg/0.3 mL dose ([employer]onics) 12/09/20 0.3 mL Intramuscular [id number] [employer] 03/24/21 COVID-19, mRNA, LNP-S, PF, 30 mcg/0.3 mL dose ([employer]ics) 11/18/20 0.3 mL Intramuscular [id number] [employer] 02/21/21 Diphtheria, Tetanus Td (adult) preservative free 09/29/21 0.5 mL Intramuscular Deltoid, Left [id number] Sanofi Pasteur 12/06/21 Td 02/27/2021 09/29/21 Yulisa Arita Td (adult), adsorbed 01/16/01 Diphtheria, Tetanus, Pertussis Tdap 05/03/14 0.5 mL Influenza influenza, high-dose, quadrivalent 05/11/23 0.7 mL Intramuscular Deltoid, Left [id number] San[employer]i Paste[employer] 12/24/23 Inactivated Influenza 02/27/2021 05/11/23 Yulisa Arita influenza, high-dose, quadrivalent 05/03/22 0.7 mL Intramuscular Deltoid, Left [id number] San[employer]i Paste[employer] 01/21/23 Inactivated Influenza 02/27/2021 05/03/22 Yulisagregory Arita Influenza vaccine, quadrivalent, adjuvanted 07/28/21 0.5 mL Intramuscular [id number] [employer] 01/21/22 influenza, high-dose, quadrivalent 04/14/20 0.7 mL Intramuscular Deltoid, Left [id number] San[employer]i [employer]aste[employer] 01/21/21 Inactivated Influenza 03/08/2019 04/14/20 Yvonne Walter influenza, trivalent, adjuvanted 05/09/19 0.5 mL Intramuscular Deltoid, Left [id number] [employer] 12/23/19 Inactivated Influenza 03/08/2019 05/09/19 Cami Lynn influenza, trivalent, adjuvanted 05/15/18 0.5 mL Intramuscular Deltoid, Left [id number] [employer] 12/22/18 TIV/QIV 02/28/2015 05/15/18 Smita Loza, Termed influenza, high dose seasonal 05/24/17 0.5 mL Intramuscular Deltoid, Left [id number] San[employer]i Paste[employer] 12/02/17 TIV/QIV 02/28/2015 05/24/17 Smita Loza, Termed influenza, high dose seasonal 05/21/16 influenza, high dose seasonal 05/03/14 0.5 mL influenza, seasonal, injectable 08/28/12 Pneumococcal pneumococcal polysaccharide PPV23 08/19/17 0.5 mL Injection Deltoid, Left [id number] [employer] 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 ? [address] [facility] [address] [facility] [facility] [address]DJJHZQU, Larry L (id #[id number], : 1940) [facility] [address] [place] [address] Date: 4RE: Jinny Rubio, : 1940, PT ID #[id number] Eason DO, I would like to thank you for referring Jinny Rubio to our practice for consultation and evaluation of allergy testing , on 09/27/2023. I have enclosed a copy of the office evaluation for your records. Once again, thank you for allowing me to participate in the care of this patient. Sincerely, Electronically Signed by: RAPHAEL RANDLE MD Encounter Reason/Date allergy testing 09/27/2023 - 02:30PM - ALLERGY History of Present IllnessMr. Rubio is a 83 years old male who is being seen in consultation for allergy at the request of Dr. Valenzuela. Penicillin allergy: he reports penicillin when he was young. He is not sure what kind of reaction he had before. His urologist told him that he had penicillin allergy. He avoids penicillin for many years. He was diagnosed with pneumonia 2 weeks ago and was treated with z-pack. He would like to know if he is still allergic to penicillin. Chronic rhinitis: Patient has symptoms including nasal congestion, rhinorrhea, sneezing, watery eyes, post nasal drip and cough. He had blood IgE test done with negative results. Patient tried zyrtec, flonase with some help.sinus or throat Infections: 1-2 times per yearSymptoms triggers: pollenSeasonal pattern: all year round Asthma: Patient has been diagnosed with asthma for several years. Asthma symptoms include cough, wheezing, shortness of breath. Asthma triggers include exercise, allergy, infection, weather change, strong smell etc. Current regimen: Advair daily, Albuterol prn and Singulair once daily . Current symptoms:- coughing - Yes- night time cough NO- wheezing sometimes- exercise limitation Yes- shortness of breath sometimesLast time used short-term beta agonist was:In the last 6 months:0 Hospitalizations0 ER visits0 oral steroid use GERD: no symptoms of heart burn, no hx of anti-acid medication useFamily history: History provided by patientNasal/Ocular: see aboveRespiratory: see aboveSkin: see above Food: no hx of food allergyInsect: no hx of anaphylaxis with insect stingsInfection Hx: see above Review of Systems Patient reports no double vision and no eye pain;ocular tearing and itching. He reportsnasal congestion and rhinorrhea;nasal pruritus, sneezing. He reportspost nasal dripbut reports no sore throat and no difficulty swallowing. He reports no wheezing and no shortness of breath;cough. Allergy/Immunologic::seasonal allergies, recurrent infections. He reports no fatigue, no fever, no significant weight loss, and no significant weight gain. He reports no ear pain and no drainage/discharge. He reports no frequent headaches, no numbness, and no weakness. He reports no chest pain, no h/o murmur, no dyspnea on exertion, and no palpitations. He reports no vomiting and no heartburn. He reports no swollen glands, no abnormal bruising, and no bleeding problems. He reports no muscle aches and no joint pain/arthralgias. He reports no rash, no skin itching, no dry skin, and no growths/lesions. He reports no difficulty urinating, no pain during urination, and no increased frequency. Physical ExamGeneral Appearance: Alert; in no acute distress. Afebrile.Head: atraumatic. No tenderness or masses found.Eyes: Anicteric, conjunctivae/corneas clear. PERRLA.Ext Aud Canals & Ears: External ears normal. Canals clear. Bilateral TM normal.Nose & External Mucosa:Mild edematous, pale nasal turbinates bilat.Nares normal. Septum midline. No drainage or sinus tenderness.Oropharynx: Lips, mucosa and tongue normal. Teeth and gums normal.Oropharynx with cobble stoning. Tonsils normal.Neck & Thyroid: Neck supple without masses.Lungs: Chest symmetrical. Lungs clear; normal breath sounds.Cardiovascular: RRR Heart sounds normal. No murmurs, clicks or gallops.Abdomen: bowel sounds are normal. Soft, non-tender. No masses, organomegaly.Extremities: Extremities normal. No joint deformities, edema, or skin discoloration.Skin: Skin color, texture, turgor normal. No rash or abnormal lesions.Neuro: No deficit noticedProcedure DocumentationAllergy Skin Testing/Drug or Biologics:Allergy Skin Testing performed for penicillin plus controls. Skin testing using Gladys 1000 U/ml, 10,000 U/ml plus PrePen. Both prick and intradermal testing are performed. All above testing were negative. Ingestion Challenging:Ingestion challenge testing performed for amoxicillin. Time 0: patient took 25 mg of amoxicillin time 30 min: patient took 250 mg of amoxicillin time 65 min: patient was discharged from office without any objective or subjective complaints Assessment/Plan1. Adverse reaction to drug- avoid qsfyvdW35.905A: Adverse effect of unspecified drugs, medicaments and biological substances, initial encounter 2. Persistent cough-likely due to post nasal drip and recent bvlwgornzfH20.3: Chronic cough 3. Recurrent acute dsxlojaeu-otqk-xstumpj as ipatrG53.91: Acute recurrent sinusitis, unspecified 4. Chronic rhinitis-blood IgE test showed negative enviromental allergyrecommend to use flonase dailyok to use zyrtec PRNJ31.0: Chronic rhinitis 5. 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 Testing was negative with good negative and positive control. Both Pre-Pen and Gladys were Negative.- A graded challenge of 250 mg of amoxicillin was performed in the office and the patient tolerated it well with out ANY subjective or objective reaction.- discussed the possibility of a delayed reaction and contact office if this happens- As far as his penicillin allergy is concerned, negative skin test and challenge indicates no penicillin allergy. This holds true for IgE mediated reactions to penicillin, and this testing/challenge cannot predict future non IgE mediated or idosyncratic reactions. However he has similar risk to develop those adverse reactions as general population. Explained to the patient as well.Z88.0: Allergy status to penicillin 6. Moderate persistent asthma-continue Fluticasone-salmeterol 250/50 1 puff BID, rinse mouth after usecontinue singulair dailyalbuterol PRNJ45.40: Moderate persistent asthma, uncomplicated Return to Office KRISTINE BLUE MD for LEVEL 1 at [facility] on 09/28/2023 at 01:15 PM MARCK VALENZUELA DO for RECHECK at [facility] on 09/28/2023 at 03:30 PM XAVIER GTZ MD for NEW PATIENT at [facility] on 10/13/2023 at 02:40 PM [email or web address]_AUDIO_CB for AUDIOGRAM at [facility] on 10/13/2023 at 02:40 PM JOSE WEISS MD for DERMATOLOGY VISIT at [facility] on 11/22/2023 at 03:00 PM MARCK VALENZUELA DO for RECHECK at [facility] on 12/21/2023 at 01:45 PM SUHA PHILLIP MD for RECHECK at [facility] on 01/05/2024 at 02:15 PM MARCK VALENZUELA DO [address] [place] [address], [id number] 09/27/2023 18:47:31 Customer Business Manager Consult Note : [facility] ? ? [address] [facility] [id number], Larry L (id #[id number], : 1940) [facility] [address] [place]?[address] Phone:?? Fax:?? Encounter Summary - Progress Note Date Printed: ?09/28/2023 Documents sent via fax will include the followingmessage: This fax may contain sensitive and confidential personal health information that is being sent for the sole use of the intended recipient. Unintended recipients are directed to securely destroy any materials received. You are hereby notified that the unauthorized disclosure or other unlawful use of this fax or any personal health information is prohibited. To the extent patient information contained in this fax is subject to 42 CFR Part 2, this regulation prohibits unauthorized disclosure of these records. If you received this fax in error, please visit [email or web address] to notify the sender and confirm that the information will be destroyed. If you do not have internet access, please call to notify the sender and confirm that the information will be destroyed. Thank you for your attention and cooperation. [ID:[id number]] Patient Jinny Rubio (83yo, M) #[id number] 1940 ?? Patient Demographics: Address [address] [place] [phone] ? Work Phone ?? Encounter Notes: Encounter Reason/Date 83 yo wm s/p yag returns for PO Pt states his va has improved. pt c/o small floaters os GTTS: none BW vision improved had new floater, not seen today no flashers 09/28/2023 - 01:15PM - OPHTHALMOLOGY [facility] History of Present IllnessNone recorded Review of SystemsNone recorded [id number] 13:03 Ht: 5 ft 6 in Results/InterpretationsNone recorded Physical ExamExternal Exam:General Appearance normal. Face: normal. Lids: normal. Pupils normal. Visual Hartman Exam normal to count fingers OU. Slit Lamp Exam:Lids normal. Conjunctiva: normal. Cornea: normal. Anterior Chamber: normal. Iris: normal. Lens: normal (PP OS well centered opening os). Fundus Exam:Vitreous:abnormal(PVD OS). Disc C/D Ratio normal and OS: 0.3. Retinal Vessels normal. Macula: normal. Peripheral Retina normal. Psychiatric:Orientation: oriented to time, place, and person. Mental Status: affect normal. Procedure DocumentationNone recorded Assessment and Plan1. After-cataract with vision obscured following extraction of cataract-excellentstable post examrd si/sx dsicussed1 year dm, pp, pvd exam H26.499: Other secondary cataract, unspecified eye Return to Office MARCK VALENZUELA DO for RECHECK at [facility] on 09/28/2023 at 03:30 PM XAVIER GTZ MD for NEW PATIENT at [facility] on 10/13/2023 at 02:40 PM [email or web address]_CB for AUDIOGRAM at [facility] on 10/13/2023 at 02:40 PM JOSE WEISS MD for DERMATOLOGY VISIT at [facility] on 11/22/2023 at 03:00 PM MARCK VALENZUELA DO for RECHECK at [facility] on 12/21/2023 at 01:45 PM SUHA PHILLIP MD for RECHECK at [facility] on 01/05/2024 at 02:15 PM to see KRISTINE BLUE MD for LEVEL 2 at [facility] on or around 09/27/2024 Patient Medical History: Allergies List Reviewed Allergies CODEINE: - Comment: Created By: Omar Costa;Created Date: 09/24/2005 1:06:24 PM; DARVON: - Comment: Created By: Omar Costa;Created Date: 09/24/2005 1:06:11 PM; DIETHYLPROPION: Other METFORMIN: Diarrhea (Severe) PROPOXYPHENE: Other (Moderate severity) Medications Reviewed Medications NameDate Source Accu-Chek Reta Plus Metertest 2x daily07/27/17?entered Smita Loza Accu-Chek Reta Plus test stripsTake 1 strip(s) twice a day by [employer]. route as directed.05/30/23?prescri bed MARCK VALENZUELA, DO Accu-Chek Softclix Lancetsuse BID07/27/17?entered Smita Loza acetaminophen 500 mg tabletEvery four to six hours Internal Note:Duration: 10 days;Frequency: q4-q6h;Medication Description: acetaminophen; Dosage:1-2; Route:oral; refills:0; Quantity:30 vwjkhy95/02/16?entered judy.221 Actos 15 mg tabletTAKE 1 TABLET BY MOUTH DAILY09/16/23?renewed MARCK VALENZUELA, DO aspirin 81 mg tabletDaily Internal Note:Frequency: daily;Medication Description: aspirin; Dosage:1; Route:oral; refills:0; Quantity:30 seobht91/02/16?entered judy.222 atorvastatin 20 mg tzwcxu9huuaja po daily08/02/23?renewed MARCK VALENZUELA, DO azithromycin 250 mg tabletTAKE 2 TABLETS (500 MG) BY ORAL ROUTE ONCE DAILY FOR 1 DAY THEN 1 TABLET (250 MG) BY ORAL ROUTE ONCE DAILY FOR 4 DAYS Note:Complete both Azithromycin and Toufaaagesr19/16/24?presc ribed MARCK VALENZUELA, DO cefPODOXime 200 mg tabletTake 1 tablet(s) every 12 hours by oral route.09/09/23?prescribed MARCK VALENZUELA, DO cetirizine 10 mg tabletTAKE 1 TABLET BY MOUTH EVERY DAY11/11/22?renewed MARCK VALENZUELA, DO cyanocobalamin (vit B-12) 1,000 mcg tabletTake 1 tablet(s) every day by oral route.04/14/20?entered Yvonne Saba finasteride 5 mg tablet1 daily at bedtime.08/02/23?renewed MARCK VALENZUELA, DO Flonase Allergy Relief 50 mcg/actuation nasal spray,suspension2 sprays in each nostril daily03/01/23?renewed MARCK VALENZUELA, DO fluticasone 250 mcg-salmeteroL 50 mcg/dose blistr powdr for inhalationInhale 1 puff(s) twice a day by inhalation route.09/06/23?renewed MARCK VALENZUELA, DO glimepiride 4 mg tabletTAKE 1 TABLET BY MOUTH TWICE DAILY06/23/23?renewed MARCK VALENZUELA, DO Januvia 100 mg tabletTAKE 1 TABLET BY MOUTH DAILY08/17/23?renewed ARMANI WONG MD Jardiance 25 mg tabletTAKE 1 TABLET BY MOUTH EVERY DAY08/30/23?renewed MARCK VALENZUELA, DO [facility] Directed Internal Note:Frequency: as direct.;Medication Description: Supplies; Dosage:as directed; refills:5; Quantity:100, start ?starttalita kim.242 montelukast 10 mg tabletTAKE 1 TABLET BY MOUTH DAILY11/11/22?renewed MARCK VALENZUELA, DO propranoloL ER 80 mg capsule,24 hr,extended releaseTAKE 1 CAPSULE BY MOUTH EVERY DAY06/23/23?renewed MARCK VALENZUELA, DO sildenafiL 100 mg tabletTake 1 tablet(s) as needed by oral route.07/05/23?prescribed SUHA PHILLIP MD tamsulosin 0.4 mg capsule2 capsules at yupsixa73/23/24?renewed MARCK VALENZUELA, DO triamterene 37.5 mg-hydrochlorothiazide 25 mg capsule1 DAILY07/19/23?renewed MARCK VALENZUELA, DO Viagra 50 mg tabletTake 1 tablet(s) every day by oral route as needed for 30 days. Internal Note:using 100mg from Dr Lorenz, start ?starte jakob Arita Family HistoryReviewed Family History Father - 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 ?? - Family history of stroke ?? - Family history of cancer ?? - Hypertensive disorder ?? - Hyperlipidemia Mother - Myocardial infarction ?? - Arthritis Past Medical HistoryReviewed Past Medical History Diabetes:Y Glasses/Contacts:Y Vaccine HistoryVaccines not reviewed (last reviewed 09/27/2023) Vaccine Type Date Amt. Route Site NDC Lot??# Mfr. Exp. 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 COVID-19, mRNA, LNP-S, PF, 30 mcg/0.3 mL dose ([employer]ics) 07/28/21 0.3 mL Intramuscular [id number] [employer] 09/21/21 COVID-19, mRNA, LNP-S, PF, 30 mcg/0.3 mL dose ([employer]onics) 12/09/20 0.3 mL Intramuscular [id number] [employer] 03/24/21 COVID-19, mRNA, LNP-S, PF, 30 mcg/0.3 mL dose ([employer]) 11/18/20 0.3 mL Intramuscular [id number] [employer] [place], mPATH 02/21/21 Diphtheria, Tetanus Td (adult) preservative free 09/29/21 0.5 mL Intramuscular Deltoid, Left [id number] Sanofi Pasteur 12/06/21 Td 02/27/2021 09/29/21 Yulisa Arita Td (adult), adsorbed 01/16/01 Diphtheria, Tetanus, Pertussis Tdap 05/03/14 0.5 mL Influenza influenza, high-dose, quadrivalent 05/11/23 0.7 mL Intramuscular Deltoid, Left [id number] Sanofi Pasteur 12/24/23 Inactivated Influenza 02/27/2021 05/11/23 Yulisa Harms influenza, high-dose, quadrivalent 05/03/22 0.7 mL Intramuscular Deltoid, Left [id number] Sanofi Pasteur 01/21/23 Inactivated Influenza 02/27/2021 05/03/22 Yulisa Harms Influenza vaccine, quadrivalent, adjuvanted 07/28/21 0.5 mL Intramuscular [id number] [employer] 01/21/22 influenza, high-dose, quadrivalent 04/14/20 0.7 mL Intramuscular Deltoid, Left [id number] Sanofi Pasteur 01/21/21 Inactivated Influenza 03/08/2019 04/14/20 Yvonne Walter influenza, trivalent, adjuvanted 05/09/19 0.5 mL Intramuscular Deltoid, Left [id number] [employer] 12/23/19 Inactivated Influenza 03/08/2019 05/09/19 Cami Lynn influenza, trivalent, adjuvanted 05/15/18 0.5 mL Intramuscular Deltoid, Left [id number] [employer] 12/22/18 TIV/QIV 02/28/2015 05/15/18 Smita Loza, Termed influenza, high dose seasonal 05/24/17 0.5 mL Intramuscular Deltoid, Left [id number] Sanofi Pasteur 12/02/17 TIV/QIV 02/28/2015 05/24/17 Smita Loza, Termed influenza, high dose seasonal 05/21/16 influenza, high dose seasonal 05/03/14 0.5 mL influenza, seasonal, injectable 08/28/12 Pneumococcal pneumococcal polysaccharide PPV23 08/19/17 0.5 mL Injection Deltoid, Left [id number] Merck and Co[employer] Inc. 11/12/18 PPSV23 11/15/2014 08/19/17 Horace Aguilar, Termed pneumococcal conjugate PCV 13 10/17/14 pneumococcal polysaccharide PPV23 03/30/12 Zoster zoster live 08/28/12 Electronically Signed by: KRISTINE BLUE MD Chantelle Jc [facility] 09/28/2023 14:45:12 Urology Note : [facility] ? ? [address] [facility] [address]KKDMITN, Larry L (id #[id number], : 1940) [facility] [address] [facility] [address] [place],??[place]?[address] Phone:?? Fax:?? Encounter Summary - Progress Note Date Printed: ?07/03/2024 Documents sent via fax will include the followingmessage: This fax may contain sensitive and confidential personal health information that is being sent for the sole use of the intended recipient. Unintended recipients are directed to securely destroy any materials received. You are hereby notified that the unauthorized disclosure or other unlawful use of this fax or any personal health information is prohibited. To the extent patient information contained in this fax is subject to 42 CFR Part 2, this regulation prohibits unauthorized disclosure of these records. If you received this fax in error, please visit [email or web address] to notify the sender and confirm that the information will be destroyed. If you do not have internet access, please call to notify the sender and confirm that the information will be destroyed. Thank you for your attention and cooperation. [ID:[id number]] Patient Jinny Rubio (84yo, M) #[id number] 1940 ?? Patient Demographics: Address [address] [place] [id number] ? Work Phone ?? Encounter Notes: Encounter Reason/Date 6 month recheck 07/03/2024 - 03:00PM - [facility] History of Present IllnessHe is back for follow-up of BPH. He is on tamsulosin and finasteride. For the most part he voids without difficulty. There is no hematuria or dysuria. He has some hesitancy and a weak stream but denies any urgency or incontinence. He has nocturia 1-2 times per night. Has been diagnosed to have leukemia. He has been having problems with anemia he had coronary stents placed last provide PSA is 0.25 Review of Systems Patient reportsvision changebut reports no dry eyes and no irritation. He reportsdifficulty hearingbut reports no ear pain. He reportsedemabut reports no chest pain, no arm pain on exertion, no shortness of breath when walking, no shortness of breath when lying down, no palpitations, no known heart murmur, and no edema. He reportsincreased urinary frequency and abnormal urinary flowingbut reports no incontinence, no difficulty urinating, no hematuria, no urinary urgency, no nocturia, and no dysuria. He reportsarthralgias/joint pain and back painbut reports no muscle aches, no muscle weakness, no swelling in the extremities, and no neck pain. He reportseasy bruisingbut reports no swollen glands and no excessive bleeding. He reports no fever, no night sweats, no significant weight gain, no significant weight loss, and no exercise intolerance. He reports no frequent nosebleeds, no nose problems, and no sinus problems. He reports no sore throat, no bleeding gums, no snoring, no dry mouth, no mouth ulcers, no oral abnormalities, and no teeth problems. He reports no cough, no wheezing, no shortness of breath, no coughing up blood, and no sleep apnea. He reports normal appetite, no abdominal pain, no nausea, no vomiting, not vomiting blood, no constipation, no diarrhea, no bright red blood per rectum, no dyspepsia, and no GERD. He reports no abnormal mole, no jaundice, no rashes, and no laceration. He reports no loss of consciousness, no weakness, no numbness, no seizures, no dizziness, no migraines, no headaches, no tremor, and no tingling (paresthesia). He reports no depression, no sleep disturbances, feeling safe in a relationship, no alcohol abuse, no anxiety, no hallucinations, and no suicidal thoughts. He reports no fatigue. He reports no runny nose, no sinus pressure, no itching, no hives, and no frequent sneezing. [id number] 14:58 Ht: 5 ft 8 in Wt: 207 lbs 9.6 oz BMI: 31.6 Results/Interpretations URINALYSIS PANEL, AUTO UA Auto/Manual RESULT REFERENCE RANGE SOURCE Clean Catch COLOR Yellow APPEARANCE Clear SPECIFIC GRAVITY 1.015 1.003-1.035 pH 5.0 5.0-8.0 LEUKOCYTE ESTERACE Negative Negative NITRITE Negative Negative PROTEIN Negative Negative GLUCOSE >1000 mg/dl Normal KETONES Negative Negative UROBILINOGEN Normal Normal 1 mg/dl BILIRUBIN Negative Negative BLOOD Negative Negative PSA, SERUM OR PLASMA Result: -PSA: 0.25ng/ml Physical ExamRectal:Anus, Perineum, Rectum: no hemorrhoids or lesions and normal tone. Prostate: non-tender, smooth / no nodules, andenlarged. Procedure DocumentationNone recorded Assessment and Plan1. Benign prostatic hyperplasia with outflow rkptcisheubV46.1: Benign prostatic hyperplasia with lower urinary tract symptoms URINALYSIS PANEL, AUTO - ?Specimen source: Urine PSA, SERUM OR PLASMA - ?Specimen source: Blood venous tamsulosin 0.4 mg capsule - 2 capsules at bedtime ? Qty: (180)?capsule ? Refills: 3 ? Pharmacy: [email or web address] #[id number] finasteride 5 mg tablet - 1 daily at bedtime. ? Qty: (90)?tablet ? Refills: 3 ? Pharmacy: [facility] #[id number] URINALYSIS PANEL, AUTO UA Auto/Manual RESULT REFERENCE RANGE SOURCE Clean Catch COLOR Yellow APPEARANCE Clear SPECIFIC GRAVITY 1.015 1.003-1.035 pH 5.0 5.0-8.0 LEUKOCYTE ESTERACE Negative Negative NITRITE Negative Negative PROTEIN Negative Negative GLUCOSE >1000 mg/dl Normal KETONES Negative Negative UROBILINOGEN Normal Normal 1 mg/dl BILIRUBIN Negative Negative BLOOD Negative Negative PSA, SERUM OR PLASMA Result: -PSA: 0.25ng/ml Return to Office to see KRISTINE BLUE MD for LEVEL 2 at [facility] on or around 09/27/2024 SUHA PHILLIP MD for RECHECK at [facility] on 07/04/2025 at 01:00 PM Patient Medical History: Allergies List Allergies not reviewed (last reviewed 09/28/2023) CODEINE: - Comment: Created By: Omar Costa;Created Date: 09/24/2005 1:06:24 PM; DARVON: - Comment: Created By: Omar Costa;Created Date: 09/24/2005 1:06:11 PM; DIETHYLPROPION: Other METFORMIN: Diarrhea (Severe) PROPOXYPHENE: Other (Moderate severity) Medications Reviewed Medications NameDate Source Accu-Chek Reta Plus Metertest 2x daily07/27/17?entered Smita Loza Accu-Chek Reta Plus test stripsTake 1 strip(s) twice a day by dm. route as directed.05/30/23?prescri bed MARCK VALENZUELA, DO Accu-Chek Softclix Lancetsuse BID07/27/17?entered Smita Loza acetaminophen 500 mg tabletEvery four to six hours Internal Note:Duration: 10 days;Frequency: q4-q6h;Medication Description: acetaminophen; Dosage:1-2; Route:oral; refills:0; Quantity:30 lihweo20/02/16?entered judy.221 Actos 15 mg tabletTAKE 1 TABLET BY MOUTH DAILY09/16/23?renewed MARCK VALENZUELA, DO aspirin 81 mg tabletDaily Internal Note:Frequency: daily;Medication Description: aspirin; Dosage:1; Route:oral; refills:0; Quantity:30 nizurc56/02/16?entered judy.222 atorvastatin 20 mg xaulew4iakhti po daily11/07/23?renewed MARCK VALENZUELA, DO cetirizine 10 mg tabletTAKE 1 TABLET BY MOUTH EVERY DAY11/07/23?renewed MARCK VALENZUELA, DO cyanocobalamin (vit B-12) 1,000 mcg tabletTake 1 tablet(s) every day by oral route.04/14/20?entered Yvonne Walter finasteride 5 mg tablet1 daily at bedtime.07/03/24?prescrib ed SUHA PHILLIP MD Flonase Allergy Relief 50 mcg/actuation nasal spray,suspension2 sprays in each nostril daily03/01/23?renewed MARCK VALENZUELA, DO fluticasone 250 mcg-salmeteroL 50 mcg/dose blistr powdr for inhalation1 puff bid12/15/23?changed MARCK VALENZUELA, DO glimepiride 4 mg tabletTAKE 1 TABLET BY MOUTH TWICE DAILY06/23/23?renewed MARCK VALENZUELA, DO Januvia 100 mg tabletTAKE 1 TABLET DAILYNEEDS APPT FOR FURTHER REFILLS11/24/23?renewed MARCK VALENZUELA, DO Jardiance 25 mg tabletTAKE 1 TABLET BY MOUTH EVERY DAY08/30/23?renewed MARCK VALENZUELA, DO lancetsAs Directed Internal Note:Frequency: as direct.;Medication Description: Supplies; Dosage:as directed; refills:5; Quantity:100, start ?starttalita [id number] montelukast 10 mg tablet1 DAILY02/16/24?renewed MARCK VALENZUELA, DO propranoloL ER 80 mg capsule,24 hr,extended releaseTAKE 1 CAPSULE BY MOUTH EVERY DAY06/23/23?renewed MARCK VALENZUELA, DO sildenafiL 100 mg tabletTake 1 tablet(s) as needed by oral route.07/05/23?prescribed SUHA PHILLIP MD tamsulosin 0.4 mg capsule2 capsules at exjqdmu15/10/24?prescribe d SUHA PHILLIP MD triamterene 37.5 mg-hydrochlorothiazide 25 mg capsule1 DAILY07/19/23?renewed MARCK VALENZUELA, DO Viagra 50 mg tabletTake 1 tablet(s) every day by oral route as needed for 30 days. Internal Note:using 100mg from Dr Lorenz, start ?startradha Arita Family HistoryReviewed Family History Father - 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 ?? - Family history of stroke ?? - Family history of malignant neoplasm ?? - Hypertensive disorder ?? - Hyperlipidemia Mother - Myocardial infarction ?? - Arthritis Past Medical HistoryReviewed Past Medical History Anxiety Disorder:Y Arthritis:Y Cancer:Y-Colon 09/03/88 Depression:Y Diabetes:Y Hepatitis:Y-B High Cholesterol:Y Hypertension:Y Other: (no answer) - essential tremor Vaccine HistoryVaccines not reviewed (last reviewed 09/27/2023) Vaccine Type Date Amt. Route Site NDC Lot??# Mfr. Exp. 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 COVID-19, mRNA, LNP-S, PF, 30 mcg/0.3 mL dose ([employer]ics) 07/28/21 0.3 mL Intramuscular [id number] [employer] 09/21/21 COVID-19, mRNA, LNP-S, PF, 30 mcg/0.3 mL dose ([employer]) 12/09/20 0.3 mL Intramuscular [id number] [employer] 03/24/21 COVID-19, mRNA, LNP-S, PF, 30 mcg/0.3 mL dose ([employer]ics) 11/18/20 0.3 mL Intramuscular [id number] [employer] 02/21/21 Diphtheria, Tetanus Td (adult) preservative free 09/29/21 0.5 mL Intramuscular Deltoid, Left [id number] [employer] 12/06/21 Td 02/27/2021 09/29/21 Yulisa Arita Td (adult), adsorbed 01/16/01 Diphtheria, Tetanus, Pertussis Tdap 05/03/14 0.5 mL Influenza influenza, high-dose, quadrivalent 05/11/23 0.7 mL Intramuscular Deltoid, Left [id number] [employer] 12/24/23 Inactivated Influenza 02/27/2021 05/11/23 Yulisa Arita influenza, high-dose, quadrivalent 05/03/22 0.7 mL Intramuscular Deltoid, Left [id number] [employer] 01/21/23 Inactivated Influenza 02/27/2021 05/03/22 Yulisa Arita Influenza vaccine, quadrivalent, adjuvanted 07/28/21 0.5 mL Intramuscular [id number] [employer] 01/21/22 influenza, high-dose, quadrivalent 04/14/20 0.7 mL Intramuscular Deltoid, Left [id number] [employer] 01/21/21 Inactivated Influenza 03/08/2019 04/14/20 Yvonne Walter influenza, trivalent, adjuvanted 05/09/19 0.5 mL Intramuscular Deltoid, Left [id number] [employer] 12/23/19 Inactivated Influenza 03/08/2019 05/09/19 Cami Lynn influenza, trivalent, adjuvanted 05/15/18 0.5 mL Intramuscular Deltoid, Left [id number] [employer] 12/22/18 TIV/QIV 02/28/2015 05/15/18 Smita Loza, Termed influenza, high dose seasonal 05/24/17 0.5 mL Intramuscular Deltoid, Left [id number] [employer] 12/02/17 TIV/QIV 02/28/2015 05/24/17 Smita Loza, Termed influenza, high dose seasonal 05/21/16 influenza, high dose seasonal 05/03/14 0.5 mL influenza, seasonal, injectable 08/28/12 Pneumococcal pneumococcal polysaccharide PPV23 08/19/17 0.5 mL Injection Deltoid, Left [id number] [employer] 11/12/18 PPSV23 11/15/2014 08/19/17 Horace Aguilar, Termed pneumococcal conjugate PCV 13 10/17/14 pneumococcal polysaccharide PPV23 03/30/12 Zoster zoster live 08/28/12 Electronically Signed by: SUHA PHILLIP MD Kirill Moffett [facility] 07/04/2024 09:54:45 Procedures Surgical History Date Name Laterality Status Provider Name and Address Organization Details Recorded Time 11/08/19 24 placement of stent in coronary artery completed MARCK VALENZUELA DO [address] [place] [address], [phone], [facility] 11/09/2023 07:57:46 09/27/19 24 Ingestion Challenging completed RAPHAEL RANDLE MD [address] [place] [address], [phone], [facility] 09/27/2023 14:45:19 09/27/19 24 Allergy Skin Testing/Drug or Biologics completed RAPHAEL RANDLE MD [facility] [place], [address], [facility] 09/27/2023 14:45:40 09/14/19 24 YAG Capsulotomy completed KRISTINE BLUE MD [address] [place], [address], [facility] 09/14/2023 15:04:44 06/22/20 23 PAF Exam completed Guadalupe Mckoy [facility] 06/14/2023 06:52:29 03/13/20 23 laparoscopic-assist ed right colectomy completed MARCK VALENZUELA DO [address] [place] [address], [phone], [facility] 03/22/2023 18:50:31 01/22/20 23 Destruction BN Lesions completed Jyotsna Lane [facility] 01/21/2023 06:54:01 05/03/20 22 PAF Exam completed Cheryl Peterson [facility] 03/22/2022 11:38:49 03/22/20 22 Destruction BN Lesions completed Jyotsna InfanteIngrid [facility] 03/22/2022 14:48:22 12/06/19 21 Destruction [place] Lesion; trunk, arm, leg completed JOSE WEISS MD [address] [place] [address], [phone], [facility] 12/14/2020 22:29:18 01/18/20 20 Airway Resistance completed [facility] 01/18/2020 13:52:06 01/18/20 20 Diffusion Capacity completed [facility] 01/18/2020 13:52:08 01/18/20 20 Lung Volumes, Plethysmography completed [facility] 01/18/2020 13:52:05 01/18/20 20 Spirometry with Bronchodilator completed [facility] 01/18/2020 14:05:07 03/28/20 18 EKG completed ROULA BIANCHI MD [address] [place] [address], [phone], [facility] 03/28/2018 11:36:47 12/15/19 18 MNT Initial Visit completed BETHANY [address], [place] [address] [place], [address], [facility] 12/14/2017 15:00:56 07/05/20 17 Cataract (right) removal with iol completed Tung Kennedy [facility] 07/06/2017 08:40:50 06/07/20 17 Cataract (left) removal with iol completed Perla Mckeon [facility] 06/08/2017 08:27:51 05/24/20 17 Destruction [place] Lesion; trunk, arm, [facility] 14:16:57 05/03/20 17 Destruction [place] Lesion; trunk, arm, leg completed JOSE WEISS MD [address] [place], [address], [facility] 05/08/2017 21:44:21 05/03/20 17 Destruction BN Lesions completed Cathy [facility] 05/03/2017 14:44:18 04/27/20 17 Axial Length, A-Scan completed KRISTINE BLUE MD [address] [place], [address], [facility] 04/27/2017 11:17:13 12/02/19 17 Laryngoscopy Flex completed Betty Aguilar [facility] 12/01/2016 11:19:25 09/21/19 17 EKG completed ROULA BIANCHI MD [address] [place], [address], [facility] 09/21/2016 11:41:15 06/24/20 16 insertion of deep brain electrical stimulation system lead into brain completed MARCK VALENZUELA DO [address] [place], [address], [facility] 11/13/2020 12:46:34 [facility] 13:47:03 Shoulder joint surgery [facility] 08/01/2018 13:47:13 Tonsillectomy completed Sheela [facility] 08/01/2018 13:47:30 partial resection of colon completed Sheela Lock [facility] 08/01/2018 13:47:52 Imaging Results Imaging Date Name Status LastModified by Organization Details LastModified Time 09/05/2023 electrocardiogram completed [address], [place], [address], 09/05/2023 22:26:27 09/05/2023 electrocardiogram completed BARCODE Informa tion not available 09/07/2023 10:51:36 09/09/2023 XR, chest, 2 view completed [email or web address] [facility] [address], [place], [address], 09/09/2023 16:14:26 10/18/2023 electrocardiogram completed [email or web address] [facility] [address], [place], [address], 10/24/2023 13:58:38 10/31/2023 CT, angiogram, coronary arteries, w/ contrast completed [address], [place], [address], 11/03/2023 15:31:42 Procedure Notes None recorded. Medical Equipment None Reported. Allergies Allergen ID Allergen Name Allergen Category Reaction Reaction Severity Criticality Documentation Date Start Date Code Code System Note Provider Name and Address Organization Details Recorded Time 464001 propoxyph luca hydrochlo ride medicatio n Not available Not available Not available 06/17/20162005 09248 RxNorm Comme nt: Creat ed By: Omar nelson Date: 1:06: 11 PM; Not Available [facility] 6 11:08:35 329141 codeine medicatio n Not available Not available Not available 06/17/20162005 2670 RxNorm Comme nt: Creat ed By: Omar nelson Date: 1:06: 24 PM; Not Available [facility] 6 11:51:00 [id number] Product containin g penicilli n (product) medicatio n Not available Not available Not available 06/18/20162005 95277 8001 SNOMED Comme nt: state s no longe r aller gic;C reate d By: Omar nelson Date: 006 1:06: 38 PM; RAPHAEL RANDLE MD [address] [place] [address], [phone], [facility] 4 16:38:56 [id number] metformin medicatio n diarrhea severe Not available 04/10/20182016 6809 RxNorm ROULA BIANCHI MD [address] [place] [address], [phone] , [facility] 8 12:40:18 [id number] propoxyph luca medicatio n other moderate Not available 09/27/20222005 8785 RxNorm Chantelleelgin Jc [facility] 3 15:37:44 132275 diethylpr opion medicatio n other Not available Not available 09/27/20222010 3389 RxNorm Chantelleelgin Jc [facility] 3 15:37:44 Medications Name Sig Start Date Stop Date Status Note LastModified by Organization Details LastModified Time fluticaso ne 250 mcg-salme terol 50 mcg/dose blistr powdr for inhalatio n 1 puff bid 2023 active Not Available Not Available Not Avai lable gabapenti n 600 mg tablet TAKE 1 TABLET BY MOUTH AT BEDTIME FOR RESTLESS LEG SYNDROME 09/29 completed Not Available Not Available Not Available doxycycli ne hyclate 100 mg capsule Take 1 capsule twice a day by oral route. 01/17 completed Not Available Not Available Not Available atorvasta tin 20 mg tablet 1tablet po daily 2023 active Not Available Not Available Not Avai lable cetirizin e 10 mg tablet TAKE 1 TABLET BY MOUTH EVERY DAY active Not Available Not Available No t Available cefpodoxi me 200 mg tablet Take 1 tablet every 12 hours by oral route. 09/27 completed Not Available Not Available Not Available ofloxacin 0.3 % eye drops INSTILL 1 DROP INTO AFFECTED EYE(S) BY OPHTHALM IC ROUTE 4 TIMES PER DAY 08/08 completed Not Available Not Available Not Available bacitraci n 500 unit/gram eye ointment Apply 1 applicat ion every day by ophthalm ic route at bedtime. 05/24 completed Not Available Not Available Not Available Keflex 500 mg capsule Take 1 capsule 3 times a day by oral route for 7 days. 04/14 completed Not Available Not Available Not Available meloxicam 15 mg tablet TAKE 1 TABLET BY MOUTH EVERY DAY NEEDED 04/14 completed Not Available Not Available Not Available Medrol (Kun) 4 mg tablets in a dose pack as directed 09/21 completed Not Available Not Available Not Available prednison e 20 mg tablet Take 1 tablet twice a day by oral route. 01/17 completed Not Available Not Available Not Available Viagra 50 mg tablet Take 1 tablet every day by oral route as needed for 30 days. 2022 active using 100mg from Dr Lorenz Not Available Not Available Not Available Zithromax Z-Kun 250 mg tablet TAKE 2 TABLETS (500 MG) BY ORAL ROUTE ONCE DAILY FOR 1 DAY THEN 1 TABLET (250 MG) BY ORAL ROUTE ONCE DAILY FOR 4 DAYS 03/28 completed Not Available Not Available Not Available cyanocoba shellie (vit B-12) 1,000 mcg tablet Take 1 tablet every day by oral route. active Not Available Not Available No t Available Ciloxan 0.3 % eye drops INSTILL 1 DROP INTO AFFECTED EYE(S) BY OPHTHALM IC ROUTE EVERY 4 HOURS WHILE AWAKE 12/21 completed Not Available Not Available Not Available acetamino phen 500 mg tablet Every four to six hours active Duration : 10 days;Prashant quency: q4-q6h;M edicatio n Descript ion: acetamin ophen; Dosage:1 -2; Route:or al; refills: 0; Quantity :30 tablet Not Available Not Available Not Available triamtere ne 37.5 mg-hydroc hlorothia zide 25 mg capsule TAKE 1 CAPSULE BY MOUTH DAILY active Not Available Not Available No t Available sildenafi l 100 mg tablet Take 1 tablet as needed by oral route. 2022 active Not Available Not Available Not Tierra blanchard As Directed 2006 active Frequenc y: as direct.; Medicati on Descript ion: Supplies ; Dosage:a s directed ; refills: 5; Quantity :100 Not Available Not Available Not Available tamsulosi n 0.4 mg capsule 2 capsules at bedtime 2023 active Not Available Not Available Not Avai lable Celexa 20 mg tablet Take 1 tablet every day by oral route. 04/27 completed Not Available Not Available Not Available benzonata te 100 mg capsule Take 1 capsule 3 times a day by oral route. 04/14 completed Not Available Not Available Not Available Cipro 500 mg tablet Take 1 tablet every 12 hours by oral route for 7 days. 08/01 completed Not Available Not Available Not Available glimepiri de 4 mg tablet active Not Available Not Available Not Available propranol ol ER 80 mg capsule,2 4 hr,extend ed release active Not Available Not Available Not Available triamtere ne 37.5 mg-hydroc hlorothia zide 25 mg tablet TAKE 1 TABLET BY MOUTH EVERY DAY 05/14 completed Not Available Not Available Not Available omeprazol e 20 mg capsule,d elayed release Take 1 capsule every day by oral route for 30 days. 08/01 completed Not Available Not Available Not Available Actos 15 mg tablet TAKE 1 TABLET BY MOUTH DAILY 2023 active Not Available Not Available Not Avai labben monteluka st 10 mg tablet active Not Available Not Available Not Available aspirin 81 mg tablet Daily active Frequenc y: daily;Me dication Descript ion: aspirin; Dosage:1 ; Route:or al; refills: 0; Quantity :30 tablet Not Available Not Available Not Available Levaquin 500 mg tablet Take 1 tablet every 24 hours by oral route for 7 days. 11/25 completed Not Available Not Available Not Available cefuroxim e axetil 500 mg tablet Take 1 tablet every 12 hours by oral route for 7 days. 11/25 completed Not Available Not Available Not Available finasteri de 5 mg tablet 1 daily at bedtime. 2023 active Not Available Not Available Not Avai lable propranol ol XL 80 mg capsule,e xtended release 24 hr Take 1 capsule( s) every day by oral route. 09/11 completed Not Available Not Available Not Available fenofibra te 160 mg tablet 1 po qd 11/25 completed Not Available Not Available Not Available Vitamin B-12 Daily 08/01 completed Frequenc y: daily;Me dication Descript ion: cyanocob alamin; Dosage:1 ; Route:or al; refills: 0; Quantity :1 tablet Not Available Not Available Not Available Accu-Chek Softclix Lancets use BID active Not Available Not Available Not Available ProAir HFA 90 mcg/actua tion aerosol inhaler Inhale 2 puffs every 4 hours by inhalati on route as needed. 04/14 completed Not Available Not Available Not Available Januvia 100 mg tablet TAKE 1 TABLET DAILYN EEDS APPT FOR FURTHER REFILLS* * 2023 active Not Available Not Available Not Avai lable Symbicort 160 mcg-4.5 mcg/actua tion HFA aerosol inhaler Two times a day 08/01 completed Instruct ions: to replace advair;F requency : bid;Medi cation Descript ion: budesoni de-formo terol; Dosage:2 puffs; Route:in halation ; refills: 3; Quantity :3 aerosol Not Available Not Available Not Available Durezol 0.05 % eye drops INSTILL 1 DROP INTO AFFECTED EYE(S) BY OPHTHALM IC ROUTE 4 TIMES PER DAY 08/08 completed Not Available Not Available Not Available Accu-Chek Reta Plus test strips Take 1 strip twice a day by miscell. route as directed . 2022 active Not Available Not Available Not Avai lable Combivent Respimat 20 mcg-100 mcg/actua tion solution for inhalatio n INHALE 1 PUFF BY MOUTH FOUR TIMES DAILY 01/15 completed Not Available Not Available Not Available Accu-Chek Reta Plus Meter test 2x daily active Not Available Not Available No t Available Ilevro 0.3 % eye drops,esteban pension INSTILL 1 DROP TO THE OPERATED EYE BY OPHTHALM IC ROUTE ONCE DAILY STARTING 1 DAY PRIOR TO CATARACT SURGERY & FOR 14 DAYS AFTER SURGERY 08/08 completed Not Available Not Available Not Available Jardiance 10 mg tablet Take 1 tablet every day by oral route. 06/27 completed Not Available Not Available Not Available Jardiance 25 mg tablet TAKE 1 TABLET BY MOUTH EVERY DAY 2023 active Not Available Not Available Not Avai lable Flonase Allergy Relief 50 mcg/actua tion nasal spray,esteban pension 2 sprays in each nostril daily 2022 active Not Available Not Available Not Avai lable Vitals Date Recorded Body height Body mass index (BMI) Body weight Heart rate Respiratory rate Oxygen saturation Oxygen saturation in Arterial blood by Pulse oximetry Systolic blood pressure Diastolic blood pressure Provider Name and Address Organization Details Last Updated DateTime 4 167.64 cm 35.2 kg/m2 94523.1 4 g 79 /min 18 /min 98 % 98 % 120 mm[Hg] 62 mm[Hg] Yulisa Juan J [facility] 4 13:57:20 Date Recorded Body height Provider Name an d Address Organization Details Last Updated DateTime 09/05/2023 167.64 cm Linette Aguillon [facility] 09/05/2023 15:27:33 Date Recorded Body height Provider Name an d Address Organization Details Last Updated DateTime 09/14/2023 167.64 cm Vidhya Jorge [facility] 09/14/2023 13:01:12 Date Recorded Body height Body mass index (BMI) Body weight Heart rate Oxygen saturation Oxygen saturation in Arterial blood by Pulse oximetry Systolic blood pressure Diastolic blood pressure Provider Name and Address Organization Details Last Updated DateTime 4 167.64 cm 33.7 kg/m2 41388.8 1 g 77 /min 96 % 96 % 134 mm[Hg] 68 mm[Hg] Dian Brigida [facility] 4 14:22:18 Date Recorded Body height Provider Name an d Address Organization Details Last Updated DateTime 09/28/2023 167.64 cm Brandy Hinton [facility] 09/28/2023 13:03:59 Date Recorded Body height Body mass index (BMI) Body weight Respiratory rate Heart rate Oxygen saturation Oxygen saturation in Arterial blood by Pulse oximetry Systolic blood pressure Diastolic blood pressure Provider Name and Address Organization Details Last Updated DateTime 167.64 cm 34.1 kg/m2 43689.9 9 g 18 /min 86 /min 95 % 95 % 112 mm[Hg] 62 mm[Hg] Yulisa Arita [facility] 13:56:27 Date Recorded Body height Body mass index (BMI) Body weight Provider Name and Address Organization Details Last Updated DateTime 07/03/2024 172.72 cm 31.6 kg/m2 00936.78 g Jasmin Oliver [facility] 07/03/2024 14:58:33 Social History Question Answer Notes LastModified by Organizat ion Details LastModified Time Tobacco Smoking Status Never Smoker Smita Loza [facility] 07/29/2016 11:09:07 What Is Your Level Of Alcohol Consumption? Occasional 1 Weekly Information not available 08/01/2018 How Much Tobacco Do You Chew? None Information not available 08/01/2018 Which Illicit Or Recreational Drugs Have You Used? No Illicit Drug Use Information not available 08/01/2018 Do You Or Have You Ever Used E-cigarettes Or Vape? Never Used Electronic Cigarettes [email or web address] Information not available 01/15/2021 What Is Your Occupation? Retired Information not available 08/01/2018 Marital Status Informatio n not available 08/01/2018 What Was The Date Of Your Most Recent Tobacco Screening? 11/10/2022 [email or web address] Information not available 11/10/2022 Do You Or Have You Ever Used Smokeless Tobacco? Never Used Smokeless Tobacco [email or web address] Information not available 01/15/2021 How Much Tobacco Do You Smoke? No [email or web address] Information not available 01/15/2021 Has Tobacco Cessation Counseling Been Provided? No [email or web address] Information not available 03/30/2017 How Many Years Have You Smoked Tobacco? 0 [email or web address] Information not available 01/15/2021 Sex: Unknown Functional Status None recorded. Mental Status None recorded. Family History Relationship Description Onset Age of this Age Resolved Age Notes LastModified by Organization Details LastModified Time Father 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 [email or web address] Not available 2016 09:46:28 Father Family history of stroke [email or web address] Not available 2016 09:46:51 Father Family history of malignant neoplasm [email or web address] Not available 2016 09:47:12 Father Hypertensive disorder Not available 2018 13:45:11 Father Hyperlipidem ia Not available 2018 13:45:24 Mother Myocardial infarction Not available 08/01 13:44:48 Mother Arthritis Not availabl e 08/01/2018 13:45:57 Medical History Condition Response Other Depression Y Anxiety Disorder Y Arthritis Y Cancer Y Hepatitis Y Glasses/Contacts Y High Cholesterol Y Diabetes Y Basal Cell Carcinoma Y Hypertension Y Immunizations Vaccine Type Date Status Note Provider Nam e and Address Organization Details Recorded Time Influenza, adjuvanted, trivalent, PF 8 completed Not Available [facility] 08/11/2019 02:51:06 pneumococcal polysaccharide PPV23 2 completed Not Available [facility] 09/27/2022 15:35:15 Influenza, high-dose, trivalent, PF 6 completed Not Available [facility] 09/27/2022 15:35:15 Pneumococcal conjugate PCV 13 5 completed Not Available [facility] 09/27/2022 15:35:15 zoster live 3 completed Not Available [facility] 09/27/2022 15:35:15 Influenza, adjuvanted, trivalent, PF 9 completed Not Available [facility] 08/11/2019 02:53:34 Influenza, high-dose, quadrivalent, PF 0 completed Yvonne Walter [facility] 04/14/2020 13:32:16 Td (adult), 5 Lf tetanus toxoid, preservative free, adsorbed 2 completed Yulisa Arita [facility] 09/29/2021 14:16:33 Influenza, high-dose, quadrivalent, PF 2 completed MARCK VALENZUELA, DO [address] [place], [address], [facility] 05/03/2022 15:46:35 Influenza, high-dose, trivalent, PF 7 completed Not Available [facility] 08/11/2019 02:45:21 Influenza, high-dose, quadrivalent, PF 3 completed Yulisa Harms null, [facility] 05/11/2023 14:44:17 pneumococcal polysaccharide PPV23 8 completed Not Available [facility] 08/11/2019 02:45:25 Influenza, adjuvanted, quadrivalent, PF 2 completed Yulisa Harms null, [facility] 05/10/2023 10:19:06 COVID-19, mRNA, LNP-S, PF, 30 mcg/0.3 mL dose 2 completed Yulisa Harms null, [facility] 05/10/2023 10:19:07 COVID-19, mRNA, LNP-S, PF, 30 mcg/0.3 mL dose 1 completed Yulisa Harms null, [facility] 05/10/2023 10:19:07 COVID-19, mRNA, LNP-S, PF, 30 mcg/0.3 mL dose 1 completed Yulisa Harms null, [facility] 05/10/2023 10:19:07 Tdap 4 completed Yulisa Harms null, [facility] 05/10/2023 10:19:07 Influenza, high-dose, trivalent, PF 4 completed Yulisa Harms null, [facility] 05/10/2023 10:19:07 Influenza, split virus, trivalent, preservative 3 completed Yulisa Harms null, [facility] 05/10/2023 10:19:07 Td (adult), 2 Lf tetanus toxoid, preservative free, adsorbed 1 completed Yulisa Harms null, [facility] 05/10/2023 10:19:07 Past Encounters Encounter ID Performer Location Encounter Start Date Encounter Closed Date Diagnosis/Indication Diagnosis SNOMED-CT Code Diagnosis ICD10 Code Diagnosis Note [id number] ROULA BIANCHI MD [facility] [address] ,[address] [place] [address] 07/29/2016 10:53:58 07/29/2016 12:41:19 Acute bronchitis with bronchospasm 65237824 J20.9 Take over-the-c ounter Mucinex DM twice a day as needed for cough. Call if not resolved right after the treatment [id number] ROULA BIANCHI MD [facility] [address] ,[address] [place] [address] 09/21/2016 10:26:03 09/21/2016 11:19:11 Adult health examination 288771086 Z00.00 His last colonoscop y was in March 2012. Continue to follow-up with Dr. Schmidt because of colon cancer. Received Prevnar 13 in September 2014, Zostavax in August 2012, Pneumovax in March 2012 Screening for malignant neoplasm of prostate 271611142 Z12.5 Screening for malignant neoplasm of rectum 797849724 Z12.12 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 142941 09 E11.9 Continue current medication s and recheck A1c today. Advised patient to eat a low carbohydra te diet, exercise and weight control. Hyperlipidemia 98175666 E78.5 Continue fenofibrat e And Lipitor, Advised him about low fat and low cholestero l diet. Essential hypertension 57146384 I10 Educated the patient to eat a low-salt diet, exercise and weight control. Repeated blood pressure is 151/75. Advised patient to call his neurologis t to get propranolo l, and continue to take it. Moderate p ersistent asthma 818581447 J45.40 Stable, continue Symbicort Chronic ki dney disease 514292523 N18.9 Avoid NSAIDs. Recheck creatinine Essential tremor 9206085 09 G25.0 Continued follow-up with his neurologis t, continue Neurontin And propranolo l From his neurologis t. Restless legs 09640073 G 25.81 Stable, continue Neurontin. Hearing loss 44332959 H9 1.93 Had referral to ENT. Primary er ectile dysfunction 721600237 N52.9 Continue to follow-up with his urologist Vitamin B1 2 deficiency (non anemic) 52472532 E53.8 Continue oral supplement and recheck level in the future. Chronic low back pain 27 9090165 M54.5 With lumbar stenosis and neuroforam inal stenosis. Continue to have physical therapy with chiropract or and follow-up with his neurosurge on. Malignant tumor of colon 512775884 C18.9 Resected, continue to follow-up with Dr. Schmidt. Electrocar diogram abnormal 001232974 R94.31 Totally asymptomat ic and no significan t change. He had a normal stress Myoview 2013 [id number] ROULA BIANCHI MD [facility] [address] ,[address] [place] [address] 5 10/22/2016 13:17:13 10/22/2016 14:05:36 Acute conjunctivitis 02484506 H10.31 Advised patient to call if not resolved in 5-7 days. Otherwise follow-up as scheduled. [id number] KRISTINE BLUE MD [facility] [address] ,[address] [place] [address] 5 11/24/2016 10:15:06 11/25/2016 11:25:54 Blepharitis 98171533 H01.9 start hot compresses bid at least.star t lid hygeinesta rt bacitracin karol qhs ouif no better in a week or two start art tears qid. if no better in a week or tow after that, consider rtc with steroid. Incipient senile cataract 677926658 H25.099 mild, obs. 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 Advised patient to eat a low carbohydra te diet, exercise and weight control. Hyperlipidemia 97732468 E78.5 Since his last triglyceri de was normal, and he lost more weight, discontinu e fenofibrat e as it and no longer recommende d to be used with a statin by FDA, continue Lipitor. Advised him to continue to lose more weight. Essential hypertension 40321377 I10 Under very good control, continue current medication s. Moderate p ersistent asthma 049896825 J45.40 Stable, continue Symbicort Chronic ki dney disease 213495257 N18.9 Avoid NSAIDs. Recheck creatinine In the future Essential tremor 0358052 09 G25.0 Continued follow-up with his neurologis t, continue Neurontin And propranolo l From his neurologis t. Restless legs 51687010 G 25.81 Stable, continue Neurontin. Hearing loss 96706221 H9 1.93 Continue to see ENT Dr. Gtz. Primary er ectile dysfunction 528439805 N52.9 Continue to follow-up with his urologist Vitamin B1 2 deficiency (non anemic) 64387568 E53.8 Continue oral supplement and recheck level in the future. Chronic low back pain 27 0617445 M54.5 With lumbar stenosis and neuroforam inal stenosis. Continue to have physical therapy with chiropract or and follow-up with his neurosurge on. Malignant tumor of colon 957961674 C18.9 Resected, continue to follow-up with Dr. Schmidt. Electrocar diogram abnormal 357781634 R94.31 Totally asymptomat ic and no significan t change. He had a normal stress Myoview 2013 [id number] ROULA BIANCHI MD [facility] [address] ,[address] [place] [address] 03/30/2017 10:31:47 03/30/2017 11:13:49 Adult health examination 398288735 Z00.00 His last colonoscop y was in March 2012. Continue to follow-up with Dr. Schmidt because of colon cancer. Received Prevnar 13 in September 2014, Zostavax in August 2012, Pneumovax in March 2012 Screening for malignant neoplasm of prostate 909663146 Z12.5 Screening for malignant neoplasm of rectum 422810142 Z12.12 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 726803 09 E11.9 Continue current medication s and recheck A1c today=6.4. Advised patient to eat a low carbohydra te diet, exercise and weight control. Hyperlipidemia 58865314 E78.5 His fenofibrat e was discontinu ed. Continue atorvastat in Essential hypertension 34650164 I10 Repeated blood pressures 134/71. Under very good control, continue current medication s. Recheck BMP today Moderate p ersistent asthma 191884342 J45.40 Stable, continue Symbicort Chronic ki dney disease 543815708 N18.9 Avoid NSAIDs. Recheck creatinine Essential tremor 6799205 09 G25.0 Continued follow-up with his neurologis t, continue Neurontin And propranolo l From his neurologis t. Restless legs 31081565 G 25.81 Stable, continue Neurontin. Hearing loss 50565940 H9 1.93 Continue to see ENT Dr. Gtz. Primary er ectile dysfunction 527421432 N52.9 Continue to follow-up with his urologist. No new complaints at the day Vitamin B1 2 deficiency (non anemic) 25717951 E53.8 Continue oral supplement and recheck level Chronic low back pain 27 5090687 M54.5 With lumbar stenosis and neuroforam inal stenosis. Continue to have physical therapy with chiropract or and follow-up with his neurosurge on. Malignant tumor of colon 291505790 C18.9 Resected, continue to follow-up with Dr. Schmidt. Electrocar diogram abnormal 115569027 R94.31 Totally asymptomat ic and no significan t change. He had a normal stress Myoview 2013. Depressive disorder 3548 9007 F32.9 Advised the patient about possible side effects. [id number] KRISTINE BLUE MD OPHTHALMO [address] ,[address] [place] [address] 04/27/2017 09:35:17 04/28/2017 07:32:10 Bilateral cataracts 18885897 H25.13 progressin g ouDiscusse d cataracts and cataract surgery. I discussed that the decision to have cataract surgery should be determined by how bad the vision affects the patient in their daily lives. I discussed the option of updating the patients glasses and observatio n. I discussed the procedure and post op requiremen ts and expectatio ns. I discussed the risks including retinal detachment , infection in the eye, vision loss, loss of eye or blindness, swelling, inflammati on, bleeding, glaucoma, need for glasses following the procedure. I told them that this is not every possible risk of the procedure. The patient watched the cataract surgery informatio n video. I answered all of the patients questions. The patient voiced understand ing to me. The patient signed a consent today and i gave them a copy. 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 I discussed the importance of sugar control for reducing risk of diabetic complicati ons in the eyes. I recommened they follow up with their PCP/endocr inologist for continue sugar evaluation /managemen t. Also discussed importance of cardiovasc ular risk reduction. Call with changing/f luxuating vision. 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 Advised patient to eat a low carbohydra te diet, exercise and weight control. Advised patient to hold aspirin 7 days before the surgery, hold diabetes his medicines on the day of the surgery. Sliding scale insulin per protocol. Hyperlipidemia 27148645 E78.5 His fenofibrat e was discontinu ed. Continue atorvastat in Essential hypertension 58942254 I10 Under very good control, continue current medication s. Recheck BMP today Moderate p ersistent asthma 144979888 J45.40 Stable, Does not use Symbicort Currently. Prescripti on for Pro Air inhaler to be used 2 puffs every 4 hours prn, advised patient to bring the inhaler with him. Chronic ki dney disease 005228431 N18.9 Avoid NSAIDs And dehydratio n. Recheck creatinine . Essential tremor 2496156 09 G25.0 Continued follow-up with his neurologis t, continue Neurontin And propranolo l From his neurologis t. Restless legs 36004609 G 25.81 Stable, continue Neurontin. Vitamin B1 2 deficiency (non anemic) 01799468 E53.8 Continue oral supplement and recheck level Chronic low back pain 27 3447281 M54.5 With lumbar stenosis and neuroforam inal stenosis. Continue to have physical therapy with chiropract or and follow-up with his neurosurge on. Malignant tumor of colon 024024215 C18.9 Resected, continue to follow-up with Dr. Schmidt. Electrocar diogram abnormal 615186230 R94.31 EKG today showed normal sinus rhythm at the rate of 72, incomplete right bundle branch block. Abnormal EKG.Totall y asymptomat ic and no significan t change. He had a normal stress Myoview 2013. No further testing is needed Depressive disorder 3548 9007 F32.9 Continue Celexa. 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 68512563 D04.71 Right inguinal crease treated with EDC x 3Follow up 3 months [id number] [facility] [address] [place] [address] 06/07/2017 08:51:20 06/07/2017 08:53:56 [id number] KRISTINE BLUE MD [facility] [address] ,[address] [place] [address] 06/08/2017 08:16:51 06/08/2017 09:10:32 Pseudophakia 10122420 Z96.1 Post op Day one - excellentS tart Durezol taper QID x 1 week, TID x 1 week, BID x 1 week, Qday x 1 week.Start Ilevro Qday x 2 weeksStart Ofloxacin Qid x 1 weekDrop info sheet and activity precaution sheet given.No bending/li fting, strenuous activities , water in eye, eye rubbing x 1 week.Shiel d x 1 week.Call for problems. Specifical ly changes in vision, pain, floaters.C all for any questions. 1 week po ar/d os pre op od next time [id number] KRISTINE BLUE MD [facility] [address] ,[address] [place] [address] 06/15/2017 09:58:51 06/20/2017 07:10:49 Pseudophakia 39447184 Z96.1 excellentc ontinue d/i taperdefer mrx Nuclear sc lerotic cataract 127342458 H25.12 odDiscusse d cataracts and cataract surgery. I discussed that the decision to have cataract surgery should be determined by how bad the vision affects the patient in their daily lives. I discussed the option of updating the patients glasses and observatio n. I discussed the procedure and post op requiremen ts and expectatio ns. I discussed the risks including retinal detachment , infection in the eye, vision loss, loss of eye or blindness, swelling, inflammati on, bleeding, glaucoma, need for glasses following the procedure. I told them that this is not every possible risk of the procedure. The patient defered the cataract surgery informatio n video. I answered all of the patients questions. The patient voiced understand ing to me. The patient signed a consent today and i gave them a copy. I asked the patient to call if any problems/q uestions/i ssues were to arise prior to their surgery.po or dilation, will need ring [id number] [facility] SCHEDULE [address] [place] [address] 07/05/2017 08:50:36 07/05/2017 08:51:23 [id number] KRISTINE BLUE MD [facility] [address] [place],[address] [place], [place] [id number] 07/06/2017 08:32:55 07/07/2017 07:35:27 [id number] KRISTINE BLUE MD [facility] [address] ,[address] [place] [address] 08/08/2017 12:07:11 08/08/2017 14:04:05 Pseudophakia 31211157 Z96.1 excellentc ontinue d/i tapermrx today6 mo dm checkart tears and hot compresses [id number] ROULA BIANCHI MD [facility] [address] [place],[address] [place] [address] 08/19/2017 12:19:59 08/22/2017 11:19:54 Adult health examination 473349488 Z00.00 His last colonoscop y was in March 2012. Continue to follow-up with Dr. Schmidt because of colon cancer. scheduled one on 10/2017 Received Prevnar 13 in September 2014, Zostavax in August 2012, Pneumovax in March 2012 Administra tion of pneumococcal vaccine 63651234 Z23 Abdominal aortic aneurysm screening offered 002972312 Z78.9 [id number] ROULA BIANCHI MD [facility] [address] [place],[address] [place] [address] 08/19/2017 12:36:07 08/22/2017 11:21:39 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 05410391 E11.9 Last A1c was 7.0. Continue current medication s and recheck A1c today=6.2. Advised patient to eat a low carbohydra te diet, exercise and weight control. Hyperlipidemia 46164631 E78.5 His fenofibrat e was discontinu ed. Continue atorvastat in. Recheck it with RTC Essential hypertension 74353495 I10 Under very good control, continue current medication s. Recheck BMP In the future Moderate p ersistent asthma 920962654 J45.40 Because of wheezing, advised patient to restart Symbicort every day, continue albuterol as needed. Chronic ki dney disease 316982640 N18.9 Avoid NSAIDs. Recheck creatinine In the future it was a stable Essential tremor 7370619 09 G25.0 Continued follow-up with his neurologis t, continue Neurontin And propranolo l From his neurologis t. Restless legs 54019712 G 25.81 Stable, continue Neurontin. Hearing loss 85838066 H9 1.93 Continue to see ENT Dr. Gtz. Primary er ectile dysfunction 526660583 N52.9 Continue to follow-up with his urologist. No new complaints at the day Vitamin B1 2 deficiency (non anemic) 13312219 E53.8 Continue oral supplement and recheck level In the future Chronic low back pain 27 5514642 M54.5 With lumbar stenosis and neuroforam inal stenosis. Continue to have physical therapy with chiropract or and follow-up with his neurosurge on. Malignant tumor of colon 384715957 C18.9 Resected, continue to follow-up with Dr. Schmidt. He has a colonoscop y scheduled in October 2017 Electrocar diogram abnormal 955318792 R94.31 Totally asymptomat ic and no significan t change. He had a normal stress Myoview 2013. Depressive disorder 3548 9007 F32.9 He stopped his Celexa. He feels better now, no further treatment. [id number] ROULA BIANCHI MD [facility] [address] [place] [address] 08/30/2017 11:22:13 08/31/2017 14:21:20 Acute bronchitis 32539463 J20.9 Start Ceftin 500 mg twice a day for 7 daysTessal on Perle 3 times a day when necessaryA dvised him to use his Flonase every day 1 spray each nostril twice a dayIncreas e fluid intake Call if not resolved right after the treatment. 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 Also check microalbum in. Refer the patient for dietitian consult because of obesity and diabetes. Hyperlipidemia 36735395 E78.5 Advised him to his continue fenofibrat e to see if his fatigue is better. Recheck lipid profile today. Continue atorvastat in Essential hypertension 48690337 I10 Under very good control, continue current medication s. Moderate p ersistent asthma 595210166 J45.40 Stable, continue Symbicort Chronic ki dney disease 376845115 N18.9 Avoid NSAIDs. Recheck creatinine Today. Avoid NSAIDs Essential tremor 4652035 09 G25.0 Continued follow-up with his neurologis t, continue Neurontin And propranolo l From his neurologis t. Restless legs 68800969 G 25.81 Stable, continue Neurontin. Hearing loss 29909581 H9 1.93 Continue to see ENT Dr. Gtz. Primary er ectile dysfunction 776783513 N52.9 Continue to follow-up with his urologist Vitamin B1 2 deficiency (non anemic) 69146589 E53.8 Continue oral supplement and recheck B12 level. Chronic low back pain 27 0897896 M54.5 With lumbar stenosis and neuroforam inal stenosis. Continue to have physical therapy with chiropract or and follow-up with his neurosurge on. Malignant tumor of colon 432121170 C18.9 Resected, continue to follow-up with Dr. Schmidt. Electrocar diogram abnormal 486149973 R94.31 Totally asymptomat ic and no significan t change. He had a normal stress Myoview 2013 Body mass index 30+ - obesity 698500071 Z68.36 Discussed with the patient about the decrease of the portion of foods and more exercise in order to lose weight. Refer the patient to a dietitian. [id number] BETHANY GODOY RD, LD [facility] [address] ,[address] [place] [address] 12/14/2017 12:55:27 12/14/2017 15:02:08 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 68433139 E11.9 [id number] KRISTINE BLUE MD [facility] [address] ,[address] [place] [address] 02/09/2018 12:04:23 02/10/2018 09:21:01 Pseudophakia 39393500 Z96.1 stable. 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 I discussed the importance of sugar control for reducing risk of diabetic complicati ons in the eyes. I recommened they follow up with their PCP/endocr inologist for continue sugar evaluation /managemen t. Also discussed importance of cardiovasc ular risk reduction. Call with changing/f luxuating vision. Epiphora 587237606 H04.2 23 irrigated tear ducts today no obstructio n art tears prn blurring 1 year and prn [id number] ROULA BIANCHI MD [facility] [address] ,[address] [place] [address] 03/28/2018 10:31:15 03/30/2018 11:46:28 Adult health examination 780781116 Z00.00 Prevnar 13 in September 2014 Pneumovax in 07/2017 TDap 04/2014 Zostavax in August 2012 Shingrix: none. advised the patient to get it from the pharmacy because of Medicare Colonoscop y in March 2012. Continue to follow-up with Dr. Schmidt because of colon cancer. His EKG showed normal sinus rhythm at a rate of 89, incomplete right bundle branch block. Borderline EKG Screening for malignant neoplasm of prostate 270859809 Z12.5 Screening for malignant neoplasm of rectum 666211238 Z12.12 Negative 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 559393 09 E11.9 Continue current medication s and recheck A1c today=6.4. Advised patient to eat a low carbohydra te diet, exercise and weight control. Hyperlipidemia 15347209 E78.5 His fenofibrat e was discontinu ed. Continue atorvastat in, get FLP Essential hypertension 74161329 I10 Repeated blood pressures 136/72. Under very good control, continue current medication s. Recheck BMP today Moderate p ersistent asthma 293009831 J45.40 Stable, continue Symbicort Chronic ki dney disease 906239784 N18.9 Avoid NSAIDs. Recheck creatinine Essential tremor 4986513 09 G25.0 Continued follow-up with his neurologis t, continue Neurontin And propranolo l From his neurologis t. Restless legs 91130320 G 25.81 Stable, continue Neurontin. Hearing loss 23420892 H9 1.93 Continue to see ENT Dr. Gtz. Primary er ectile dysfunction 709060202 N52.9 Continue to follow-up with his urologist. No new complaints at the day Vitamin B1 2 deficiency (non anemic) 57557264 E53.8 Continue oral supplement and recheck level Chronic low back pain 27 7414397 M54.5 With lumbar stenosis and neuroforam inal stenosis. Continue to have physical therapy with chiropract or and follow-up with his neurosurge on. Continue gabapentin as needed. He denies any misuse Malignant tumor of colon 487586349 C18.9 Resected, continue to follow-up with Dr. Schmidt. Electrocar diogram abnormal 208145518 R94.31 Totally asymptomat ic and no significan t change. He had a normal stress Myoview 2013. Body mass index 30+ - obesity 045239940 Z68.36 Discussed with the patient about the decrease of the portion of foods and more exercise in order to lose weight. Refer the patient to a dietitian. [id number] ROULA BIANCHI MD [facility] [address] ,[address] [place] [address] 04/10/2018 12:15:13 04/11/2018 09:11:50 Acute urinary tract infection 590571764 N39.0 Repeated UA today is normal. 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 He absolutely cannot tolerate Metformin because of severe diarrhea. So Start Jardiance 10 mg once a day, advised him to eat low carbohydra te diet and lose weight. Also advised him about the possible side effects of her Jardiance including hypotensio n, increase urinary tract infection. Recheck blood sugar in 1 month. Essential hypertension 32070212 I10 His initial blood pressure was 152/74, Repeated blood pressures 139/76. Under good control, continue current medication s. [id number] ROULA BIANCHI MD [facility] [address] [place] [address] 05/15/2018 12:51:25 05/15/2018 14:17:45 Type 2 diabetes mellitus without complication 811997981 E11.9 He is already taking glimepirid e 4 mg twice a day, Januvia 100 mg once a day. He absolutely cannot tolerate Metformin because of severe diarrhea. So Start Jardiance 10 mg once a day, advised him to eat low carbohydra te diet and lose weight. Also advised him about the possible side effects of her Jardiance including hypotensio n, increase urinary tract infection. A1c today is 7.5. Increase Jardiance to 25 mg once a day. Essential hypertension 46399592 I10 Blood pressure is under good control now. Continue current medication s. Administra tion of influenza vaccine 51404154 Z23 Body mass index 30+ - obesity 215504199 Z68.36 Lost 9 pounds with a Jardiance, Discussed with the patient about the decrease of the portion of foods and more exercise in order to lose weight. [id number] ROULA BIANCHI MD [facility] [address] [place] [address] 06/27/2018 12:20:06 06/29/2018 10:11:50 Type 2 diabetes mellitus without complication 376476565 E11.9 His A1c today Is 6.7, significan tly improved. Continue current medication s and refill Jardiance. Advised patient to continue to watch his diet and exercise. Essential hypertension 81489816 I10 Blood pressure is under good control now. Continue current medication s. Body mass index 30+ - obesity 553562200 Z68.36 Lost 20 pounds with Jardiance, Discussed with the patient about the decrease of the portion of foods and more exercise in order to lose weight. 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 Follow-up with the MRI to discuss possible surgical excision [id number] [facility] [address] [place] [address] 01/22/2019 14:27:55 01/22/2019 14:51:06 Mass of soft tissue 361840655 R22.9 Does not appear to be lipoma.? Schwannoma versus other neoplasm. I am going to get the official report from the radiologis ts and then reassess and contact him. 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 233421434 E11.9 [id number] NAHOMY HUTSON MD [facility] [address] [place] [address] 05/09/2019 12:34:45 05/09/2019 13:39:31 Type 2 diabetes mellitus without complication 075116068 E11.9 Administra tion of influenza vaccine 30860456 Z23 Essential hypertension 24751758 I10 Benign pro static hyperplasia with outflow obstruction 486488720 N40.1 [id number] NAHOMY HUTSON MD [facility] [address] [place] [address] 08/27/2019 13:29:12 08/27/2019 14:32:04 Type 2 diabetes mellitus without complication 275284052 E11.9 Hyperlipidemia 40937849 E78.5 Primary er ectile dysfunction 143487617 N52.9 [id number] IRINA ROBINS MD [facility] [address] ,[address] [place] [address] 09/11/2019 13:00:35 09/11/2019 13:53:19 Type 2 diabetes mellitus without complication 368836085 E11.9 On 02/08/19, his microalbum in was >12, so a ratio was not calculated . On 08/27/19, his A1c was 6.9. Hyperlipidemia 95990751 E78.5 On 02/05/19, his total cholestero l was 112, HDL 38, triglyceri demetra 159, LDL 42. Primary er ectile dysfunction 068338436 N52.9 On 09/11/19, patient reported little benefit from Viagra in the past. Benign pro static hyperplasia without outflow obstruction 017837756 N40.0 On 09/11/19, patient reported benefit from tamsulosin and finasterid e in treating his urinary symptoms from BPH. Seasonal allergy 8826593 04 J30.2 Antiplatel et agent therapy 658855215 Z79.02 Hypertensive disorder 38 972826 I10 Essential tremor 7890468 09 G25.0 Patient with history of essential tremor status post bilateral VIM DBS placement using Med[employer] system in 07/[address] Delgadillo. Restless legs 81317966 G 25.81 On 09/11/19, patient reported benefit from gabapentin in treating his restless legs. Long-term drug therapy 019919445 Z79.899 Polyp of colon 12454922 K63.5 On 11/07/18, patient had a colonoscop y by Dr. Schmidt which revealed colon polyps. Pathology revealed tubular adenoma. Follow-up colonoscop y was recommende d in 1 year per patient report. [id number] IRINA ROBINS MD [facility] [address] ,[address] [place] [address] 09/26/2019 12:42:41 09/26/2019 13:15:53 Long-term drug therapy 512161973 Z79.899 Restless legs 27708132 G 25.81 On 09/11/19, patient reported benefit from gabapentin in treating his restless legs. 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 On 08/27/19, his A1c was 6.9. Hyperlipidemia 62775061 E78.5 On 02/05/19, his total cholestero l was 112, HDL 38, triglyceri demetra 159, LDL 42. On 09/11/19, his total cholestero l was 113, HDL 38, triglyceri demetra 146, LDL 46. Hypertensive disorder 38 807786 I10 Antiplatel et agent therapy 794084752 Z79.02 Seasonal allergy 5655322 04 J30.2 Benign pro static hyperplasia without outflow obstruction 758897442 N40.0 On 09/11/19, patient reported benefit from tamsulosin and finasterid e in treating his urinary symptoms from BPH. Primary er ectile dysfunction 231993885 N52.9 On 09/11/19, patient reported little benefit from Viagra in the past. Essential tremor 2528781 09 G25.0 Patient with history of essential tremor status post bilateral VIM DBS placement using [employer]tr[employer] system in 07/[address] Delgadillo. Polyp of colon 48336084 K63.5 On 11/07/18, patient had a colonoscop y by Dr. Schmidt which revealed colon polyps. Pathology revealed tubular adenoma. Follow-up colonoscop y was recommende d in 1 year per patient report. Chest wall pain 12474897 6 R07.89 On 09/26/19, patient reported having right-side d chest wall pain. Patient reported the gradual onset of right-side d chest wall pain 2 weeks prior. Patient reported the pain was worse with deep breathing and with sitting. Patient stated that the pain improved with standing. Patient denied shortness of air. Patient denied any physical impact or trauma to his chest wall. Patient denied any exacerbati on of the pain with eating or with physical exertion. At that time, patient was sent for chest x-ray and prescribed Mobic as needed for pain. [id number] IRINA ROBINS MD [facility] [address] ,[address] [place] [address] 11/27/2019 12:40:24 11/27/2019 15:29:33 Long-term drug therapy 125748753 Z79.899 Chest wall pain 84860172 6 R07.89 On 09/26/19, patient reported having right-side d chest wall pain. Patient reported the gradual onset of right-side d chest wall pain 2 weeks prior. Patient reported the pain was worse with deep breathing and with sitting. Patient stated that the pain improved with standing. Patient denied shortness of air. Patient denied any physical impact or trauma to his chest wall. Patient denied any exacerbati on of the pain with eating or with physical exertion. At that time, patient was sent for chest x-ray and prescribed Mobic as needed for pain. On 09/26/19, patient had a chest x-ray which revealed no acute cardiopulm onary changes. On 11/27/19, patient reported that his right-side d chest pain had resolved. Restless legs 02447965 G 25.81 On 09/11/19, patient reported benefit from gabapentin in treating his restless legs. 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 On 08/27/19, his A1c was 6.9. On 11/27/19, his A1c was 6.4. Hyperlipidemia 72517389 E78.5 On 02/05/19, his total cholestero l was 112, HDL 38, triglyceri demetra 159, LDL 42. On 09/11/19, his total cholestero l was 113, HDL 38, triglyceri demerta 146, LDL 46. Hypertensive disorder 38 270777 I10 Antiplatel et agent therapy 039060825 Z79.02 Seasonal allergy 3877419 04 J30.2 On 09/26/19, patient had a chest x-ray which revealed no acute cardiopulm onary changes. On 11/27/19, patient reported having a nonproduct jae cough for the previous month. Patient denied any fever, chills, night sweats, or shortness of air. He reported having a history of seasonal allergies, but he had only been using his allergy medication sporadical ly. At that time, patient wanted to try a combinatio n of Zyrtec, Flonase, and Singulair. Benign pro static hyperplasia without outflow obstruction 602944978 N40.0 On 09/11/19, patient reported benefit from tamsulosin and finasterid e in treating his urinary symptoms from BPH. Primary er ectile dysfunction 989325674 N52.9 On 09/11/19, patient reported little benefit from Viagra in the past. On 11/27/19, patient requested urology evaluation for erectile dysfunctio n. Essential tremor 4790964 09 G25.0 Patient with history of essential tremor status post bilateral VIM DBS placement using Medtronic system in 07/[address] Delgadillo. Polyp of colon 90182986 K63.5 On 11/07/18, patient had a colonoscop y by Dr. Schmidt which revealed colon polyps. Pathology revealed tubular adenoma. Follow-up colonoscop y was recommende d in 1 year per patient report. Asthma 905224099 J45.90 9 [id number] IRINA ROBINS MD [facility] [address] [place] [address] 12/10/2019 13:03:11 12/10/2019 16:26:05 Primary erectile dysfunction 606176584 N52.9 On 09/11/19, patient reported little benefit from Viagra in the past. On 11/27/19, patient requested urology evaluation for erectile dysfunctio n. Seasonal allergy 0466493 04 J30.2 On 09/26/19, patient had a chest x-ray which revealed no acute cardiopulm onary changes. On 11/27/19, patient reported having a nonproduct jae cough for the previous month. Patient denied any fever, chills, night sweats, or shortness of air. He reported having a history of seasonal allergies, but he had only been using his allergy medication sporadical ly. At that time, patient wanted to try a combinatio n of Zyrtec, Flonase, and Singulair. Asthma 141561244 J45.90 9 Chest wall pain 60828542 6 R07.89 On 09/26/19, patient reported having right-side d chest wall pain. Patient reported the gradual onset of right-side d chest wall pain 2 weeks prior. Patient reported the pain was worse with deep breathing and with sitting. Patient stated that the pain improved with standing. Patient denied shortness of air. Patient denied any physical impact or trauma to his chest wall. Patient denied any exacerbati on of the pain with eating or with physical exertion. At that time, patient was sent for chest x-ray and prescribed Mobic as needed for pain. On 09/26/19, patient had a chest x-ray which revealed no acute cardiopulm onary changes. On 11/27/19, patient reported that his right-side d chest pain had resolved. Restless legs 01598977 G 25.81 On 09/11/19, patient reported benefit from gabapentin in treating his restless legs. 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 On 08/27/19, his A1c was 6.9. On 11/27/19, his A1c was 6.4. Hyperlipidemia 05713307 E78.5 On 02/05/19, his total cholestero l was 112, HDL 38, triglyceri demetra 159, LDL 42. On 09/11/19, his total cholestero l was 113, HDL 38, triglyceri demetra 146, LDL 46. On 11/30/19, his total cholestero l was 111, HDL 39, triglyceri demetra 122, LDL 48. Hypertensive disorder 38 886219 I10 Antiplatel et agent therapy 016305413 Z79.02 Benign pro static hyperplasia without outflow obstruction 018134391 N40.0 On 09/11/19, patient reported benefit from tamsulosin and finasterid e in treating his urinary symptoms from BPH. Essential tremor 3816157 09 G25.0 Patient with history of essential tremor status post bilateral VIM DBS placement using [employer]tronic system in 07/[address] Delgadillo. Polyp of colon 75221095 K63.5 On 11/07/18, patient had a colonoscop y by Dr. Schmidt which revealed colon polyps. Pathology revealed tubular adenoma. Follow-up colonoscop y was recommende d in 1 year per patient report. Upper resp iratory infection 77819611 J06.9 On 11/27/19, patient reported having a nonproduct jae cough for the previous month. Patient denied any fever, chills, night sweats, or shortness of air. He reported having a history of seasonal allergies, but he had only been using his allergy medication sporadical ly. At that time, patient wanted to try a combinatio n of Zyrtec, Flonase, and Singulair. On 12/10/19, patient reported reported having a persistent non-produc tive cough. He denied any chest pain or shortness of air. At that time, patient requested a course of Keflex as this had helped previously . [id number] IRINA ROBINS MD [facility] [address] [place] [address] 12/18/2019 13:14:51 12/18/2019 14:51:20 Upper respiratory infection 25676334 J06.9 On 11/27/19, patient reported having a nonproduct jae cough for the previous month. Patient denied any fever, chills, night sweats, or shortness of air. He reported having a history of seasonal allergies, but he had only been using his allergy medication sporadical ly. At that time, patient wanted to try a combinatio n of Zyrtec, Flonase, and Singulair. On 12/10/19, patient reported reported having a persistent non-produc tive cough. He denied any chest pain or shortness of air. At that time, patient requested a course of Keflex as this had helped previously . On 12/10/19, patient had a chest x-ray which revealed no acute cardiopulm onary changes. On 12/17/19, patient had an ER evaluation persistent cough and wheeze. Patient was given a steroid injection and prescribed oral prednisone , doxycyclin e, Tessalon Perles, and an albuterol rescue inhaler. On 12/18/19, patient reported feeling a little better with the steroids, but he still had a cough. At that time, patient was referred for cambering machine operator evaluation of his allergies and pulmonolog y evaluation of his asthma. Seasonal allergy 1425777 04 J30.2 On 09/26/19, patient had a chest x-ray which revealed no acute cardiopulm onary changes. On 11/27/19, patient reported having a nonproduct jae cough for the previous month. Patient denied any fever, chills, night sweats, or shortness of air. He reported having a history of seasonal allergies, but he had only been using his allergy medication sporadical ly. At that time, patient wanted to try a combinatio n of Zyrtec, Flonase, and Singulair. On 12/10/19, patient reported reported having a persistent non-produc tive cough. He denied any chest pain or shortness of air. At that time, patient requested a course of Keflex as this had helped previously . On 12/10/19, patient had a chest x-ray which revealed no acute cardiopulm onary changes. On 12/17/19, patient had an ER evaluation persistent cough and wheeze. Patient was given a steroid injection and prescribed oral prednisone , doxycyclin e, Tessalon Perles, and an albuterol rescue inhaler. On 12/18/19, patient reported feeling a little better with the steroids, but he still had a cough. At that time, patient was referred for cambering machine operator evaluation of his allergies and pulmonolog y evaluation of his asthma. Asthma 980826789 J45.90 9 Primary er ectile dysfunction 023547466 N52.9 On 09/11/19, patient reported little benefit from Viagra in the past. On 11/27/19, patient requested urology evaluation for erectile dysfunctio n. Chest wall pain 29067254 6 R07.89 On 09/26/19, patient reported having right-side d chest wall pain. Patient reported the gradual onset of right-side d chest wall pain 2 weeks prior. Patient reported the pain was worse with deep breathing and with sitting. Patient stated that the pain improved with standing. Patient denied shortness of air. Patient denied any physical impact or trauma to his chest wall. Patient denied any exacerbati on of the pain with eating or with physical exertion. At that time, patient was sent for chest x-ray and prescribed Mobic as needed for pain. On 09/26/19, patient had a chest x-ray which revealed no acute cardiopulm onary changes. On 11/27/19, patient reported that his right-side d chest pain had resolved. Restless legs 34413057 G 25.81 On 09/11/19, patient reported benefit from gabapentin in treating his restless legs. 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 On 08/27/19, his A1c was 6.9. On 11/27/19, his A1c was 6.4. Hyperlipidemia 73561020 E78.5 On 02/05/19, his total cholestero l was 112, HDL 38, triglyceri demetra 159, LDL 42. On 09/11/19, his total cholestero l was 113, HDL 38, triglyceri demetra 146, LDL 46. On 11/30/19, his total cholestero l was 111, HDL 39, triglyceri demetra 122, LDL 48. Hypertensive disorder 38 558409 I10 Antiplatel et agent therapy 161606508 Z79.02 Benign pro static hyperplasia without outflow obstruction 109638269 N40.0 On 09/11/19, patient reported benefit from tamsulosin and finasterid e in treating his urinary symptoms from BPH. Essential tremor 2262112 09 G25.0 Patient with history of essential tremor status post bilateral VIM DBS placement using [employer]tronic system in 07/[address] Delgadillo. Polyp of colon 46505270 K63.5 On 11/07/18, patient had a colonoscop y by Dr. Schmidt which revealed colon polyps. Pathology revealed tubular adenoma. Follow-up colonoscop y was recommende d in 1 year per patient report. [id number] IRINA ROBINS MD [facility] [address] [place] [address] 12/28/2019 12:56:40 12/28/2019 14:40:19 Upper respiratory infection 84591259 J06.9 On 11/27/19, patient reported having a nonproduct jae cough for the previous month. Patient denied any fever, chills, night sweats, or shortness of air. He reported having a history of seasonal allergies, but he had only been using his allergy medication sporadical ly. At that time, patient wanted to try a combinatio n of Zyrtec, Flonase, and Singulair. On 12/10/19, patient reported reported having a persistent non-produc tive cough. He denied any chest pain or shortness of air. At that time, patient requested a course of Keflex as this had helped previously . On 12/10/19, patient had a chest x-ray which revealed no acute cardiopulm onary changes. On 12/17/19, patient had an ER evaluation persistent cough and wheeze. Patient was given a steroid injection and prescribed oral prednisone , doxycyclin e, Tessalon Perles, and an albuterol rescue inhaler. On 12/18/19, patient reported feeling a little better with the steroids, but he still had a cough. At that time, patient was referred for cambering machine operator evaluation of his allergies and pulmonolog y evaluation of his asthma. On 12/28/19, patient reported feeling much better, and stated that his cough and wheezing had resolved. Seasonal allergy 9391427 04 J30.2 On 09/26/19, patient had a chest x-ray which revealed no acute cardiopulm onary changes. On 11/27/19, patient reported having a nonproduct jae cough for the previous month. Patient denied any fever, chills, night sweats, or shortness of air. He reported having a history of seasonal allergies, but he had only been using his allergy medication sporadical ly. At that time, patient wanted to try a combinatio n of Zyrtec, Flonase, and Singulair. On 12/10/19, patient reported reported having a persistent non-produc tive cough. He denied any chest pain or shortness of air. At that time, patient requested a course of Keflex as this had helped previously . On 12/10/19, patient had a chest x-ray which revealed no acute cardiopulm onary changes. On 12/17/19, patient had an ER evaluation persistent cough and wheeze. Patient was given a steroid injection and prescribed oral prednisone , doxycyclin e, Tessalon Perles, and an albuterol rescue inhaler. On 12/18/19, patient reported feeling a little better with the steroids, but he still had a cough. At that time, patient was referred for cambering machine operator evaluation of his allergies and pulmonolog y evaluation of his asthma. On 12/28/19, patient reported feeling much better, and stated that his cough and wheezing had resolved. Asthma 622511394 J45.90 9 Primary er ectile dysfunction 164746498 N52.9 On 09/11/19, patient reported little benefit from Viagra in the past. On 11/27/19, patient requested urology evaluation for erectile dysfunctio n. Chest wall pain 97261791 6 R07.89 On 09/26/19, patient reported having right-side d chest wall pain. Patient reported the gradual onset of right-side d chest wall pain 2 weeks prior. Patient reported the pain was worse with deep breathing and with sitting. Patient stated that the pain improved with standing. Patient denied shortness of air. Patient denied any physical impact or trauma to his chest wall. Patient denied any exacerbati on of the pain with eating or with physical exertion. At that time, patient was sent for chest x-ray and prescribed Mobic as needed for pain. On 09/26/19, patient had a chest x-ray which revealed no acute cardiopulm onary changes. On 11/27/19, patient reported that his right-side d chest pain had resolved. Restless legs 97621546 G 25.81 On 09/11/19, patient reported benefit from gabapentin in treating his restless legs. 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 On 08/27/19, his A1c was 6.9. On 11/27/19, his A1c was 6.4. Hyperlipidemia 97271698 E78.5 On 02/05/19, his total cholestero l was 112, HDL 38, triglyceri demetra 159, LDL 42. On 09/11/19, his total cholestero l was 113, HDL 38, triglyceri demetra 146, LDL 46. On 11/30/19, his total cholestero l was 111, HDL 39, triglyceri demetra 122, LDL 48. Hypertensive disorder 38 510666 I10 Antiplatel et agent therapy 533901602 Z79.02 Benign pro static hyperplasia without outflow obstruction 838992056 N40.0 On 09/11/19, patient reported benefit from tamsulosin and finasterid e in treating his urinary symptoms from BPH. Essential tremor 5620088 09 G25.0 Patient with history of essential tremor status post bilateral VIM DBS placement using [employer] system in 07/[address] Delgadillo. Polyp of colon 30020222 K63.5 On 11/07/18, patient had a colonoscop y by Dr. Schmidt which revealed colon polyps. Pathology revealed tubular adenoma. Follow-up colonoscop y was recommende d in 1 year per patient report. [id number] RAPHAEL RANDLE MD [facility] [address] [place] [address] ,[address] [place] [address] 01/14/2020 13:12:05 01/15/2020 08:54:37 Allergic rhinitis 74315993 J30.9 Perennial with seasonal exacerbati on. we could not perform allergy skin testing due to recent zyrtec intake recommend blood IgE test continue Flonase 1 spray each nostril twice per day. continue zyrtec continue montelukas t daily consider allergy IT Adverse re action to drug 88216734 T50.905A avoid codein Chronic cough 59513581 R 05 asthma is very likely he has an appointmen t with Dr. Kahn in 4 days continue wixela daily combivent daily albuterol PRN Recurrent upper respiratory tract infection 684021252 J06.9 anti-aller gy as above recommend allergy IT if not improving Wheezing 62827492 R06.2 improving with oral prednisone [id number] BRYSON ALVARADO PA-C [facility] [address] [facility], [address] [place] [address] 01/18/2020 12:58:43 01/21/2020 08:54:19 Asthma 251421243 J45.909 overall, I am unsure if this is actually asthma. The fact that he is feeling better on his current medication s could indicate a component of reactive airway. He could also still have prednisone active in his body which is causing his symptoms to subside. For the time being, I will not adjust his inhalers. I would like to obtain a methacholi ne challenge test to determine if this is in fact a component of asthma. If not, I would like for him to have a CT of his chest. It may also be beneficial for him to have skin prick testing if the remainder of his pulmonary workup is unremarkab le. No desaturati on on room air with exertion today. Follow-up will be after methacholi ne challenge testing. Advised patient to contact the office sooner with any questions, concerns or to return of symptoms. [id number] MARCK VALENZUELA DO [facility] [address] [place] [address] 04/14/2020 12:27:40 04/14/2020 13:15:24 Asthma 643343085 J45.909 Stable,Due for methacholi ne challenge, reschedule d due to 's health Restless legs 71171100 G 25.81 Remains well controlled with prn Gabapentin use. Andrade and csa appropriat e. Erx refills. Will recheck in 3 months. Chronic ki dney disease 107379917 N18.9 Continue to avoid nephrotoxi c medication s, maintain adequate hydration Depressive disorder 3548 9007 F32.9 Stable Hypertensive disorder 38 935166 I10 Stable, continue current regimen Propranolo l, triamteren e hydrochlor othiazide. Unclear why no acei/arb. 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 Seasonal allergy 6876523 04 J30.2 Stable, Continue follow-up with Dr. 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 Continue current regimen. Due for diabetic eye exam which he prefers to have done with his ophthalmol ogist in [place]. Administra tion of influenza vaccine 50096829 Z23 [id number] MARCK VALENZUELA, DO [address] [place] [address] 05/14/2020 14:07:04 05/14/2020 15:24:59 Type 2 diabetes mellitus without complication 108395675 E11.9 Previously well controlled , fasting sugars remain typically around 100. Continue current regimen. Recheck A1c. Patient will return to provide urine sample for microalbum in Hypertensive disorder 38 804023 I10 Stable, continue current regimen Propranolo l, triamteren e hydrochlor othiazide. 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 Chronic ki dney disease 896575494 N18.9 Continue to avoid nephrotoxi c medication s, maintain adequate hydration Depressive disorder 3548 9007 F32.9 Stable despite increased stress of late with his 's health. He appears to be coping/ada pting well but this does clearly weigh on him. Has cancelled appointmen ts of his own because he is caring for her including follow up with Dr Schmidt Asthma 226950370 J45.90 9 Stable, Due for methacholi ne challenge, reschedule d due to 's health Adult heal th examination 333599643 Z00.00 Patient presented to office today for their Medicare Annual Wellness Visit. Wellness visit Questionna tabitha was reviewed and will be scanned into medical record. Depression screening was negative and no followup plan is needed. Education was provided on healthy nutrition, including a diet rich in fruits and vegetables , minimizing simple carbohydra eugenie, salt, and saturated fats. Encouraged regular cardiovasc ular exercise such as walking with goal of at least 30 minutes daily, 5 times per week. Emphasized preventive health measures and educated pt on fall prevention and community- based lifestyle interventi ons to help reduce health risks and promote healthy living. Screening for malignant neoplasm of prostate 562123093 Z12.5 Risks and benefits of screening reviewed including possible need for further testing if PSA is elevated. Polyp of colon 47698091 K63.5 Hx colon ca s/p resection. Colon polyps last year 10/2018. Cont f/u with Dr Schmidt Restless legs 78733509 G 25.81 Remains well controlled with prn Gabapentin use. Andrade and csa appropriat e. Erx refills. Will recheck in 3 months. Essential tremor 6931276 09 G25.0 Has DBS but often will not use when in public due to affecting his speech, particular ly S sounds. Good effect when he does use it at home. [id number] MARCK VALENZUELA, DO [facility] [address] [place] [address] 08/14/2020 12:57:20 08/14/2020 14:21:17 Hypertensive disorder 48128180 I10 Stable, continue current regimen Propranolo l, triamteren e hydrochlor othiazide. 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 Continue current regimen. Discussed that with weight loss and continued improvemen t of glycemic control may eventually need to back down on glyburide prevent fasting los. Monitor and call if any concerns. Familial c ombined hyperlipidemia 124935690 E78.49 Statin will tolerated, continue Restless legs 26630590 G 25.81 Remains well controlled with prn Gabapentin use. Andrade and csa appropriat e. Erx refills. Will recheck in 6 months. Allergic rhinitis 213222 04 J30.9 Stable [id number] JOSE WEISS MD DERMATOLO [facility] [address] [facility] ,[address] [place] [address] 12/05/2020 13:34:40 12/05/2020 14:21:42 History of malignant basal cell neoplasm of skin 892896305 Z85.828 Status post BCC on right sideburn - doing well History of squamous cell carcinoma in situ 2512438943 9105 Z86.008 Status post SCC on right inguinal crease - doing well Right inguinal crease - doing well Lentigo 917851856 L81.4 reassuranc e Recommende d Equate Ultra Sunscreen 30+ and sun protecting hats/cloth ing Neoplasm o f uncertain behavior of skin 86588514 D48.5 [place] of toe 67353092 L84 edu re padding 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 Did not have methacholi ne done. Difficulty scheduling is taking care of his sick . He reports doing very well over the last year with no asthma symptoms. No evidence of exacerbati on on exam today. He wishes to follow-up on an as-needed basis. He will have Dr. Valenzuela refill his medication s. Encouraged patient contact our office with any asthma exacerbati on symptoms or difficulty in managing asthma. [id number] MARCK VALENZUELA, FAM[facility]INE [facility] [address] [facility] [place] [address] 02/13/2021 12:56:21 02/13/2021 14:16:36 Disorder of nervous system due to type 2 diabetes mellitus 320537663 E11.49 Previous a1c 6.4. Diabetes remains well controlled per home monitoring , will recheck A1c.Contin ue Jardiance 25 mg qdCont Glimepirid e 4mg BIDCont actos 15mg qdCont Januvia 100mg qd Continue to work on carbohydra te control and work to lose 6 pounds he recently gained. Monitor and call if any concerns. Hypertensive disorder 38 534324 I10 Blood pressure remains well controlled . Continue Propranolo l, triamteren e hydrochlor othiazide. 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 Andrade and csa appropriat e. Refills not needed today. Will recheck in 6 months. Peripheral edema 7717570 00 R60.9 Discussed potential etiologies for peripheral edema, in his case feel this is most likely dependent edema. Work on losing weight he recently gained and continue to remain active. Elevate legs when resting and would recommend compressiv e stockings. Call or RTC if new/worsen ing symptoms [id number] JOSE WEISS MD [facility]ERMATOLO [facility] [address] [place] [address] 04/24/2021 14:03:03 04/24/2021 14:25:47 History of malignant basal cell neoplasm of skin 492400622 Z85.828 Status post BCC on right sideburn - doing well History of squamous cell carcinoma in situ 7453418807 9105 Z86.008 Status post SCC on right inguinal crease - doing well Lentigo 235138595 L81.4 reassuranc e Recommende d Equate Ultra Sunscreen 30+ and sun protecting hats/cloth ing Raised christine orrheic keratosis 6149067420 95981 L82.1 Reassuranc e and education regarding the disorder and options. [place] of toe 26670449 L84 edu re padding [id number] MARCK VALENZUELA, DO [facility] [address] [place] [address] 09/29/2021 13:07:55 09/29/2021 14:07:18 Disorder of nervous system due to type 2 diabetes mellitus 239112647 E11.49 Previous a1c 6.4. Diabetes remains well controlled per home monitoring , will recheck A1c.Contin ue Jardiance 25 mg qdCont Glimepirid e 4mg BIDCont actos 15mg qdCont Januvia 100mg qd Continue to work on carbohydra te control and work to lose 6 pounds he recently gained. Monitor and call if any concerns. Hypertensive disorder 38 193361 I10 Blood pressure remains well controlled . Continue Propranolo l, triamteren e hydrochlor othiazide. 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 Symptoms generally not bothersome , does use Advil on occasion with good effect when needed. Dog scratch 248526047 W5 4.8XXA Continue local wound care and monitor for new or worsening symptoms. Td updated today Benign pro static hyperplasia with outflow obstruction 041525421 N40.1 Recommend f/u with Dr Lorenz [id number] JOSE WEISS MD [facility]MATOLO [facility] [address] [place] [address] 03/22/2022 14:04:32 03/22/2022 14:49:20 History of malignant basal cell neoplasm of skin 953681103 Z85.828 Status post BCC on right sideburn - doing well History of squamous cell carcinoma in situ 8943962821 9105 Z86.008 Status post SCC on right inguinal crease - doing well Lentigo 443580460 L81.4 reassuranc e Recommende d Equate Ultra Sunscreen 30+ and sun protecting hats/cloth ing Raised christine orrheic keratosis 0422551983 99211 L82.1 Reassuranc e and education regarding the disorder and options. Inflamed s eborrheic keratosis 536988671 L82.0 LN x 1 [id number] MARCK VALENZUELA DO [facility] [address] [facility] [place] [address] 05/03/2022 12:24:17 05/03/2022 13:18:41 Adult health examination 314180753 Z00.00 Patient presented to office today for their Medicare Annual Wellness Visit.[facility] visit Questionna tabitha was reviewed and will be scanned into medical record. Depression screening was negative and no followup plan is needed. Education was provided on healthy nutrition, including a diet rich in fruits and vegetables , minimizing simple carbohydra eugenie, salt, and saturated fats. Encouraged regular cardiovasc ular exercise such as walking with goal of at least 30 minutes daily, 5 times per week. Emphasized preventive health measures and educated pt on fall prevention and community- based lifestyle interventi ons to help reduce health risks and promote healthy living. # PREVENTATI VE HEALTH Screening- -Colorecta l cancer screening: Hx colon ca s/p resection 1988. 11/07/18, TA, due f/u with Dr Schmidt scheduled for June 2022--HCV screen:[-- ]--HIV screen:[-- ]--PSA: 03/2022, 0.7 cont f/u with urology--C T lung cancer screening: Never smoker--AA A screening: Not indicated Disorder o f nervous system due to type 2 diabetes mellitus 501045174 E11.49 08/14/2020 6.4 % 02/18/2021 6.1 % 09/29/2021 6.6 % Diabetes remains well controlled per home monitoring , will recheck A1c.Contin ue Jardiance 25 mg qdCont Glimepirid e 4mg BIDCont actos 15mg qdCont Januvia 100mg qd Continue to work on carbohydra te control. Monitor and call if any concerns. Hypertensive disorder 38 785380 I10 Blood pressure remains well controlled . Continue Propranolo l, triamteren e hydrochlor othiazide. 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 Familial c ombined hyperlipidemia 959469256 E78.49 Statin well tolerated, continueGo al LDL with diabetes less than 70, previously at goal. Recheck FLP Administra tion of influenza vaccine 65206344 Z23 [id number] TERRI RAPP MD H[facility] [address] [place] [address] 06/08/2022 11:29:06 06/08/2022 13:58:53 [id number] KRISTINE BLUE MD OPHTHALMO [facility] [address] [place] [address] ,[address] [place] [address] 09/02/2022 14:06:20 09/02/2022 16:08:01 Pseudophakia 75941011 Z96.1 stable.mil d pco os Type 2 abhinav betes mellitus without complication 675097620 E11.9 no retinopath y ouI discussed diabetes with this patient. I discussed the importance of sugar control for reducing risk of diabetic complicati ons in the eyes. I recommend they follow up with their PCP/endocr inologist for continue sugar evaluation /managemen t. Also discussed importance of cardiovasc ular risk reduction. Call with changing/f luctuating vision. Posterior vitreous detachment 919598401 H43.819 Discussed vitreous detachment with the patient. 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 Continue to monitor. Hypertensive disorder 38 757799 I10 Blood pressure remains well controlled . Continue Propranolo l, triamteren e hydrochlor othiazide. Recommend monitoring blood pressure at home. Goal BP 130/80 Healthy diet and cardiovasc ular exercise encouraged with goal 150 minutes weekly. Sodium moderation recommenda tions reviewed. Depressive disorder 3548 9007 F32.9 Remains fairly well controlled . Still not interested in pharmacoth erapy. Knows to call or return if any concerns or worsening symptoms. Chronic ki dney disease stage 2 232787383 N18.2 Continued improvemen t in creatinine and GFR, baseline now averaging 1.1-1.2 with EGFR average 60-70 Continued control of diabetes and hypertensi on important. Continue to avoid anti-infla mmatoriesK eep well-hydra leslie. Type 2 abhinav betes mellitus 69913779 E11.22 E11.40 T2DM w/peripher al neuropathy , CKD2 08/14/2020 6.4 % 02/18/2021 6.1 % 09/29/2021 6.6 % 2 6.9 % 3 6.4 % Diabetes remains well controlled per home monitoring Continue Jardiance 25 mg qdCont Glimepirid e 4mg BIDCont actos 15mg qdCont Januvia 100mg qd Continue to work on carbohydra te control. Monitor and call if any concerns.W eight loss would be beneficial Morbid obesity 564174885 E66.01 Morbid obesity as evidenced by BMI greater than 35 with comorbid diabetes, hypertensi on. Reviewed importance of healthy diet, lifestyle and exercise changes to achieve healthy weight. Will continue to monitor. [id number] MARCK VALENZUELA DO [address] [place] [address] 12/01/2022 13:31:43 12/01/2022 14:33:39 Fatigue 69536727 R53.83 Discussed potential etiologies including normal age-relate d changes as well as effects from depression .We discussed strong likelihood that he does have low testostero ne but that at 82 I would not recommend testostero ne replacemen t for him. He is interested in knowing what his testostero ne is but agrees that he would not want testostero ne replacemen t. Dysuria 67036482 R30.0 Urinalysis is normal Reduced libido 4074477 R 68.82 Previous benefit from Viagra, lately not as helpful. Depressive disorder 3548 9007 F32.9 Modest control, Still not interested in pharmacoth erapy.Know s to call or return if any concerns or worsening symptoms. [id number] JOSE WEISS MD DERMATOLO GY [facility] [address] [facility] [address] [place] [address] 01/21/2023 13:25:08 01/21/2023 14:21:35 History of malignant basal cell neoplasm of skin 102058719 Z85.828 Status post BCC on right sideburn - doing well History of squamous cell carcinoma in situ 5592298641 9105 Z86.008 Status post SCC on right inguinal crease - doing well Lentigo 007032558 L81.4 reassuranc e Recommende d Equate Ultra Sunscreen 30+ and sun protecting hats/cloth ing Raised christine orrheic keratosis 8374245457 36867 L82.1 Reassuranc e and education regarding the disorder and options. Inflamed s eborrheic keratosis 899916501 L82.0 LN x 1 [id number] MARCK VALENZUELA DO [address] [place] [address] 05/11/2023 13:29:53 05/11/2023 15:39:03 Hypertensive disorder 37092693 I10 Blood pressure remains well controlled . Continue Propranolo l, triamteren e hydrochlor othiazide. Recommend monitoring blood pressure at home. Goal BP 130/80Heal thy diet and cardiovasc ular exercise encouraged with goal 150 minutes weekly.Sod ium moderation recommenda tions reviewed. Hyperlipidemia 91786421 E78.5 Lipitor well-cezar ated, continue.R echeck FLP Chronic ki dney disease stage 2 608186898 N18.2 Continued improvemen t in creatinine and GFR, baseline now averaging 1.1-1.2 with EGFR average 60-70 Continued control of diabetes and hypertensi on important. Continue to avoid anti-infla mmatoriesK eep well-hydra leslie. Type 2 abhinav betes mellitus 22677976 E11.22 E11.40 T2DM w/peripher al neuropathy , CKD2 08/14/2020 6.4 % 02/18/2021 6.1 % 09/29/2021 6.6 % 2 6.9 % 3 6.4 % 3 6.1 % Diabetes remains well controlled Continue Jardiance 25 mg qdCont Glimepirid e 4mg BIDCont actos 15mg qdCont Januvia 100mg qd On statinNo ACEI/ARB Continue to work on carbohydra te control. Monitor and call if any concerns.C ontinued intentiona l weight loss would be beneficial Monoclonal B-cell lymphocytosis 023399660 D72.820 4% monoclonal B Lymphocyte s, asymp. Continue to monitor Depressive disorder 3548 9007 F32.9 Remains fairly well controlled . Still not interested in pharmacoth erapy.Know s to call or return if any concerns or worsening symptoms. Morbid obesity 198107371 E66.01 Morbid obesity as evidenced by BMI greater than 35 with comorbid diabetes, hypertensi on.Reviewe d importance of healthy diet, lifestyle and exercise changes to achieve healthy weight. Will continue to monitor. Administra tion of influenza vaccine 29379248 Z23 [id number] SUHA PHILLIP MD [facility] [address] [place] [address] 05/17/2023 13:11:18 05/17/2023 14:12:31 Microscopic hematuria 585230132 R31.29 Benign pro static hyperplasia with outflow obstruction 396987532 N40.1 [id number] SUHA PHILLIP MD SURGERY SCHEDULE [address] [place] [address] 05/30/2023 06:53:18 05/30/2023 06:53:44 [id number] MARCK VALENZUELA, [facility] [address] [place] [address] 06/22/2023 13:29:09 06/22/2023 15:22:53 Adult health examination 814872336 Z00.00 Patient presented to office today for their Medicare Annual Wellness Visit.Well [facility] visit Questionna tabitha was reviewed and will be scanned into medical record. Depression screening was negative and no followup plan is needed. Education was provided on healthy nutrition, including a diet rich in fruits and vegetables , minimizing simple carbohydra eugenie, salt, and saturated fats. Encouraged regular cardiovasc ular exercise such as walking with goal of at least 30 minutes daily, 5 times per week. Emphasized preventive health measures and educated pt on fall prevention and community- based lifestyle interventi ons to help reduce health risks and promote healthy living. # PREVENTATI VE HEALTH Screening- -Colorecta l cancer screening: Hx colon ca s/p resection 1988. 12/2022 polyp, poor prep, rec 1y f/u Dr Schmidt--HCV screen:[-- ]--HIV screen:[-- ]--PSA: 03/2022, 0.7 cont f/u with urology--C T lung cancer screening: Never smoker--AA A screening: Not indicated Hypertensive disorder 38 784815 I10 Blood pressure remains well controlled . Continue Propranolo l, triamteren e hydrochlor othiazide. Recommend monitoring blood pressure at home. Goal BP 130/80Heal thy diet and cardiovasc ular exercise encouraged with goal 150 minutes weekly.Sod ium moderation recommenda tions reviewed. Hyperlipidemia 48654037 E78.5 Lipitor well-cezar ated, continue.R echeck FLP Type 2 abhinav betes mellitus 89737947 E11.22 E11.40 T2DM w/peripher al neuropathy , CKD2 08/14/2020 6.4 % 02/18/2021 6.1 % 09/29/2021 6.6 % 2 6.9 % 3 6.4 % 3 6.1 %MACR wnl 04/2022 Diabetes remains well controlled Continue Jardiance 25 mg qdCont Glimepirid e 4mg BIDCont actos 15mg qdCont Januvia 100mg qd On statinNo ACEI/ARB Continue to work on carbohydra te control. Monitor and call if any concerns.C ontinued intentiona l weight loss would be beneficial Chronic ki dney disease stage 2 620862349 N18.2 Continued improvemen t in creatinine and GFR, baseline now averaging 1.1-1.2 with EGFR average 60-70 Continued control of diabetes and hypertensi on important. Continue to avoid anti-infla mmatoriesK eep well-hydra leslie. Monoclonal B-cell lymphocytosis 709758484 D72.820 4% monoclonal B Lymphocyte s, asymp. Continue to monitor Obesity 039178680 E66.9 Reviewed importance of healthy diet, lifestyle and exercise changes to achieve healthy weight. Will continue to monitor. Allergy to penicillin 91 527863 Z88.0 Will refer to cambering machine operator for consultati on Thrombocyt openic disorder 921572380 D69.6 Recent mild thrombocyt openia with platelets ranging 100-150K in recent years. This has been slowly declining over the last decade. Continue to monitor and if persistent decline further evaluation will be warranted Recurrent major depression in partial remission 49352228 F33.41 Remains fairly well controlled . Still not interested in pharmacoth erapy.Know s to call or return if any concerns or worsening symptoms. Atheroscle rosis of aorta 74265754 I70.0 Atheroscle rosis of aorta noted on imaging. Continue aspirin and statin. Continue adequate blood pressure control. [id number] SUHA PHILLIP MD [facility] [address] [place] [address] 07/05/2023 13:49:05 07/05/2023 14:03:23 Benign prostatic hyperplasia with outflow obstruction 484392707 N40.1 Primary er ectile dysfunction 758023637 N52.9 [id number] MARCK VALENZUELA, FAMILY MED[facility]INE [address] [place] [address] 09/05/2023 13:45:03 09/05/2023 15:02:05 Post-acute COVID-19 5362224725 U09.9 Discussed potential etiologies for his symptoms including lingering inflammato ry effects from COVID versus more concerning changes such as cardiopulm onary manifestat ions of COVID including myopericar ditis. Fortunatel y clinically he looks well but further investigat ion it is warranted. I would recommend labs and chest x-ray today and pending results will consider echo/stres s testing. Dyspnea on exertion 6084 5006 R06.09 Continue to monitor closely and if progressiv e symptoms call or return. Indication s for emergent evaluation reviewed. Asymmetric al sensorineural hearing loss 464917524 H90.5 Discussed that this may be SSNHL secondary to COVID however he is likely outside the window of benefit for treatment with GC as it has been nearly 8 weeks. He has an appointmen t arranged with Dr. Garcia but not until September. We will try to get him seen sooner if able. [id number] KRISTINE BLUE MD OPHTHALMO LOGY [address] [place] [address] 09/05/2023 15:03:10 09/05/2023 16:48:22 Type 2 diabetes mellitus without complication 118980352 E11.9 no retinopath y ouI discussed diabetes with this patient. I discussed the importance of sugar control for reducing risk of diabetic complicati ons in the eyes. I recommend they follow up with their PCP/endocr inologist for continue sugar evaluation /managemen t. Also discussed importance of cardiovasc ular risk reduction. Call with changing/f luctuating vision. Bilateral pseudophakia [id number] 7803928 Z96.1 After-nory ract with vision obscured following extraction of cataract 261864699 H26.499 progressed os - rec yag laser osscheudle [id number] KRISTINE BLUE MD OPHTHALMO LOGY [address] [place] [address] 09/14/2023 12:38:27 09/14/2023 15:06:59 After-cataract with vision obscured following extraction of cataract 522316581 H26.499 r/b/a discussedp roceed with yag os po check - excellentr d si/sx discussed2 week po dil os [id number] RAPHAEL RANDLE MD ALLERGY [address] [facility] [address] [place] [address] 09/27/2023 14:03:18 09/28/2023 04:36:19 Adverse reaction to drug 75303799 T50.905A avoid codein Persistent cough 0998180 02 R05.3 likely due to post nasal drip and recent infections Recurrent acute sinusitis 753739133 J01.91 anti-aller gy as above Chronic rhinitis 8917252 6 J31.0 blood IgE test showed negative enviroment al allergyrec ommend to use flonase dailyok to use zyrtec PRN Allergy to penicillin 91 916126 Z88.0 No IgE mediated reaction to penicillin , OK to have penicillin , amoxicilli n and augmentin- Diagnostic testing was explained, risk and benefits were discussed, patient agreed with the plan.- Skin testing was done with Pre-Pen and Pen G. Testing was negative with good negative and positive control. Both Pre-Pen and Gladys were Negative.- A graded challenge of 250 mg of amoxicilli n was performed in the office and the patient tolerated it well with out ANY subjective or objective reaction.- discussed the possibilit y of a delayed reaction and contact office if this happens- As far as his penicillin allergy is concerned, negative skin test and challenge indicates no penicillin allergy. This holds true for IgE mediated reactions to penicillin , and this testing/ch allenge cannot predict future non IgE mediated or idosyncrat ic reactions. However he has similar risk to develop those adverse reactions as general population . Explained to the patient as well. Moderate p ersistent asthma [id number] J45.40 continue Fluticason e-salmeter ol 250/50 1 puff BID, rinse mouth after usecontinu e singulair dailyalbut fernanda PRN [id number] KRISTINE BLUE MD [facility] [address] [address] 09/28/2023 12:55:14 09/28/2023 14:01:29 After-cataract with vision obscured following extraction of cataract [id number] H26.499 excellents table post examrd si/sx dsicussed1 year dm, pp, pvd exam [id number] SUHA PHILLIP MD [facility] [address] [place] [address] 07/03/2024 14:40:25 07/03/2024 15:48:12 Benign prostatic hyperplasia with outflow obstruction [id number] N40.1 Health Concerns Section Related Observation LastModified by Organization Detai ls LastModified Time None Recorded Concern Status LastModified by Organization Details LastModified Time None Recorded Advance Directives Directive None Recorded Payers Encounter Date Sequence Insurance Name Policy Number Policy Isaac Covered Member ID Isaac Member ID Guarantor Name 09/05/2023 1 [employer] (MEDICARE REPLACEMENT/A DVANTAGE - PPO) Jinny Oconnor Anastasia [id number] Jinny L Anastasia 09/14/2023 1 [employer] (MEDICARE REPLACEMENT/A DVANTAGE - PPO) Jinny Oconnor [place] [id number] Jinny Oconnor [place] 09/27/2023 1 [employer] (MEDICARE REPLACEMENT/A DVANTAGE - PPO) Jinny Oconnor [place] [id number] Jinny L Anastasia 09/28/2023 1 [employer] (MEDICARE REPLACEMENT/A DVANTAGE - PPO) Jinny Diamondwell [id number] Jinny Diamondwell 07/03/2024 1 [employer] (MEDICARE REPLACEMENT/A DVANTAGE - PPO) Jinny Oconnor Anastasia [id number] Jinny Diamodnwell Notes Date Note Type Note Provider Name and Address Organization Details Recorded Time 09/05/2023 text/html This is a [facility] 83-year-old male presenting for follow-up.He had COVID in June as did his and he reports significant difficulty with fatigue, body ache, cough and breathing.The majority of his symptoms have improved but he remains still quite tired and short of breath on exertion.He denies chest pain or pressure, lightheadedness, syncope or near syncope, palpitations.In addition to his shortness of breath he has had dizziness as well as hearing and vision changes from baseline.He denies numbness, tingling, focal weakness. He does believe since June his symptoms are improving albeit very slowly.At rest he feels comfortable but short of breath after walking as little as 20 feet. Denies recent weight changes, peripheral edema, orthopnea, abdominal pain, nausea vomiting diarrhea. MARCK VALENZUELA DO [address] [place] [address], [phone], [facility] 09/05/2023 14:56:48 09/27/2023 text/html Mr. Rubio is a 83 years old {{female male*}} who is being seen in consultation for allergy at the request of Dr. Valenzuela. Penicillin allergy: he reports penicillin when he was young. He is not sure what kind of reaction he had before. His urologist told him that he had penicillin allergy. He avoids penicillin for many years. He was diagnosed with pneumonia 2 weeks ago and was treated with z-pack. He would like to know if he is still allergic to penicillin. Chronic rhinitis: Patient has symptoms including nasal congestion, rhinorrhea, sneezing, watery eyes, post nasal drip and cough. He had blood IgE test done with negative results. Patient tried zyrtec, flonase with some help.sinus or throat Infections: 1-2 times per yearSymptoms triggers: pollenSeasonal pattern: all year round Asthma: Patient has been diagnosed with asthma for several years. Asthma symptoms include cough, wheezing, shortness of breath. Asthma triggers include exercise, allergy, infection, weather change, strong smell etc. Current regimen: Advair daily, Albuterol prn and Singulair once daily . Current symptoms:- coughing - Yes- night time cough NO- wheezing sometimes- exercise limitation Yes- shortness of breath sometimesLast time used short-term beta agonist was:In the last 6 months:0 Hospitalizations0 ER visits0 oral steroid use GERD: no symptoms of heart burn, no hx of anti-acid medication useFamily history: History provided by patientNasal/Ocular: see aboveRespiratory: {{see above* no hx of asthma}}Skin: {{see above* no hx of eczema}} Food: {{see above no hx of food allergy*}}Insect: no hx of anaphylaxis with insect stingsInfection Hx: {{see above* no recurrent infections}} RAPHAEL RANDLE MD [address] [place] [address], [phone], [facility] 09/27/2023 16:40:28 07/03/2024 text/html He is back for follow-up of BPH. He is on tamsulosin and finasteride. For the most part he voids without difficulty. There is no hematuria or dysuria. He has some hesitancy and a weak stream but denies any urgency or incontinence. He has nocturia 1-2 times per night. Has been diagnosed to have leukemia. He has been having problems with anemia he had coronary stents placed last provide PSA is 0.25 SUHA PHILLIP MD [address] [place], [address], [facility] 07/03/2024 15:48:48
--- OUTSIDE RECORDS SUMMARY | 2024-11-13 12:10 | XMS_ITS | Data Portability ---
Author Organization [facility] Address [address] [place] [address] Care Team Providers Care Slurry Blender Name Role Phone MIRNA VALENZUELA Primary Care Provider [phone] MIRNA VALENZUELA Referring Provider Assessment Encounter Date Assessment Date Assessment LastModified by Organization Details LastModified Time 06/08/2022 06/08/2022 An 82 years old male with very good performance status, he was noticed that elevated monocyte with normal total white blood cells and no other abnormalities on his CBC Assessment: Monocytosis -Mild -No B symptoms -No cytopenias Recommendation: Today, I reviewed available medical records, labs, CBC and and obtain detailed H&P I have have medical discussion with the patient about the differential diagnosis and likely causes of his elevated monocyte which is likely reactive giving the fluctuation and no other abnormality seen, however cannot completely rule out primary hematological disorder like CMML, but with absence of anemia or other abnormalities there would be no indication for treatment Discussed with the patient given his age it would be reasonable to monitor at this point Recheck his CBC and will check flow cytometric Follow-up in 3 to 4 months with CBC Reassured him and answered all his questions, he verbalized understanding and agreement Thank you for allowing me to precipitate in this patient's care, please call with any questions kevin Not available 06/08/2022 13:02:15 11/09/2022 11/09/2022 An 82 years old male with very good performance status, he was noticed that elevated monocyte with normal total white blood cells and no other abnormalities on his CBC Assessment: 1. Monoclonal B-cell lymphocytosis 2. Monocytosis -Mild -No B symptoms -No cytopenias Recommendation: - I reviewed available medical records, labs, CBC and and obtained detailed H&P - I had lengthy discussion with the patient about the differential diagnosis and likely causes of his elevated monocyte which is likely reactive giving the fluctuation and no other abnormality seen, however cannot completely rule out primary hematological disorder like CMML, but with absence of anemia or other abnormalities there would be no indication for treatment Discussed with the patient given his age it would be reasonable to monitor at this point -I reviewed and discussed his blood work including flow cytometry which showed 4% of monoclonal B lymphocyte, with absence of B symptoms of lymph nodes this is consistent with monoclonal B-cell lymphocytosis -Today I reviewed and discussed his CBC and flow cytometry from November 04, 2022, CBC showed no evidence of cytopenia, stable mild monocytosis and flow cytometry showed 4% monoclonal B cells -Will continue to monitor, follow-up in 6 months or sooner if needed, discussed with the patient and his , they stated that he will follow with Dr. Valenzuela and return here if there is any significant changes Reassured him and answered all his questions, he verbalized understanding and agreement kevin Not available 11/09/2022 11:20:30 Plan of Treatment Reminders Order Date Submit Date Provider Last Modified By Organization Details Last Modified Time Details Appointments LEVEL 2 2024 02:15P M KRISTINE BLUE MD Not available Not available Not available RECHECK 2024 01:00P M SUHA PHILLIP MD Not available Not available Not available Lab None recorded . Referral None recorded . Procedures None recorded . Surgeries None recorded . Imaging None recorded . Medication Orders None recorded . Patient TargetsNo targets recorded. Patient InstructionsNo instructions recorded. Reason for Referral None Reported. Results Created Date Observation Date Name Description Value Unit Range Abnormal Flag Note LastModifiedBy Organization Detail LastModifiedTime 06/08/20 22 06/08/2022 COMP. METAB OLIC PANEL glucose 205 mg/dL 74-100 high Not Available [facility] [address] [place], [address], 06/08/2022 20:11:11 06/08/20 22 06/08/2022 COMP. METAB OLIC PANEL blood urea nitrogen 23 mg/dL 6-20 high Not Available [facility] [address] [place], [address], 06/08/2022 20:11:11 06/08/20 22 06/08/2022 COMP. METAB OLIC PANEL creatinine 1.18 mg/dL 0.70-1 .28 normal Not Available [facility] [address] [place] [address], [address], 06/08/2022 20:11:11 06/08/20 22 06/08/2022 COMP. METAB OLIC PANEL BUN/creatini ne ratio 19 (calc ) 10-20 normal Not Available [facility] [address] [place] [address], [address], 06/08/2022 20:11:11 06/08/20 22 06/08/2022 COMP. METAB OLIC PANEL sodium 139 mmol/ L 136-14 5 normal Not Available [facility] [address] [place] [address], [address], 06/08/2022 20:11:11 06/08/20 22 06/08/2022 COMP. METAB OLIC PANEL potassium 3.9 mmol/ L 3.4-5. 0 normal Not Available [facility] [address] [place] [address], [address], 06/08/2022 20:11:11 06/08/20 22 06/08/2022 COMP. METAB OLIC PANEL chloride 98 mmol/ L 98-107 normal Not Available [facility] [address] [place] [address], [address], 06/08/2022 20:11:11 06/08/20 22 06/08/2022 COMP. METAB OLIC PANEL carbon dioxide 26 mmol/ L 22-31 normal Not Available [facility] [address] [place] [address], [address], 06/08/2022 20:11:11 06/08/20 22 06/08/2022 COMP. METAB OLIC PANEL anion gap 15 (calc ) 7-25 normal Not Available [facility] [address] [place] [address], [address], 06/08/2022 20:11:11 06/08/20 22 06/08/2022 COMP. METAB OLIC PANEL calcium 9.4 mg/dL 8.6-10 .2 normal Not Available [facility] [address] [place] [address], [address], 06/08/2022 20:11:11 06/08/20 22 06/08/2022 COMP. METAB OLIC PANEL total protein 6.7 g/dL 6.4-8. 3 normal Not Available [facility] [address] [place] [address], [address], 06/08/2022 20:11:11 06/08/20 22 06/08/2022 COMP. METAB OLIC PANEL albumin 4.2 g/dL 3.5-5. 2 normal Not Available [facility] [address] [place] [address], [address], 06/08/2022 20:11:11 06/08/20 22 06/08/2022 COMP. METAB OLIC PANEL globulin 2.5 g/dL_ (calc ) 1.5-4. 5 normal Not Available [facility] [address] [place] [address], [address], 06/08/2022 20:11:11 06/08/20 22 06/08/2022 COMP. METAB OLIC PANEL albumin/glob ulin ratio 1.7 (calc ) 1.1-2. 5 normal Not Available [facility] [address] [place] [address], [address], 06/08/2022 20:11:11 06/08/20 22 06/08/2022 COMP. METAB OLIC PANEL bilirubin, total 0.7 mg/dL 0.1-1. 2 normal Not Available [facility] [address] [place] [address], [address], 06/08/2022 20:11:11 06/08/20 22 06/08/2022 COMP. METAB OLIC PANEL alkaline phosphatase 104 U/L 40-129 normal Not Available [facility] [address] [place], [address], 06/08/2022 20:11:11 06/08/20 22 06/08/2022 COMP. METAB OLIC PANEL AST 13 U/L 0-40 normal Not Available [facility] [address] [place], [address], 06/08/2022 20:11:11 06/08/20 22 06/08/2022 COMP. METAB OLIC PANEL ALT 12 U/L 0-41 normal Not Available [facility] [address] [place], [address], 06/08/2022 20:11:11 06/08/20 22 06/08/2022 COMP. METAB OLIC PANEL GFR 62 >= 60 normal NOT E New calcu latio n for GFR (CKD- EPI 2020) is formu lated witho ut race adjus tment facto rs at the recom menda tion of the [place] [employer] Found at[employer]ie and [employer] of Nephr ology . This calcu latio n has not been valid ated in pregn ant women . For pedia tric patie nts refer to https ://francheska naranjo.o rg/erin trejo s/KDO QI/gf r_cal culat orPed Not Available [facility] [address] [place], [address], 06/08/2022 20:11:11 06/08/20 22 06/08/2022 LDH LDH 189 U/L 135-22 5 normal Not Available [facility] [address] [place], [address], 06/08/2022 20:11:12 06/08/20 22 06/08/2022 COMPL ETE BLOOD COUNT white blood cells 7.2 K/uL 3.8-10 .8 normal Not Available [facility] [address] [place], [address], 06/08/2022 20:23:37 06/08/20 22 06/08/2022 COMPL ETE BLOOD COUNT red blood cells 5.29 M/uL 4.20-5 .80 normal Not Available [facility] [address] [place] [address], [address], 06/08/2022 20:23:37 06/08/20 22 06/08/2022 COMPL ETE BLOOD COUNT hemoglobin 15.9 g/dL 14.0-1 8.0 normal Not Available [facility] [address] [place] [address], [address], 06/08/2022 20:23:37 06/08/20 22 06/08/2022 COMPL ETE BLOOD COUNT hematocrit 47.1 % 40.0-5 2.0 normal Not Available [facility] [address] [place] [address], [address], 06/08/2022 20:23:37 06/08/20 22 06/08/2022 COMPL ETE BLOOD COUNT MCV 89 fL 80-100 normal Not Available [facility] [address] [place] [address], [address], 06/08/2022 20:23:37 06/08/20 22 06/08/2022 COMPL ETE BLOOD COUNT MCH 30 pg 26-35 normal Not Available [facility] [address] [place] [address], [address], 06/08/2022 20:23:37 06/08/20 22 06/08/2022 COMPL ETE BLOOD COUNT MCHC 34 g/dL 32-36 normal Not Available [facility] [address] [place] [address], [address], 06/08/2022 20:23:37 06/08/20 22 06/08/2022 COMPL ETE BLOOD COUNT RDW 14.0 % 11.0-1 5.0 normal Not Available [facility] [address] [place] [address], [address], 06/08/2022 20:23:37 06/08/20 22 06/08/2022 COMPL ETE BLOOD COUNT MPV 9.3 fL 6.2-10 .5 normal Not Available [facility] [address] [place] [address], [address], 06/08/2022 20:23:37 06/08/20 22 06/08/2022 COMPL ETE BLOOD COUNT platelet count 132 K/uL 130-40 0 normal Not Available [facility] [address] [place] [address], [address], 06/08/2022 20:23:37 06/08/20 22 06/08/2022 COMPL ETE BLOOD COUNT neutrophil,a bsolute 3.5 K/uL 1.6-8. 4 normal Not Available [facility] [address] [place] [address], [address], 06/08/2022 20:23:37 06/08/20 22 06/08/2022 COMPL ETE BLOOD COUNT lymphocyte,a bsolute 2.1 K/uL 0.4-5. 1 normal Not Available [facility] [address] [place] [address], [address], 06/08/2022 20:23:37 06/08/20 22 06/08/2022 COMPL ETE BLOOD COUNT monocyte,abs olute 1.4 K/uL 0.0-1. 2 high Not Available [facility] [address] [place] [address], [address], 06/08/2022 20:23:37 06/08/20 22 06/08/2022 COMPL ETE BLOOD COUNT eosinophil,a bsolute 0.1 K/uL 0.0-0. 8 normal Not Available [facility] [address] [place] [address], [address], 06/08/2022 20:23:37 06/08/20 22 06/08/2022 COMPL ETE BLOOD COUNT basophil,abs olute 0.1 K/uL 0.0-0. 3 normal Not Available [facility] [address] [place] [address], [address], 06/08/2022 20:23:37 06/08/20 22 06/08/2022 COMPL ETE BLOOD COUNT % neutrophils 48.8 % 42.0-7 8.0 normal Not Available [facility] [address] [place] [address], [address], 06/08/2022 20:23:37 06/08/20 22 06/08/2022 COMPL ETE BLOOD COUNT % lymphocytes 29.6 % 11.0-4 7.0 normal Not Available [facility] [address] [place] [address], [address], 06/08/2022 20:23:37 06/08/20 22 06/08/2022 COMPL ETE BLOOD COUNT % monocytes 19.4 % 0.0-11 .0 high Not Available [facility] [address] [place] [address], [address], 06/08/2022 20:23:37 06/08/20 22 06/08/2022 COMPL ETE BLOOD COUNT % eosinophils 1.3 % 0.0-7. 0 normal Not Available [facility] [address] [place] [address], [address], 06/08/2022 20:23:37 06/08/20 22 06/08/2022 COMPL ETE BLOOD COUNT % basophils 0.9 % 0.0-3. 0 normal Not Available [facility] [address] [place] [address], [address], 06/08/2022 20:23:37 06/08/20 22 06/08/2022 COMPL ETE BLOOD COUNT nucleated red cells 0.1 % 0.0-0. 9 normal Not Available [facility] [address] [place] [address], [address], 06/08/2022 20:23:37 06/08/20 22 06/08/2022 COMPL ETE BLOOD COUNT nucleated RBCs, absolute 0.00 K/uL not estab. normal Not Available [facility] [address] [place], [address], 06/08/2022 20:23:37 06/08/20 22 06/11/2022 FLOW CYTOM ETRY pathologist SEE NOTE normal Revie wed by Tommie Abdullahi M.D. (Dire ct phone [phone] for physi li- to-ph ysici an calls ) Not Available [facility] [address] [place], [address], 06/14/2022 08:24:19 06/08/20 22 06/11/2022 FLOW CYTOM ETRY viability 91 % normal Not Available [facility] [address] [place], [address], 06/14/2022 08:24:19 06/08/20 22 06/11/2022 FLOW CYTOM ETRY interpretati on SEE NOTE normal 5% MONOC LONAL B-JOHN LS DETEC FRAN. MONOC YTOSI S WITH ABERR ANT PARTI AL EXPRE SSION OF CD56. (SEE COMME NT) Comme nt: An abnor mal B-john l popul ation is prese nt which compr ises 5% of the CD45- posit mikala leuko cytes . The flow cytom etry resul ts show a subse t of B-john l popul ation with lambd a light chain restr ictio n, witho ut signi fican t CD5, CD10 or CD11c expre ssion , consi stent with clona l B-john l lymph oprol ifera tive disor yung. The findi ngs may repre sent monoc lonal B-john l lymph ocyto sis of undet ermin ed signi fican ce, or possi harsh low-l evel invol vemen t of a syste naga B-john l lymph oprol ifera tive disor yung such as marichuy nal zone lymph elpidio, lymph oplas macyt ic lymph elpidio, and other chron ic B-john l lymph oprol ifera tive disor yung. T-john ls show no loss of buchanan-T antig ens. Monoc ytosi s is noted and the cells are parti ally posit mikala for CD56. The findi ngs are not speci fic, can be seen in a varie ty of react mikala condi tions inclu ding chron ic infec tions , infla mmati on, autoi mmune disor ders and many other react mikala condi tions , howev er, if there is persi stent monoc ytosi s witho ut ident ifiab le cause , a myelo id disor yung shoul d be inves tigat ed. Corre latio n with clini siena histo ry, morph ology , and other diagn ostic infor matio n is neces faby for diagn osis. This resul t was revie wed and inter prete d by Tommie Abdullahi M.D. Not Available [facility] [address] [place] [address], [address], 06/14/2022 08:24:19 06/08/20 22 06/11/2022 FLOW CYTOM ETRY sample description SEE NOTE normal The sampl e consi sts of 50% granu locyt ic cells , 34% lymph ocyto id cells , and 14% monoc ytoid cells . Not Available [facility] [address] [place], [address], 06/14/2022 08:24:19 06/08/20 22 06/11/2022 FLOW CYTOM ETRY gating strategy SEE NOTE normal Gatin g in the speci men was perfo rmed on the cell popul ation that resem bles lymph ocyte s and was based on CD45 (buchanan leuko cyte fluor escen t inten sity) vs. side scatt er (inte rnal compl exity ). Not Available [facility] [address] [place], [address], 06/14/2022 08:24:19 06/08/20 22 06/11/2022 FLOW CYTOM ETRY markers SEE NOTE normal Regio n B CD Marke r %Posi tibreanne Ma rn (abno rmal cells ) ----- ----- -- ----- ---- ----- ----- ----- - CD2 85 NEGAT MIKALA CD3 83 NEGAT MIKALA CD4 64 NEGAT MIKALA CD5 80 NEGAT MIKALA CD7 57 NEGAT MIKALA CD8 24 NEGAT MIKALA CD10 0 NEGAT MIKALA CD11c 8 NEGAT MIKALA CD13 1 NEGAT MIKALA CD19 15 MODER ATE CD19+ CD5+ 0 ABSEN T CD20 15 BRIGH T CD23 1 NEGAT MIKALA CD33 0 NEGAT MIKALA CD34 0 NEGAT MIKALA CD38 10 NEGAT MIKALA CD45 100 BRIGH T CD56+ CD3- 1 NEGAT MIKALA CD64 0 NEGAT MIKALA CD117 0 NEGAT MIKALA HLA_D R 19 BRIGH T Beatrice CD19+ 14 NEGAT MIKALA Lambd a CD19+ 86 BRIGH T K/L Ratio 0.2 MONOC LONAL This test was devel oped and its willy tical perfo rmanc e edward cteri stics have been deter mined by [facility] [employer] . It has not been clear ed or appro anil by FDA. This assay has been valid ated pursu ant to the CLIA regul ation s and is used for clini siena purpo ses. Not Available [facility] [address] [place] [address], [address], 06/14/2022 08:24:19 06/08/20 22 06/11/2022 FLOW CYTOM ETRY # of markers 22 normal TEST PERFO RMED AT: [facility] [address] [address] [facility] [place] [address] Oracio BLANKENSHIP,PHD ,BEATRICE Not Available [facility] [address] [place] [address], [address], 06/14/2022 08:24:19 11/05/19 23 11/04/2022 LDH LDH 179 U/L 135-22 5 normal Not Available [facility] [address] [place] [address], [address], 11/04/2022 19:24:57 11/05/19 23 11/04/2022 COMP. METAB OLIC PANEL glucose 161 mg/dL 74-100 high Not Available [facility] [address] [place] [address], [address], 11/04/2022 19:35:04 11/05/19 23 11/04/2022 COMP. METAB OLIC PANEL blood urea nitrogen 24 mg/dL 6-20 high Not Available [facility] [address] [place] [address], [address], 11/04/2022 19:35:04 11/05/19 23 11/04/2022 COMP. METAB OLIC PANEL creatinine 1.10 mg/dL 0.70-1 .28 normal Not Available [facility] [address] [place] [address], [address], 11/04/2022 19:35:04 11/05/19 23 11/04/2022 COMP. METAB OLIC PANEL BUN/creatini ne ratio 22 (calc ) 10-20 high Not Available [facility] [address] [place] [address], [address], 11/04/2022 19:35:04 11/05/19 23 11/04/2022 COMP. METAB OLIC PANEL sodium 139 mmol/ L 136-14 5 normal Not Available [facility] [address] [place] [address], [address], 11/04/2022 19:35:04 11/05/19 23 11/04/2022 COMP. METAB OLIC PANEL potassium 4.0 mmol/ L 3.4-5. 0 normal Not Available [facility] [address] [place] [address], [address], 11/04/2022 19:35:04 11/05/19 23 11/04/2022 COMP. METAB OLIC PANEL chloride 101 mmol/ L 98-107 normal Not Available [facility] [address] [place] [address], [address], 11/04/2022 19:35:04 11/05/19 23 11/04/2022 COMP. METAB OLIC PANEL carbon dioxide 28 mmol/ L 22-31 normal Not Available [facility] [address] [place] [address], [address], 11/04/2022 19:35:04 11/05/19 23 11/04/2022 COMP. METAB OLIC PANEL anion gap 10 (calc ) 7-25 normal Not Available [facility] [address] [place] [address], [address], 11/04/2022 19:35:04 11/05/19 23 11/04/2022 COMP. METAB OLIC PANEL calcium 9.5 mg/dL 8.6-10 .2 normal Not Available [facility] [address] [place] [address], [address], 11/04/2022 19:35:04 11/05/19 23 11/04/2022 COMP. METAB OLIC PANEL total protein 6.7 g/dL 6.4-8. 3 normal Not Available [facility] [address] [place] [address], [address], 11/04/2022 19:35:04 11/05/19 23 11/04/2022 COMP. METAB OLIC PANEL albumin 4.0 g/dL 3.5-5. 2 normal Not Available [facility] [address] [place] [address], [address], 11/04/2022 19:35:04 11/05/19 23 11/04/2022 COMP. METAB OLIC PANEL globulin 2.7 g/dL_ (calc ) 1.5-4. 5 normal Not Available [facility] [address] [place] [address], [address], 11/04/2022 19:35:04 11/05/19 23 11/04/2022 COMP. METAB OLIC PANEL albumin/glob ulin ratio 1.5 (calc ) 1.1-2. 5 normal Not Available [facility] [address] [place] [address], [address], 11/04/2022 19:35:04 11/05/19 23 11/04/2022 COMP. METAB OLIC PANEL bilirubin, total 0.5 mg/dL 0.1-1. 2 normal Not Available [facility] [address] [place] [address], [address], 11/04/2022 19:35:04 11/05/19 23 11/04/2022 COMP. METAB OLIC PANEL alkaline phosphatase 92 U/L 40-129 normal Not Available [facility] [address] [place] [address], [address], 11/04/2022 19:35:04 11/05/19 23 11/04/2022 COMP. METAB OLIC PANEL AST 13 U/L 0-40 normal Not Available [facility] [address] [place] [address], [address], 11/04/2022 19:35:04 11/05/19 23 11/04/2022 COMP. METAB OLIC PANEL ALT 14 U/L 0-41 normal Not Available [facility] [address] [place] [address], [address], 11/04/2022 19:35:04 11/05/19 23 11/04/2022 COMP. METAB OLIC PANEL GFR 68 >= 60 normal NOT E New calcu latio n for GFR (CKD- EPI 2020) is formu lated witho ut race adjus tment facto rs at the recom menda tion of the [place] [place] [employer]onica atjamie and [employer] of Nephr ology . This calcu latio n has not been valid ated in pregn ant women . For pedia tric patie nts refer to https ://francheska naranjo.estrellita rg/pr ofess ional s/KDO QI/gf r_cal culat orPed Not Available [facility] [address] [place] [address], [address], 11/04/2022 19:35:04 11/05/19 23 11/04/2022 COMPL ETE BLOOD COUNT white blood cells 6.4 K/uL 3.8-10 .8 normal Not Available [facility] [address] [place] [address], [address], 11/04/2022 19:38:58 11/05/19 23 11/04/2022 COMPL ETE BLOOD COUNT red blood cells 5.08 M/uL 4.20-5 .80 normal Not Available [facility] [address] [place] [address], [address], 11/04/2022 19:38:58 11/05/19 23 11/04/2022 COMPL ETE BLOOD COUNT hemoglobin 15.1 g/dL 14.0-1 8.0 normal Not Available [facility] [address] [place] [address], [address], 11/04/2022 19:38:58 11/05/19 23 11/04/2022 COMPL ETE BLOOD COUNT hematocrit 44.8 % 40.0-5 2.0 normal Not Available [facility] [address] [place] [address], [address], 11/04/2022 19:38:58 11/05/19 23 11/04/2022 COMPL ETE BLOOD COUNT MCV 88 fL 80-100 normal Not Available [facility] [address] [place] [address], [address], 11/04/2022 19:38:58 11/05/19 23 11/04/2022 COMPL ETE BLOOD COUNT MCH 30 pg 26-35 normal Not Available [facility] [address] [place] [address], [address], 11/04/2022 19:38:58 11/05/19 23 11/04/2022 COMPL ETE BLOOD COUNT MCHC 34 g/dL 32-36 normal Not Available [facility] [address] [place] [address], [address], 11/04/2022 19:38:58 11/05/19 23 11/04/2022 COMPL ETE BLOOD COUNT RDW 13.7 % 11.0-1 5.0 normal Not Available [facility] [address] [place] [address], [address], 11/04/2022 19:38:58 11/05/19 23 11/04/2022 COMPL ETE BLOOD COUNT MPV 9.4 fL 6.2-10 .5 normal Not Available [facility] [address] [place] [address], [address], 11/04/2022 19:38:58 11/05/19 23 11/04/2022 COMPL ETE BLOOD COUNT platelet count 138 K/uL 130-40 0 normal Not Available [facility] [address] [place] [address], [address], 11/04/2022 19:38:58 11/05/19 23 11/04/2022 COMPL ETE BLOOD COUNT neutrophil,a bsolute 3.0 K/uL 1.6-8. 4 normal Not Available [facility] [address] [place] [address], [address], 11/04/2022 19:38:58 11/05/19 23 11/04/2022 COMPL ETE BLOOD COUNT lymphocyte,a bsolute 1.9 K/uL 0.4-5. 1 normal Not Available [facility] [address] [place] [address], [phone], 11/04/2022 19:38:58 11/05/19 23 11/04/2022 COMPL ETE BLOOD COUNT monocyte,abs olute 1.4 K/uL 0.0-1. 2 high Not Available [facility] [address] [place] [address], [phone], 11/04/2022 19:38:58 11/05/19 23 11/04/2022 COMPL ETE BLOOD COUNT eosinophil,a bsolute 0.1 K/uL 0.0-0. 8 normal Not Available [facility] [address] [place] [address], [address], 11/04/2022 19:38:58 11/05/19 23 11/04/2022 COMPL ETE BLOOD COUNT basophil,abs olute 0.0 K/uL 0.0-0. 3 normal Smear revie wed to confi rm cell morph ology . Not Available [facility] [address] [place] [address], [address], 11/04/2022 19:38:58 11/05/19 23 11/04/2022 COMPL ETE BLOOD COUNT % neutrophils 46.3 % 42.0-7 8.0 normal Not Available [facility] [address] [place] [address], [address], 11/04/2022 19:38:58 11/05/19 23 11/04/2022 COMPL ETE BLOOD COUNT % lymphocytes 29.5 % 11.0-4 7.0 normal Not Available [facility] [address] [place] [address], [address], 11/04/2022 19:38:58 11/05/19 23 11/04/2022 COMPL ETE BLOOD COUNT % monocytes 22.5 % 0.0-11 .0 high Not Available [facility] [address] [place] [address], [address], 11/04/2022 19:38:58 11/05/19 23 11/04/2022 COMPL ETE BLOOD COUNT % eosinophils 1.2 % 0.0-7. 0 normal Not Available [facility] [address] [place] [address], [address], 11/04/2022 19:38:58 11/05/19 23 11/04/2022 COMPL ETE BLOOD COUNT % basophils 0.5 % 0.0-3. 0 normal Not Available [facility] [address] [place] [address], [address], 11/04/2022 19:38:58 11/05/19 23 11/04/2022 COMPL ETE BLOOD COUNT nucleated red cells 0.0 % 0.0-0. 9 normal Not Available [facility] [address] [place] [address], [address], 11/04/2022 19:38:58 11/05/19 23 11/04/2022 COMPL ETE BLOOD COUNT nucleated RBCs, absolute 0.00 K/uL not estab. normal Not Available [facility] [address] [place] [address], [address], 11/04/2022 19:38:58 11/05/19 23 11/04/2022 MORPH OLOGY platelet morphology NORMAL normal Not Available [facility] [address] [place] [address], [address], 11/04/2022 19:39:00 11/05/19 23 11/04/2022 MORPH OLOGY stomatocytes SLIGHT abnormal Not Available [facility] [address] [place] [address], [address], 11/04/2022 19:39:00 11/05/19 23 11/08/2022 FLOW CYTOM ETRY pathologist SEE NOTE normal Ed aldana MD Not Available [facility] [address] [place] [address], [address], 11/09/2022 07:32:33 11/05/19 23 11/08/2022 FLOW CYTOM ETRY viability 83 % normal Not Available [facility] [address] [place], [address], 11/09/2022 07:32:33 11/05/19 23 11/08/2022 FLOW CYTOM ETRY interpretati on SEE NOTE normal SMALL POPUL ATION (4%) OF CLONA L B-JOHN LS. SEE COMME NT. COMME NT: The pheno type willy sis shows a clona l popul ation (4% of total cells ) of B-john ls that are lambd a(+), CD5(- ), CD10( -), CD11c (-) and CD20( +). The pheno type is non-s pecif ic, howev er, could be seen in monoc lonal B-john l lymph ocyto sis (non- CLL pheno type) or low level circu latin g cells from marichuy nal zone lymph elpidio, lymph oplas macyt ic lymph elpidio or some other matur e B-john l lymph omas. The T-john ls and myelo monoc ytic cells are unrem flowerb le. Final inter preta tion requi res corre latio n with clini siena and morph ologi c findi ngs. Resul ts revie wed by Ed aldana M.D. Not Available [facility] [address] [place] [address], [address], 11/09/2022 07:32:33 11/05/19 23 11/08/2022 FLOW CYTOM ETRY sample description SEE NOTE normal The sampl e consi sts of 43% granu locyt ic cells , 43% lymph ocyto id cells , and 12% monoc ytoid cells . Not Available [facility] [place], [address], 11/09/2022 07:32:33 11/05/19 23 11/08/2022 FLOW CYTOM ETRY gating strategy SEE NOTE normal Gatin g in the speci men was perfo rmed on the cell popul ation that resem bles lymph ocyte s and was based on CD45 (buchanan leuko cyte fluor escen t inten sity) vs. side scatt er (inte rnal compl exity ). Not Available [facility] [place], [address], 11/09/2022 07:32:33 11/05/19 23 11/08/2022 FLOW CYTOM ETRY markers SEE NOTE normal Regio n B CD Marke r %Posi tive Francesca rn (abno rmal cells ) ----- ----- -- ----- ---- ----- ----- ----- - CD2 87 NEGAT MIKALA CD3 86 NEGAT MIKALA CD4 68 NEGAT MIKALA CD5 83 NEGAT MIKALA CD7 61 NEGAT MIKALA CD8 22 NEGAT MIKALA CD10 0 NEGAT MIKALA CD11c 9 NEGAT MIKALA CD13 1 NEGAT MIKALA CD19 12 MODER ATE CD19+ CD5+ 0 ABSEN T CD20 12 BRIGH T CD23 1 NEGAT MIKALA CD33 0 NEGAT MIKALA CD34 0 NEGAT MIKALA CD38 27 NEGAT MIKALA CD45 100 BRIGH T CD56+ CD3- 1 NEGAT MIKALA CD64 0 NEGAT MIKALA CD117 0 NEGAT MIKALA HLA_D R 16 BRIGH T Beatrice CD19+ 17 NEGAT MIKALA Lambd a CD19+ 83 MODER ATE K/L Ratio 0.2 MONOC LONAL This test was devel oped and its willy tical perfo rmanc e edward cteri stics have been deter mined by [facility] [employer] . It has not been clear ed or appro anil by FDA. This assay has been valid ated pursu ant to the CLIA regul ation s and is used for clini siena purpo ses. Not Available [facility] [address] [place] [address], [address], 11/09/2022 07:32:33 11/05/19 23 11/08/2022 FLOW CYTOM ETRY # of markers 22 normal TEST PERFO RMED AT: [facility] [address] [facility] [place] [address] Oracio BLANKENSHIP,PHD ,BEATRICE Not Available [facility] [place], [address], 11/09/2022 07:32:33 Result Notes None recorded. 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 Procedures Surgical History Date Name Laterality Status Provider Name and Address Organization Details Recorded Time Back Surgery completed [facility] 05/14/2022 15:07:40 partial resection of colon completed [facility] 05/14/2022 15:07:50 Shoulder joint surgery completed [facility] 05/14/2022 15:08:02 tonsillectomy completed [facility] 05/14/2022 15:08:13 extraction of cataract completed [facility] 05/14/2022 15:08:35 insertion of deep brain electrical stimulation system lead into brain [facility] 05/14/2022 15:08:48 Imaging Results None recorded. Procedure Notes None recorded. Medical Equipment None Reported. Allergies Allergen ID Allergen Name Allergen Category Reaction Reaction Severity Criticality Documentation Date Start Date Code Code System Note Provider Name and Address Organization Details Recorded Time 644358 codeine medicatio n Not available Not available Not available 05/14/2022 2670 [facility] 2 14:57:09 056906 propoxyph luca hydrochlo ride medicatio n Not available Not available Not available 05/14/2022 51917 [facility] 2 14:57:16 903645 metformin medicatio n Not available Not available Not available 05/14/2022 6809 [facility] 2 14:57:24 114980 Product containin g penicilli n (product) medicatio n Not available Not available Not available 05/14/2022 73692 8001 SNOMED [facility] 2 14:57:33 Medications Name Sig Start Date Stop Date Status Note LastModified by Organization Details LastModified Time pioglitazone 15 mg tablet Take 1 tablet every day by oral route. active Not Available Not Available No t Available atorvastatin 20 mg tablet Take 1 tablet every day by oral route. active Not Available Not Available No t Available cetirizine 10 mg tablet Take 1 tablet every day by oral route. active Not Available Not Available No t Available cyanocobalam in (vit B-12) 1,000 mcg tablet Take by oral route. active Not Available Not Available Not Available acetaminophe n 500 mg tablet Take 2 tablets every 6 hours by oral route. active Not Available Not Available Not Available triamterene 37.5 mg-hydrochlo rothiazide 25 mg capsule Take 1 capsule every day by oral route. active Not Available Not Available No t Available lancets active Not Available Not Avail able Not Available tamsulosin 0.4 mg capsule Take 1 capsule every day by oral route. active Not Available Not Available No t Available glimepiride 4 mg tablet Take 1 tablet every day by oral route. active Not Available Not Available No t Available propranolol ER 80 mg capsule,24 hr,extended release Take 1 capsule every day by oral route. active Not Available Not Available No t Available montelukast 10 mg tablet Take 1 tablet every day by oral route. active Not Available Not Available No t Available aspirin 81 mg tablet Take by oral route. active Not Available Not Available Not Available fluticasone propionate 50 mcg/actuatio n nasal spray,suspen mehreen [place] 1 spray every day by intranasal route. active Not Available Not Available No t Available finasteride 5 mg tablet Take 1 tablet every day by oral route. active Not Available Not Available No t Available Januvia 100 mg tablet Take 1 tablet every day by oral route. active Not Available Not Available No t Available Jardiance 25 mg tablet Take 1 tablet every day by oral route. active Not Available Not Available No t Available Wixela Inhub 250 mcg-50 mcg/dose powder for inhalation Inhale 1 puff twice a day by inhalation route. active Not Available Not Available No t Available Vitals Date Recorded Body weight Body temperature Heart rate Oxygen saturation Oxygen saturation in Arterial blood by Pulse oximetry Systolic blood pressure Diastolic blood pressure Provider Name and Address Organization Details Last Updated DateTime 2 34752.4 2 g 98.9 [degF] 86 /min 91 % 91 % 134 mm[Hg] 75 mm[Hg] Jackelyn Guidry [facility] [place] [facility] 2 11:56:55 Date Recorded Body weight Body temperature Heart rate Oxygen saturation Oxygen saturation in Arterial blood by Pulse oximetry Body mass index (BMI) Body height Systolic blood pressure Diastolic blood pressure Provider Name and Address Organization Details Last Updated DateTime 3 82044.8 9 g 98.4 [degF] 75 /min 93 % 93 % 35.2 kg/m2 167.64 cm 133 mm[Hg] 80 mm[Hg] Jackelyn Guidry [facility] [place] [facility] 3 10:54:59 Social History Question Answer Notes LastModified by Organizat ion Details LastModified Time Tobacco Smoking Status Never [facility]oker [facility] 05/14/2022 15:07:27 What Is Your Level Of Alcohol Consumption? None [email or web address] Information not available 06/08/2022 What Was The Date Of Your Most Recent Tobacco Screening? 06/08/2022 [email or web address] Information not available 06/08/2022 How Many Children Do You Have? 1 [email or web address] Information not available 06/08/2022 What Is Your Relationship Status? [email or web address] Information not available 05/14/2022 Do You Use Any Illicit Or Recreational Drugs? No [email or web address] Information not available 05/14/2022 Has Tobacco Cessation Counseling Been Provided? No [email or web address] Information not available 05/14/2022 Have You Recently Traveled Abroad? No [email or web address] Information not available 06/08/2022 Do You Or Have You Ever Used Any Other Forms Of Tobacco Or Nicotine? No [email or web address] Information not available 06/08/2022 Sex: Unknown Functional Status None recorded. Mental Status None recorded. Family History Relationship Description Onset Age of this Age Resolved Age Notes LastModified by Organization Details LastModified Time Father 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 [email or web address] Not available 05/14 15:05:34 Father Hypertensive disorder [email or web address] Not available 05/14 15:05:45 Father Family history of malignant neoplasm [email or web address] Not available 05/14 15:06:35 Father Hyperlipidem ia [email or web address] Not available 05/14 15:06:46 Father Family history of stroke [email or web address] Not available 05/14 15:06:58 Mother Myocardial infarction [email or web address] Not available 04/25 15:05:56 Mother Arthritis [email or web address] Not availa ble 05/14/2022 15:06:24 Medical History Condition Response Depression Y Arthritis Y Cancer Y High Cholesterol Y Diabetes Y Hypertension Y Immunizations Vaccine Type Date Status Note Provider Nam e and Address Organization Details Recorded Time Td (adult), 5 Lf tetanus toxoid, preservative free, adsorbed 2 [facility]2022 15:04:05 Influenza, high-dose, quadrivalent, PF 2 completed Carrie carvalho, [facility] 05/14/2022 15:04:21 pneumococcal polysaccharide PPV23 8 completed [facility] 05/14/2022 15:04:44 pneumococcal polysaccharide PPV23 2 completed [facility] 05/14/2022 15:04:49 Pneumococcal conjugate PCV 13 5 completed [facility] 05/14/2022 15:05:04 zoster live 3 completed Carrie Lynn [facility] 05/14/2022 15:05:18 Past Encounters Encounter ID Performer Location Encounter Start Date Encounter Closed Date Diagnosis/Indication Diagnosis SNOMED-CT Code Diagnosis ICD10 Code Diagnosis Note [id number] ROULA MONTES MD [facility] [address] [place] [phone] 07/29/2016 10:53:58 07/29/2016 12:41:19 [id number] ROULA MONTES MD INTERNAL MEDICINE [address] [place] [id number] 5 09/21/2016 10:26:03 09/21/2016 11:19:11 [id number] ROULA MONTES MD INTERNAL MEDICINE [address] [place] [address] 10/22/2016 13:17:13 10/22/2016 14:05:36 [id number] KRISTINE BLUE MD OPHTHALMO LOGY [address] [place] [id number] 11/24/2016 10:15:06 11/25/2016 11:25:54 [id number] SUZIE GTZ MD [facility] [address] [place] [address] 12/01/2016 10:08:25 12/01/2016 11:49:27 [id number] ROULA MONTES MD INTERNAL MEDICINE [address] [place] [id number] 12/21/2016 12:09:58 12/21/2016 13:07:18 [id number] ROULA MONTES MD INTERNAL MEDICINE [address] ,[address] [place], [place] [id number] 03/30/2017 10:31:47 03/30/2017 11:13:49 [id number] KRISTINE BLUE MD OPHTHALMO SONG [address] ,[address] [place] [address] 04/27/2017 09:35:17 04/28/2017 07:32:10 [id number] JOSE WEISS MD DERMATOLO GY [address] [place] [address] 05/03/2017 14:07:36 05/09/2017 08:41:36 [id number] ROULA MONTES MD INTERNAL MEDICINE [address] [place] [id number] 05/24/2017 10:26:37 05/24/2017 11:12:00 [id number] JOSE WEISS MD DERMATOLO GY [address] ,[address] [place] [address] 05/24/2017 13:12:16 05/25/2017 12:10:37 [id number] Tung Brent SURGERY SCHEDULE [address] [place] [address] 06/07/2017 08:51:20 06/07/2017 08:53:56 [id number] KRISTINE BLUE MD OPHTHALMO SONG [address] [place] [place] [place] [id number] 06/08/2017 08:16:51 06/08/2017 09:10:32 [id number] KRISTINE BLUE MD OPHTHALMO LOGVitor [address] [place] [id number] 06/15/2017 09:58:51 06/20/2017 07:10:49 [id number] Tung Brent SURGERY SCHEDULE [address] [place] [address] 07/05/2017 08:50:36 07/05/2017 08:51:23 [id number] KRISTINE BLUE MD [facility] [address] [place] [address] 07/06/2017 08:32:55 07/07/2017 07:35:27 [id number] KRISTINE BLUE MD [facility] [address] ,[address] [place] [id number] 08/08/2017 12:07:11 08/08/2017 14:04:05 [id number] ROULA MONTES MD INTERNAL MEDICINE [address] ,[address] [place] [id number] 08/19/2017 12:19:59 08/22/2017 11:19:54 [id number] ROULA MONTES MD INTERNAL MEDICINE [address] [place] [id number] 08/19/2017 12:36:07 08/22/2017 11:21:39 [id number] ROULA MONTES MD INTERNAL MEDICINE [address] [place] [id number] 5 08/30/2017 11:22:13 08/31/2017 14:21:20 [id number] JOSE WEISS MD DERMATOLO GY [address] ,[address] [place] [address] 10/14/2017 13:35:03 10/14/2017 15:26:33 [id number] ROULA MONTES MD INTERNAL MEDICINE [address] [place] [address] 11/25/2017 12:25:09 11/28/2017 10:58:[id number], LD [facility] [address] [place] [address] 12/14/2017 12:55:27 12/14/2017 15:02:08 [id number] KRISTINE BLUE MD [facility]THALMO [facility] [address] [place] [id number] 02/09/2018 12:04:23 02/10/2018 09:21:01 [id number] ROULA MONTES MD INTERNAL MEDICINE [address] [place] [address] 03/28/2018 10:31:15 03/30/2018 11:46:28 [id number] ROULA MONTES MD INTERNAL MEDICINE [address] ,[address] [place] [address] 04/10/2018 12:15:13 04/11/2018 09:11:50 [id number] ROULA MONTES MD INTERNAL MEDICINE [address] ,[address] [place] [address] 05/15/2018 12:51:25 05/15/2018 14:17:45 [id number] ROULA MONTES MD INTERNAL MEDICINE [address] ,[address] [place] [id number] 06/27/2018 12:20:06 06/29/2018 10:11:50 [id number] NAHOMY HUTSON MD [facility] [address] [place] [id number] 08/01/2018 13:15:33 08/01/2018 14:19:00 [id number] [facility] [address] [place] [address] 12/04/2018 13:34:18 12/04/2018 15:27:03 [id number] [facility] [address] [address] 01/22/2019 14:27:55 01/22/2019 14:51:06 [id number] NAHOMY HUTSON MD [facility] [address] [place] [id number] 02/05/2019 13:29:54 02/05/2019 14:53:58 [id number] NAHOMY HUTSON MD [facility] [address] [place] [id number] 05/09/2019 12:34:45 05/09/2019 13:39:31 [id number] NAHOMY HUTSON MD [facility] [address] [place] [address] 08/27/2019 13:29:12 08/27/2019 14:32:04 [id number] IRINA ROBINS MD INTERNAL MEDICINE [address] [place],[address] [place] [address] 09/11/2019 13:00:35 09/11/2019 13:53:19 [id number] IRINA ROBINS MD INTERNAL MEDICINE [address],[address] [place] [address] 5 09/26/2019 12:42:41 09/26/2019 13:15:53 [id number] IRINA ROBINS MD INTERNAL MEDICINE [address] [place] [place],[address] [place] [address] 5 11/27/2019 12:40:24 11/27/2019 15:29:33 [id number] IRINA ROBINS MD INTERNAL MEDICINE [address] [place] [address] 5 12/10/2019 13:03:11 12/10/2019 16:26:05 [id number] IRINA ROBINS MD INTERNAL MEDICINE [address] ,[address] [place] [address] 5 12/18/2019 13:14:51 12/18/2019 14:51:20 [id number] IRINA ROBINS MD INTERNAL MEDICINE [address] ,[address] [place] [address] 5 12/28/2019 12:56:40 12/28/2019 14:40:19 [id number] RAPHAEL RANDLE MD [address] [place] [place] [address] 01/14/2020 13:12:05 01/15/2020 08:54:37 [id number] BRYSON ALVARADO PA-C PULMONARY [address] [facility], [address] [place] [address] 01/18/2020 12:58:43 01/21/2020 08:54:19 [id number] MIRNA VALENZUELA DO [facility] [address] [place] [address] 04/14/2020 12:27:40 04/14/2020 13:15:24 [id number] MIRNA VALENZUELA DO FAMILY [address] [facility] [place] [address] 05/14/2020 14:07:04 05/14/2020 15:24:59 [id number] MIRNA VALENZUELA DO FAMILY [address] [place] [address] 08/14/2020 12:57:20 08/14/2020 14:21:17 [id number] JOSE WEISS MD DERMATOLO GY [facility] [address] [place] [address] 12/05/2020 13:34:40 12/05/2020 14:21:42 [id number] BRYSON ALVARADO, MARLI PULMONARY [address] [facility], [address] [place] [address] 01/15/2021 13:30:24 01/15/2021 14:57:12 [id number] MIRNA VALENZUELA DO [address] [place] [address] 02/13/2021 12:56:21 02/13/2021 14:16:36 [id number] JOSE WEISS MD DERMATOLO GY [facility] [address] [place] [address] 04/24/2021 14:03:03 04/24/2021 14:25:47 [id number] MIRNA VLAENZUELA DO [address] [place] [address] 09/29/2021 13:07:55 09/29/2021 14:07:18 [id number] JOSE WEISS MD DERMATOLO GY [address] [place] [address] 03/22/2022 14:04:32 03/22/2022 14:49:20 [id number] MIRNA VALENZUELA DO [address] [place] [address] 05/03/2022 12:24:17 05/03/2022 13:18:41 [id number] TERRI RAPP MD HEM/[place]C [place] [address] [place] [address] 06/08/2022 11:29:06 06/08/2022 13:58:53 Monocytosis [id number] D72.821 [id number] KRISTINE BLUE MD OPHTHALMO LOGY [address] [place] [address] 09/02/2022 14:06:20 09/02/2022 16:08:01 [id number] TERRI RAPP MD HEM/ONC [place] [facility] [address] [place] [address] 11/09/2022 10:46:06 11/09/2022 11:26:54 Monocytosis [id number] D72.821 Monoclonal B-cell lymphocytosis [id number] D72.820 [id number] MIRNA VALENZUELA DO [address] [facility] [place] [address] 11/10/2022 13:03:59 11/10/2022 15:59:12 [id number] MIRNA VALENZUELA DO [address] [facility] [place] [address] 12/01/2022 13:31:43 12/01/2022 14:33:39 [id number] JOSE WEISS MD DERMATOLO GY [facility] [address] [facility] ,[address] [place] [address] 01/21/2023 13:25:08 01/21/2023 14:21:35 [id number] MIRNA VALENZUELA DO [address] [facility] [place] [address] 05/11/2023 13:29:53 05/11/2023 15:39:03 [id number] SUHA PHILLIP MD [facility] [address] [place] [address] 05/17/2023 13:11:18 05/17/2023 14:12:31 [id number] SUHA PHILLIP MD SURGERY SCHEDULE [address] [place] [address] 05/30/2023 06:53:18 05/30/2023 06:53:44 [id number] MIRNA VALENZUELA DO [address] [address] 06/22/2023 13:29:09 06/22/2023 15:22:53 [id number] MD [facility] [address] 0 07/05/2023 13:49:05 07/05/2023 14:03:23 [id number] MIRNA VALENZUELA DO [facility] [address] [place] [address] 5 09/05/2023 13:45:03 09/05/2023 15:02:05 [id number] KRISTINE BLUE MD [facility] [address] ,[address] [place] [address] 5 09/05/2023 15:03:10 09/05/2023 16:48:22 [id number] KRISTINE BLUE MD [facility] [address] ,[address] [place] [address] 5 09/14/2023 12:38:27 09/14/2023 15:06:59 [id number] RAPHAEL RANDLE MD [address] ,[address] [place] [address] 5 09/27/2023 14:03:18 09/28/2023 04:36:19 [id number] KRISTINE BLUE MD [facility] [address] [place] [address] 5 09/28/2023 12:55:14 09/28/2023 14:01:29 [id number] MD BLAKE [facility] [address] [place] [address] 0 07/03/2024 14:40:25 07/03/2024 15:48:12 Health Concerns Section Related Observation LastModified by Organization Detai ls LastModified Time None Recorded Concern Status LastModified by Organization Details LastModified Time None Recorded Advance Directives Directive None Recorded Payers Encounter Date Sequence Insurance Name Policy Number Policy Isaac Covered Member ID Isaac Member ID Guarantor Name 06/08/2022 1 [employer] (MEDICARE REPLACEMENT/A DVANTAGE - PPO) Kennedy Oconnor [id number] Kennedy Oconnor 11/09/2022 1 [employer] (MEDICARE REPLACEMENT/A DVANTAGE - PPO) Kennedy Oconnor [id number] Kennedy Oconnor Notes Date Note Type Note Provider Name and Address Organization Details Recorded Time 2021 text/h tml HPIReported bypatient.Distress ScreeningHas the distress screening been completed in the last 45 days? YES; Distress level 0 no stress Practical Problemsno practical problems Family Problemsno family problems Emotional Problemsno emotional problems Spiritual/Religiousspiritual/caodaism problems? NO Physical Problemseating/ingestion problem;fatigue; pain Reason for consult: Abnormal white blood cells Primary diagnosis: Monocytosis Secondary diagnosisHypertensionHyperlipidemiaTremor s/p stimulator History of present illness/subjective: Mr. Kennedy Oconnor is a pleasant 82 years old male with medical history significant as listed above otherwise he has very good performance status. Apparently on his routine annual visit blood work he was noticed to have elevated monocyte which was quite resistant, otherwise no abnormalities in his CBC He denies any history of recurrent infection He denies any fevers or chills or night sweats or changes of energy levelReviewed his blood work that showed the trend of monocyte is fluctuating and it was only time more than 1.2 in November 2019 then it normalized and in May 03, 2022 it went up to 2, however total white blood cell number is almost normalHis last CBC from May 03, 2022: WBC 7.8, hemoglobin 15.2, platelets 138, ANC 3.2, absolute lymphocyte 2.3 and absolute monocyte.His comprehensive metabolic panel within acceptable values and his PSA was within normal valuesPatient reported history of allergic rhinitisHowever he has fairly good energy level and stableHe presented for consultation visit to establish care and evaluated for elevated monocytes TERRI RAPP MD [address] [place], [address] [place] [address] 2 13:06:47 2022 text/h tml HPIReported bypatient.Distress ScreeningHas the distress screening been completed in the last 45 days? YES; Distress level 0 no stress Practical Problemsno practical problems Family Problemsno family problems Emotional Problemsno emotional problems Spiritual/Religiousspiritual/caodaism problems? NO Physical Problemsno physical problems Follow-up visit Primary diagnosis:Monoclonal B-cell lymphocytosisMonocytosis Secondary diagnosisHypertensionHyperlipidemiaTremor s/p stimulator Subjective/interval history: Patient was seen and examined today, he is here to follow-up for abnormal CBC and review his work-up On November 04, 2022 his CBC was within normal apart from stable mild monocytosis with absolute monocyte 1.4 However peripheral blood flow cytometry showed 4% monoclonal B cells Patient has no specific symptoms or complaints No changes of his health status since last seen No fevers or chills or night sweats No changes of energy level History of present illness/subjective:Mr. Kennedy Oconnor is a pleasant 82 years old male with medical history significant as listed above otherwise he has very good performance status.Apparently on his routine annual visit blood work he was noticed to have elevated monocyte which was quite resistant, otherwise no abnormalities in his CBCHe denies any history of recurrent infectionHe denies any fevers or chills or night sweats or changes of energy levelReviewed his blood work that showed the trend of monocyte is fluctuating and it was only time more than 1.2 in November 2019 then it normalized and in May 03, 2022 it went up to 2, however total white blood cell number is almost normalHis last CBC from May 03, 2022: WBC 7.8, hemoglobin 15.2, platelets 138, ANC 3.2, absolute lymphocyte 2.3 and absolute monocyte.His comprehensive metabolic panel within acceptable values and his PSA was within normal valuesPatient reported history of allergic rhinitisHowever he has fairly good energy level and stableHe presented for consultation visit to establish care and evaluated for elevated monocytes TERRI RAPP MD [facility] [place], [address] , [facility] 3 11:20:41
[2024-11-13 12:49] LABS: Basophils % 0.3 % (0.1-2.0); Eosinophils % 0.5 % (0.1-12.0); Hemoglobin 10.8 g/dL (14.1-18.0); Lymphocytes # 1.8 K/mm3 (0.7-4.5); Lymphocytes % 29.2 % (10-50); Mean Corpuscular HGB Conc 30.9 g/dL (31.8-35.4); Mean Corpuscular Volume 87.5 fl (80-94); Mean Platelet Volume 11.8 fl (7.4-10.4); Monocytes # 1.8 K/mm3 (0.1-1.0); Monocytes % 28.2 % (1.7-9.3); Neutrophils # 2.6 K/mm3 (1.8-7.8); Nucleated Red Blood Cells # 0 10^3/uL; Nucleated Red Blood Cells % 0 %; Platelet Count 127 K/mm3 (142-424); Red Cell Distribution Width 15.5 % (11.5-17.5); Red Cell Distribution Width-SD 49.6 fL; White Blood Count 6.2 K/mm3 (4.8-10.8)
[2024-11-13 12:52] LABS: MANUAL DIFFERENTIAL MANUAL DIFFERENTIAL (MANUAL DIFF)
--- NOTE | 2024-11-13 13:00 | NM_ITS ---
APPROVED REPORT Exam: Nuclear Stress Test Indication: soa Patient Location: Outpatient Stress Tech: Elayne Richter NM Tech:Vidhya Downing, ARRT, RT (R)(N) Ht: 5 ft 8 in Wt: 204 lbs HR: 96 bpm BP: 139/80 mmHg BSA: 2.06 m2 TID: 1.36 BMI: 31.0 History: soa Procedure: Patient received 0.4 mg of intravenous Lexiscan, resting heart rate 96 bpm, resting blood pressure 139/80 mmHg, with Lexiscan maximum heart rate achieved was 122 bpm which is 85 % of the maximum predicted heart rate and blood pressure was 125/60 mmHg. With Lexiscan, patient denied any complaint of chest pain. The pt was not able to lay on his abdomen for prone images. Cardiac Stress and Resting SPECT Images: Cardiac Stress and Resting SPECT images were obtained using technetium 99m Myoview 32.8 mCi stress and 10.65 mCi at rest. The patient was unable to lie on his abdomen. Therefore, prone stress imaging could not be performed. This may affect diagnostic interpretation of the study findings. Resting and stress imaging in supine positions demonstrate a medium sized, moderate, reversible perfusion defect in the distal anterior and apical LV rebolledo. There is increase in transient ischemic dilatation ratio (TID 1.36), suggestive of possible multivessel disease or balanced ischemia. Gated imaging demonstrates normal global LV systolic function. There is severe hypokinesis of the apical LV wall. LVEF is calculated at 59%. Conclusion: Medium sized, moderate, reversible perfusion defect in the distal anterior and apical LV rebolledo. Findings are suggestive of reversible ischemia. There is increase in transient ischemic dilatation ratio (TID 1.36), suggestive of possible multivessel disease or balanced ischemia. Gated imaging demonstrates normal global LV systolic function. There is severe hypokinesis of the apical LV wall. LVEF is calculated at 59%. Of note, the right ventricle also appears dilated. Correlation with new or recent TTE is suggested. Electronically signed by : Jeanette Dixon MD 11/13/2024 15:35:07
[2024-11-13 13:10] LABS: Iron 34 ug/dL (49-181)
[2024-11-13 13:20] LABS: Total Iron Binding Capacity 346 ug/dL (261-462)
[2024-11-13 13:47] LABS: Ferritin 7.99 ng/ml (17.9-464)
[2024-11-13] MEDS: REGADENOSON 0.4MG/5ML SYRINGE 0.4 MG IV (14:22)
[2024-11-13] MEDS: SODIUM CHLORIDE 0.9% 10ML SYR (RAD ONLY) 10 ML IV ×2 (14:22)
[2024-11-13] MEDS: ISOTOPE MYOVIEW (PER STUDY) 1 DOSE IV (14:22)
[2024-11-13 14:27] LABS: Eosinophils % 1 % (0-3); Hypochromasia 2+; Lymphocytes % 39 % (10-50); Monocytes % 13 % (2-9); Neutrophils % 47 % (42-76); Platelet Estimate Slight Decrease; Total Cells Counted 100
== END 2024-11-13 23:59 | disposition home or self-care (01) ==
LOC: RAD 12:08
PROVIDERS: Internal Medicine Medical Oncology; PCP Internal Medicine; Visit Provider Physician Assistant
DX: I25.110 Atherosclerotic heart disease of native coronary artery with unstable angina pectoris (principal); R06.00 Dyspnea, unspecified; R94.31 Abnormal electrocardiogram [ECG] [EKG]; I45.10 Unspecified right bundle-branch block; Z95.5 Presence of coronary angioplasty implant and graft; C93.10 Chronic myelomonocytic leukemia not having achieved remission
CPT/HCPCS: 36415; 78452; 82728; 83540; 83550; 85007; 85025; 85027; 93017; 93018; A9502; J2785

== ENCOUNTER 2024-11-22 14:01 | Observation (INO) | payer MEDICARE, SELFPAY ==
[2024-11-22] VITALS (18 sets, daily range): BP systolic 105–135; BP diastolic 47–85; PULSE 70–97; RESP 16–20; TEMP 36.4; O2SAT 90–96; BMI 32.6
--- NOTE | 2024-11-22 07:06 | IR_ITS ---
APPROVED REPORT Patient Location: Outpatient PROCEDURES Left heart catheterization Left ventriculogram Selective coronary angiogram Intravascular lithotripsy to the proximal LAD Drug-eluting stent deployment to the proximal ID INDICATION Coronary artery disease, Abnormal Myoview, Angina pectoris, Calcified proximal LAD, Informed consent was obtained prior to the procedure. COMPLICATIONS NONE Estimated Blood Loss: LESS THAN 10 ML TECHNIQUE One percent lidocaine was used to anesthetize the right groin. The right femoral artery was accessed via the Seldinger technique. A 4-Irish sheath was placed in the right femoral artery. The JL-4 and JR-4 catheter was also used to perform left heart catheterization left ventriculogram and selective coronary angiogram. At the end the diagnostic angiogram therapeutic Was administered giving a therapeutic ACT and the 4 Irish sheath exchanged for a 6 Irish sheath. A JL 3 guide catheter is placed in the left main artery followed by Choice PT extra-support wire into the LAD. A 3.5 x 12 mm intravascular lithotripsy balloon was deployed at 3 then 4 then 5 erik with a total of 60 pulsations delivered. This pretreated the calcified lesion followed by a 3.5 x 15 mm [place] frontier stent deployed at 20 erik reducing the stenosis to 0%. JACEK-3 flow was present before and after the procedure. At the end the procedure the apparatus was removed the groin is reprepped closure change sheath was removed and hemostasis was achieved using Perclose device patient was transferred to the postop putting in stable condition ANGIOGRAPHIC RESULTS The left main artery Normal The left anterior descending artery As a proximal 90% calcified stenosis followed by a stent which is widely patent with minimal in-stent restenosis with the remaining LAD widely patent The circumflex artery Nondominant with 10% luminal regularities The right coronary artery Dominant with a mid vessel distal eccentric 40 to 50% stenosis The IBRAHIM ventriculogram reveals Normal 60% The left ventricular end-diastolic pressure 10 mmHg IMPRESSION Severe to critical proximal LAD disease Successful intravascular lithotripsy of the proximal LAD followed by drug-eluting stent critical disease reduced to 0% with lithotripsy and drug-eluting stenting Persistent moderate disease in the distal dominant right coronary artery Normal ejection fraction Normal LVEDP PLAN 1. Dual antiplatelet therapy 2. Patient should be admitted due to the complexity of the procedure along with the lithotripsy procedure. Patient is elderly with copious contrast and femoral access. 3. Patient also experiences sundowning confusion and mild dementia. He will require much closer inpatient nursing skills and monitoring 4. Labs in the morning 5. Cardiac rehabilitation 6. LDL less than 55 achieved with high intensity statin 7. Avoidance of tobacco products Electronically signed by : Coleman Mercedes MD 11/22/2024 13:23:27
[2024-11-22 11:26] LABS: Basophils % 0.3 % (0.1-2.0); Eosinophils % 0.6 % (0.1-12.0); Hemoglobin 10.4 g/dL (14.1-18.0); Lymphocytes # 1.6 K/mm3 (0.7-4.5); Lymphocytes % 25.6 % (10-50); Mean Corpuscular HGB Conc 30.6 g/dL (31.8-35.4); Mean Corpuscular Hemoglobin 26.5 pg (27.0-31.2); Mean Corpuscular Volume 86.7 fl (80-94); Mean Platelet Volume 12.1 fl (7.4-10.4); Monocytes # 1.3 K/mm3 (0.1-1.0); Monocytes % 21.5 % (1.7-9.3); Neutrophils # 3.2 K/mm3 (1.8-7.8); Neutrophils % 51.4 % (37.0-80.0); Nucleated Red Blood Cells # 0 10^3/uL; Nucleated Red Blood Cells % 0 %; Platelet Count 157 K/mm3 (142-424); Red Blood Count 3.92 M/mm3 (4.60-6.20); Red Cell Distribution Width 15.4 % (11.5-17.5); Red Cell Distribution Width-SD 48.2 fL; White Blood Count 6.2 K/mm3 (4.8-10.8)
[2024-11-22 11:35] LABS: Anion Gap 7.9 mEq/L (5-15); Blood Urea Nitrogen 14 mg/dl (9-20); Calcium 9.1 mg/dl (8.4-10.2); Carbon Dioxide 24 mmol/L (22.0-30.0); Chloride 110 mmol/L (98-107); Creatinine Clearance Estimated 79 mL/min (50-200); Estimated Glomerular Filt Rate 81 ml/min (>60); GFR (African American) 98 ML/MIN (>60); Glucose 163 mg/dl (74-100); Potassium 3.9 mmoL/L (3.5-5.1); Sodium 138 mmol/L (136-145)
[2024-11-22] MEDS: HEPARIN 1,000 UNITS/500ML NS (CATH LAB) 3000 UNIT IV (12:37)
[2024-11-22] MEDS: diphenhydrAMINE 50MG/ML VIAL 50 MG IV (12:37)
[2024-11-22] MEDS: 0.9 % SODIUM CHLORIDE 500 ML 25 ML IV (12:37)
[2024-11-22] MEDS: LIDOCAINE 1% 10ML MDV 10 ML IJ (12:37)
[2024-11-22] MEDS: VERAPAMIL 2.5MG/ML 2ML VIAL 2.5 MG IV (12:38)
[2024-11-22] MEDS: NITROGLYCERIN 800MCG/8ML SYR (CATH LAB) 800 MCG IA (12:38)
[2024-11-22] MEDS: HEPARIN 1,000 UNITS/ML 10ML VIAL (CATH LAB) 5000 UNIT IV (12:38)
[2024-11-22] MEDS: MIDAZOLAM HCL 1MG/ML 5ML VIAL 1 MG IV (12:38)
[2024-11-22] MEDS: FENTANYL 100MCG/2ML VIAL 50 MCG IV (12:39)
[2024-11-22] MEDS: PROPOFOL 10MG/ML 20ML VIAL 160 MG IV (13:20)
--- NOTE | 2024-11-22 13:25 | HMH.PHAINT1 ---
Pharmacy Intervention Comments: MEDICATION RECONCILIATION COMPLETED ON PATIENT USING EXTERNAL FILL HISTORY FROM PHARMACY. -[facility], [facility]
[2024-11-22] MEDS: IOPAMIDOL-370 (76%);100ML BOTTLE 90 ML IV (13:53)
--- NOTE | 2024-11-22 14:21 | EXP.CARD.CON ---
History of Present Illness History of Present Illness Consult date: 11/22/24 Requesting physician: Raudel Guallpa Chief complaint: Post op stenting History of present illness: This is an 84-year-old white male with past medical history of coronary artery disease status post stenting, hypertension, hyperlipidemia and CML who presented to [facility] for left heart catheterization due to abnormal Paula Myoview. Patient had severe to critical proximal LAD disease noted and is status post successful intravascular lithotripsy of the proximal LAD followed by JOSY and persistent moderate disease in the distal dominant RCA. Patient is being admitted for observation tonight due to the complexity of the procedure along with the lithotripsy procedure. Patient resting comfortably and denies complaints. [facility] Disclaimer: The information contained in this section may have been updated after the patient was seen, as this information can be updated by other users. Medical History Asthma Dyspnea on exertion COPD (chronic obstructive pulmonary disease) Abnormal computed tomography angiography of heart Hyperlipidemia HTN (hypertension) CAD (coronary artery disease) Anemia Atypical angina Shortness of breath Edema Seasonal allergies Essential tremor Diabetes Surgical History History of cataract surgery History of shoulder replacement S/P deep brain stimulator placement History of back surgery History of ankle surgery History of hand surgery History of colonoscopy Family History Father Stroke Mother Heart attack Sister Cancer Stroke Social History (Updated 11/22/24 @ 11:52 by Hilda Pabon RN) Smoking Status: Never smoker second hand exposure: No alcohol intake: current alcohol intake frequency: a few times a week counseling given: No substance use type: denies use current occupational status: retired Travel in the last 8 weeks?: None adopted: No caregiver/support person: No foster care: No household members: spouse housing: house lives independently: Yes marital status: Have you lived/traveled outside [place] in past 30 days?: No Contact w/someone who lives/traveled outside US past 30 days?: No Exposure to someone with infectious disease in past 14 days?: No Do you have a fever (greater than 100.4 F or 38 C)?: No Have you tested positive for COVID-19?: No Exposed to someone with COVID-19 in past 14 days?: No Do you have a sore throat?: No Do you have a cough?: No Do you have any weakness?: No Do you have any diarrhea?: No Are you experiencing any unusual bleeding?: No Do you have any muscle aches/pain?: No Do you have any abdominal pain?: No Are you experiencing loss of taste or smell?: No Review of Systems Review of Systems Review of systems:: pertinent systems reviewed and negative unless documented below Exam Data for Last 24 hours Vital signs and Labs for Last 24 Hours: Pulse Resp BP Pulse Ox O2 Del Method O2 Flow Rate 81 20 109/65 L 93 L Room Air 2 11/22/24 14:11/22/24 14:11/22/24 14:11/22/24 14:11/22/24 14:11/22/24 13:50 Laboratory Results - last 24 hr 11/22/24 10:58: WBC 6.2, RBC 3.92 L, Hgb 10.4 L, Hct 34.0 L, MCV 86.7, MCH 26.5 L, MCHC 30.6 L, RDW 15.4, Plt Count 157, MPV 12.1 H, Neut % (Auto) 51.4, Lymph % (Auto) 25.6, [place] % (Auto) 21.5 H, Eos % (Auto) 0.6, Baso % (Auto) 0.3, Neut # (Auto) 3.2, Lymph # (Auto) 1.6, [place] # (Auto) 1.3 H, Eos # (Auto) 0.0, Baso # (Auto) 0.0, Sodium 138, Potassium 3.9, Chloride 110 H, Carbon Dioxide 24, Anion Gap 7.9, BUN 14, Creatinine 0.90, Estimated Creat Clear 79, Estimated GFR 81, Est GFR ( Amer) 98, Glucose 163 H, Calcium 9.1 I & O for Last 24 hours: Intake & Output 11/19/24 11/20/24 11/21/24 11/22/24 23:59 23:59 23:59 23:59 Weight 215 lb Constitutional Constitutional: no acute distress *Routine Respiratory Exam Respiratory: Present CTA bilaterally and symmetric chest movement *Routine Cardiovascular Exam Cardiovascular: Present RRR, Normal S1 and Normal S2 *Routine Abdominal Exam Abdominal: Present soft and normoactive bowel sounds; Absent tenderness *Routine Extremities Exam Extremities: Present full ROM and normal capillary refill; Absent edema *Routine Skin Exam Skin: Present intact, dry and warm Detailed Neck Exam: Thyroids Thyroid: Absent bruit Meds Home Medications and Allergies Home Medications ?Medication ?Instructions ?Recorded ?Confirmed ?Type aspirin 81 mg tablet,delayed 81 mg PO DAILY 10/18/23 11/22/24 History release (Adult Aspirin Regimen) cetirizine 10 mg tablet 10 mg PO DAILY 10/18/23 11/22/24 History empagliflozin 25 mg tablet 25 mg PO DAILY 10/18/23 11/22/24 History (Jardiance) finasteride 5 mg tablet 5 mg PO HS 10/18/23 11/22/24 History montelukast 10 mg tablet 10 mg PO HS 10/18/23 11/22/24 History pioglitazone 15 mg tablet 15 mg PO DAILY 10/18/23 11/22/24 History propranolol 80 mg capsule,24 80 mg PO DAILY 10/18/23 11/22/24 History hr,extended release sitagliptin phosphate 100 mg 100 mg PO DAILY 10/18/23 11/22/24 History tablet (Januvia) clopidogrel 75 mg tablet 75 mg PO DAILY #90 tabs 12/07/23 11/22/24 Rx atorvastatin 80 mg tablet 80 mg PO HS 01/20/24 11/22/24 History fluticasone propionate 50 1 spray intranasal DAILY 02/28/24 11/22/24 History mcg/actuation nasal spray,suspension blood sugar diagnostic (Accu-Chek #10 ea 08/14/24 11/22/24 History Guide test strips) tamsulosin 0.4 mg capsule 0.8 mg PO HS 10/23/24 11/22/24 History budesonide-formoterol HFA 160 1 puff inhalation QIDP PRN 11/22/24 11/22/24 History mcg-4.5 mcg/actuation aerosol shortness of breath or wheezing inhaler (Symbicort) New Prescriptions to Start Prescriptions: Allergies Allergy/AdvReac Type Severity Reaction Status Date / Time codeine Allergy Mild Rash Verified 11/22/24 11:48 Assessment and Plan *Assessment and plan (1) CAD (coronary artery disease): Status: Acute Qualifiers: Coronary Disease-Associated Artery/Lesion type: [place] artery [place] vs. transplanted heart: [place] heart Associated angina: with unstable angina Qualified Code(s): I25.110 - Atherosclerotic heart disease of [place] coronary artery with unstable angina pectoris Category: Medical Code(s): I25.10 - Atherosclerotic heart disease of [place] coronary artery without angina pectoris Plan Coronary artery disease Left heart cath 11/22/2024: Successful intravascular lithotripsy of the proximal LAD followed by drug-eluting stent and persistent moderate disease in the distal dominant RCA. DAPT therapy with aspirin and Plavix Continue statin Admit overnight for monitoring due to complexity of the procedure along with the lithotripsy. Repeat labs in the morning prior to discharge
[2024-11-22 16:14] LABS: POC Glucose,Bedside 131 (70-110)
--- NOTE | 2024-11-22 16:25 | P.HP_ITS ---
History of Present Illness *Admission Date: 11/22/24 *Reason for visit:: CAD, status post *History of present illness: Mr. Oconnor is an 84-year-old male with history of COPD, CAD, hypertension, hyperlipidemia and diabetes. Presented for elective left heart cath. Has been having persistent shortness of breath since his cath last year. Found to have severe proximal LAD lesion with near total occlusion. Lithotripsy performed with stenting. Tolerated procedure well. Due to radial and femoral access along with some combativeness while emerging from anesthesia, cardiology requested admission for monitoring overnight. Patient hemodynamically stable upon arriving to the floor. Alert and oriented x 3. On room air. at bedside. [facility] Disclaimer: The information contained in this section may have been updated after the patient was seen, as this information can be updated by other users. Medical History Asthma Dyspnea on exertion COPD (chronic obstructive pulmonary disease) Abnormal computed tomography angiography of heart Hyperlipidemia HTN (hypertension) CAD (coronary artery disease) Anemia Atypical angina Shortness of breath Edema Seasonal allergies Essential tremor Diabetes Surgical History History of cataract surgery History of shoulder replacement S/P deep brain stimulator placement History of back surgery History of ankle surgery History of hand surgery History of colonoscopy Family History Heart attack Mother Cancer Sister Stroke Father Sister Social History Smoking Status: Never smoker second hand exposure: No alcohol intake: current alcohol intake frequency: a few times a week counseling given: No substance use type: denies use current occupational status: retired Travel in the last 8 weeks?: None adopted: No caregiver/support person: No foster care: No household members: spouse housing: house lives independently: Yes marital status: Have you lived/traveled outside [place] in past 30 days?: No Contact w/someone who lives/traveled outside US past 30 days?: No Exposure to someone with infectious disease in past 14 days?: No Do you have a fever (greater than 100.4 F or 38 C)?: No Have you tested positive for COVID-19?: No Exposed to someone with COVID-19 in past 14 days?: No Do you have a sore throat?: No Do you have a cough?: No Do you have any weakness?: No Do you have any diarrhea?: No Are you experiencing any unusual bleeding?: No Do you have any muscle aches/pain?: No Do you have any abdominal pain?: No Are you experiencing loss of taste or smell?: No Other Medical History Have you received the Flu Vaccine for this season: Yes Have you received the Pneumonia Vaccine: Yes Review of Systems Review of Systems Review of systems (narrative): 14 point review of systems performed, pertinent positives and negatives as per HPI Meds Home Medications and Allergies Home Medications ?Medication ?Instructions ?Recorded ?Confirmed ?Type aspirin 81 mg tablet,delayed 81 mg PO DAILY 10/18/23 11/22/24 History release (Adult Aspirin Regimen) cetirizine 10 mg tablet 10 mg PO DAILY 10/18/23 11/22/24 History empagliflozin 25 mg tablet 25 mg PO DAILY 10/18/23 11/22/24 History (Jardiance) finasteride 5 mg tablet 5 mg PO HS 10/18/23 11/22/24 History montelukast 10 mg tablet 10 mg PO HS 10/18/23 11/22/24 History pioglitazone 15 mg tablet 15 mg PO DAILY 10/18/23 11/22/24 History propranolol 80 mg capsule,24 80 mg PO DAILY 10/18/23 11/22/24 History hr,extended release sitagliptin phosphate 100 mg 100 mg PO DAILY 10/18/23 11/22/24 History tablet (Januvia) clopidogrel 75 mg tablet 75 mg PO DAILY #90 tabs 12/07/23 11/22/24 Rx atorvastatin 80 mg tablet 80 mg PO HS 01/20/24 11/22/24 History fluticasone propionate 50 1 spray intranasal DAILY 02/28/24 11/22/24 History mcg/actuation nasal spray,suspension blood sugar diagnostic (Accu-Chek #10 ea 08/14/24 11/22/24 History Guide test strips) tamsulosin 0.4 mg capsule 0.8 mg PO HS 10/23/24 11/22/24 History budesonide-formoterol HFA 160 1 puff inhalation QIDP PRN 11/22/24 11/22/24 History mcg-4.5 mcg/actuation aerosol shortness of breath or wheezing inhaler (Symbicort) New Prescriptions to Start Prescriptions: Allergies Allergy/AdvReac Type Severity Reaction Status Date / Time codeine Allergy Mild Rash Verified 11/22/24 11:48 Exam Data for Last 24 hours Vital signs and Labs for Last 24 Hours: Temp Pulse Resp BP Pulse Ox O2 Del Method O2 Flow Rate 97.5 F L 91 H 16 121/61 93 L Room Air 2 11/22/24 14:20 11/22/24 16:05 11/22/24 16:05 11/22/24 16:05 11/22/24 16:05 11/22/24 16:05 11/22/24 13:50 Laboratory Results - last 24 hr 11/22/24 10:58: WBC 6.2, RBC 3.92 L, Hgb 10.4 L, Hct 34.0 L, MCV 86.7, MCH 26.5 L, MCHC 30.6 L, RDW 15.4, Plt Count 157, MPV 12.1 H, Neut % (Auto) 51.4, Lymph % (Auto) 25.6, [place] % (Auto) 21.5 H, Eos % (Auto) 0.6, Baso % (Auto) 0.3, Neut # (Auto) 3.2, Lymph # (Auto) 1.6, [place] # (Auto) 1.3 H, Eos # (Auto) 0.0, Baso # (Auto) 0.0, Sodium 138, Potassium 3.9, Chloride 110 H, Carbon Dioxide 24, Anion Gap 7.9, BUN 14, Creatinine 0.90, Estimated Creat Clear 79, Estimated GFR 81, Est GFR ( Amer) 98, Glucose 163 H, Calcium 9.1 11/22/24 15:59: POC Glucose 131 H I & O for Last 24 hours: Intake & Output 11/19/24 11/20/24 11/21/24 11/22/24 23:59 23:59 23:59 23:59 Weight 97.522 kg Constitutional Constitutional: no acute distress, chronically ill appearing and cooperative *Routine HEENT Exam Head: Present normocephalic Eye: Present EOMI and PERRL ENT: Present mucous membranes moist *Routine Neck Exam Neck: Present supple; Absent lymphadenopathy *Routine Respiratory Exam Respiratory: Present CTA bilaterally; Absent respiratory distress, rhonchi, stridor, wheezes or crackles *Routine Cardiovascular Exam Cardiovascular: Present RRR *Routine Abdominal Exam Abdominal: Present soft and normoactive bowel sounds; Absent tenderness *Routine Rectal Exam Rectal:: deferred *Routine Genitalia Exam Genitalia:: deferred *Routine Extremities Exam Extremities: Absent cyanosis, clubbing or edema Comments: Right femoral access clean dry and intact, no hematoma *Routine Skin Exam Skin: Present warm; Absent rash *Routine Neurological Exam Neurological: Present alert, oriented X3 and moving all extremities; Absent altered mental status Assessment and Plan *Assessment and plan (1) CAD (coronary artery disease): Status: Acute Qualifiers: Coronary Disease-Associated Artery/Lesion type: [place] artery [place] vs. transplanted heart: [place] heart Associated angina: with unstable angina Qualified Code(s): I25.110 - Atherosclerotic heart disease of [place] coronary artery with unstable angina pectoris Category: Medical Code(s): I25.10 - Atherosclerotic heart disease of [place] coronary artery without angina pectoris (2) CMML (chronic myelomonocytic leukemia): Status: Acute Category: Medical Code(s): C93.10 - Chronic myelomonocytic leukemia not having achieved remission (3) Asthma: Status: Acute Category: Medical Code(s): J45.909 - Unspecified asthma, uncomplicated (4) Iron deficiency anemia due to chronic blood loss: Status: Acute Category: Medical Code(s): D50.0 - Iron deficiency anemia secondary to blood loss (chronic) (5) S/P coronary artery stent placement: Status: Acute Category: Surgical Code(s): Z95.5 - Presence of coronary angioplasty implant and graft (6) Abnormal cardiovascular stress test: Status: Acute Category: Medical Code(s): R94.39 - Abnormal result of other cardiovascular function study (7) Dyspnea: Status: Acute Category: Medical Code(s): R06.00 - Dyspnea, unspecified (8) HTN (hypertension): Status: Acute Qualifiers: Hypertension type: primary hypertension Qualified Code(s): I10 - Essential (primary) hypertension Category: Medical Code(s): I10 - Essential (primary) hypertension (9) Essential tremor: Status: Acute Category: Medical Code(s): G25.0 - Essential tremor (10) Diabetes: Status: Acute Qualifiers: 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 type: other specified (including SHAMAR) 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 terminal operator insulin use: unspecified terminal operator insulin use status 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 complication status: with other specified complication Qualified Code(s): E13.69 - Other specified diabetes mellitus with other specified complication Category: Medical Code(s): E11.9 - Type 2 diabetes mellitus without complications Plan 84-year-old male who presented for elective heart cath, found to have significant proximal LAD lesion necessitating lithotripsy and stenting. Discussed case with cardiology, request admission overnight for monitoring due to access sites and radial and femoral approach along with severity of LAD disease. I agreed to admit for further care and observation. Problems addressed as follows: Coronary artery disease Status post stenting of LAD - Left heart cath 11/22/2024: Successful intravascular lithotripsy of the proximal LAD followed by drug-eluting stent and persistent moderate disease in the distal dominant RCA. -Continue dual antiplatelet therapy with aspirin 81 mg daily and Plavix 75 mg daily - Continue Lipitor 80 mg nightly - Continue propranolol 80 mg daily extended release for blood pressure and essential tremor - Cardiology consulted and assisting with care Chronic/CMML - Hemoglobin 10.4, chronically low. Platelets 157. Kidney function normal with BUN 14, creatinine 0.9. Glucose elevated at 163 on admission - BMP and CBC ordered for the morning to monitor kidney function and hemoglobin Continue tamsulosin 0.8 mg nightly and finasteride 5 mg nightly for BPH Diabetes: Continue empagliflozin 25 mg daily, fingersticks ACHS with sliding scale insulin. Holding pioglitazone in the setting of heart cath due to contraindication Resume Singulair 10 mg at night for asthma/COPD Full code Regular Heparinized in [place]
--- NOTE | 2024-11-22 17:37 | PC.NURSE ---
PT IS RESTING IN BED. ALERT AND ORIENTED X4. CATH VSS. DRESSINGS TO THE RT GROIN AND RT RADIAL C/D/I. LUNG SOUNDS CLEAR. ABDOMEN SOFT/NON TENDER WITH ACTIVE BOWEL SOUNDS. NSR ON TELEMETRY. WILL CONTINUE TO MONITOR.
[2024-11-22 18:42] LABS: CATHL Activated Clotting Time > 400 SEC (74-125)
[2024-11-22] MEDS: MONTELUKAST SODIUM 10MG TAB 10 MG PO (20:01)
[2024-11-22] MEDS: ATORVASTATIN 40MG TABLET 80 MG PO (20:01)
[2024-11-22] MEDS: TAMSULOSIN 0.4MG CAPSULE 0.8 MG PO (20:01)
[2024-11-22] MEDS: FINASTERIDE 5MG TABLET 5 MG PO (20:02)
[2024-11-22 20:03] LABS: POC Glucose,Bedside 204 (70-110)
[2024-11-23] VITALS: BP 113/50; PULSE 93; PULSE 96; RESP 20; TEMP 36.7; O2SAT 93
--- NOTE | 2024-11-23 03:24 | PC.NURSE ---
Pt doing well post cardiac cath. Both dressings are clean and intact; unchanged from earlier. Right radial dressing has small amount of blood that was present at the beginning of the shift with no changes or evidence of a hematoma. VSS. AOx4. Pt continually denies pain or additional needs. Currently resting in bed with eyes closed. Respirations even and unlabored. Bed is low, locked, and call light is in reach.
[2024-11-23 04:00] VITALS: BP 113/52; PULSE 93; PULSE 95; RESP 14; TEMP 36.8; O2SAT 93; BMI 32.0
[2024-11-23 05:24] LABS: POC Glucose,Bedside 156 (70-110)
[2024-11-23] MEDS: SITAGLIPTIN 50MG TABLET 100 MG PO (06:01)
[2024-11-23 07:03] LABS: Basophils % 0.3 % (0.1-2.0); Eosinophils # 0.1 Kmm3 (0.0-0.4); Eosinophils % 0.6 % (0.1-12.0); Hematocrit 30.4 % (42.0-52.0); Lymphocytes # 1.6 K/mm3 (0.7-4.5); Lymphocytes % 18.9 % (10-50); Mean Corpuscular HGB Conc 30.3 g/dL (31.8-35.4); Mean Corpuscular Hemoglobin 26.1 pg (27.0-31.2); Mean Corpuscular Volume 86.4 fl (80-94); Monocytes # 2.6 K/mm3 (0.1-1.0); Neutrophils # 4.3 K/mm3 (1.8-7.8); Neutrophils % 49.4 % (37.0-80.0); Nucleated Red Blood Cells # 0 10^3/uL; Nucleated Red Blood Cells % 0 %; Platelet Count 139 K/mm3 (142-424); Red Blood Count 3.52 M/mm3 (4.60-6.20); Red Cell Distribution Width 15.4 % (11.5-17.5); Red Cell Distribution Width-SD 48.2 fL; White Blood Count 8.7 K/mm3 (4.8-10.8)
[2024-11-23 07:23] LABS: MANUAL DIFFERENTIAL MANUAL DIFFERENTIAL (MANUAL DIFF)
[2024-11-23 07:35] LABS: Anion Gap 5.6 mEq/L (5-15); Blood Urea Nitrogen 12 mg/dl (9-20); Calcium 8.4 mg/dl (8.4-10.2); Carbon Dioxide 24 mmol/L (22.0-30.0); Chloride 109 mmol/L (98-107); Creatinine Clearance Estimated 77 mL/min (50-200); Estimated Glomerular Filt Rate 93 ml/min (>60); GFR (African American) 112 ML/MIN (>60); Glucose 144 mg/dl (74-100); Potassium 3.6 mmoL/L (3.5-5.1); Sodium 135 mmol/L (136-145)
[2024-11-23 07:38] LABS: Hemoglobin 9.1 g/dL (14.1-18.0)
[2024-11-23 07:52] VITALS: BP 120/51; PULSE 92; RESP 18; TEMP 36.7; O2SAT 93
--- NOTE | 2024-11-23 08:12 | EXP.DC.SUM ---
General Admission date:: 11/22/24 Discharge date: 11/23/24 HPI HPI HPI: Mr. Oconnor is an 84-year-old male with history of COPD, CAD, hypertension, hyperlipidemia and diabetes. Presented for elective left heart cath. Has been having persistent shortness of breath since his cath last year. Found to have severe proximal LAD lesion with near total occlusion. Lithotripsy performed with stenting. Tolerated procedure well. Due to radial and femoral access along with some combativeness while emerging from anesthesia, cardiology requested admission for monitoring overnight. Patient hemodynamically stable upon arriving to the floor. Alert and oriented x 3. On room air. at bedside. Exam Data for Last 24 hours Vital signs and Labs for Last 24 Hours: Temp Pulse Resp BP Pulse Ox O2 Del Method O2 Flow Rate 98.1 F 92 H 18 120/51 L 93 L Room Air 2 11/23/24 07:52 11/23/24 07:52 11/23/24 07:52 11/23/24 07:52 11/23/24 07:52 11/23/24 07:52 11/22/24 13:50 Laboratory Results - last 24 hr 11/22/24 10:58: WBC 6.2, RBC 3.92 L, Hgb 10.4 L, Hct 34.0 L, MCV 86.7, MCH 26.5 L, MCHC 30.6 L, RDW 15.4, Plt Count 157, MPV 12.1 H, Neut % (Auto) 51.4, Lymph % (Auto) 25.6, [place] % (Auto) 21.5 H, Eos % (Auto) 0.6, Baso % (Auto) 0.3, Neut # (Auto) 3.2, Lymph # (Auto) 1.6, [place] # (Auto) 1.3 H, Eos # (Auto) 0.0, Baso # (Auto) 0.0, Sodium 138, Potassium 3.9, Chloride 110 H, Carbon Dioxide 24, Anion Gap 7.9, BUN 14, Creatinine 0.90, Estimated Creat Clear 79, Estimated GFR 81, Est GFR ( Amer) 98, Glucose 163 H, Calcium 9.1 11/22/24 12:57: Activated Clotting Time > 400 H* 11/22/24 15:59: POC Glucose 131 H 11/22/24 19:49: POC Glucose 204 H 11/23/24 05:11: POC Glucose 156 H 11/23/24 06:47: WBC 8.7 D, RBC 3.52 L, Hgb 9.1 L D, Hct 30.4 L, MCV 86.4, MCH 26.1 L, MCHC 30.3 L, RDW 15.4, Plt Count 139 L, MPV 12.0 H, Neut % (Auto) 49.4, Lymph % (Auto) 18.9, [place] % (Auto) 30.0 H, Eos % (Auto) 0.6, Baso % (Auto) 0.3, Neut # (Auto) 4.3, Lymph # (Auto) 1.6, [place] # (Auto) 2.6 H, Eos # (Auto) 0.1, Baso # (Auto) 0.0, Sodium 135 L, Potassium 3.6, Chloride 109 H, Carbon Dioxide 24, Anion Gap 5.6, BUN 12, Creatinine 0.80, Estimated Creat Clear 77, Estimated GFR 93, Est GFR ( Amer) 112, Glucose 144 H, Calcium 8.4 I & O for Last 24 hours: Intake & Output 11/20/24 11/21/24 11/22/24 11/23/24 23:59 23:59 23:59 23:59 Intake Total 570 / 570 Balance 570 / 570 Weight 97.522 kg 95.821 kg Results Data Completed and Pending Labs on day of discharge: Labs from last 24 hours 11/23/24 11/23/24 11/22/24 06:47 05:11 19:49 WBC 8.7 D RBC 3.52 L Hgb 9.1 L D Hct 30.4 L MCV 86.4 MCH 26.1 L MCHC 30.3 L RDW 15.4 Plt Count 139 L MPV 12.0 H Neut % (Auto) 49.4 Lymph % (Auto) 18.9 [place] % (Auto) 30.0 H Eos % (Auto) 0.6 Baso % (Auto) 0.3 Neut # (Auto) 4.3 Lymph # (Auto) 1.6 [place] # (Auto) 2.6 H Eos # (Auto) 0.1 Baso # (Auto) 0.0 Total Counted Pending Platelet Estimate Pending RBC Morphology Pending Activated Clotting Time Sodium 135 L Potassium 3.6 Chloride 109 H Carbon Dioxide 24 Anion Gap 5.6 BUN 12 Creatinine 0.80 Estimated Creat Clear 77 Estimated GFR 93 Est GFR ( Amer) 112 Glucose 144 H POC Glucose 156 H 204 H Calcium 8.4 11/22/24 11/22/24 11/22/24 15:59 12:57 10:58 WBC 6.2 RBC 3.92 L Hgb 10.4 L Hct 34.0 L MCV 86.7 MCH 26.5 L MCHC 30.6 L RDW 15.4 Plt Count 157 MPV 12.1 H Neut % (Auto) 51.4 Lymph % (Auto) 25.6 [place] % (Auto) 21.5 H Eos % (Auto) 0.6 Baso % (Auto) 0.3 Neut # (Auto) 3.2 Lymph # (Auto) 1.6 [place] # (Auto) 1.3 H Eos # (Auto) 0.0 Baso # (Auto) 0.0 Total Counted Platelet Estimate RBC Morphology Activated Clotting Time > 400 H* Sodium 138 Potassium 3.9 Chloride 110 H Carbon Dioxide 24 Anion Gap 7.9 BUN 14 Creatinine 0.90 Estimated Creat Clear 79 Estimated GFR 81 Est GFR ( Amer) 98 Glucose 163 H POC Glucose 131 H Calcium 9.1 DS: Diagnosis Discharge Diagnosis (1) CAD (coronary artery disease): Status: Acute Code(s): I25.10 - Atherosclerotic heart disease of [place] coronary artery without angina pectoris Qualifiers: Coronary Disease-Associated Artery/Lesion type: [place] artery [place] vs. transplanted heart: [place] heart Associated angina: with unstable angina Qualified Code(s): I25.110 - Atherosclerotic heart disease of [place] coronary artery with unstable angina pectoris (2) CMML (chronic myelomonocytic leukemia): Status: Acute Code(s): C93.10 - Chronic myelomonocytic leukemia not having achieved remission (3) Asthma: Status: Acute Code(s): J45.909 - Unspecified asthma, uncomplicated (4) Iron deficiency anemia due to chronic blood loss: Status: Acute Code(s): D50.0 - Iron deficiency anemia secondary to blood loss (chronic) (5) S/P coronary artery stent placement: Status: Acute Code(s): Z95.5 - Presence of coronary angioplasty implant and graft (6) Abnormal cardiovascular stress test: Status: Acute Code(s): R94.39 - Abnormal result of other cardiovascular function study (7) Dyspnea: Status: Acute Code(s): R06.00 - Dyspnea, unspecified (8) HTN (hypertension): Status: Acute Code(s): I10 - Essential (primary) hypertension Qualifiers: Hypertension type: primary hypertension Qualified Code(s): I10 - Essential (primary) hypertension (9) Essential tremor: Status: Acute Code(s): G25.0 - Essential tremor (10) Diabetes: Status: Acute Code(s): E11.9 - Type 2 diabetes mellitus without complications Qualifiers: 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 type: other specified (including SHAMAR) 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 use: unspecified retirement insulin use status 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 complication status: with other specified complication Qualified Code(s): E13.69 - Other specified diabetes mellitus with other specified complication Meds Home Medications and Allergies Home Medications ?Medication ?Instructions ?Recorded ?Confirmed ?Type aspirin 81 mg tablet,delayed 81 mg PO DAILY 10/18/23 11/22/24 History release (Adult Aspirin Regimen) cetirizine 10 mg tablet 10 mg PO DAILY 10/18/23 11/22/24 History empagliflozin 25 mg tablet 25 mg PO DAILY 10/18/23 11/22/24 History (Jardiance) finasteride 5 mg tablet 5 mg PO HS 10/18/23 11/22/24 History montelukast 10 mg tablet 10 mg PO HS 10/18/23 11/22/24 History pioglitazone 15 mg tablet 15 mg PO DAILY 10/18/23 11/22/24 History propranolol 80 mg capsule,24 80 mg PO DAILY 10/18/23 11/22/24 History hr,extended release sitagliptin phosphate 100 mg 100 mg PO DAILY 10/18/23 11/22/24 History tablet (Januvia) clopidogrel 75 mg tablet 75 mg PO DAILY #90 tabs 12/07/23 11/22/24 Rx atorvastatin 80 mg tablet 80 mg PO HS 01/20/24 11/22/24 History fluticasone propionate 50 1 spray intranasal DAILY 02/28/24 11/22/24 History mcg/actuation nasal spray,suspension blood sugar diagnostic (Accu-Chek #10 ea 08/14/24 11/22/24 History Guide test strips) tamsulosin 0.4 mg capsule 0.8 mg PO HS 10/23/24 11/22/24 History budesonide-formoterol HFA 160 1 puff inhalation QIDP PRN 11/22/24 11/22/24 History mcg-4.5 mcg/actuation aerosol shortness of breath or wheezing inhaler (Symbicort) New Prescriptions to Start Prescriptions: Allergies Allergy/AdvReac Type Severity Reaction Status Date / Time codeine Allergy Mild Rash Verified 11/22/24 11:48 Discharge Plan Disposition Patient Disposition: Home, Self-Care Condition: Fair Follow up Plan Follow up with: Coleman Mercedes MD [Staff Physician] - 11/29/24 2:45 pm Prescriptions/Medication Reconciliation: Continued cetirizine 10 mg tablet 10 mg PO DAILY Patient Comments: TAKE 1 TABLET BY MOUTH DAILY aspirin [Adult Aspirin Regimen] 81 mg tablet,delayed release (DR/EC) 81 mg PO DAILY Jardiance 25 mg tablet 25 mg PO DAILY Patient Comments: TAKE 1 TABLET BY MOUTH EVERY DAY propranolol 80 mg capsule,extended release 24 hr 80 mg PO DAILY Patient Comments: TAKE 1 CAPSULE BY MOUTH EVERY DAY Januvia 100 mg tablet 100 mg PO DAILY Patient Comments: TAKE 1 TABLET BY MOUTH DAILY finasteride 5 mg tablet 5 mg PO HS Patient Comments: TAKE 1 TABLET BY MOUTH DAILY AT BEDTIME montelukast 10 mg tablet 10 mg PO HS Patient Comments: TAKE 1 TABLET BY MOUTH DAILY tamsulosin 0.4 mg capsule 0.8 mg PO HS Patient Comments: TAKE 2 CAPSULES BY MOUTH AT BEDTIME fluticasone propionate 50 mcg/actuation spray,suspension 1 spray intranasal DAILY (DME) Accu-Chek Guide test strips Strip See Rx Instructions .ROUTE .MEDSUPPLY Qty: 10 Patient Comments: TEST BLOOD SUGAR TWICE A DAY Rx Instructions: As directed clopidogrel 75 mg tablet 75 mg PO DAILY Qty: 90 3RF atorvastatin 80 mg tablet 80 mg PO HS budesonide-formoterol [Symbicort] 160-4.5 mcg/actuation HFA aerosol inhaler 1 puff inhalation QIDP PRN (Reason: shortness of breath or wheezing) No Action pioglitazone 15 mg tablet 15 mg PO DAILY Patient Comments: TAKE 1 TABLET BY MOUTH DAILY Problem Reconciliation Problems Reviewed?: Yes Patient Discharge Instructions ACTIVITY: Continue current activity DIET: continue same diet Patient Instructions: DI for Cardiac Catheterization, DI for Surgical Site Infection, DI for Moderate Sedation Print Language: Israeli Providers Primary Care Provider: aDkota Klein Provider: Raudel Guallpa Attending Provider: Raudel Guallpa
[2024-11-23] MEDS: ASPIRIN EC 81MG TABLET 81 MG PO (08:16)
[2024-11-23] MEDS: CLOPIDOGREL 75MG TAB 75 MG PO (08:16)
[2024-11-23] MEDS: PROPRANOLOL 20MG TAB 20 MG PO (08:16)
[2024-11-23] MEDS: EMPAGLIFLOZIN 25MG TABLET 25 MG PO (08:16)
[2024-11-23 08:55] LABS: Eosinophils % 1 % (0-3); Lymphocytes % 19 % (10-50); Monocytes % 19 % (2-9); Neutrophils % 61 % (42-76); Total Cells Counted 100
[2024-11-23 08:56] LABS: Hypochromasia 1+; Ovalocytes 1+; Platelet Estimate Slight Decrease
--- NOTE | 2024-11-23 10:06 | EXP.CARD.PN ---
Subjective Subjective Date: 11/23/24 Time: 08:00 Principal diagnosis: cad Interval history: Patient doing well this morning. Denies chest pain or shortness of breath. Requesting to go home. Morning labs reviewed and creatinine stable. Exam Data for Last 24 hours Vital signs and Labs for Last 24 Hours: Temp Pulse Resp BP Pulse Ox O2 Del Method O2 Flow Rate 98.1 F 92 H 18 120/51 L 93 L Room Air 2 11/23/24 07:52 11/23/24 07:52 11/23/24 07:52 11/23/24 07:52 11/23/24 07:52 11/23/24 07:52 11/22/24 13:50 Laboratory Results - last 24 hr 11/22/24 10:58: WBC 6.2, RBC 3.92 L, Hgb 10.4 L, Hct 34.0 L, MCV 86.7, MCH 26.5 L, MCHC 30.6 L, RDW 15.4, Plt Count 157, MPV 12.1 H, Neut % (Auto) 51.4, Lymph % (Auto) 25.6, [place] % (Auto) 21.5 H, Eos % (Auto) 0.6, Baso % (Auto) 0.3, Neut # (Auto) 3.2, Lymph # (Auto) 1.6, [place] # (Auto) 1.3 H, Eos # (Auto) 0.0, Baso # (Auto) 0.0, Sodium 138, Potassium 3.9, Chloride 110 H, Carbon Dioxide 24, Anion Gap 7.9, BUN 14, Creatinine 0.90, Estimated Creat Clear 79, Estimated GFR 81, Est GFR ( Amer) 98, Glucose 163 H, Calcium 9.1 11/22/24 12:57: Activated Clotting Time > 400 H* 11/22/24 15:59: POC Glucose 131 H 11/22/24 19:49: POC Glucose 204 H 11/23/24 05:11: POC Glucose 156 H 11/23/24 06:47: WBC 8.7 D, RBC 3.52 L, Hgb 9.1 L D, Hct 30.4 L, MCV 86.4, MCH 26.1 L, MCHC 30.3 L, RDW 15.4, Plt Count 139 L, MPV 12.0 H, Neut % (Auto) 49.4, Lymph % (Auto) 18.9, [place] % (Auto) 30.0 H, Eos % (Auto) 0.6, Baso % (Auto) 0.3, Neut # (Auto) 4.3, Lymph # (Auto) 1.6, [place] # (Auto) 2.6 H, Eos # (Auto) 0.1, Baso # (Auto) 0.0, Total Counted 100, Neutrophils % (Manual) 61, Lymphocytes % (Manual) 19, Monocytes % (Manual) 19 H, Eosinophils % (Manual) 1, Platelet Estimate Slight decrease, RBC Morphology Not Reportable, Hypochromasia 1+, Ovalocytes 1+, Sodium 135 L, Potassium 3.6, Chloride 109 H, Carbon Dioxide 24, Anion Gap 5.6, BUN 12, Creatinine 0.80, Estimated Creat Clear 77, Estimated GFR 93, Est GFR ( Amer) 112, Glucose 144 H, Calcium 8.4 I & O for Last 24 hours: Intake & Output 11/20/24 11/21/24 11/22/24 11/23/24 23:59 23:59 23:59 23:59 Intake Total 570 / 570 260 / 260 Balance 570 / 570 260 / 260 Weight 215 lb 211 lb 4 oz Constitutional Constitutional: no acute distress *Routine Respiratory Exam Respiratory: Present CTA bilaterally and symmetric chest movement *Routine Cardiovascular Exam Cardiovascular: Present RRR, Normal S1 and Normal S2 *Routine Abdominal Exam Abdominal: Present soft and normoactive bowel sounds; Absent tenderness *Routine Extremities Exam Extremities: Present full ROM and normal capillary refill; Absent edema Comments: Right groin access-dressing dry and intact. No obvious swelling or bruising noted. *Routine Skin Exam Skin: Present intact, dry and warm Detailed Neck Exam: Thyroids Thyroid: Absent bruit Progress Note: A&P Assessment and plan (1) CAD (coronary artery disease): Status: Acute (2) CMML (chronic myelomonocytic leukemia): Status: Acute (3) Asthma: Status: Acute (4) Iron deficiency anemia due to chronic blood loss: Status: Acute (5) S/P coronary artery stent placement: Status: Acute (6) Abnormal cardiovascular stress test: Status: Acute (7) Dyspnea: Status: Acute (8) HTN (hypertension): Status: Acute (9) Essential tremor: Status: Acute (10) Diabetes: Status: Acute Assessment and Plan Assessment and Plan for All Diagnoses:: Coronary artery disease Left heart cath 11/22/2024: Successful intravascular lithotripsy of the proximal LAD followed by drug-eluting stent and persistent moderate disease in the distal dominant RCA. DAPT therapy with aspirin and Plavix Continue statin Did well throughout the evening with no issues Morning labs reviewed and stable 11/23/2024: Patient is CV stable for discharge home. Please continue below listed medications and have patient follow-up in cardiology clinic in 1 week for reevaluation. Aspirin 81 mg p.o. daily Plavix 75 mg p.o. daily Atorvastatin 80 mg p.o. daily Jardiance 25 mg p.o. daily
--- NOTE | 2024-11-26 10:09 | SW/DCPLANNER ---
Spoke with patient's on the phone. Patient's stated that he is doing well just still weak. Patient's stated that she is aware of his upcoming appointments but hasnt called to schedule an appointment with their primary care provider. Patient's stated that they have no concerns or questions at this time. Waleska Stallings
== END 2024-11-23 10:06 | disposition home or self-care (01) ==
LOC: 2ND 14:01
PROVIDERS: Internal Medicine; Admitting Provider Internal Medicine Adolescent Medicine; PCP Internal Medicine; Visit Provider Internal Medicine Adolescent Medicine
PROC: 4A023N7 Measurement of Cardiac Sampling and Pressure, Left Heart, Percutaneous Approach (ICD-10-PCS; CPT 93452; principal; 2024-11-22 09:45)
DX: I25.110 Atherosclerotic heart disease of native coronary artery with unstable angina pectoris (principal); T82.855A Stenosis of coronary artery stent, initial encounter; I77.1 Stricture of artery; R94.39 Abnormal result of other cardiovascular function study; C93.10 Chronic myelomonocytic leukemia not having achieved remission; J45.909 Unspecified asthma, uncomplicated; R06.00 Dyspnea, unspecified; D50.0 Iron deficiency anemia secondary to blood loss (chronic); Z95.5 Presence of coronary angioplasty implant and graft; I10 Essential (primary) hypertension; G25.0 Essential tremor; Y83.1 Surgical operation with implant of artificial internal device as the cause of abnormal reaction of the patient, or of later complication, without mention of misadventure at the time of the procedure; Z88.5 Allergy status to narcotic agent; Z79.899 Other long term (current) drug therapy; E11.9 Type 2 diabetes mellitus without complications; Z79.84 Long term (current) use of oral hypoglycemic drugs; T88.59XA Other complications of anesthesia, initial encounter; R45.6 Violent behavior
CPT/HCPCS: 36415; 80048; 82962; 85007; 85025; 85347; 92928; 92972; 93458; 99152; 99153; C1725; C1760; C1761; C1769; C1874; C9600; G0378; J1200; J1644; J3010; Q9967

== ENCOUNTER 2024-11-29 13:19 | Outpatient (CLI) | payer MEDICARE, SELFPAY ==
--- OUTSIDE RECORDS SUMMARY | 2024-11-29 13:22 | XMS_ITS | Data Portability ---
Author Organization MD - [facility] [place] [facility] [place] Vicente ADMIN Address [address] [place] [address] Care Team Providers Care Engineering Geologist Name Role Phone SCOTT RIBERASHUA Primary Care Provider [phone] Assessment Encounter Date Assessment Date Assessment LastModified by Organization Details LastModified Time 09/14/2022 09/14/2022 Will increase patient's Viagra dose up to 100 mg daily p.r.n. as directed. He has been instructed to avoid taking the medication along with the Flomax and will hold the Flomax on the evening that he uses Viagra. F/U late 11/14. [email or web address] Not available 09/14/2022 17:17:39 12/14/2022 12/14/2022 I [...] PSA and JARETT on an annual basis. [email or web address] Not available 12/14/2022 13:55:11 Plan of Treatment Reminders Order Date Submit Date Provider Last Modified By Organization Details Last Modified Time Details Appointments None recorded. Lab PSA, serum or plasma 2022 023 [email or web address] Not available 15:21:00 urinalysis, dipstick 2022 023 [email or web address] [facility], [address], [address], [place], [address], 11:37:47 urinalysis, dipstick [address], [address] [place] [address], [facility] [place], [address], 15:35:18 urinalysis, dipstick [address], [address] [place] [address], [facility] [place], [address], 16:30:05 Referral None recorded. Procedures bladder scan (PROC) [address], [address] [place] [address], [facility] [place], [address], 11:37:47 bladder scan (PROC) [address], [address] [place] [address], [facility] [address] [facility] [place], [address], 15:35:18 bladder scan (PROC) [address], [address] [place] [address], [facility] [place], [address], 14:55:15 Surgeries None recorded. Imaging None recorded. Medication Orders sildenafil 100 mg tablet 2022 023 [id number], [address], [place], [address], 15:35:18 Patient TargetsNo targets recorded. Patient InstructionsNo instructions recorded. Reason for Referral None Reported. Results Created Date Observation Date Name Description Value Unit Range Abnormal Flag Note LastModifiedBy Organization Detail LastModifiedTime 05/06/2005/06/2022 bladd er scan (PROC ) Calculated Residual Urine: 103cc Not Available [facility] [place], [address], 05/06/2022 14:31:22 05/06/2005/06/2022 urina lysis , dipst ick Leukocytes Negati ve Not Available [facility] [place], [address], 05/06/2022 14:26:01 05/06/2005/06/2022 urina lysis , dipst ick Nitrite negati ve Not Available [facility] [address] [place], [address], 05/06/2022 14:26:01 05/06/2005/06/2022 urina lysis , dipst ick Urobilinogen .2 Not Available [facility] [place], [address], 05/06/2022 14:26:01 05/06/2005/06/2022 urina lysis , dipst ick Protein Negati ve Not Available [facility] [address] [place], [address], 05/06/2022 14:26:01 05/06/2005/06/2022 urina lysis , dipst ick pH 5.0 Not Available [facility] [address] [place], [address], 05/06/2022 14:26:01 05/06/2005/0605/06/2022 urina lysis , dipst ick Blood Negati ve Not Available [facility] [address] [place], [place], [address], 05/06/2022 14:26:01 05/06/2005/06/2022 urina lysis , dipst ick Specific [place] 1.015 Not Available [facility] [address], [place], [address], 05/06/2022 14:26:01 05/06/2005/06/2022 urina lysis , dipst ick Ketone Negati ve Not Available [facility] [address] [place], [address], 05/06/2022 14:26:01 05/06/2005/06/2022 urina lysis , dipst ick Bilirubin Negati ve Not Available [facility] [address] [place], [address], 05/06/2022 14:26:01 05/06/2005/06/2022 urina lysis , dipst ick Glucose Negati ve Not Available [facility] [address] [place], [address], 05/06/2022 14:26:01 05/06/2005/06/2022 urina lysis , dipst ick Appearance Clear Not Available [facility] [address] [place], [address], 05/06/2022 14:26:01 05/06/2005/06/2022 urina lysis , dipst ick Color Yellow Not Available [facility] [place], [place], [address], 05/06/2022 14:26:01 09/14/19 23 09/14/2022 bladd er scan (PROC ) Calculated Residual Urine: 172cc Not Available [facility] [address] [place], [address], 09/14/2022 14:36:47 09/14/19 23 09/14/2022 urina lysis , dipst ick Leukocytes Negati ve Not Available [facility] [address] [place], [address], 09/14/2022 14:20:53 09/14/19 23 09/14/2022 urina lysis , dipst ick Nitrite negati ve Not Available [facility] [address] [place], [address], 09/14/2022 14:20:53 09/14/19 23 09/14/2022 urina lysis , dipst ick Urobilinogen .2 Not Available [facility] [address] [place], [address], 09/14/2022 14:20:53 09/14/19 23 09/14/2022 urina lysis , dipst ick Protein Negati ve Not Available [facility] [address] [place], [address], 09/14/2022 14:20:53 09/14/19 23 09/14/2022 urina lysis , dipst ick pH 6.0 Not Available [facility] [address] [place], [address], 09/14/2022 14:20:53 09/14/19 23 09/14/2022 urina lysis , dipst ick Blood Negati ve Not Available [facility], [place], [address], 09/14/2022 14:20:53 09/14/19 23 09/14/2022 urina lysis , dipst ick Specific [place] 1.015 Not Available [facility] [place], [address], 09/14/2022 14:20:53 09/14/19 23 09/14/2022 urina lysis , dipst ick Ketone Negati ve Not Available [facility] [address] [place], [address], 09/14/2022 14:20:53 09/14/19 23 09/14/2022 urina lysis , dipst ick Bilirubin Negati ve Not Available [facility] [address] [place], [address], 09/14/2022 14:20:53 09/14/19 23 09/14/2022 urina lysis , dipst ick Glucose 250 Not Available [facility] [address] [place], [address], 09/14/2022 14:20:53 09/14/19 23 09/14/2022 urina lysis , dipst ick Appearance Clear Not Available [facility] [address] [place], [address], 09/14/2022 14:20:53 09/14/19 23 09/14/2022 urina lysis , dipst ick Color Yellow Not Available [facility] [address] [place], [address], 09/14/2022 14:20:53 12/15/1912/14/2022 urina lysis , dipst ick Leukocytes Negati ve Not Available [facility] [address], [place], [address], 12/14/2022 10:18:50 12/15/1912/14/2022 urina lysis , dipst ick Nitrite negati ve Not Available [facility], [place], [address], 12/14/2022 10:18:50 12/15/1912/14/2022 urina lysis , dipst ick Urobilinogen .2 Not Available [facility] [address], [place], [address], 12/14/2022 10:18:50 12/15/1912/14/2022 urina lysis , dipst ick Protein Negati ve Not Available [facility] [place], [place], [address], 12/14/2022 10:18:50 12/15/1912/14/2022 urina lysis , dipst ick pH 5.0 Not Available [facility] [address], [place], [address], 12/14/2022 10:18:50 12/15/1912/14/2022 urina lysis , dipst ick Blood Negati ve Not Available [facility] [address] [place], [address], 12/14/2022 10:18:50 12/15/19 23 12/14/2022 urina lysis , dipst ick Specific [place] 1.015 Not Available [facility] [address], [place], [address], 12/14/2022 10:18:50 12/15/19 23 12/14/2022 urina lysis , dipst ick Ketone Negati ve Not Available [facility] [address], [place], [address], 12/14/2022 10:18:50 12/15/19 23 12/14/2022 urina lysis , dipst ick Bilirubin Negati ve Not Available [address] [place], [address], 12/14/2022 10:18:50 12/15/19 23 12/14/2022 urina lysis , dipst ick Glucose 500 Not Available [facility] [address] [place], [place], [address], 12/14/2022 10:18:50 12/15/19 23 12/14/2022 urina lysis , dipst ick Appearance Clear Not Available [address] [place], [address], 12/14/2022 10:18:50 12/15/19 23 12/14/2022 urina lysis , dipst ick Color Yellow Not Available [address] [place], [address], 12/14/2022 10:18:50 12/15/19 23 12/14/2022 bladd er scan (PROC ) Calculated Residual Urine: 166cc Not Available [facility] [address] [place], [place], [address], 12/14/2022 10:18:08 05/07/20 22 04/01/2022 XR, kidne [...] Time History of diabetes mellitus type 2 650919577 Active Millie Haines null, [place] [facility] [place] [facility] [place] 2 10:04:08 Retention of urine 709538134 Active Millie H[place] [facility] [place] [facility] [place] 2 10:04:08 Incomplete emptying of urinary bladder 471837300 Active Millie H[place] [facility] [place] [facility] [place] 2 10:04:08 Malignant tumor of colon 932747603 Active Millie H[place], [place] [facility] [place] [facility] [place] 2 10:04:08 Slowing of urinary stream 86957898 Active Milile Haines [place], [place] [facility] [place] [facility] [place] 2 10:04:08 Patient encounter status 518605343 Active Millie Haines [place] [facility] [place] [facility] [place] 2 10:04:08 Large prostate 950878547 Active Millie Haines [place] [facility] [place] [facility] [place] 2 10:04:08 Nocturia 862719816 Active Millie Haines null, [place] [facility] [place] [facility] [place] 2 10:04:08 Impotence Active [facility] [place] 2 10:04:08 Increased frequency of urination 899071986 Active KATHY Daniel [facility] & [place] 2 10:04:08 Problem Notes None recorded. Procedures [...] Name and Address Organization Details Recorded Time 41049 codeine medicatio n Not available Not available Not available 04/12/2022 2670 RxNorm Millie carvalho [facility] & [place] 2 10:04:07 00154 propoxyph luca hydrochlo ride medicatio n Not available Not available Not available 05/03/2022 74751 RxNorm Ebony carvalho [facility] & [place] 2 16:28:14 Medications Name Sig Start Date [...] Updated DateTime 09/14/2022 167.64 cm Ebony Farias [facility] 09/14/2022 14:16:48 Date Recorded Body mass index (BMI) Body weight Body temperature Systolic blood pressure Diastolic blood pressure Provider Name and Address Organization Details Last Updated DateTime 09/14/2022 35.8 kg/m2 818488. 51 g 97.6 [degF] 140 mm[Hg] 80 mm[Hg] Renata CHAVEZ [facility] & [place] 3 14:31:18 Date Recorded Body height Body mass index (BMI) Body weight Body temperature Systolic blood pressure Diastolic blood pressure Provider Name and Address Organization Details Last Updated DateTime 2 167.64 cm 35.7 kg/m2 724612. 91 g 97.5 [degF] 130 mm[Hg] 70 mm[Hg] Ebony CHAVEZ [facility] & [place] 2 14:23:08 Social History Question Answer Notes LastModified by Organizat ion Details LastModified Time Tobacco Smoking Status Never Smoker Ebony Farias [facility] & [place] 05/03/2022 16:33:34 What Is Your Level Of Alcohol Consumption? None [email or web address] Information not available 05/03/2022 What Is Your Level Of Caffeine Consumption? Occasional Information not available 05/03/2022 Do You Use Any Illicit Or Recreational Drugs? No [email or web address] Information not available 05/03/2022 Do You Or Have You Ever Used Any Other Forms Of Tobacco Or Nicotine? No [email or web address] Information not available 05/03/2022 Sex: Unknown Functional Status None recorded. Mental Status None recorded. Family History Nothing Reported Notes:mother heart condition father stroke, cancer, sister breast cancer alive brother alive Medical History No medical history recorded. Past Encounters Encounter ID Performer Location Encounter Start Date Encounter Closed Date Diagnosis/Indication Diagnosis SNOMED-CT Code Diagnosis ICD10 Code Diagnosis Note [id number] Ebony Allan NP, S [facility] [address] [facility],[address] [place] [address] 05/06/2022 14:05:39 05/06/2022 14:52:50 Incomplete emptying of urinary bladder 193446398 R39.14 urinalysis clear today. PVR 103 much improved from previous. Renal ultrasound , KUB, urine cytology, and PSA results discussed with patient clinic today.Cont inue Flomax and finasterid ereturn to clinic in 4 months for follow-up with UA and PVR. Nocturia 043522184 R35.1 Large prostate 548905128 N40.0 [id number] Tin Lorenz MD [facility] [address],[facility] [place] [address] 09/14/2022 14:06:56 09/14/2022 14:59:28 Incomplete emptying of urinary bladder 143513491 R39.14 Nocturia 580977239 R35.1 Erectile dysfunction 860 505549 F52.21 [id number] Tin Lorenz MD [facility] [address],[facility] [place] [address] 12/14/2022 10:05:36 12/14/2022 10:41:17 Incomplete emptying of urinary bladder 561401766 R39.14 Nocturia 803366562 R35.1 Erectile dysfunction 860 269244 F52.21 Screening for malignant neoplasm of prostate 302397716 Z12.5 Fatigue 83667751 R53.83 Health Concerns Section Related Observation LastModified by Organization Detai ls LastModified Time None Recorded Concern Status LastModified by Organization Details LastModified Time None Recorded Advance Directives Directive None Recorded Payers Insurance Date Sequence Insurance Name Policy Number Policy Isaac Covered Member ID Isaac Member ID Guarantor Name 02/11/2024 1 [employer] (MEDICARE REPLACEMENT/A DVANTAGE - PPO) Kennedy Elvin Oconnor [id number] Kennedy Oconnor Notes Date Note Type Note [...] colon. Ebony Allan NP, S [address], [place], [address], [facility] - [facility] & [place] 05/06/2022 15:11:54 09/14/2022 text/html Patient returns to [...] colon. Tin Lorenz MD [address], [place], [address], [facility] - [facility] & [place] 09/14/2022 17:17:57 12/14/2022 text/html patient presents today complaining of generalized fatigue. patient states that he recently spoke to his brother law who is a physician assistant baseball coach do question whether it at a testosterone [...] neoplasm of the colon. Tin Lorenz MD [address] [facility], [place], [address], [facility] [place] [facility] [place] [facility] [place] 12/14/2022 13:56:00
--- OUTSIDE RECORDS SUMMARY | 2024-11-29 13:23 | XMS_ITS | Data Portability ---
Author Organization [facility], [facility] Address [address] [place] [address] Care Team Providers Care Senior Network Architect Name Role Phone MIRNA VALENZUELA Primary Care Provider MIRNA VALENZUELA Referring Provider Assessment Encounter Date [...] glucose 205 mg/dL 74-100 high Not Available [facility] [address] [place], [address], 06/08/2022 20:11:11 06/08/20 22 06/08/2022 COMP. METAB OLIC PANEL blood urea nitrogen 23 mg/dL 6-20 high Not Available [facility] [address] [place], [address], 06/08/2022 20:11:11 06/08/20 22 06/08/2022 COMP. METAB OLIC PANEL creatinine 1.18 mg/dL 0.70-1 .28 normal Not Available [facility] [address] [place] [address], [address], 06/08/2022 20:11:11 06/08/20 22 06/08/2022 COMP. METAB OLIC PANEL BUN/creatini ne ratio 19 (calc ) 10-20 normal Not Available [facility] [address] [place] [address], [address], 06/08/2022 20:11:11 06/08/20 22 06/08/2022 COMP. METAB OLIC PANEL sodium 139 mmol/ L 136-14 5 normal Not Available [facility] [address] [place] [address], [address], 06/08/2022 20:11:11 06/08/20 22 06/08/2022 COMP. METAB OLIC PANEL potassium 3.9 mmol/ L 3.4-5. 0 normal Not Available [facility] [address] [place] [address], [address], 06/08/2022 20:11:11 06/08/20 22 06/08/2022 COMP. METAB OLIC PANEL chloride 98 mmol/ L 98-107 normal Not Available [facility] [address] [place] [address], [address], 06/08/2022 20:11:11 06/08/20 22 06/08/2022 COMP. METAB OLIC PANEL carbon dioxide 26 mmol/ L 22-31 normal Not Available [facility] [address] [place] [address], [address], 06/08/2022 20:11:11 06/08/20 22 06/08/2022 COMP. METAB OLIC PANEL anion gap 15 (calc ) 7-25 normal Not Available [facility] [address] [place] [address], [address], 06/08/2022 20:11:11 06/08/20 22 06/08/2022 COMP. METAB OLIC PANEL calcium 9.4 mg/dL 8.6-10 .2 normal Not Available [facility] [address] [place] [address], [address], 06/08/2022 20:11:11 06/08/20 22 06/08/2022 COMP. METAB OLIC PANEL total protein 6.7 g/dL 6.4-8. 3 normal Not Available [facility] [address] [place] [address], [address], 06/08/2022 20:11:11 06/08/20 22 06/08/2022 COMP. METAB OLIC PANEL albumin 4.2 g/dL 3.5-5. 2 normal Not Available [facility] [address] [place] [address], [address], 06/08/2022 20:11:11 06/08/20 22 06/08/2022 COMP. METAB OLIC PANEL globulin 2.5 g/dL_ (calc ) 1.5-4. 5 normal Not Available [facility] [address] [place] [address], [address], 06/08/2022 20:11:11 06/08/20 22 06/08/2022 COMP. METAB OLIC PANEL albumin/glob ulin ratio 1.7 (calc ) 1.1-2. 5 normal Not Available [facility] [address] [place] [address], [address], 06/08/2022 20:11:11 06/08/20 22 06/08/2022 COMP. METAB OLIC PANEL bilirubin, total 0.7 mg/dL 0.1-1. 2 normal Not Available [facility] [address] [place] [address], [address], 06/08/2022 20:11:11 06/08/20 22 06/08/2022 COMP. METAB OLIC PANEL alkaline phosphatase 104 U/L 40-129 normal Not Available [facility] [address] [place], [address], 06/08/2022 20:11:11 06/08/20 22 06/08/2022 COMP. METAB OLIC PANEL AST 13 U/L 0-40 normal Not Available [facility] [address] [place], [address], 06/08/2022 20:11:11 06/08/20 22 06/08/2022 COMP. METAB OLIC PANEL ALT 12 U/L 0-41 normal Not Available [facility] [address] [place], [address], 06/08/2022 20:11:11 06/08/20 22 06/08/2022 COMP. METAB [...] s/KDO QI/gf r_cal culat orPed Not Available [facility] [address] [place], [address], 06/08/2022 20:11:11 06/08/20 22 06/08/2022 LDH LDH 189 U/L 135-22 5 normal Not Available [facility] [address] [place], [address], 06/08/2022 20:11:12 06/08/20 22 06/08/2022 COMPL ETE BLOOD COUNT white blood cells 7.2 K/uL 3.8-10 .8 normal Not Available [facility] [address] [place], [address], 06/08/2022 20:23:37 06/08/20 22 06/08/2022 COMPL ETE BLOOD COUNT red blood cells 5.29 M/uL 4.20-5 .80 normal Not Available [facility] [address] [place] [address], [address], 06/08/2022 20:23:37 06/08/20 22 06/08/2022 COMPL ETE BLOOD COUNT hemoglobin 15.9 g/dL 14.0-1 8.0 normal Not Available [facility] [address] [place] [address], [address], 06/08/2022 20:23:37 06/08/20 22 06/08/2022 COMPL ETE BLOOD COUNT hematocrit 47.1 % 40.0-5 2.0 normal Not Available [facility] [address] [place] [address], [address], 06/08/2022 20:23:37 06/08/20 22 06/08/2022 COMPL ETE BLOOD COUNT MCV 89 fL 80-100 normal Not Available [facility] [address] [place] [address], [address], 06/08/2022 20:23:37 06/08/20 22 06/08/2022 COMPL ETE BLOOD COUNT MCH 30 pg 26-35 normal Not Available [facility] [address] [place] [address], [address], 06/08/2022 20:23:37 06/08/20 22 06/08/2022 COMPL ETE BLOOD COUNT MCHC 34 g/dL 32-36 normal Not Available [facility] [address] [place] [address], [address], 06/08/2022 20:23:37 06/08/20 22 06/08/2022 COMPL ETE BLOOD COUNT RDW 14.0 % 11.0-1 5.0 normal Not Available [facility] [address] [place] [address], [address], 06/08/2022 20:23:37 06/08/20 22 06/08/2022 COMPL ETE BLOOD COUNT MPV 9.3 fL 6.2-10 .5 normal Not Available [facility] [address] [place] [address], [address], 06/08/2022 20:23:37 06/08/20 22 06/08/2022 COMPL ETE BLOOD COUNT platelet count 132 K/uL 130-40 0 normal Not Available [facility] [address] [place] [address], [address], 06/08/2022 20:23:37 06/08/20 22 06/08/2022 COMPL ETE BLOOD COUNT neutrophil,a bsolute 3.5 K/uL 1.6-8. 4 normal Not Available [facility] [address] [place] [address], [address], 06/08/2022 20:23:37 06/08/20 22 06/08/2022 COMPL ETE BLOOD COUNT lymphocyte,a bsolute 2.1 K/uL 0.4-5. 1 normal Not Available [facility] [address] [place] [address], [address], 06/08/2022 20:23:37 06/08/20 22 06/08/2022 COMPL ETE BLOOD COUNT monocyte,abs olute 1.4 K/uL 0.0-1. 2 high Not Available [facility] [address] [place] [address], [address], 06/08/2022 20:23:37 06/08/20 22 06/08/2022 COMPL ETE BLOOD COUNT eosinophil,a bsolute 0.1 K/uL 0.0-0. 8 normal Not Available [facility] [address] [place] [address], [address], 06/08/2022 20:23:37 06/08/20 22 06/08/2022 COMPL ETE BLOOD COUNT basophil,abs olute 0.1 K/uL 0.0-0. 3 normal Not Available [facility] [address] [place] [address], [address], 06/08/2022 20:23:37 06/08/20 22 06/08/2022 COMPL ETE BLOOD COUNT % neutrophils 48.8 % 42.0-7 8.0 normal Not Available [facility] [address] [place] [address], [address], 06/08/2022 20:23:37 06/08/20 22 06/08/2022 COMPL ETE BLOOD COUNT % lymphocytes 29.6 % 11.0-4 7.0 normal Not Available [facility] [address] [place] [address], [address], 06/08/2022 20:23:37 06/08/20 22 06/08/2022 COMPL ETE BLOOD COUNT % monocytes 19.4 % 0.0-11 .0 high Not Available [facility] [address] [place] [address], [address], 06/08/2022 20:23:37 06/08/20 22 06/08/2022 COMPL ETE BLOOD COUNT % eosinophils 1.3 % 0.0-7. 0 normal Not Available [facility] [address] [place] [address], [address], 06/08/2022 20:23:37 06/08/20 22 06/08/2022 COMPL ETE BLOOD COUNT % basophils 0.9 % 0.0-3. 0 normal Not Available [facility] [address] [place] [address], [address], 06/08/2022 20:23:37 06/08/20 22 06/08/2022 COMPL ETE BLOOD COUNT nucleated red cells 0.1 % 0.0-0. 9 normal Not Available [facility] [address] [place] [address], [address], 06/08/2022 20:23:37 06/08/20 22 06/08/2022 COMPL ETE BLOOD COUNT nucleated RBCs, absolute 0.00 K/uL not estab. normal Not Available [facility] [address] [place], [address], 06/08/2022 20:23:37 06/08/20 22 06/11/2022 FLOW CYTOM ETRY pathologist SEE NOTE normal Revie wed by Tommie Abdullahi M.D. (Dire ct phone [phone] for physi li- to-ph ysici an calls ) Not Available [facility] [address] [place], [address], 06/14/2022 08:24:19 06/08/20 22 06/11/2022 FLOW CYTOM ETRY viability 91 % normal Not Available [facility] [address] [place], [address], 06/14/2022 08:24:19 06/08/20 22 06/11/2022 FLOW CYTOM [...] seen in a varie ty of react miakla condi tions inclu ding chron ic infec [...] revie wed and inter prete d by Tommei Abdullahi M.D. Not Available [facility] [address] [place] [address], [address], 06/14/2022 08:24:19 06/08/20 22 06/11/2022 FLOW CYTOM ETRY sample description SEE NOTE normal The sampl e consi sts of 50% granu locyt ic cells , 34% lymph ocyto id cells , and 14% monoc ytoid cells . Not Available [facility] [address] [place], [address], 06/14/2022 08:24:19 06/08/20 22 06/11/2022 FLOW CYTOM ETRY gating strategy SEE NOTE normal Gatin g in the speci men was perfo rmed on the cell popul ation that resem bles lymph ocyte s and was based on CD45 (buchanan leuko cyte fluor escen t inten sity) vs. side scatt er (inte rnal compl exity ). Not Available [facility] [address] [place], [address], 06/14/2022 08:24:19 06/08/20 22 06/11/2022 FLOW CYTOM [...] NEGAT MIKALA HLA_D R 19 BRIGH T [place] CD19+ 14 NEGAT MIKALA Lambd a CD19+ 86 BRIGH T K/L Ratio 0.2 MONOC LONAL This test was devel oped and its willy tical perfo rmanc e edward cteri stics have been deter mined by [facility] [employer] . It has not been clear ed or appro anil by FDA. This assay has been valid ated pursu ant to the CLIA regul ation s and is used for clini siena purpo ses. Not Available [facility] [address] [place] [address], [address], 06/14/2022 08:24:19 06/08/20 22 06/11/2022 FLOW CYTOM ETRY # of markers 22 normal TEST PERFO RMED AT: [facility] [address] [facility] [address] Oracio [employer]ANKENSH[employer],PHD ,BEATRICE Not Available [facility] [address] [place] [address], [address], 06/14/2022 08:24:19 11/05/19 23 11/04/2022 LDH LDH 179 U/L 135-22 5 normal Not Available [facility] [address] [place] [address], [address], 11/04/2022 19:24:57 11/05/19 23 11/04/2022 COMP. METAB OLIC PANEL glucose 161 mg/dL 74-100 high Not Available [facility] [address] [place] [address], [address], 11/04/2022 19:35:04 11/05/19 23 11/04/2022 COMP. METAB OLIC PANEL blood urea nitrogen 24 mg/dL 6-20 high Not Available [facility] [address] [place] [address], [address], 11/04/2022 19:35:04 11/05/19 23 11/04/2022 COMP. METAB OLIC PANEL creatinine 1.10 mg/dL 0.70-1 .28 normal Not Available [facility] [address] [place] [address], [address], 11/04/2022 19:35:04 11/05/19 23 11/04/2022 COMP. METAB OLIC PANEL BUN/creatini ne ratio 22 (calc ) 10-20 high Not Available [facility] [address] [place] [address], [address], 11/04/2022 19:35:04 11/05/19 23 11/04/2022 COMP. METAB OLIC PANEL sodium 139 mmol/ L 136-14 5 normal Not Available [facility] [address] [place] [address], [address], 11/04/2022 19:35:04 11/05/19 23 11/04/2022 COMP. METAB OLIC PANEL potassium 4.0 mmol/ L 3.4-5. 0 normal Not Available [facility] [address] [place] [address], [address], 11/04/2022 19:35:04 11/05/19 23 11/04/2022 COMP. METAB OLIC PANEL chloride 101 mmol/ L 98-107 normal Not Available [facility] [address] [place] [address], [address], 11/04/2022 19:35:04 11/05/19 23 11/04/2022 COMP. METAB OLIC PANEL carbon dioxide 28 mmol/ L 22-31 normal Not Available [facility] [address] [place] [address], [address], 11/04/2022 19:35:04 11/05/19 23 11/04/2022 COMP. METAB OLIC PANEL anion gap 10 (calc ) 7-25 normal Not Available [facility] [address] [place] [address], [address], 11/04/2022 19:35:04 11/05/19 23 11/04/2022 COMP. METAB OLIC PANEL calcium 9.5 mg/dL 8.6-10 .2 normal Not Available [facility] [address] [place] [address], [address], 11/04/2022 19:35:04 11/05/19 23 11/04/2022 COMP. METAB OLIC PANEL total protein 6.7 g/dL 6.4-8. 3 normal Not Available [facility] [address] [place] [address], [address], 11/04/2022 19:35:04 11/05/19 23 11/04/2022 COMP. METAB OLIC PANEL albumin 4.0 g/dL 3.5-5. 2 normal Not Available [facility] [address] [place] [address], [address], 11/04/2022 19:35:04 11/05/19 23 11/04/2022 COMP. METAB OLIC PANEL globulin 2.7 g/dL_ (calc ) 1.5-4. 5 normal Not Available [facility] [address] [place] [address], [address], 11/04/2022 19:35:04 11/05/19 23 11/04/2022 COMP. METAB OLIC PANEL albumin/glob ulin ratio 1.5 (calc ) 1.1-2. 5 normal Not Available [facility] [address] [place] [address], [address], 11/04/2022 19:35:04 11/05/19 23 11/04/2022 COMP. METAB OLIC PANEL bilirubin, total 0.5 mg/dL 0.1-1. 2 normal Not Available [facility] [address] [place] [address], [address], 11/04/2022 19:35:04 11/05/19 23 11/04/2022 COMP. METAB OLIC PANEL alkaline phosphatase 92 U/L 40-129 normal Not Available [facility] [address] [place] [address], [address], 11/04/2022 19:35:04 11/05/19 23 11/04/2022 COMP. METAB OLIC PANEL AST 13 U/L 0-40 normal Not Available [facility] [address] [place] [address], [address], 11/04/2022 19:35:04 11/05/19 23 11/04/2022 COMP. METAB OLIC PANEL ALT 14 U/L 0-41 normal Not Available [facility] [address] [place] [address], [address], 11/04/2022 19:35:04 11/05/19 23 11/04/2022 COMP. METAB [...] s/KDO QI/gf r_cal culat orPed Not Available [facility] [address] [place] [address], [address], 11/04/2022 19:35:04 11/05/19 23 11/04/2022 COMPL ETE BLOOD COUNT white blood cells 6.4 K/uL 3.8-10 .8 normal Not Available [facility] [address] [place] [address], [address], 11/04/2022 19:38:58 11/05/19 23 11/04/2022 COMPL ETE BLOOD COUNT red blood cells 5.08 M/uL 4.20-5 .80 normal Not Available [facility] [address] [place] [address], [address], 11/04/2022 19:38:58 11/05/19 23 11/04/2022 COMPL ETE BLOOD COUNT hemoglobin 15.1 g/dL 14.0-1 8.0 normal Not Available [facility] [address] [place] [address], [address], 11/04/2022 19:38:58 11/05/19 23 11/04/2022 COMPL ETE BLOOD COUNT hematocrit 44.8 % 40.0-5 2.0 normal Not Available [facility] [address] [place] [address], [address], 11/04/2022 19:38:58 11/05/19 23 11/04/2022 COMPL ETE BLOOD COUNT MCV 88 fL 80-100 normal Not Available [facility] [address] [place] [address], [address], 11/04/2022 19:38:58 11/05/19 23 11/04/2022 COMPL ETE BLOOD COUNT MCH 30 pg 26-35 normal Not Available [facility] [address] [place] [address], [address], 11/04/2022 19:38:58 11/05/19 23 11/04/2022 COMPL ETE BLOOD COUNT MCHC 34 g/dL 32-36 normal Not Available [facility] [address] [place] [address], [address], 11/04/2022 19:38:58 11/05/19 23 11/04/2022 COMPL ETE BLOOD COUNT RDW 13.7 % 11.0-1 5.0 normal Not Available [facility] [address] [place] [address], [address], 11/04/2022 19:38:58 11/05/19 23 11/04/2022 COMPL ETE BLOOD COUNT MPV 9.4 fL 6.2-10 .5 normal Not Available [facility] [address] [place] [address], [address], 11/04/2022 19:38:58 11/05/19 23 11/04/2022 COMPL ETE BLOOD COUNT platelet count 138 K/uL 130-40 0 normal Not Available [facility] [address] [place] [address], [address], 11/04/2022 19:38:58 11/05/19 23 11/04/2022 COMPL ETE BLOOD COUNT neutrophil,a bsolute 3.0 K/uL 1.6-8. 4 normal Not Available [facility] [address] [place] [address], [address], 11/04/2022 19:38:58 11/05/19 23 11/04/2022 COMPL ETE BLOOD COUNT lymphocyte,a bsolute 1.9 K/uL 0.4-5. 1 normal Not Available [facility] [address] [place] [address], [address], 11/04/2022 19:38:58 11/05/19 23 11/04/2022 COMPL ETE BLOOD COUNT monocyte,abs olute 1.4 K/uL 0.0-1. 2 high Not Available [facility] [address] [place] [address], [address], 11/04/2022 19:38:58 11/05/19 23 11/04/2022 COMPL ETE BLOOD COUNT eosinophil,a bsolute 0.1 K/uL 0.0-0. 8 normal Not Available [facility] [address] [place] [address], [address], 11/04/2022 19:38:58 11/05/19 23 11/04/2022 COMPL ETE BLOOD COUNT basophil,abs olute 0.0 K/uL 0.0-0. 3 normal Smear revie wed to confi rm cell morph ology . Not Available [facility] [address] [place] [address], [address], 11/04/2022 19:38:58 11/05/19 23 11/04/2022 COMPL ETE BLOOD COUNT % neutrophils 46.3 % 42.0-7 8.0 normal Not Available [facility] [address] [place] [address], [address], 11/04/2022 19:38:58 11/05/19 23 11/04/2022 COMPL ETE BLOOD COUNT % lymphocytes 29.5 % 11.0-4 7.0 normal Not Available [facility] [address] [place] [address], [address], 11/04/2022 19:38:58 11/05/19 23 11/04/2022 COMPL ETE BLOOD COUNT % monocytes 22.5 % 0.0-11 .0 high Not Available [facility] [address] [place] [address], [address], 11/04/2022 19:38:58 11/05/19 23 11/04/2022 COMPL ETE BLOOD COUNT % eosinophils 1.2 % 0.0-7. 0 normal Not Available [facility] [address] [place] [address], [address], 11/04/2022 19:38:58 11/05/19 23 11/04/2022 COMPL ETE BLOOD COUNT % basophils 0.5 % 0.0-3. 0 normal Not Available [facility] [address] [place] [address], [address], 11/04/2022 19:38:58 11/05/19 23 11/04/2022 COMPL ETE BLOOD COUNT nucleated red cells 0.0 % 0.0-0. 9 normal Not Available [facility] [address] [place] [address], [address], 11/04/2022 19:38:58 11/05/19 23 11/04/2022 COMPL ETE BLOOD COUNT nucleated RBCs, absolute 0.00 K/uL not estab. normal Not Available [facility] [address] [place] [address], [address], 11/04/2022 19:38:58 11/05/19 23 11/04/2022 MORPH OLOGY platelet morphology NORMAL normal Not Available [facility] [address] [place] [address], [address], 11/04/2022 19:39:00 11/05/19 23 11/04/2022 MORPH OLOGY stomatocytes SLIGHT abnormal Not Available [facility] [address] [place] [address], [address], 11/04/2022 19:39:00 11/05/19 23 11/08/2022 FLOW CYTOM ETRY pathologist SEE NOTE normal Ed aldana MD Not Available [facility] [address] [place] [address], [address], 11/09/2022 07:32:33 11/05/19 23 11/08/2022 FLOW CYTOM ETRY viability 83 % normal Not Available [facility] [address] [place], [address], 11/09/2022 07:32:33 11/05/19 23 11/08/2022 FLOW CYTOM [...] wed by Ed aldana M.D. Not Available [facility] [address] [place] [address], [address], 11/09/2022 07:32:33 11/05/19 23 11/08/2022 FLOW CYTOM ETRY sample description SEE NOTE normal The sampl e consi sts of 43% granu locyt ic cells , 43% lymph ocyto id cells , and 12% monoc ytoid cells . Not Available [facility] [place], [address], 11/09/2022 07:32:33 11/05/19 23 11/08/2022 FLOW CYTOM ETRY gating strategy SEE NOTE normal Gatin g in the speci men was perfo rmed on the cell popul ation that resem bles lymph ocyte s and was based on CD45 (buchanan leuko cyte fluor escen t inten sity) vs. side scatt er (inte rnal compl exity ). Not Available [facility] [place], [address], 11/09/2022 07:32:33 11/05/19 23 11/08/2022 FLOW CYTOM [...] NEGAT MIKALA HLA_D R 16 BRIGH T [place] CD19+ 17 NEGAT MIKALA Lambd a CD19+ 83 MODER ATE K/L Ratio 0.2 MONOC LONAL This test was devel oped and its willy tical perfo rmanc e edward cteri stics have been deter mined by [facility] [employer] . It has not been clear ed or appro anil by FDA. This assay has been valid ated pursu ant to the CLIA regul ation s and is used for clini siena purpo ses. Not Available [facility] [address] [place] [address], [address], 11/09/2022 07:32:33 11/05/19 23 11/08/2022 FLOW CYTOM ETRY # of markers 22 normal TEST PERFO RMED AT: [facility] [address] [facility] [address] Oracio [employer],PHD ,BEATRICE Not Available [facility] [place], [address], 11/09/2022 07:32:33 Result Notes None recorded. 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 Procedures Surgical History Date Name Laterality Status Provider Name and Address Organization Details Recorded Time Back Surgery completed [facility] 05/14/2022 15:07:40 partial resection of colon completed [facility] 05/14/2022 15:07:50 Shoulder joint surgery completed [facility] 05/14/2022 15:08:02 tonsillectomy completed [facility] 05/14/2022 15:08:13 extraction of cataract completed [facility] 05/14/2022 15:08:35 insertion of deep brain electrical stimulation system lead into brain [facility] 05/14/2022 15:08:48 Imaging Results None recorded. Procedure Notes None recorded. Medical Equipment None Reported. Allergies Allergen ID Allergen Name Allergen Category Reaction Reaction Severity Criticality Documentation Date Start Date Code Code System Note Provider Name and Address Organization Details Recorded Time 785851 codeine medicatio n Not available Not available Not available 05/14/2022 2670 RxNorm [facility] 2 14:57:09 [id number] propoxyph luca hydrochlo ride medicatio n Not available Not available Not available 05/14/2022 [id number] RxNorm [facility] 2 14:57:16 [id number] metformin medicatio n Not available Not available Not available 05/14/2022 6809 RxNorm [facility] 2 14:57:24 [id number] Product containin g penicilli n (product) medicatio n Not available Not available Not available 05/14/2022 97005 8001 SNOMED [facility] 2 14:57:33 Medications Name Sig Start Date [...] propionate 50 mcg/actuatio n nasal spray,suspen mehreen [place] 1 spray every day by intranasal route. [...] Address Organization Details Last Updated DateTime 2 34738.4 2 g 98.9 [degF] 86 /min 91 % 91 % 134 mm[Hg] 75 mm[Hg] Jackelyn Guidry [facility] 2 11:56:55 Date Recorded Body weight Body temperature Heart rate Oxygen saturation Oxygen saturation in Arterial blood by Pulse oximetry Body mass index (BMI) Body height Systolic blood pressure Diastolic blood pressure Provider Name and Address Organization Details Last Updated DateTime 3 16302.8 9 g 98.4 [degF] 75 /min 93 % 93 % 35.2 kg/m2 167.64 cm 133 mm[Hg] 80 mm[Hg] Jackelyn Guidry [facility] 3 10:54:59 Social History Question Answer Notes LastModified by Organizat ion Details LastModified Time Tobacco Smoking Status Never [facility]oker [facility]/14/2022 15:07:27 What Is Your Level Of Alcohol Consumption? None [email or web address] Information not available 06/08/2022 What Was The Date Of Your Most Recent Tobacco Screening? 06/08/2022 [email or web address] Information not available 06/08/2022 How Many Children Do You Have? 1 [email or web address] Information not available 06/08/2022 What Is Your Relationship Status? [email or web address] Information not available 05/14/2022 Do You Use Any Illicit Or Recreational Drugs? No [email or web address] Information not available 05/14/2022 Has Tobacco Cessation Counseling Been Provided? No [email or web address] Information not available 05/14/2022 Have You Recently Traveled Abroad? No [email or web address] Information not available 06/08/2022 Do You Or Have You Ever Used Any Other Forms Of Tobacco Or Nicotine? No Information not available 06/08/2022 Sex: Unknown Functional Status None recorded. Mental Status None recorded. Family History Relationship Description Onset Age of this Age Resolved Age Notes LastModified by Organization Details LastModified Time Father 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 [email or web address] Not available 05/14 15:05:34 Father Hypertensive disorder [email or web address] Not available 05/14 15:05:45 Father Family history of malignant neoplasm [email or web address] Not available 05/14 15:06:35 Father Hyperlipidem ia [email or web address] Not available 05/14 15:06:46 Father Family history of stroke [email or web address] Not available 05/14 15:06:58 Mother Myocardial infarction [email or web address] Not available 04/25 15:05:56 Mother Arthritis [email or web address] Not availa ble 05/14/2022 15:06:24 Medical History Condition Response Diabetes Y Cancer Y Arthritis Y Hypertension Y Depression Y High Cholesterol Y Immunizations Vaccine Type Date Status Note Provider Nam e and Address Organization Details Recorded Time Td (adult), 5 Lf tetanus toxoid, preservative free, adsorbed 2 [facility]14/2022 15:04:05 Influenza, high-dose, quadrivalent, PF 2 completed Carrie carvalho, [facility] 05/14/2022 15:04:21 pneumococcal polysaccharide PPV23 8 completed [facility] 05/14/2022 15:04:44 pneumococcal polysaccharide PPV23 2 completed [facility] 05/14/2022 15:04:49 Pneumococcal conjugate PCV 13 5 completed [facility] 05/14/2022 15:05:04 zoster live 3 completed Carrie Lynn [facility] 05/14/2022 15:05:18 Past Encounters Encounter ID Performer Location Encounter Start Date Encounter Closed Date Diagnosis/Indication Diagnosis SNOMED-CT Code Diagnosis ICD10 Code Diagnosis Note [id number] ROULA MONTES MD [facility] [address] [place] [address] 5 07/29/2016 10:53:58 07/29/2016 12:41:19 [id number] ROULA MONTES MD INTERNAL MEDICINE [address] [place] [id number] 5 09/21/2016 10:26:03 09/21/2016 11:19:11 [id number] ROULA MONTES MD INTER[facility] MED[facility]INE [address] [place] [id number] 5 10/22/2016 13:17:13 10/22/2016 14:05:36 [id number] KRISTINE BLUE MD OPHTHALMO LOGY [address] [place] [id number] 5 11/24/2016 10:15:06 11/25/2016 11:25:54 [id number] SUZIE GTZ MD [place] [facility] [address] [place] [address] 12/01/2016 10:08:25 12/01/2016 11:49:27 [id number] ROULA MONTES MD INTERNAL MEDICINE [address] [place] [address] 12/21/2016 12:09:58 12/21/2016 13:07:18 [id number] ROULA MONTES MD INTERNAL MEDICINE [address] [place], [place] [address] 03/30/2017 10:31:47 03/30/2017 11:13:49 [id number] KRISTINE BLUE MD OPHTHALMO SONG [address] [place] [id number] 5 04/27/2017 09:35:17 04/28/2017 07:32:10 [id number] JOSE WEISS MD DERMATOLO GY [address] [place] [id number] 7 05/03/2017 14:07:36 05/09/2017 08:41:36 [id number] ROULA MONTES MD INTERNAL MEDICINE [address] [place] [address] 05/24/2017 10:26:37 05/24/2017 11:12:00 [id number] JOSE WEISS MD DERMATOLO GY [address] ,[address] [place] [address] 7 05/24/2017 13:12:16 05/25/2017 12:10:37 [id number] KRISTINE BLUE MD SURGERY SCHEDULE [address] [place] [address] 06/07/2017 08:51:20 06/07/2017 08:53:56 [id number] KRISTINE BLUE MD OPHTHALMO SONG [address] [place] [id number] 5 06/08/2017 08:16:51 06/08/2017 09:10:32 [id number] KRISTINE BLUE MD OPHTHALMO SONG [address] [place] [id number] 5 06/15/2017 09:58:51 06/20/2017 07:10:49 [id number] KRISTINE BLUE MD SURGERY SCHEDULE [address] [place] [address] 07/05/2017 08:50:36 07/05/2017 08:51:23 [id number] KRISTINE BLUE [facility] [address] [place] [address] 07/06/2017 08:32:55 07/07/2017 07:35:27 [id number] KRISTINE BULE MD [facility] [address] ,[address] [place] [id number] 5 08/08/2017 12:07:11 08/08/2017 14:04:05 [id number] ROULA MONTES MD INTERNAL MEDICINE [address] ,[address] [place] [id number] 5 08/19/2017 12:19:59 08/22/2017 11:19:54 [id number] ROULA OMNTES MD INTERNAL MEDICINE [address] ,[address] [place] [id number] 5 08/19/2017 12:36:07 08/22/2017 11:21:39 [id number] ROULA MONTES MD INTERNAL MEDICINE [address] [place] [id number] 5 08/30/2017 11:22:13 08/31/2017 14:21:20 [id number] JOSE WEISS MD DERMATOLO GY [address] ,[address] [place] [address] 10/14/2017 13:35:03 10/14/2017 15:26:33 [id number] ROULA MONTES MD INTERNAL MEDICINE [address] ,[address] [place] [id number] 5 11/25/2017 12:25:09 11/28/2017 10:58:[id number], LD [facility] [address] ,[address] [place] [address] 5 12/14/2017 12:55:27 12/14/2017 15:02:08 [id number] KRISTINE BLUE MD OPHTHALMO [facility] [address] ,[address] [place] [id number] 5 02/09/2018 12:04:23 02/10/2018 09:21:01 [id number] ROULA MONTES MD INTERNAL MEDICINE [address] ,[address] [place] [address] 03/28/2018 10:31:15 03/30/2018 11:46:28 [id number] ROULA MONTES MD INTERNAL MEDICINE [address] ,[address] [place] [id number] 5 04/10/2018 12:15:13 04/11/2018 09:11:50 [id number] ROULA MONTES MD INTERNAL MEDICINE [address] ,[address] [place] [id number] 5 05/15/2018 12:51:25 05/15/2018 14:17:45 [id number] ROULA MONTES MD INTERNAL MEDICINE [address] ,[address] [place] [id number] 5 06/27/2018 12:20:06 06/29/2018 10:11:50 [id number] [facility] [address] [place] [address] 08/01/2018 13:15:33 08/01/2018 14:19:00 [id number] ANDRE RUEDA MD ORTHOPEDI CS [facility] [address] [address] 12/04/2018 13:34:18 12/04/2018 15:27:03 [id number] ANDRE RUEDA MD ORTHOPEDI CS [facility] [address] [address] 01/22/2019 14:27:55 01/22/2019 14:51:06 [id number] [address] [facility] [address] [place] [address] 3 02/05/2019 13:29:54 02/05/2019 14:53:58 [id number] [address]Y HUTSON [address] [facility] [address] [place] [address] 3 05/09/2019 12:34:45 05/09/2019 13:39:31 [id number] [address] [facility] [address] [place] [address] 3 08/27/2019 13:29:12 08/27/2019 14:32:04 [id number] IRINA ROBINS MD INTERNAL MEDICINE [address] [place] [address] 09/11/2019 13:00:35 09/11/2019 13:53:19 [id number] IRINA ROBINS MD INTERNAL MEDICINE [address] [place] [address] 09/26/2019 12:42:41 09/26/2019 13:15:53 [id number] IRINA ROBINS MD INTERNAL MEDICINE [address] ,[address] [place] [address] 11/27/2019 12:40:24 11/27/2019 15:29:33 [id number] IRINA ROBINS MD INTERNAL MEDICINE [address] [place] [address] 12/10/2019 13:03:11 12/10/2019 16:26:05 [id number] IRINA ROBINS MD INTERNAL MEDICINE [address] ,[address] [place] [address] 12/18/2019 13:14:51 12/18/2019 14:51:20 [id number] IRINA ROBINS MD INTERNAL MEDICINE [address] ,[address] [place] [address] 5 12/28/2019 12:56:40 12/28/2019 14:40:19 [id number] RAPHAEL RANDLE MD [address] [place] [address] 01/14/2020 13:12:05 01/15/2020 08:54:37 [id number] BRYSON ALVARADO PA-C PULMONARY [address] [facility], [address] [place] [address] 01/18/2020 12:58:43 01/21/2020 08:54:19 [id number] MIRNA VALENZUELA DO [facility] [address] [place] [address] 04/14/2020 12:27:40 04/14/2020 13:15:24 [id number] MIRNA VALENZUELA DO [facility] [address] [place] [place] [address] 05/14/2020 14:07:04 05/14/2020 15:24:59 [id number] MIRNA VALENZUELA DO [address] [place] [address] 08/14/2020 12:57:20 08/14/2020 14:21:17 [id number] JOSE WEISS MD DERMATOLO GY [facility] [address] [place] [address] 12/05/2020 13:34:40 12/05/2020 14:21:42 [id number] BRYSON ALVARADO, MARLI PULMONARY [address] [facility], [address] [place] [address] 01/15/2021 13:30:24 01/15/2021 14:57:12 [id number] MIRNA VALENZUELA DO [address] [place] [address] 5 02/13/2021 12:56:21 02/13/2021 14:16:36 [id number] JOSE WEISS MD DERMATOLO GY [facility] [address] [place] [address] 04/24/2021 14:03:03 04/24/2021 14:25:47 [id number] MIRNA VALENZUELA DO [address] [place] [address] 09/29/2021 13:07:55 09/29/2021 14:07:18 [id number] JOSE WEISS MD DERMATOLO GY [facility] [address] [place] [address] 03/22/2022 14:04:32 03/22/2022 14:49:20 [id number] MIRNA VALENZUELA DO [address] [place] [address] 05/03/2022 12:24:17 05/03/2022 13:18:41 [id number] TERRI RAPP MD HEM/ONC [place] [address] [place] [address] 06/08/2022 11:29:06 06/08/2022 13:58:53 Monocytosis [id number] D72.821 [id number] KRISTINE BLUE MD OPHTHALMO LOGY [address] [place] [address] 09/02/2022 14:06:20 09/02/2022 16:08:01 [id number] TERRI RAPP MD HEM/ONC PROSPECT CLOSED [address] [place] [address] 11/09/2022 10:46:06 11/09/2022 11:26:54 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 D72.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 [address] [place] [address] 05/17/2023 13:11:18 05/17/2023 14:12:31 [id number] SUHA PHILLIP MD SURGERY SCHEDULE [address] [place] [address] 05/30/2023 06:53:18 05/30/2023 06:53:44 [id number] MIRNA VALENZUELA DO [address] [place] [address] 5 06/22/2023 13:29:09 06/22/2023 15:22:53 [id number] MD [facility] [address] [place] [address] 07/05/2023 13:49:05 07/05/2023 14:03:23 [id number] MIRNA VALENZUELA DO [facility] [address] [place] [address] 5 09/05/2023 13:45:03 09/05/2023 15:02:05 [id number] KRISTINE BLUE MD OPHTHALMO LOGY [address] ,[address] [place] [address] 5 09/05/2023 15:03:10 09/05/2023 16:48:22 [id number] KRISTINE BLUE MD OPHTHALMO LOGY [address] ,[address] [place] [address] 09/14/2023 12:38:27 09/14/2023 15:06:59 [id number] RAPHAEL RANDLE MD [address] ,[address] [place] [address] 09/27/2023 14:03:18 09/28/2023 04:36:19 [id number] KRISTINE BLUE MD OPHTHALMO LOGY [address] ,[address] [place] [address] 5 09/28/2023 12:55:14 09/28/2023 14:01:29 [id number] MD [facility] [address] [place] [address] 07/03/2024 14:40:25 07/03/2024 15:48:12 Health Concerns Section Related Observation LastModified by Organization Detai ls LastModified Time None Recorded Concern Status LastModified by Organization Details LastModified Time None Recorded Advance Directives Directive None Recorded Payers Insurance Date Sequence Insurance Name Policy Number Policy Isaac Covered Member ID Isaac Member ID Guarantor Name 05/11/2023 1 [place] (MEDICARE[place] Kennedy Oconnor [id number] Kennedy Oconnor 05/11/2023 [employer] (MEDICARE REPLACEMENT/A DVANTAGE - PPO) Kennedy Oconnor [id number] Kennedy Oconnor 05/11/2023 1 [employer] (PPO) Kennedy Oconnor [id number] Kennedy Oconnor 05/11/2023 GENERIC INSURANCE - MOVED-HOLD Kennedy Oconnor 08/27/2024 1 [employer] (MEDICARE REPLACEMENT/A DVANTAGE - PPO) Kennedy Oconnor [id number] Kennedy Oconnor 05/11/2023 1 [employer] (MEDICARE REPLACEMENT/A DVANTAGE - PPO) Kennedy Oconnor [id number] Kennedy Oconnor Notes Date Note Type Note Provider Name and Address Organization Details Recorded Time 2021 text/h tml [place] HPIReported bypatient.Distress ScreeningHas the distress screening been completed in the last 45 days? YES; Distress level 0 no stress Practical Problemsno practical problems Family Problemsno family problems Emotional Problemsno emotional problems Spiritual/Religiousspiritual/anglican problems? NO Physical Problemseating/ingestion problem;fatigue; pain Reason [...] for elevated monocytes TERRI RAPP MD [address] [place], [address], [facility] 2 13:06:47 2022 text/h tml HPIReported bypatient.Distress ScreeningHas the distress screening been completed in the last 45 days? YES; Distress level 0 no stress Practical Problemsno practical problems Family Problemsno family problems Emotional Problemsno emotional problems Spiritual/Religiousspiritual/anglican problems? NO Physical Problemsno physical problems Follow-up [...] for elevated monocytes TERRI RAPP MD [address] [place], [address], [facility] 3 11:20:41
--- OUTSIDE RECORDS SUMMARY | 2024-11-29 13:23 | XMS_ITS | Data Portability ---
Author Organization [facility] Address [address] [facility] [address] [place] [address] Care Team Providers Care Insurance Account Manager Name Role Phone KRISTINE BLUE Computer Installation Engineer TERRI RAPP Hematology/Oncology [phone] SUHA PHILLIP Urologist KATY OBRIEN Primary Care Provider Assessment No assessment recorded. Plan of Treatment Reminders Order Date Submit Date Provider Last Modified By Organization Details Last Modified Time Details Appointments LEVEL 2 2024 02:15P M KRISTINE BLUE MD Not available Not available Not available RECHECK 2024 01:00P Oracio PHILLIP MD Not available Not available Not available Lab urinalys is panel, auto 2023 024 [facility], [address], [place], [address], 07/03/2024 15:48:32 PSA, serum or plasma 2023 024 [facility], [address], [address], [place], [address], 07/03/2024 15:48:32 CBC w/ auto diff 2023 024 [facility], [address] [place] [address], [address], 09/08/2023 22:39:41 pro BNP (pro B-type natriure tic peptide) , serum or plasma 2023 024 [facility], [address] [place] [address], [address], 09/08/2023 19:59:31 CMP, serum or plasma 2023 024 [facility], [address] [place] [address], [address], 09/08/2023 19:31:44 TSH, serum, reflex free T4 2023 024 [facility], [address] [place] [address], [address], 09/08/2023 19:43:10 Referral otolaryn gologist referral - 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 Surgeries None recorded . Imaging XR, chest, 2 view 2023 024 [facility], [address] [place] [address], [address], 09/09/2023 15:50:05 electroc ardiogra m 2023 024 [email or web address] [facility], [address] [facility] , [place], [address], 09/05/2023 15:04:49 Medication Orders tamsulos in 0.4 mg capsule 2023 024 [id number], [address], [place], [place], [id number], 07/03/2024 15:48:39 finaster levi 5 mg tablet 2023 024 [id number], [address] [place], [place], [id number], 07/03/2024 15:48:39 Patient TargetsNo targets recorded. Patient InstructionsNo instructions recorded. 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 METAB OLIC PANEL glucose 173 mg/dL 74-100 high Not Available [facility] [address] [place] [address], [address], 09/08/2023 19:31:43 09/08/19 24 09/08/2023 COMP. METAB OLIC PANEL blood urea nitrogen 24 mg/dL 6-20 high Not Available [facility] [address] [place], [address], 09/08/2023 19:31:43 09/08/19 24 09/08/2023 COMP. METAB OLIC PANEL creatinine 1.07 mg/dL 0.70-1 .28 normal Not Available [facility] [address] [place] [address], [address], 09/08/2023 19:31:43 09/08/19 24 09/08/2023 COMP. METAB OLIC PANEL BUN/creatini ne ratio 22 (calc ) 10-20 high Not Available [facility] [address] [place] [address], [address], 09/08/2023 19:31:43 09/08/19 24 09/08/2023 COMP. METAB OLIC PANEL sodium 136 mmol/ L 136-14 5 normal Not Available [facility] [address] [place] [address], [address], 09/08/2023 19:31:43 09/08/19 24 09/08/2023 COMP. METAB OLIC PANEL potassium 3.7 mmol/ L 3.4-5. 0 normal Not Available [facility] [address] [place] [address], [address], 09/08/2023 19:31:43 09/08/19 24 09/08/2023 COMP. METAB OLIC PANEL chloride 101 mmol/ L 98-107 normal Not Available [facility] [address] [place] [address], [address], 09/08/2023 19:31:43 09/08/19 24 09/08/2023 COMP. METAB OLIC PANEL carbon dioxide 27 mmol/ L 22-31 normal Not Available [facility] [address] [place] [address], [address], 09/08/2023 19:31:43 09/08/19 24 09/08/2023 COMP. METAB OLIC PANEL anion gap 8 (calc ) 7-25 normal Not Available [facility] [address] [place] [address], [address], 09/08/2023 19:31:43 09/08/19 24 09/08/2023 COMP. METAB OLIC PANEL calcium 8.8 mg/dL 8.6-10 .2 normal Not Available [facility] [address] [place] [address], [address], 09/08/2023 19:31:43 09/08/19 24 09/08/2023 COMP. METAB OLIC PANEL total protein 7.2 g/dL 6.4-8. 3 normal Not Available [facility] [address] [place] [address], [address], 09/08/2023 19:31:43 09/08/19 24 09/08/2023 COMP. METAB OLIC PANEL albumin 3.9 g/dL 3.5-5. 2 normal Not Available [facility] [address] [place] [address], [address], 09/08/2023 19:31:43 09/08/19 24 09/08/2023 COMP. METAB OLIC PANEL globulin 3.3 1.5-4. 5 normal Not Available [facility] [address] [place] [address], [address], 09/08/2023 19:31:43 09/08/19 24 09/08/2023 COMP. METAB OLIC PANEL albumin/glob ulin ratio 1.2 (calc ) 1.1-2. 5 normal Not Available [facility] [address] [place] [address], [address], 09/08/2023 19:31:43 09/08/19 24 09/08/2023 COMP. METAB OLIC PANEL bilirubin, total 0.4 mg/dL 0.1-1. 2 normal Not Available [facility] [address] [place] [address], [address], 09/08/2023 19:31:43 09/08/19 24 09/08/2023 COMP. METAB OLIC PANEL alkaline phosphatase 90 U/L 40-129 normal Not Available [facility] [address] [place] [address], [address], 09/08/2023 19:31:43 09/08/19 24 09/08/2023 COMP. METAB OLIC PANEL AST 12 U/L 0-40 normal Not Available [facility] [address] [place] [address], [address], 09/08/2023 19:31:43 09/08/19 24 09/08/2023 COMP. METAB OLIC PANEL ALT 12 U/L 0-41 normal Not Available [facility] [address] [place] [address], [address], 09/08/2023 19:31:43 09/08/19 24 09/08/2023 COMP. METAB [...] s/KDO QI/gf r_cal culat orPed Not Available [facility] [address] [place] [address], [address], 09/08/2023 19:31:43 09/08/19 24 09/08/2023 TSH WITH REFLE X FT4 TSH with reflex FT4 1.510 u[IU] /mL 0.270- 4.200 normal Not Available [facility] [address] [place] [address], [address], 09/08/2023 19:43:10 09/08/19 24 09/08/2023 PRO-B CAR USHER pro-BNP 49 pg/mL 0-1800 normal PLEAS E NOTE: For optim al appli catio n of ProBN P in the diagn osis of CHF, it is essen tial to incor porat e the resul ts with the routi ne clini siena asses sment . Not Available [facility] [address] [place], [address], 09/08/2023 19:59:31 09/08/19 24 09/08/2023 COMPL ETE BLOOD COUNT white blood cells 7.4 10*3/ uL 3.8-10 .8 normal Not Available [facility] [address] [place], [address], 09/08/2023 22:39:41 09/08/19 24 09/08/2023 COMPL ETE BLOOD COUNT red blood cells 4.38 10*6/ uL 4.20-5 .80 normal Not Available [facility] [address] [place], [address], 09/08/2023 22:39:41 09/08/19 24 09/08/2023 COMPL ETE BLOOD COUNT hemoglobin 12.5 g/dL 14.0-1 8.0 low Not Available [facility] [address] [place] [address], [address], 09/08/2023 22:39:41 09/08/19 24 09/08/2023 COMPL ETE BLOOD COUNT hematocrit 37.8 % 40.0-5 2.0 low Not Available [facility] [address] [place] [address], [address], 09/08/2023 22:39:41 09/08/19 24 09/08/2023 COMPL ETE BLOOD COUNT MCV 86 fL 80-100 normal Not Available [facility] [address] [place] [address], [address], 09/08/2023 22:39:41 09/08/19 24 09/08/2023 COMPL ETE BLOOD COUNT MCH 29 pg 26-35 normal Not Available [facility] [address] [place] [address], [address], 09/08/2023 22:39:41 09/08/19 24 09/08/2023 COMPL ETE BLOOD COUNT MCHC 33 g/dL 32-36 normal Not Available [facility] [address] [place] [address], [address], 09/08/2023 22:39:41 09/08/19 24 09/08/2023 COMPL ETE BLOOD COUNT RDW 15.2 % 11.0-1 5.0 high Not Available [facility] [address] [place] [address], [address], 09/08/2023 22:39:41 09/08/19 24 09/08/2023 COMPL ETE BLOOD COUNT MPV 10.1 fL 6.2-10 .5 normal Not Available [facility] [address] [place] [address], [address], 09/08/2023 22:39:41 09/08/19 24 09/08/2023 COMPL ETE BLOOD COUNT platelet count 148 10*3/ uL 150-40 0 low Not Available [facility] [address] [place] [address], [address], 09/08/2023 22:39:41 09/08/19 24 09/08/2023 COMPL ETE BLOOD COUNT neutrophil,a bsolute 3.5 10*3/ uL 1.6-8. 4 normal Not Available [facility] [address] [place] [address], [address], 09/08/2023 22:39:41 09/08/19 24 09/08/2023 COMPL ETE BLOOD COUNT lymphocyte,a bsolute 2.1 10*3/ uL 0.4-5. 1 normal Not Available [facility] [address] [place] [address], [address], 09/08/2023 22:39:41 09/08/19 24 09/08/2023 COMPL ETE BLOOD COUNT monocyte,abs olute 1.7 10*3/ uL 0.0-1. 2 high Not Available [facility] [address] [place] [address], [address], 09/08/2023 22:39:41 09/08/19 24 09/08/2023 COMPL ETE BLOOD COUNT eosinophil,a bsolute 0.1 10*3/ uL 0.0-0. 8 normal Not Available [facility] [address] [place] [address], [address], 09/08/2023 22:39:41 09/08/19 24 09/08/2023 COMPL ETE BLOOD COUNT basophil,abs olute 0.1 10*3/ uL 0.0-0. 3 normal Smear revie wed to confi rm cell morph ology . Not Available [facility] [address] [place] [address], [address], 09/08/2023 22:39:41 09/08/19 24 09/08/2023 COMPL ETE BLOOD COUNT % neutrophils 46.8 % 42.0-7 8.0 normal Not Available [facility] [address] [place] [address], [address], 09/08/2023 22:39:41 09/08/19 24 09/08/2023 COMPL ETE BLOOD COUNT % lymphocytes 28.5 % 11.0-4 7.0 normal Not Available [facility] [address] [place] [address], [address], 09/08/2023 22:39:41 09/08/19 24 09/08/2023 COMPL ETE BLOOD COUNT % monocytes 22.5 % 0.0-11 .0 high Not Available [facility] [address] [place] [address], [address], 09/08/2023 22:39:41 09/08/19 24 09/08/2023 COMPL ETE BLOOD COUNT % eosinophils 1.1 % 0.0-7. 0 normal Not Available [facility] [address] [place] [address], [address], 09/08/2023 22:39:41 09/08/19 24 09/08/2023 COMPL ETE BLOOD COUNT % basophils 1.1 % 0.0-3. 0 normal Not Available [facility] [address] [place] [address], [address], 09/08/2023 22:39:41 09/08/19 24 09/08/2023 COMPL ETE BLOOD COUNT nucleated red cells 0.1 % 0.0-0. 9 normal Not Available [facility] [address] [place] [address], [address], 09/08/2023 22:39:41 09/08/19 24 09/08/2023 COMPL ETE BLOOD COUNT nucleated RBCs, absolute 0.01 10*3/ uL not estab. normal Not Available [facility] [address] [place] [address], [address], 09/08/2023 22:39:41 09/08/19 24 09/08/2023 MORPH OLOGY RBC morphology NORMAL normal Not Available [facility] [address] [place], [address], 09/08/2023 22:39:43 09/08/19 24 09/08/2023 MORPH OLOGY platelet morphology NORMAL normal Not Available [facility] [address] [place], [address], 09/08/2023 22:39:43 07/03/2007/03/2024 PSA, serum or plasm a PSA 0.25 NG/mL 0.0 - 4.0 Not Available [facility] [address], [place], [address], 07/03/2024 15:30:13 07/03/20 24 07/03/2024 urina lysis panel , auto Unknown Analyte Clean Catch Not Available [facility] [address], [place], [address], 07/03/2024 14:54:41 07/03/20 24 07/03/2024 urina lysis panel , auto Unknown Analyte Yellow Not Available [facility] [address], [address], 07/03/2024 14:54:41 07/03/20 24 07/03/2024 urina lysis panel , auto Unknown Analyte Clear Not Available [facility] [address], [address], 07/03/2024 14:54:41 07/03/20 24 07/03/2024 urina lysis panel , auto Unknown Analyte 1.015 Not Available [facility] [address], [place], [address], 07/03/2024 14:54:41 07/03/20 24 07/03/2024 urina lysis panel , auto Unknown Analyte 1.003- 1.035 Not Available [facility] [address], [place], [address], 07/03/2024 14:54:41 07/03/2007/03/2024 urina lysis panel , auto Unknown Analyte 5.0 Not Available [facility] [address], [place], [address], 07/03/2024 14:54:41 07/03/2007/03/2024 urina lysis panel , auto Unknown Analyte 5.0-8. 0 Not Available [facility] [address], [place], [address], 07/03/2024 14:54:41 07/03/20 24 07/03/2024 urina lysis panel , auto Unknown Analyte Negati ve Not Available [facility] [address], [place], [address], 07/03/2024 14:54:41 07/03/2007/03/2024 urina lysis panel , auto Unknown Analyte Negati ve Not Available [facility] [address], [place], [address], 07/03/2024 14:54:41 07/03/20 24 07/03/2024 urina lysis panel , auto Unknown Analyte Negati ve Not Available [facility] [address], [place], [address], 07/03/2024 14:54:41 07/03/2007/03/2024 urina lysis panel , auto Unknown Analyte Negati ve Not Available [facility] [address], [place], [address], 07/03/2024 14:54:41 07/03/2007/03/2024 urina lysis panel , auto Unknown Analyte Negati ve Not Available [facility] [address], [place], [address], 07/03/2024 14:54:41 07/03/2007/03/2024 urina lysis panel , auto Unknown Analyte Negati ve Not Available [facility] [address], [place], [address], 07/03/2024 14:54:41 07/03/20 24 07/03/2024 urina lysis panel , auto Unknown Analyte >1000 mg/dl Not Available [facility] [address], [place], [address], 07/03/2024 14:54:41 07/03/2007/03/2024 urina lysis panel , auto Unknown Analyte Normal Not Available [facility] [address], [place], [address], 07/03/2024 14:54:41 07/03/20 24 07/03/2024 urina lysis panel , auto Unknown Analyte Negati ve Not Available [facility] [address], [place], [address], 07/03/2024 14:54:41 07/03/20 24 07/03/2024 urina lysis panel , auto Unknown Analyte Negati ve Not Available [facility] [address], [place], [address], 07/03/2024 14:54:41 07/03/2007/03/2024 urina lysis panel , auto Unknown Analyte Normal Not Available [facility] [address], [place], [address], 07/03/2024 14:54:41 07/03/2007/03/2024 urina lysis panel , auto Unknown Analyte Normal 1 mg/dl Not Available [facility] [address], [place], [address], 07/03/2024 14:54:41 07/03/20 24 07/03/2024 urina lysis panel , auto Unknown Analyte Negati ve Not Available [facility] [address], [place], [address], 07/03/2024 14:54:41 07/03/20 24 07/03/2024 urina lysis panel , auto Unknown Analyte Negati ve Not Available [facility] [address], [place], [address], 07/03/2024 14:54:41 07/03/20 24 07/03/2024 urina lysis panel , auto Unknown Analyte Negati ve Not Available [facility] [address], [place], [address], 07/03/2024 14:54:41 07/03/20 24 07/03/2024 urina lysis panel , auto Unknown Analyte Negati ve Not Available [facility] [address], [place], [address], 07/03/2024 14:54:41 09/05/19 24 09/05/2023 elect rocar diogr am No observ ation record ed. [email or web address] [facility] [address], [place], [address], 09/05/2023 22:26:27 09/07/19 24 09/05/2023 elect rocar diogr am No observ ation record ed. BARCODE Not Available 2023 10:51:36 09/09/19 24 09/09/2023 XR, chest , 2 view [facility] [address] [place] [address] Jayden mc Name: JINNY mc : 1939 [...] Chester Bennett MD on 024 3:44 PM [email or web address] [facility] [place] [address] [place], [address], 09/09/2023 16:14:26 03/31/20 24 10/18/2023 elect amelia stantongr am No observ ation record ed. [email or web address] [facility] [address], [place], [address], 10/24/2023 13:58:38 11/03/19 24 10/31/2023 CT, angio gram, coron jazmin arter ies, w/ contr ast No observ ation record ed. [email or web address] [facility] [address], [place], [address], 11/03/2023 15:31:42 Result Notes None recorded. Problems Name Problem SNOMED Code Status Onset Date Resolution Date Notes Provider Name and Address Organization Details Recorded Time Screenin g for malignan t neoplasm of prostate Completed 201604/14/2020 MARCK VALENZUELA DO [address] [place], [address] , [facility] 0 12:32:34 Hyperlip idemia 30248682 Active 2016 MARCK VALENZUELA DO [address] [place], [address] , [facility] 2 20:38:45 [facility] hyperten mehreen 29753136 Completed 201608/14/2020 MARCK VALENZUELA DO [address] [place], [address] , [facility] 1 13:01:15 Moderate persiste nt asthma 387986114 Active 2016 Chantelle Jc [facility] 3 15:37:46 Hearing loss 31367747 Active 2016 Chantelle Jc [facility] 3 15:37:46 Primary erectile dysfunct ion 189775835 Active 2016 Chantelle Jc [facility] 3 15:37:46 Vitamin B12 deficien cy (non anemic) 77192740 Active 2016 Chantelle Jc [facility] 3 15:37:47 Chronic low back pain 741173878 Active 2016 [facility] 3 15:37:46 Malignan t tumor of colon 164204337 Completed 201607/01/2022 1989 colon resectio n CScope 06/2022: divertic ulosis, 2 polyps (1-23mm) , path pend, rec 4m f/u Dr Brayan VALENZUELA, DO [address] [place], [address] , [facility] 2 16:30:48 Electroc ardiogra m abnormal 205744702 Active 2016 [facility] 3 15:37:46 Measurem ent finding Completed 201504/14/2020 From Automate d Load;Pro vider: Sneha Bianchi;St atus: Active MARCK VALENZUELA, DO [address] [place], [address] , [facility] 0 12:32:12 Bilatera l cataract s 22839216 Completed 201602/09/2018 KRISTINE BLUE MD [address] [place], [address] , [facility] 8 13:07:22 Pseudoph autumn 28899591 Active 2017 [facility] 3 15:37:47 Depressi ve disorder 77874394 Active 2017 [facility] 3 15:37:46 Body mass index 30+ - obesity 699122452 Active 2017 [facility] 3 15:37:46 Antiplat elet agent therapy Active 2019 [facility] 15:37:46 Seasonal allergy 441751660 Active 2019 [facility] 3 15:37:46 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 006716617 Active 03/2022 psa 0.7 Chantelleelgin Jc [facility] 3 15:37:46 Polyp of colon 08970743 Active 2019 MARCK VALENZUELA, DO [address] [place], [address] , [facility] 3 13:34:11 Benign prostati c hyperpla guido with outflow obstruct ion 584923414 Active 2021 Chantelle Jc null, [facility] 3 15:37:46 Monocyto sis 36340026 Active 2021 [facility] 15:37:46 History of malignan t neoplasm of colon 356712192 Active 2021 colon resectio n, CScope 12/2022, polyps, cecal TA s/p lap colectom y MARCK VALENZUELA, DO [address] [place], [address] , [facility] 3 14:27:45 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 Monitor MARCK VALENZUELA, DO [address] [place], [address] , [facility] 3 11:25:10 Chronic kidney disease stage 2 584432147 Active 2022 MARCK VALENZUELA, DO [address] [place], [address] , [facility] 3 22:13:22 Morbid obesity 496646916 Active Not Available [facility] 3 13:54:06 Vitamin D deficien cy 94276760 Active 11/2022 rec 1000IU MARCK VALENZUELA, DO [address] [place], [address] , [facility] 3 09:10:30 Type 2 diabetes mellitus 48916424 Active 2022 [place] [address] [place] [address], [address] , [facility] 3 22:13:14 Thromboc ytopenic disorder 164849267 Active Not Available [facility] 3 14:15:48 Recurren t major depressi on in partial remissio n 94889292 Active 2022 MARCK VALENZUELA, DO [address] [place] [address], [address] , [facility] [place] 3 14:16:48 Atherosc lerosis of aorta 17468430 Active Not Available [facility] 3 20:55:57 Coronary atherosc lerosis 328354586 Active 2023 CCTA 09/2023 sig CAD in LAD and possible pRCA. CAC 847 [facility] Cardio MARCK VALENZUELA, DO [address] [place] [address], [address] [place] [address] , [facility] 4 15:00:22 Type 2 diabetes mellitus without complica tion 990036065 Completed 201408/14/2020 From Automate d Load;Pro vider: Sneha Bianchi;St atus: Active MARCK VALENZUELA, DO [address] [place] [address], [address] , [facility] 1 13:00:15 Sensorin eural hearing loss of bilatera l ears 035782961 Active 2015 From Automate d Load;Pro vider: Jozef Purcell;St atus: [facility] 3 15:37:46 Noise effects on inner ear 02327498 Completed 201508/14/2020 From Automate d Load;Pro vider: Jozef Purcell;St atus: Active MARCK VALENZUELA, DO [address] [place], [address] , [facility] 1 13:00:35 Bilatera l tinnitus 44147441200 02 Active 2015 From Automate d Load;Pro vider: Jozef Purcell;St atus: Active [facility] 3 15:37:46 Eustachi an tube disorder 51610397 Active 2015 Provider : Jozef Purcell;St atus: Active [facility] 3 15:37:47 Vertigo of central origin 73037238 Active 2015 From Automate d Load;Pro vider: Jozef Purcell;St atus: Active [facility] 3 15:37:46 Disorder of nervous system due to type 2 diabetes mellitus 034071479 Active 2014 From Automate d Load;Pro vider: GutierrezFemi;St atus: Active Chantelle Jc [facility] 3 15:37:46 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 133340515 Active 2014 From Automate d Load;Pro vider: Gutierrez, Femi;St atus: Active Chantelle Jc [facility] 3 15:37:46 Essentia l tremor 105751485 Active 2014 From Automate d Load;Pro vider: Gutierrez, Femi;St atus: Active Chantelle Jc [facility] 3 15:37:46 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 65994596 Active 2014 From Automate d Load;Pro vider: Gutierrez, Femi;St atus: Active [facility] 3 15:37:46 Acute sinusiti s 96282276 Completed 201504/14/2020 From Automate d Load;Pro vider: Sneha Bianchi;St atus: Active MARCK VALENZUELA, DO [address] [place], [address] , [facility] 0 12:30:26 Restless legs 69148012 Active 2015 From Automate d Load;Pro vider: Sneha Bianchi;St atus: Active [facility] 3 15:37:46 Asthma 202051814 Active 2015 From Automate d Load;Pro vider: Sneha Bianchi;St atus: Active Chantelle Jc [facility] 3 15:37:46 Familial combined hyperlip idemia 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 Active 2014 From Automate d Load;Pro vider: Sneha Bianchi;St atus: Active Chantelle Jc [facility] 3 15:37:46 Hyperten sive disorder 82569554 Active 2014 From Automate d Load;Pro vider: Sneha Bianchi;St atus: Active Chantelle Jc [facility] 3 15:37:46 Exacerba tion of intermit tent asthma 925132800 Completed 201404/14/2020 From Automate d Load;Pro vider: Sneha Bianchi;St atus: Active MARCK VALENZUELA DO [facility] [place], [address] [facility] 0 12:32:20 Dizzines s and giddines s 168239887 Completed 201508/14/2020 Status: Active MARCK VALENZUELA DO [facility] [place], [address] , [facility] 1 13:00:26 Problem Notes Documentation Provider Name and Address Organization Details Recorded Time Computer Installation Engineer Consult Note : [facility] ? ? [address] [facility] [address]BNFRGGN, Larry L (id #[id number], : 1940) [facility] [address] [place]?[address] Phone:?? Fax:?? Encounter Summary - Progress Note [...] received this fax in error, please visit [email or web address] to notify the sender and confirm that the information will be destroyed. If you do not have internet access, please call to notify the sender and confirm that the information will be destroyed. Thank you for your attention and cooperation. [ID:[id number]] Patient Jinny Rubio (83yo, M) #[id number] 1940 ?? Patient Demographics: Address [address] [place] [phone] ? Work Phone ?? Encounter Notes: Encounter [...] reports no proptosis and no muscle weakness. Ursofl2689-63-88 15:27 Ht: 5 ft 6 in Results/InterpretationsNone [...] I recommend they follow up with their PCP/director of first impressions for continue sugar evaluation/management. Also discussed importance of cardiovascular risk reduction. Call with changing/fluctuating vision.E11.9: Type 2 diabetes mellitus without complications 2. Bilateral qorjcnmahiowK81.1: Presence of intraocular lens 3. After-cataract with vision obscured following extraction of cataract-progressed os - rec yag laser osscheudle H26.499: Other secondary cataract, unspecified eye Return to Office to see KRISTINE BLUE MD for LEVEL 2 at OPHTHALMOLOGY [facility] on or around 09/05/2023 FAME_RESP_SICK_POD_3 for RESPIRATORY SICK VISIT at [facility] on 09/05/2023 at 02:00 PM KYENT_AUDIO_CB for AUDIOGRAM at [facility] on 10/20/2023 at 01:20 PM XAVIER SIN MD for NEW PATIENT at [facility] on 10/20/2023 at 01:20 PM JOSE WEISS MD for DERMATOLOGY VISIT at [facility] on 11/22/2023 at 03:00 PM MARCK VALENZUELA DO for RECHECK at [facility] on 12/21/2023 at 01:45 PM SUHA PHILLIP MD for RECHECK at [facility] on 01/05/2024 at 02:15 [...] stripsTake 1 strip(s) twice a day by Mompery. route as directed.05/30/23?prescri bed MARCK VALENZUELA, DO Accu-Chek Softclix Lancetsuse BID07/27/17?entered Smita Loza acetaminophen 500 mg tabletEvery four to six hours Internal Note:Duration: 10 days;Frequency: q4-q6h;Medication Description: acetaminophen; Dosage:1-2; Route:oral; refills:0; Quantity:30 pwsnos25/02/16?entered judy.221 Actos 15 mg tabletTAKE 1 TABLET BY MOUTH DAILY08/02/23?renewed MARCK VALENZUELA, DO aspirin 81 mg tabletDaily Internal Note:Frequency: daily;Medication Description: aspirin; Dosage:1; Route:oral; refills:0; Quantity:30 vcyxif30/02/16?entered judy.222 atorvastatin 20 mg extnko2ustiac po daily08/02/23?renewed MARCK VALENZUELA, DO cetirizine 10 [...] mg capsuleTAKE 2 CAPSULES BY MOUTH AT AOODHNH74/14/23?renewed MARCK VALENZUELA, DO triamterene 37.5 mg-hydrochlorothiazide 25 [...] Lot??# Mfr. Exp. Date VIS VIS Given Chief Green Officer COVID-19 COVID-19, mRNA, LNP-S, PF, 30 mcg/0.3 mL dose (Flatter World) 07/28/21 0.3 mL Intramuscular PV4900 Tarena 09/21/21 COVID-19, mRNA, LNP-S, PF, 30 mcg/0.3 mL dose (Flatter World) 12/09/20 0.3 mL Intramuscular BP7861 Tarena 03/24/21 COVID-19, mRNA, LNP-S, PF, 30 mcg/0.3 mL dose (Flatter World) 11/18/20 0.3 mL Intramuscular [id number] Tarena 02/21/21 Diphtheria, Tetanus Td (adult) preservative free 09/29/21 0.5 mL Intramuscular Deltoid, Left [id number] Sanofi Pasteur 12/06/21 Td 02/27/2021 09/29/21 Yulisa Arita Td (adult), adsorbed 01/16/01 Diphtheria, Tetanus, Pertussis Tdap 05/03/14 0.5 mL Influenza influenza, high-dose, quadrivalent 05/11/23 0.7 mL Intramuscular Deltoid, Left [id number] Sanofi Pasteur 12/24/23 Inactivated Influenza 02/27/2021 05/11/23 Yulisa Arita influenza, high-dose, quadrivalent 05/03/22 0.7 mL Intramuscular Deltoid, Left [id number] Sanofi Pasteur 01/21/23 Inactivated Influenza 02/27/2021 05/03/22 uYlisa Arita Influenza vaccine, quadrivalent, adjuvanted 07/28/21 0.5 mL Intramuscular [id number] Seqirus 01/21/22 influenza, high-dose, quadrivalent 04/14/20 0.7 mL Intramuscular Deltoid, Left [id number] Sanofi Pasteur 01/21/21 Inactivated Influenza 03/08/2019 04/14/20 Yvonne Walter influenza, trivalent, adjuvanted 05/09/19 0.5 mL Intramuscular Deltoid, Left [id number] Seqirus 12/23/19 Inactivated Influenza 03/08/2019 05/09/19 Cami Lynn influenza, trivalent, adjuvanted 05/15/18 0.5 mL Intramuscular Deltoid, Left [id number] Seqirus 12/22/18 TIV/QIV 02/28/2015 05/15/18 Smita Loza, Termed influenza, high dose seasonal 05/24/17 0.5 mL Intramuscular Deltoid, Left [id number] Sanofi Pasteur 12/02/17 TIV/QIV 02/28/2015 05/24/17 Smita Loza, Termed influenza, high dose seasonal 05/21/16 influenza, high dose seasonal 05/03/14 0.5 mL influenza, seasonal, injectable 08/28/12 Pneumococcal pneumococcal polysaccharide PPV23 08/19/17 0.5 mL Injection Deltoid, Left [id number] Merck and Co., Inc. 11/12/18 PPSV23 11/15/2014 08/19/17 Horace Aguilar, Termed pneumococcal conjugate PCV 13 10/17/14 pneumococcal polysaccharide PPV23 03/30/12 Zoster zoster live 08/28/12 Electronically Signed by: KRISTINE BLUE MD Yvonne Richter [facility] 09/06/2023 08:22:02 Ophthalmology Note : [facility] ? ? [address] [facility] [address]XADHXAU, Larry L (id #[id number], : 1940) [facility] [address] [place]?[address] Phone:?? Fax:?? Encounter Summary - Progress Note [...] received this fax in error, please visit [email or web address] to notify the sender and confirm that the information will be destroyed. If you do not have internet access, please call to notify the sender and confirm that the information will be destroyed. Thank you for your attention and cooperation. [ID:[id number]] Patient Jinny Rubio (83yo, M) #[id number] 1940 ?? Patient Demographics: Address [address] [place] [phone] ? Work Phone ?? Encounter Notes: Encounter Reason/Date YAG Capsulotomy 83 yo wm w/PCO is here for YAG laser OS Pt reports no new changes since last OV gtts: none ~BN no changes 09/14/2023 - 01:00PM - [facility] History of Present IllnessNone recorded Review of SystemsNone recorded Knrnxh0795-01-69 13:01 Ht: 5 ft 6 in Results/InterpretationsNone [...] BLUE MD for LEVEL 2 at OPHTHALMOLOGY [facility] on or around 09/28/2023 XAVIER SIN MD for NEW PATIENT at [facility] on 10/13/2023 at 02:40 PM RAJEEV_AUDIO_CB for AUDIOGRAM at [facility] on 10/13/2023 at 02:40 PM JOSE WEISS MD for DERMATOLOGY VISIT at DERMATOLOGY [facility] on 11/22/2023 at 03:00 PM MARCK VALENZUELA DO for RECHECK at [facility] on 12/21/2023 at 01:45 PM SUHA PHILLIP MD for RECHECK at [facility] on 01/05/2024 at 02:15 [...] q4-q6h;Medication Description: acetaminophen; Dosage:1-2; Route:oral; refills:0; Quantity:30 /02/16?entered judy.221 Actos 15 mg tabletTAKE 1 TABLET BY MOUTH DAILY08/02/23?renewed MARCK VALENZUELA, DO aspirin 81 mg tabletDaily Internal Note:Frequency: daily;Medication Description: aspirin; Dosage:1; Route:oral; refills:0; Quantity:30 ciihos46/02/16?entered judy.222 atorvastatin 20 mg ylsowb9vdktta po daily08/02/23?renewed MARCK VALENZUELA, DO azithromycin 250 mg tabletTAKE 2 TABLETS (500 MG) BY ORAL ROUTE ONCE DAILY FOR 1 DAY THEN 1 TABLET (250 MG) BY ORAL ROUTE ONCE DAILY FOR 4 DAYS Note:Complete both Azithromycin and Minuccidxek66/16/24?presc ribed MARCK VALENZUELA, DO cefPODOXime 200 mg [...] BY MOUTH EVERY DAY08/30/23?renewed [facility]ELA, [facility]:Frequency: as direct.;Medication Description: [...] mg capsuleTAKE 2 CAPSULES BY MOUTH AT UNXVAAS87/14/23?renewed MARCK VALENZUELA, DO triamterene 37.5 mg-hydrochlorothiazide 25 [...] Lot??# Mfr. Exp. Date VIS VIS Given Chief Green Officer COVID-19 COVID-19, mRNA, LNP-S, PF, 30 mcg/0.3 mL dose (Flatter World) 07/28/21 0.3 mL Intramuscular [id number] Tarena 09/21/21 COVID-19, mRNA, LNP-S, PF, 30 mcg/0.3 mL dose (Flatter World) 12/09/20 0.3 mL Intramuscular [id number] Tarena 03/24/21 COVID-19, mRNA, LNP-S, PF, 30 mcg/0.3 mL dose (Flatter World) 11/18/20 0.3 mL Intramuscular [id number] Tarena 02/21/21 Diphtheria, Tetanus Td (adult) preservative free 09/29/21 0.5 mL Intramuscular Deltoid, Left [id number] Sanofi Pasteur 12/06/21 Td 02/27/2021 09/29/21 Yulisa Arita Td (adult), adsorbed 01/16/01 Diphtheria, Tetanus, Pertussis Tdap 05/03/14 0.5 mL Influenza influenza, high-dose, quadrivalent 05/11/23 0.7 mL Intramuscular Deltoid, Left [id number] Sanofi Pasteur 12/24/23 Inactivated Influenza 02/27/2021 05/11/23 Yulisa Arita influenza, high-dose, quadrivalent 05/03/22 0.7 mL Intramuscular Deltoid, Left [id number] Sanofi Pasteur 01/21/23 Inactivated Influenza 02/27/2021 05/03/22 Yulisagregory Arita Influenza vaccine, quadrivalent, adjuvanted 07/28/21 0.5 mL Intramuscular [id number] Seqirus 01/21/22 influenza, high-dose, quadrivalent 04/14/20 0.7 mL Intramuscular Deltoid, Left [id number] Sanofi Pasteur 01/21/21 Inactivated Influenza 03/08/2019 04/14/20 Yvonne Walter influenza, trivalent, adjuvanted 05/09/19 0.5 mL Intramuscular Deltoid, Left [id number] Seqirus 12/23/19 Inactivated Influenza 03/08/2019 05/09/19 Cami Lynn influenza, trivalent, adjuvanted 05/15/18 0.5 mL Intramuscular Deltoid, Left [id number] Seqirus 12/22/18 TIV/QIV 02/28/2015 05/15/18 Smita Loza, Termed influenza, high dose seasonal 05/24/17 0.5 mL Intramuscular Deltoid, Left [id number] Sanofi Pasteur 12/02/17 TIV/QIV 02/28/2015 05/24/17 Smita Loza, Termed influenza, high dose seasonal 05/21/16 influenza, high dose seasonal 05/03/14 0.5 mL influenza, seasonal, injectable 08/28/12 Pneumococcal pneumococcal polysaccharide PPV23 08/19/17 0.5 mL Injection Deltoid, Left [id number] Merck and Co., Inc. 11/12/18 PPSV23 11/15/2014 08/19/17 Horace Aguilar, Termed pneumococcal conjugate PCV 13 10/17/14 pneumococcal polysaccharide PPV23 03/30/12 Zoster zoster live 08/28/12 Electronically Signed by: KRISTINE BLUE MD YOANDY Persaud 09/15/2023 09:01:51 Separations Scientist & Big Data Analytics Lead Consult Note : [facility] ? ? [address] [facility] [address] [facility] [address]GQUSVUR, Larry L (id #[id number], : 1940) [facility] [address] [place] [address] Date: 4RE: Jinny Rubio, : 1940, PT ID #[id number] Eason DO, I would like to thank [...] complaints Assessment/Plan1. Adverse reaction to drug- avoid tzobxjG17.905A: Adverse effect of unspecified drugs, medicaments and biological substances, initial encounter 2. Persistent cough-likely due to post nasal drip and recent opcbstdnnjS83.3: Chronic cough 3. Recurrent acute zzeykxvko-jhfj-ypxiqop as ddapaC38.91: Acute recurrent sinusitis, unspecified 4. Chronic rhinitis-blood [...] KRISTINE BLUE MD for LEVEL 1 at [facility] on 09/28/2023 at 01:15 PM MARCK VALENZUELA DO for RECHECK at [facility] on 09/28/2023 at 03:30 PM XAVIER SIN MD for NEW PATIENT [facility] on 10/13/2023 at 02:40 PM RAJEEV_AUDIO_CB for AUDIOGRAM at [facility] on 10/13/2023 at 02:40 PM JOSE WEISS MD for DERMATOLOGY VISIT at [facility] on 11/22/2023 at 03:00 PM MARCK VALENZUELA DO for RECHECK at [facility] on 12/21/2023 at 01:45 PM SUHA PHILLIP MD for RECHECK at [facility] on 01/05/2024 at 02:15 PM MARCK VALENZUELA DO [address] [place] [address], [phone] 09/27/2023 18:47:31 Computer Installation Engineer Consult Note : [facility] ? ? [address] [facility] [address]YNFVMST, Larry L (id #[id number], : 1940) [facility] [address] [place]?[address] Phone:?? Fax:?? Encounter Summary - Progress Note [...] received this fax in error, please visit [email or web address] to notify the sender and confirm that the information will be destroyed. If you do not have internet access, please call to notify the sender and confirm that the information will be destroyed. Thank you for your attention and cooperation. [ID:[id number]] Patient Jinny Rubio (83yo, M) #[id number] 1940 ?? Patient Demographics: Address [address] [place] [phone] ? Work Phone ?? Encounter Notes: Encounter Reason/Date 83 yo wm s/p yag returns for PO Pt states his va has improved. pt c/o small floaters os GTTS: none BW vision improved had new floater, not seen today no flashers 09/28/2023 - 01:15PM - OPH[facility]ALMOLOGY [facility] History of Present IllnessNone recorded Review of SystemsNone recorded [id number] 13:03 Ht: 5 ft 6 in Results/InterpretationsNone [...] Office MARCK VALENZUELA DO for RECHECK at [facility] on 09/28/2023 at 03:30 PM XAVIER SIN MD for NEW PATIENT at [facility] on 10/13/2023 at 02:40 PM RAJEEV_MIGUELITO_CB for AUDIOGRAM at [facility] on 10/13/2023 at 02:40 PM JOSE WEISS MD for DERMATOLOGY VISIT at DERMATOLOGY [facility] on 11/22/2023 at 03:00 PM MARCK VALENZUELA DO for RECHECK at [facility] on 12/21/2023 at 01:45 PM SUHA PHILLIP MD for RECHECK at [facility] on 01/05/2024 at 02:15 PM to see KRISTINE BLUE MD for LEVEL 2 at [facility] on or around 09/27/2024 Patient Medical History: [...] stripsTake 1 strip(s) twice a day by BlueMessagingcell. route as directed.05/30/23?prescri bed MARCK VALENZUELA, DO Accu-Chek Softclix Lancetsuse BID07/27/17?entered Smita Loza acetaminophen 500 mg tabletEvery four to six hours Internal Note:Duration: 10 days;Frequency: q4-q6h;Medication Description: acetaminophen; Dosage:1-2; Route:oral; refills:0; Quantity:30 ifaish91/02/16?entered judy.221 Actos 15 mg tabletTAKE 1 TABLET BY MOUTH DAILY09/16/23?renewed MARCK VALENZUELA, DO aspirin 81 mg tabletDaily Internal Note:Frequency: daily;Medication Description: aspirin; Dosage:1; Route:oral; refills:0; Quantity:30 /02/16?entered judy.222 atorvastatin 20 mg vrjzuw6yjahsd po daily08/02/23?renewed MARCK VALENZUELA, DO azithromycin 250 mg tabletTAKE 2 TABLETS (500 MG) BY ORAL ROUTE ONCE DAILY FOR 1 DAY THEN 1 TABLET (250 MG) BY ORAL ROUTE ONCE DAILY FOR 4 DAYS Note:Complete both Azithromycin and Ibsqiruvras74/16/24?presc ribed MARCK VALENZUELA, DO cefPODOXime 200 mg [...] BY MOUTH EVERY DAY08/30/23?renewed MARCK VALENZUELA, DO [facility] Directed Internal Note:Frequency: as direct.;Medication Description: Supplies; Dosage:as directed; refills:5; Quantity:100, start ?starttalita kim.242 montelukast 10 mg tabletTAKE 1 TABLET BY MOUTH DAILY11/11/22?renewed MARCK VALENZUELA, DO propranoloL ER 80 mg capsule,24 hr,extended releaseTAKE 1 CAPSULE BY MOUTH EVERY DAY06/23/23?renewed MARCK VALENZUELA, DO sildenafiL 100 mg tabletTake 1 tablet(s) as needed by oral route.07/05/23?prescribed SUHA PHILLIP MD tamsulosin 0.4 mg capsule2 capsules at aedvldf61/23/24?renewed MARCK VALENZUELA, DO triamterene 37.5 mg-hydrochlorothiazide 25 [...] Lot??# Mfr. Exp. Date VIS VIS Given Chief Green Officer COVID-19 COVID-19, mRNA, LNP-S, PF, 30 mcg/0.3 mL dose (Flatter World) 07/28/21 0.3 mL Intramuscular [id number] Tarena 09/21/21 COVID-19, mRNA, LNP-S, PF, 30 mcg/0.3 mL dose (Flatter World) 12/09/20 0.3 mL Intramuscular [id number] Tarena 03/24/21 COVID-19, mRNA, LNP-S, PF, 30 mcg/0.3 mL dose (MessageOneBioNTech) 11/18/20 0.3 mL Intramuscular [id number] [employer], AptDeco 02/21/21 Diphtheria, Tetanus Td (adult) preservative free 09/29/21 0.5 mL Intramuscular Deltoid, Left [id number] Sanofi Pasteur 12/06/21 Td 02/27/2021 09/29/21 Yulisa Arita Td (adult), adsorbed 01/16/01 Diphtheria, Tetanus, Pertussis Tdap 05/03/14 0.5 mL Influenza influenza, high-dose, quadrivalent 05/11/23 0.7 mL Intramuscular Deltoid, Left [id number] Sanofi Pasteur 12/24/23 Inactivated Influenza 02/27/2021 05/11/23 Yulisa Harms influenza, high-dose, quadrivalent 05/03/22 0.7 mL Intramuscular Deltoid, Left [id number] Sanofi Pasteur 01/21/23 Inactivated Influenza 02/27/2021 05/03/22 Yulisa Harms Influenza vaccine, quadrivalent, adjuvanted 07/28/21 0.5 mL Intramuscular [id number] Seqirus 01/21/22 influenza, high-dose, quadrivalent 04/14/20 0.7 mL Intramuscular Deltoid, Left [id number] Sanofi Pasteur 01/21/21 Inactivated Influenza 03/08/2019 04/14/20 Yvonne Walter influenza, trivalent, adjuvanted 05/09/19 0.5 mL Intramuscular Deltoid, Left [id number] Seqirus 12/23/19 Inactivated Influenza 03/08/2019 05/09/19 Cami Lynn influenza, trivalent, adjuvanted 05/15/18 0.5 mL Intramuscular Deltoid, Left [id number] Seqirus 12/22/18 TIV/QIV 02/28/2015 05/15/18 Smita Loza, Termed influenza, high dose seasonal 05/24/17 0.5 mL Intramuscular Deltoid, Left [id number] Sanofi Pasteur 12/02/17 TIV/QIV 02/28/2015 05/24/17 Smita Loza, Termed influenza, high dose seasonal 05/21/16 influenza, high dose seasonal 05/03/14 0.5 mL influenza, seasonal, injectable 08/28/12 Pneumococcal pneumococcal polysaccharide PPV23 08/19/17 0.5 mL Injection Deltoid, Left [id number] Merck and Co., Inc. 11/12/18 PPSV23 11/15/2014 08/19/17 Horace Aguilar, Termed pneumococcal conjugate PCV 13 10/17/14 pneumococcal polysaccharide PPV23 03/30/12 Zoster zoster live 08/28/12 Electronically Signed by: KRISTINE BLUE MD Chantelle Jc [facility] 09/28/2023 14:45:12 Urology Note : [facility] ? ? [address] [facility] [address]KNDKWHU, Larry L (id #[id number], : 1940) [facility] [address] [facility] [address] [place]?[address] Phone:?? Fax:?? Encounter Summary - Progress Note [...] received this fax in error, please visit [email or web address] to notify the sender and confirm that the information will be destroyed. If you do not have internet access, please call to notify the sender and confirm that the information will be destroyed. Thank you for your attention and cooperation. [ID:[id number]] Patient Jinny Rubio (84yo, M) #[id number] 1940 ?? Patient Demographics: Address [address] [place] [phone] ? Work Phone ?? Encounter Notes: Encounter Reason/Date 6 month recheck 07/03/2024 - 03:00PM - [facility] History of Present IllnessHe is [...] itching, no hives, and no frequent sneezing. Zagloe4466-39-19 14:58 Ht: 5 ft 8 in Wt: [...] and Plan1. Benign prostatic hyperplasia with outflow kqtoidhsgxoL46.1: Benign prostatic hyperplasia with lower urinary tract symptoms URINALYSIS PANEL, AUTO - ?Specimen source: Urine PSA, SERUM OR PLASMA - ?Specimen source: Blood venous tamsulosin 0.4 mg capsule - 2 capsules at bedtime ? Qty: (180)?capsule ? Refills: 3 ? Pharmacy: [facility] #[id number] finasteride 5 mg tablet - 1 daily at bedtime. ? Qty: (90)?tablet ? Refills: 3 ? Pharmacy: [facility] #[id number] URINALYSIS PANEL, AUTO UA Auto/Manual RESULT REFERENCE [...] KRISTINE BLUE MD for LEVEL 2 at [facility] on or around 09/27/2024 SUHA PHILLIP MD for RECHECK at [facility] on 07/04/2025 at 01:00 [...] q4-q6h;Medication Description: acetaminophen; Dosage:1-2; Route:oral; refills:0; Quantity:30 guqzdd77/02/16?entered judy.221 Actos 15 mg tabletTAKE 1 TABLET BY MOUTH DAILY09/16/23?renewed MARCK VALENZUELA, DO aspirin 81 mg tabletDaily Internal Note:Frequency: daily;Medication Description: aspirin; Dosage:1; Route:oral; refills:0; Quantity:30 ismceu83/02/16?entered judy.222 atorvastatin 20 mg zklksb5jxnbeo po daily11/07/23?renewed MARCK VALENZUELA, DO cetirizine 10 [...] MD tamsulosin 0.4 mg capsule2 capsules at amyuodp05/10/24?prescribe d SUHA PHILLIP MD triamterene 37.5 mg-hydrochlorothiazide [...] Lot??# Mfr. Exp. Date VIS VIS Given Chief [employer] Officer COVID-19 COVID-19, mRNA, LNP-S, PF, 30 mcg/0.3 mL dose ([facility]) 07/28/21 0.3 mL Intramuscular [id number] [place] 09/21/21 COVID-19, mRNA, LNP-S, PF, 30 mcg/0.3 mL dose ([facility]) 12/09/20 0.3 mL Intramuscular [id number] [place] 03/24/21 COVID-19, mRNA, LNP-S, PF, 30 mcg/0.3 mL dose ([employer]) 11/18/20 0.3 mL Intramuscular [id number] Tarena 02/21/21 Diphtheria, Tetanus Td (adult) preservative free 09/29/21 0.5 mL Intramuscular Deltoid, Left [id number] San[employer]i Paste[employer] 12/06/21 Td 02/27/2021 09/29/21 Yulisa Arita Td (adult), adsorbed 01/16/01 Diphtheria, Tetanus, Pertussis Tdap 05/03/14 0.5 mL Influenza influenza, high-dose, quadrivalent 05/11/23 0.7 mL Intramuscular Deltoid, Left [id number] San[employer]i Pasteur 12/24/23 Inactivated Influenza 02/27/2021 05/11/23 Yulisa Arita influenza, high-dose, quadrivalent 05/03/22 0.7 mL Intramuscular Deltoid, Left [id number] San[employer]i Paste[employer] 01/21/23 Inactivated Influenza 02/27/2021 05/03/22 Yulisa Arita Influenza vaccine, quadrivalent, adjuvanted 07/28/21 0.5 mL Intramuscular [id number] [employer] 01/21/22 influenza, high-dose, quadrivalent 04/14/20 0.7 mL Intramuscular Deltoid, Left [id number] San[employer]i Pasteur 01/21/21 Inactivated Influenza 03/08/2019 04/14/20 Yvonne Walter influenza, trivalent, adjuvanted 05/09/19 0.5 mL Intramuscular Deltoid, Left [id number] [employer] 12/23/19 Inactivated Influenza 03/08/2019 05/09/19 Cami Lynn influenza, trivalent, adjuvanted 05/15/18 0.5 mL Intramuscular Deltoid, Left [id number] [employer] 12/22/18 TIV/QIV 02/28/2015 05/15/18 Smita Loza, Termed influenza, high dose seasonal 05/24/17 0.5 mL Intramuscular Deltoid, Left [id number] San[employer]i Paste[employer] 12/02/17 TIV/QIV 02/28/2015 05/24/17 Smita Loza, Termed influenza, high dose seasonal 05/21/16 influenza, high dose seasonal 05/03/14 0.5 mL influenza, seasonal, injectable 08/28/12 Pneumococcal pneumococcal polysaccharide PPV23 08/19/17 0.5 mL Injection Deltoid, Left [id number] [employer] 11/12/18 PPSV23 11/15/2014 08/19/17 Horace Aguilar, Termed pneumococcal conjugate PCV 13 10/17/14 pneumococcal polysaccharide PPV23 03/30/12 Zoster zoster live 08/28/12 Electronically Signed by: SUHA PHILLIP MD Kirill Moffett [facility] 07/04/2024 09:54:45 Procedures Surgical History Date Name Laterality Status Provider Name and Address Organization Details Recorded Time 11/08/19 24 placement of stent in coronary artery completed MARCK VALENZUELA DO [address] [place] [address], [phone], [facility] 11/09/2023 07:57:46 09/27/19 24 Ingestion Challenging completed RAPHAEL RANDLE MD [address] [place] [address], [phone], [facility] 09/27/2023 14:45:19 09/27/19 24 Allergy Skin Testing/Drug or Biologics completed RAPHAEL RANDLE MD [facility] [place], [address], [facility] 09/27/2023 14:45:40 09/14/19 24 YAG Capsulotomy completed KRISTINE BLUE MD [address] [place], [address], [facility] 09/14/2023 15:04:44 06/22/20 23 PAF Exam completed Guadalupe Mckoy [facility] 06/14/2023 06:52:29 03/13/20 23 laparoscopic-assist ed right colectomy completed MARCK VALENZUELA DO [address] [place] [address], [phone], [facility] 03/22/2023 18:50:31 01/22/20 23 Destruction BN Lesions completed Jyotsna Lane [facility] 01/21/2023 06:54:01 05/03/20 22 PAF Exam completed Cheryl Peterson [facility] 03/22/2022 11:38:49 03/22/20 22 Destruction BN Lesions completed Jyotsna InfanteIngrid [facility] 03/22/2022 14:48:22 12/06/19 21 Destruction MN Lesion; trunk, arm, leg completed JOES WEISS MD [address] [place] [address], [phone], [facility] 12/14/2020 22:29:18 01/18/20 20 Airway Resistance completed [facility] 01/18/2020 13:52:06 01/18/20 20 Diffusion Capacity completed [facility] 01/18/2020 13:52:08 01/18/20 20 Lung Volumes, Plethysmography completed [facility] 01/18/2020 13:52:05 01/18/20 20 Spirometry with Bronchodilator completed [facility] 01/18/2020 14:05:07 03/28/20 18 EKG completed ROULA BIANCHI MD [address] [place] [address], [phone], [facility] 03/28/2018 11:36:47 12/15/19 18 MNT Initial Visit [place] [address] [address] [address], [place] [address] [place], [address], [facility] 12/14/2017 15:00:56 07/05/20 17 Cataract (right) removal with iol completed Tung Kennedy [facility] 07/06/2017 08:40:50 06/07/20 17 Cataract (left) removal with iol completed Perla Mckeon [facility] 06/08/2017 08:27:51 05/24/20 17 Destruction MN Lesion; [facility], [facility], [facility] 14:16:57 05/03/20 17 Destruction MN Lesion; trunk, arm, leg completed JOSE WEISS MD [address] [place], [address], [facility] 05/08/2017 21:44:21 05/03/20 17 Destruction BN Lesions completed Cathy [facility] 05/03/2017 14:44:18 04/27/20 17 Axial Length, A-Scan completed KRISTINE BLUE MD [address] [place], [address], [facility] 04/27/2017 11:17:13 12/02/19 17 Laryngoscopy Flex completed Betty Aguilar [facility] 12/01/2016 11:19:25 09/21/19 17 EKG completed ROULA BIANCHI MD [address] [place], [address], [facility] 09/21/2016 11:41:15 06/24/20 16 insertion of deep brain electrical stimulation system lead into brain completed MARCK VALENZUELA DO [address] [place], [address], [facility] 11/13/2020 12:46:34 [facility] 13:47:03 Shoulder joint surgery [facility]2018 13:47:13 Tonsillectomy completed Sheela [facility] 08/01/2018 13:47:30 partial resection of colon completed Sheela Lock [facility] 08/01/2018 13:47:52 Imaging Results Imaging Date Name Status LastModified by Organization Details LastModified Time 09/05/2023 electrocardiogram completed [address], [place], [address], 09/05/2023 22:26:27 09/05/2023 electrocardiogram completed BARCODE Informa tion not available 09/07/2023 10:51:36 09/09/2023 XR, chest, 2 view completed [email or web address] [facility] [address], [place], [address], 09/09/2023 16:14:26 10/18/2023 electrocardiogram completed [email or web address] [facility] [address], [place], [address], 10/24/2023 13:58:38 10/31/2023 CT, angiogram, coronary arteries, w/ contrast completed [address], [place], [address], 11/03/2023 15:31:42 Procedure Notes None recorded. Medical Equipment None Reported. Allergies Allergen ID Allergen Name Allergen Category Reaction Reaction Severity Criticality Documentation Date Start Date Code Code System Note Provider Name and Address Organization Details Recorded Time 381085 propoxyph luca hydrochlo ride medicatio n Not available Not available Not available 06/17/20162005 89130 RxNorm Comme nt: Creat ed By: Omar nelson Date: 1:06: 11 PM; Not Available [facility] 6 11:08:35 [id number] codeine medicatio n Not available Not available Not available 06/17/20162005 2670 RxNorm Comme nt: Creat ed By: Omar nelson Date: 1:06: 24 PM; Not Available [facility] 6 11:51:00 [id number] Product containin g penicilli n (product) medicatio n Not available Not available Not available 06/18/20162005 54942 8001 SNOMED Comme nt: state s no longe r aller gic;C reate d By: Omar nelson Date: 006 1:06: 38 PM; RAPHAEL RANDLE MD [address] [place] [address], [phone], [facility] 4 16:38:56 266573 metformin medicatio n diarrhea severe Not available 04/10/20182016 6809 RxNorm ROULA BIANCHI MD [address] [place] [address], [address] , [facility] 8 12:40:18 239534 propoxyph luca medicatio n other moderate Not available 09/27/20222005 8785 RxNorm Chantelleelgin Jc [facility] 3 15:37:44 774018 diethylpr opion medicatio n other Not available Not available 09/27/20222010 3389 RxNorm Chantelleelgin Jc [facility] 3 15:37:44 Medications Name Sig Start Date [...] Updated DateTime 4 167.64 cm 35.2 kg/m2 34656.1 4 g 79 /min 18 /min 98 % 98 % 120 mm[Hg] 62 mm[Hg] Yulisa Juan J [facility] 4 13:57:20 Date Recorded Body height Provider Name an d Address Organization Details Last Updated DateTime 09/05/2023 167.64 cm Linette Aguillon [facility] 09/05/2023 15:27:33 Date Recorded Body height Provider Name an d Address Organization Details Last Updated DateTime 09/14/2023 167.64 cm Vidhya Jorge [facility] 09/14/2023 13:01:12 Date Recorded Body height Body mass index (BMI) Body weight Heart rate Oxygen saturation Oxygen saturation in Arterial blood by Pulse oximetry Systolic blood pressure Diastolic blood pressure Provider Name and Address Organization Details Last Updated DateTime 4 167.64 cm 33.7 kg/m2 50392.8 1 g 77 /min 96 % 96 % 134 mm[Hg] 68 mm[Hg] Dian Brigida [facility] 4 14:22:18 Date Recorded Body height Provider Name an d Address Organization Details Last Updated DateTime 09/28/2023 167.64 cm Brandy Hinton [facility] 09/28/2023 13:03:59 Date Recorded Body height Body mass index (BMI) Body weight Respiratory rate Heart rate Oxygen saturation Oxygen saturation in Arterial blood by Pulse oximetry Systolic blood pressure Diastolic blood pressure Provider Name and Address Organization Details Last Updated DateTime 167.64 cm 34.1 kg/m2 41413.9 9 g 18 /min 86 /min 95 % 95 % 112 mm[Hg] 62 mm[Hg] Yulisa Arita [facility] 13:56:27 Date Recorded Body height Body mass index (BMI) Body weight Provider Name and Address Organization Details Last Updated DateTime 07/03/2024 172.72 cm 31.6 kg/m2 35784.78 g Jasmin Oliver [facility] 07/03/2024 14:58:33 Social History Question Answer Notes LastModified by Organizat ion Details LastModified Time Tobacco Smoking Status Never Smoker Smita Loza [facility] 07/29/2016 11:09:07 What Is Your Level Of Alcohol Consumption? Occasional 1 Weekly Information not available 08/01/2018 How Much Tobacco Do You Chew? None Information not available 08/01/2018 Which Illicit Or Recreational Drugs Have You Used? No Illicit Drug Use Information not available 08/01/2018 Do You Or Have You Ever Used E-cigarettes Or Vape? Never Used Electronic Cigarettes Information not available 01/15/2021 What Is Your Occupation? Retired Information not available 08/01/2018 Marital Status Informatio n not available 08/01/2018 What Was The Date Of Your Most Recent Tobacco Screening? 11/10/2022 [email or web address] Information not available 11/10/2022 Do You Or Have You Ever Used Smokeless Tobacco? Never Used Smokeless Tobacco [email or web address] Information not available 01/15/2021 How Much Tobacco Do You Smoke? No [email or web address] Information not available 01/15/2021 Has Tobacco Cessation Counseling Been Provided? No [email or web address] Information not available 03/30/2017 How Many Years Have You Smoked Tobacco? 0 [email or web address] Information not available 01/15/2021 Sex: Unknown Functional [...] Anxiety Disorder Y Arthritis Y Cancer Y High Cholesterol Y Diabetes Y Basal Cell Carcinoma Y Hepatitis Y Hypertension Y Glasses/Contacts Y Immunizations Vaccine Type Date Status Note Provider Nam e and Address Organization Details Recorded Time Influenza, adjuvanted, trivalent, PF 8 completed Not Available [facility] 08/11/2019 02:51:06 pneumococcal polysaccharide PPV23 2 completed Not Available [facility] 09/27/2022 15:35:15 Influenza, high-dose, trivalent, PF 6 completed Not Available [facility] 09/27/2022 15:35:15 Pneumococcal conjugate PCV 13 5 completed Not Available [facility] 09/27/2022 15:35:15 zoster live 3 completed Not Available [facility] 09/27/2022 15:35:15 Influenza, adjuvanted, trivalent, PF 9 completed Not Available [facility] 08/11/2019 02:53:34 Influenza, high-dose, quadrivalent, PF 0 completed Yvonne Walter [facility] 04/14/2020 13:32:16 Td (adult), 5 Lf tetanus toxoid, preservative free, adsorbed 2 completed Yulisa Arita [facility] 09/29/2021 14:16:33 Influenza, high-dose, quadrivalent, PF 2 completed MARCK VALENZUELA, DO [address] [place], [address], [facility] 05/03/2022 15:46:35 Influenza, high-dose, trivalent, PF 7 completed Not Available [facility] 08/11/2019 02:45:21 Influenza, high-dose, quadrivalent, PF 3 completed Yulisa Harms null, [facility] 05/11/2023 14:44:17 pneumococcal polysaccharide PPV23 8 completed Not Available [facility] 08/11/2019 02:45:25 Influenza, adjuvanted, quadrivalent, PF 2 completed Yulisa Harms null, [facility] 05/10/2023 10:19:06 COVID-19, mRNA, LNP-S, PF, 30 mcg/0.3 mL dose 2 completed Yulisa Harms null, [facility] 05/10/2023 10:19:07 COVID-19, mRNA, LNP-S, PF, 30 mcg/0.3 mL dose 1 completed Yulisa Harms null, [facility] 05/10/2023 10:19:07 COVID-19, mRNA, LNP-S, PF, 30 mcg/0.3 mL dose 1 completed Yulisa Harms null, [facility] 05/10/2023 10:19:07 Tdap 4 completed Yulisa Harms null, [facility] 05/10/2023 10:19:07 Influenza, high-dose, trivalent, PF 4 completed Yulisa Harms null, [facility] 05/10/2023 10:19:07 Influenza, split virus, trivalent, preservative 3 completed Yulisa Harms null, [facility] 05/10/2023 10:19:07 Td (adult), 2 Lf tetanus toxoid, preservative free, adsorbed 1 completed Yulisa Harms null, [facility] 05/10/2023 10:19:07 Past Encounters Encounter ID Performer Location Encounter Start Date Encounter Closed Date Diagnosis/Indication Diagnosis SNOMED-CT Code Diagnosis ICD10 Code Diagnosis Note [id number] ROULA BIANCHI MD [facility] [address] [place] [address] 07/29/2016 10:53:58 07/29/2016 12:41:19 Acute bronchitis with bronchospasm 28845069 J20.9 Take over-the-c ounter Mucinex DM twice a day as needed for cough. Call if not resolved right after the treatment [id number] ROULA BIANCHI MD [facility] [address] ,[address] [place] [address] 09/21/2016 10:26:03 09/21/2016 11:19:11 Adult health examination 735580806 Z00.00 His last colonoscop y was in March 2012. Continue to follow-up with Dr. Schmidt because of colon cancer. Received Prevnar 13 in September 2014, Zostavax in August 2012, Pneumovax in March 2012 Screening for malignant neoplasm of prostate 125158023 Z12.5 Screening for malignant neoplasm of rectum 538068461 Z12.12 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 340870 09 E11.9 Continue current medication s and recheck A1c today. Advised patient to eat a low carbohydra te diet, exercise and weight control. Hyperlipidemia 91668100 E78.5 Continue fenofibrat e And Lipitor, Advised him about low fat and low cholestero l diet. Essential hypertension 89703474 I10 Educated the patient to eat a low-salt diet, exercise and weight control. Repeated blood pressure is 151/75. Advised patient to call his neurologis t to get propranolo l, and continue to take it. Moderate p ersistent asthma 044757526 J45.40 Stable, continue Symbicort Chronic ki dney disease 329932360 N18.9 Avoid NSAIDs. Recheck creatinine Essential tremor 3777620 09 G25.0 Continued follow-up with his neurologis t, continue Neurontin And propranolo l From his neurologis t. Restless legs 50961578 G 25.81 Stable, continue Neurontin. Hearing loss 01298991 H9 1.93 Had referral to ENT. Primary er ectile dysfunction 551574403 N52.9 Continue to follow-up with his urologist Vitamin B1 2 deficiency (non anemic) 08377179 E53.8 Continue oral supplement and recheck level in the future. Chronic low back pain 27 6813671 M54.5 With lumbar stenosis and neuroforam inal stenosis. Continue to have physical therapy with chiropract or and follow-up with his neurosurge on. Malignant tumor of colon 069526383 C18.9 Resected, continue to follow-up with Dr. Schmidt. Electrocar diogram abnormal 275481623 R94.31 Totally asymptomat ic and no significan t change. He had a normal stress Myoview 2013 [id number] ROULA BIANCHI MD [facility] [address] ,[address] [place] [address] 10/22/2016 13:17:13 10/22/2016 14:05:36 Acute conjunctivitis 06198208 H10.31 Advised patient to call if not resolved in 5-7 days. Otherwise follow-up as scheduled. [id number] KRISTINE BLUE MD OPHTHALMO [facility] [address] ,[address] [place] [address] 11/24/2016 10:15:06 11/25/2016 11:25:54 Blepharitis 77212361 H01.9 start hot compresses bid at least.star t lid hygeinesta rt bacitracin karol qhs ouif no better in a week or two start art tears qid. if no better in a week or tow after that, consider rtc with steroid. Incipient senile cataract 313871434 H25.099 mild, obs. 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 Advised patient to eat a low carbohydra te diet, exercise and weight control. Hyperlipidemia 06925819 E78.5 Since his last triglyceri de was normal, and he lost more weight, discontinu e fenofibrat e as it and no longer recommende d to be used with a statin by FDA, continue Lipitor. Advised him to continue to lose more weight. Essential hypertension 50773893 I10 Under very good control, continue current medication s. Moderate p ersistent asthma 323083892 J45.40 Stable, continue Symbicort Chronic ki dney disease 145479672 N18.9 Avoid NSAIDs. Recheck creatinine In the future Essential tremor 4522788 09 G25.0 Continued follow-up with his neurologis t, continue Neurontin And propranolo l From his neurologis t. Restless legs 40971274 G 25.81 Stable, continue Neurontin. Hearing loss 66287326 H9 1.93 Continue to see ENT Dr. Sin. Primary er ectile dysfunction 358363056 N52.9 Continue to follow-up with his urologist Vitamin B1 2 deficiency (non anemic) 77222769 E53.8 Continue oral supplement and recheck level in the future. Chronic low back pain 27 3978233 M54.5 With lumbar stenosis and neuroforam inal stenosis. Continue to have physical therapy with chiropract or and follow-up with his neurosurge on. Malignant tumor of colon 931970719 C18.9 Resected, continue to follow-up with Dr. Schmidt. Electrocar diogram abnormal 286984576 R94.31 Totally asymptomat ic and no significan t change. He had a normal stress Myoview 2013 [id number] ROULA BIANCHI MD [facility] [address] ,[address] [place] [address] 03/30/2017 10:31:47 03/30/2017 11:13:49 Adult health examination 487004850 Z00.00 His last colonoscop y was in March 2012. Continue to follow-up with Dr. Schmidt because of colon cancer. Received Prevnar 13 in September 2014, Zostavax in August 2012, Pneumovax in March 2012 Screening for malignant neoplasm of prostate 523967110 Z12.5 Screening for malignant neoplasm of rectum 860469187 Z12.12 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 380412 09 E11.9 Continue current medication s and recheck A1c today=6.4. Advised patient to eat a low carbohydra te diet, exercise and weight control. Hyperlipidemia 42370514 E78.5 His fenofibrat e was discontinu ed. Continue atorvastat in Essential hypertension 15848204 I10 Repeated blood pressures 134/71. Under very good control, continue current medication s. Recheck BMP today Moderate p ersistent asthma 571413055 J45.40 Stable, continue Symbicort Chronic ki dney disease 693089862 N18.9 Avoid NSAIDs. Recheck creatinine Essential tremor 5942567 09 G25.0 Continued follow-up with his neurologis t, continue Neurontin And propranolo l From his neurologis t. Restless legs 35770418 G 25.81 Stable, continue Neurontin. Hearing loss 40629501 H9 1.93 Continue to see ENT Dr. Sin. Primary er ectile dysfunction 626340932 N52.9 Continue to follow-up with his urologist. No new complaints at the day Vitamin B1 2 deficiency (non anemic) 94416376 E53.8 Continue oral supplement and recheck level Chronic low back pain 27 0943167 M54.5 With lumbar stenosis and neuroforam inal stenosis. Continue to have physical therapy with chiropract or and follow-up with his neurosurge on. Malignant tumor of colon 256945039 C18.9 Resected, continue to follow-up with Dr. Schmidt. Electrocar diogram abnormal 817140218 R94.31 Totally asymptomat ic and no significan t change. He had a normal stress Myoview 2013. Depressive disorder 3548 9007 F32.9 Advised the patient about possible side effects. 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 I discussed the importance of sugar control for reducing risk of diabetic complicati ons in the eyes. I recommened they follow up with their PCP/endocr inologist for continue sugar evaluation /managemen t. Also discussed importance of cardiovasc ular risk reduction. Call with changing/f luxuating vision. 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 Advised patient to eat a low carbohydra te diet, exercise and weight control. Advised patient to hold aspirin 7 days before the surgery, hold diabetes his medicines on the day of the surgery. Sliding scale insulin per protocol. Hyperlipidemia 78541075 E78.5 His fenofibrat e was discontinu ed. Continue atorvastat in Essential hypertension 13944865 I10 Under very good control, continue current medication s. Recheck BMP today Moderate p ersistent asthma 640742025 J45.40 Stable, Does not use Symbicort Currently. Prescripti on for Pro Air inhaler to be used 2 puffs every 4 hours prn, advised patient to bring the inhaler with him. Chronic ki dney disease 147023923 N18.9 Avoid NSAIDs And dehydratio n. Recheck creatinine . Essential tremor 6639566 09 G25.0 Continued follow-up with his neurologis t, continue Neurontin And propranolo l From his neurologis t. Restless legs 80131631 G 25.81 Stable, continue Neurontin. Vitamin B1 2 deficiency (non anemic) 43984449 E53.8 Continue oral supplement and recheck level Chronic low back pain 27 9434127 M54.5 With lumbar stenosis and neuroforam inal stenosis. Continue to have physical therapy with chiropract or and follow-up with his neurosurge on. Malignant tumor of colon 820969956 C18.9 Resected, continue to follow-up with Dr. Schmidt. Electrocar diogram abnormal 099824404 R94.31 EKG today showed normal sinus rhythm at the rate of 72, incomplete right bundle branch block. Abnormal EKG.Totall y asymptomat ic and no significan t change. He had a normal stress Myoview 2013. No further testing is needed Depressive disorder 3548 9007 F32.9 Continue Celexa. 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 11522435 D04.71 Right inguinal crease treated with EDC x 3Follow up 3 months [id number] KRISTINE BLUE MD SURGERY SCHEDULE [address] [place] [address] 06/07/2017 08:51:20 06/07/2017 08:53:56 [id number] KRISTINE BLUE MD [facility] [address] ,[address] [place] [address] 06/08/2017 08:16:51 06/08/2017 09:10:32 Pseudophakia 45657126 Z96.1 Post op Day one - excellentS [...] ar/d os pre op od next time [id number] KRISTINE BLUE MD [facility] [address] ,[address] [place] [address] 06/15/2017 09:58:51 06/20/2017 07:10:49 Pseudophakia 95568265 Z96.1 excellentc ontinue d/i taperdefer mrx Nuclear sc lerotic cataract 693286057 H25.12 odDiscusse d cataracts and cataract surgery. [...] their surgery.po or dilation, will need ring [id number] KRISTINE BLUE MD SURGERY SCHEDULE [address] [place] [address] 07/05/2017 08:50:36 07/05/2017 08:51:23 [id number] KRISTINE BLUE MD [facility] [address] ,[address] [place], [place] [address] 07/06/2017 08:32:55 07/07/2017 07:35:27 [id number] KRISTINE BLUE MD [facility] [address] ,[address] [place] [address] 5 08/08/2017 12:07:11 08/08/2017 14:04:05 Pseudophakia 53526260 Z96.1 excellentc ontinue d/i tapermrx today6 mo dm checkart tears and hot compresses [id number] ROULA BIANCHI MD [facility] [address] [place],[address] [place] [address] 08/19/2017 12:19:59 08/22/2017 11:19:54 Adult health examination 812804480 Z00.00 His last colonoscop y was in March 2012. Continue to follow-up with Dr. Schmidt because of colon cancer. scheduled one on 10/2017 Received Prevnar 13 in September 2014, Zostavax in August 2012, Pneumovax in March 2012 Administra tion of pneumococcal vaccine 64516194 Z23 Abdominal aortic aneurysm screening offered 202626006 Z78.9 [id number] ROULA BIANCHI MD [facility] [address] ,[address] [place] [address] 08/19/2017 12:36:07 08/22/2017 11:21:39 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 94722596 E11.9 Last A1c was 7.0. Continue current medication s and recheck A1c today=6.2. Advised patient to eat a low carbohydra te diet, exercise and weight control. Hyperlipidemia 03739641 E78.5 His fenofibrat e was discontinu ed. Continue atorvastat in. Recheck it with RTC Essential hypertension 05886813 I10 Under very good control, continue current medication s. Recheck BMP In the future Moderate p ersistent asthma 903269330 J45.40 Because of wheezing, advised patient to restart Symbicort every day, continue albuterol as needed. Chronic ki dney disease 790426304 N18.9 Avoid NSAIDs. Recheck creatinine In the future it was a stable Essential tremor 1474421 09 G25.0 Continued follow-up with his neurologis t, continue Neurontin And propranolo l From his neurologis t. Restless legs 84175108 G 25.81 Stable, continue Neurontin. Hearing loss 04061607 H9 1.93 Continue to see ENT Dr. Sin. Primary er ectile dysfunction 798060354 N52.9 Continue to follow-up with his urologist. No new complaints at the day Vitamin B1 2 deficiency (non anemic) 21809432 E53.8 Continue oral supplement and recheck level In the future Chronic low back pain 27 8075656 M54.5 With lumbar stenosis and neuroforam inal stenosis. Continue to have physical therapy with chiropract or and follow-up with his neurosurge on. Malignant tumor of colon 163794316 C18.9 Resected, continue to follow-up with Dr. Schmidt. He has a colonoscop y scheduled in October 2017 Electrocar diogram abnormal 910083014 R94.31 Totally asymptomat ic and no significan t change. He had a normal stress Myoview 2013. Depressive disorder 3548 9007 F32.9 He stopped his Celexa. He feels better now, no further treatment. [id number] ROULA BIANCHI MD [facility] [address] [place] [address] 08/30/2017 11:22:13 08/31/2017 14:21:20 Acute bronchitis 16742803 J20.9 Start Ceftin 500 mg twice a day for 7 daysTessal on Perle 3 times a day when necessaryA dvised him to use his Flonase every day 1 spray each nostril twice a dayIncreas e fluid intake Call if not resolved right after the treatment. 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 Also check microalbum in. Refer the patient for dietitian consult because of obesity and diabetes. Hyperlipidemia 81823875 E78.5 Advised him to his continue fenofibrat e to see if his fatigue is better. Recheck lipid profile today. Continue atorvastat in Essential hypertension 83930014 I10 Under very good control, continue current medication s. Moderate p ersistent asthma 756492394 J45.40 Stable, continue Symbicort Chronic ki dney disease 982784717 N18.9 Avoid NSAIDs. Recheck creatinine Today. Avoid NSAIDs Essential tremor 4208340 09 G25.0 Continued follow-up with his neurologis t, continue Neurontin And propranolo l From his neurologis t. Restless legs 14664714 G 25.81 Stable, continue Neurontin. Hearing loss 16283251 H9 1.93 Continue to see ENT Dr. Sin. Primary er ectile dysfunction 853147055 N52.9 Continue to follow-up with his urologist Vitamin B1 2 deficiency (non anemic) 99796603 E53.8 Continue oral supplement and recheck B12 level. Chronic low back pain 27 0446202 M54.5 With lumbar stenosis and neuroforam inal stenosis. Continue to have physical therapy with chiropract or and follow-up with his neurosurge on. Malignant tumor of colon 105429375 C18.9 Resected, continue to follow-up with Dr. Schmidt. Electrocar diogram abnormal 072740437 R94.31 Totally asymptomat ic and no significan t change. He had a normal stress Myoview 2013 Body mass index 30+ - obesity 700746295 Z68.36 Discussed with the patient about the decrease of the portion of foods and more exercise in order to lose weight. Refer the patient to a dietitian. [id number] BETHANY GODOY RD, LD [facility] [address] ,[address] [place] [address] 12/14/2017 12:55:27 12/14/2017 15:02:08 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 08447017 E11.9 [id number] KRISTINE BLUE MD [facility] [address] ,[address] [place] [address] 02/09/2018 12:04:23 02/10/2018 09:21:01 Pseudophakia 88611186 Z96.1 stable. 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 I discussed the importance of sugar control for reducing risk of diabetic complicati ons in the eyes. I recommened they follow up with their PCP/endocr inologist for continue sugar evaluation /managemen t. Also discussed importance of cardiovasc ular risk reduction. Call with changing/f luxuating vision. Epiphora 245630521 H04.2 23 irrigated tear ducts today no obstructio n art tears prn blurring 1 year and prn [id number] ROULA BIANCHI MD [facility] [address] [place] [address] 03/28/2018 10:31:15 03/30/2018 11:46:28 Adult health examination 492199730 Z00.00 Prevnar 13 in September 2014 Pneumovax [...] EKG Screening for malignant neoplasm of prostate 357567573 Z12.5 Screening for malignant neoplasm of rectum 376047538 Z12.12 Negative 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 820818 09 E11.9 Continue current medication s and recheck A1c today=6.4. Advised patient to eat a low carbohydra te diet, exercise and weight control. Hyperlipidemia 19553694 E78.5 His fenofibrat e was discontinu ed. Continue atorvastat in, get FLP Essential hypertension 20778773 I10 Repeated blood pressures 136/72. Under very good control, continue current medication s. Recheck BMP today Moderate p ersistent asthma 877499967 J45.40 Stable, continue Symbicort Chronic ki dney disease 538340487 N18.9 Avoid NSAIDs. Recheck creatinine Essential tremor 7873178 09 G25.0 Continued follow-up with his neurologis t, continue Neurontin And propranolo l From his neurologis t. Restless legs 75362952 G 25.81 Stable, continue Neurontin. Hearing loss 23453750 H9 1.93 Continue to see ENT Dr. Sin. Primary er ectile dysfunction 192116882 N52.9 Continue to follow-up with his urologist. No new complaints at the day Vitamin B1 2 deficiency (non anemic) 36213283 E53.8 Continue oral supplement and recheck level Chronic low back pain 27 6947709 M54.5 With lumbar stenosis and neuroforam inal stenosis. Continue to have physical therapy with chiropract or and follow-up with his neurosurge on. Continue gabapentin as needed. He denies any misuse Malignant tumor of colon 651843473 C18.9 Resected, continue to follow-up with Dr. Schmidt. Electrocar diogram abnormal 246702856 R94.31 Totally asymptomat ic and no significan t change. He had a normal stress Myoview 2013. Body mass index 30+ - obesity 230091703 Z68.36 Discussed with the patient about the decrease of the portion of foods and more exercise in order to lose weight. Refer the patient to a dietitian. [id number] ROULA BIANCHI MD [facility] [address] [place] [address] 04/10/2018 12:15:13 04/11/2018 09:11:50 Acute urinary tract infection 217984874 N39.0 Repeated UA today is normal. 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 Essential hypertension 89643307 I10 His initial blood pressure was 152/74, Repeated blood pressures 139/76. Under good control, continue current medication s. [id number] ROULA BIANCHI MD [facility] [address] [place] [place] [address] 05/15/2018 12:51:25 05/15/2018 14:17:45 Type 2 diabetes mellitus without complication 548762741 E11.9 He is already taking glimepirid e [...] 25 mg once a day. Essential hypertension 86823345 I10 Blood pressure is under good control now. Continue current medication s. Administra tion of influenza vaccine 63429736 Z23 Body mass index 30+ - obesity 600631378 Z68.36 Lost 9 pounds with a Jardiance, Discussed with the patient about the decrease of the portion of foods and more exercise in order to lose weight. [id number] ROULA BIANCHI MD [facility] [address] [place] [place] [address] 06/27/2018 12:20:06 06/29/2018 10:11:50 Type 2 diabetes mellitus without complication 627487567 E11.9 His A1c today Is 6.7, significan tly improved. Continue current medication s and refill Jardiance. Advised patient to continue to watch his diet and exercise. Essential hypertension 74279278 I10 Blood pressure is under good control now. Continue current medication s. Body mass index 30+ - obesity 726055521 Z68.36 Lost 20 pounds with Jardiance, Discussed with the patient about the decrease of the portion of foods and more exercise in order to lose weight. [id number] NAHOMY HUTSON MD [facility] [address] [place] [address] 08/01/2018 13:15:33 08/01/2018 14:19:00 Restless legs 25216797 G25.81 Type 2 abhinav betes mellitus without complication 397586870 E11.9 Essential tremor 7969880 09 G25.0 Hyperlipidemia 05887793 E78.5 [id number] ANDRE RUEDA MD [facility] [address] [address] 12/04/2018 13:34:18 12/04/2018 15:27:03 Mass of soft tissue 171835229 R22.9 Right wrist, MRI right wrist with without gadolinium for soft tissue mass, we can obtain x-rays before if required by his insurance. Follow-up with the MRI to discuss possible surgical excision [id number] ANDRE RUEDA MD [facility] [address] [address] 01/22/2019 14:27:55 01/22/2019 14:51:06 Mass of soft tissue 721923368 R22.9 Does not appear to be lipoma.? Schwannoma versus other neoplasm. I am going to get the official report from the radiologis ts and then reassess and contact him. [id number] NAHOMY HUTSON MD [facility] [address] [place] [address] 02/05/2019 13:29:54 02/05/2019 14:53:58 Adult health examination 722602004 Z00.00 Type 2 abhinav betes mellitus without complication 264395908 E11.9 [id number] NAHOMY HUTSON MD [facility] [address] [place] [address] 05/09/2019 12:34:45 05/09/2019 13:39:31 Type 2 diabetes mellitus without complication 280243140 E11.9 Administra tion of influenza vaccine 26033795 Z23 Essential hypertension 76812290 I10 Benign pro static hyperplasia with outflow obstruction 790599242 N40.1 [id number] NAHOMY HUTSON MD [facility] [address] [place] [address] 08/27/2019 13:29:12 08/27/2019 14:32:04 Type 2 diabetes mellitus without complication 917638371 E11.9 Hyperlipidemia 63080486 E78.5 Primary er ectile dysfunction 919013686 N52.9 [id number] IRINA ROBINS MD [facility] [address] ,[address] [place] [address] 09/11/2019 13:00:35 09/11/2019 13:53:19 Type 2 diabetes mellitus without complication 340459797 E11.9 On 02/08/19, his microalbum in was >12, so a ratio was not calculated . On 08/27/19, his A1c was 6.9. Hyperlipidemia 97968173 E78.5 On 02/05/19, his total cholestero l was 112, HDL 38, triglyceri demetra 159, LDL 42. Primary er ectile dysfunction 262889542 N52.9 On 09/11/19, patient reported little benefit from Viagra in the past. Benign pro static hyperplasia without outflow obstruction 862819552 N40.0 On 09/11/19, patient reported benefit from tamsulosin and finasterid e in treating his urinary symptoms from BPH. Seasonal allergy 4442071 04 J30.2 Antiplatel et agent therapy 658457208 Z79.02 Hypertensive disorder 38 113378 I10 Essential tremor 9384522 09 G25.0 Patient with history of essential tremor status post bilateral VIM DBS placement using Medtronic system in 07/[address] Delgadillo. Restless legs 15296250 G 25.81 On 09/11/19, patient reported benefit from gabapentin in treating his restless legs. Long-term drug therapy 443940307 Z79.899 Polyp of colon 59913975 K63.5 On 11/07/18, patient had a colonoscop y by Dr. Schmidt which revealed colon polyps. Pathology revealed tubular adenoma. Follow-up colonoscop y was recommende d in 1 year per patient report. [id number] IRINA ROBINS MD [facility] [address] [place],[address] [place] [address] 09/26/2019 12:42:41 09/26/2019 13:15:53 Long-term drug therapy 633209408 Z79.899 Restless legs 82370987 G 25.81 On 09/11/19, patient reported benefit from gabapentin in treating his restless legs. Type 2 abhinav betes mellitus without complication 176012568 E11.9 On 02/08/19, his microalbum in was >12, so a ratio was not calculated . On 08/27/19, his A1c was 6.9. Hyperlipidemia 17110265 E78.5 On 02/05/19, his total cholestero l was 112, HDL 38, triglyceri demetra 159, LDL 42. On 09/11/19, his total cholestero l was 113, HDL 38, triglyceri demetra 146, LDL 46. Hypertensive disorder 38 734129 I10 Antiplatel et agent therapy 354720999 Z79.02 Seasonal allergy 6125180 04 J30.2 Benign pro static hyperplasia without outflow obstruction 828056125 N40.0 On 09/11/19, patient reported benefit from tamsulosin and finasterid e in treating his urinary symptoms from BPH. Primary er ectile dysfunction 552158499 N52.9 On 09/11/19, patient reported little benefit from Viagra in the past. Essential tremor 3466255 09 G25.0 Patient with history of essential tremor status post bilateral VIM DBS placement using Medtronic system in 07/[address] Delgadillo. Polyp of colon 20480293 K63.5 On 11/07/18, patient had a colonoscop y by Dr. Schmidt which revealed colon polyps. Pathology revealed tubular adenoma. Follow-up colonoscop y was recommende d in 1 year per patient report. Chest wall pain 29170303 6 R07.89 On 09/26/19, patient reported having [...] and prescribed Mobic as needed for pain. [id number] IRINA ROBINS MD [facility] [address] ,[address] [place] [address] 11/27/2019 12:40:24 11/27/2019 15:29:33 Long-term drug therapy 046882521 Z79.899 Chest wall pain 24393225 6 R07.89 On 09/26/19, patient reported having [...] d chest pain had resolved. Restless legs 22200076 G 25.81 On 09/11/19, patient reported benefit from gabapentin in treating his restless legs. Type 2 abhinav betes mellitus without complication 679693060 E11.9 On 02/08/19, his microalbum in was >12, so a ratio was not calculated . On 08/27/19, his A1c was 6.9. On 11/27/19, his A1c was 6.4. Hyperlipidemia 61202157 E78.5 On 02/05/19, his total cholestero l was 112, HDL 38, triglyceri demetra 159, LDL 42. On 09/11/19, his total cholestero l was 113, HDL 38, triglyceri demetra 146, LDL 46. Hypertensive disorder 38 210578 I10 Antiplatel et agent therapy 939256889 Z79.02 Seasonal allergy 9547295 04 J30.2 On 09/26/19, patient had a [...] Benign pro static hyperplasia without outflow obstruction 600126766 N40.0 On 09/11/19, patient reported benefit from tamsulosin and finasterid e in treating his urinary symptoms from BPH. Primary er ectile dysfunction 817778325 N52.9 On 09/11/19, patient reported little benefit from Viagra in the past. On 11/27/19, patient requested urology evaluation for erectile dysfunctio n. Essential tremor 2741333 09 G25.0 Patient with history of essential tremor status post bilateral VIM DBS placement using Medtronic system in 07/[address] Delgadillo. Polyp of colon 23595703 K63.5 On 11/07/18, patient had a colonoscop y by Dr. Schmidt which revealed colon polyps. Pathology revealed tubular adenoma. Follow-up colonoscop y was recommende d in 1 year per patient report. Asthma 020271333 J45.90 9 [id number] IRINA ROBINS MD [facility] [address] [place] [address] 12/10/2019 13:03:11 12/10/2019 16:26:05 Primary erectile dysfunction 867421103 N52.9 On 09/11/19, patient reported little benefit from Viagra in the past. On 11/27/19, patient requested urology evaluation for erectile dysfunctio n. Seasonal allergy 0548654 04 J30.2 On 09/26/19, patient had a [...] n of Zyrtec, Flonase, and Singulair. Asthma 795134193 J45.90 9 Chest wall pain 08743642 6 R07.89 On 09/26/19, patient reported having [...] d chest pain had resolved. Restless legs 07147003 G 25.81 On 09/11/19, patient reported benefit from gabapentin in treating his restless legs. Type 2 abhinav betes mellitus without complication 370897993 E11.9 On 02/08/19, his microalbum in was >12, so a ratio was not calculated . On 08/27/19, his A1c was 6.9. On 11/27/19, his A1c was 6.4. Hyperlipidemia 76796066 E78.5 On 02/05/19, his total cholestero l was 112, HDL 38, triglyceri demetra 159, LDL 42. On 09/11/19, his total cholestero l was 113, HDL 38, triglyceri demetra 146, LDL 46. On 11/30/19, his total cholestero l was 111, HDL 39, triglyceri demetra 122, LDL 48. Hypertensive disorder 38 690569 I10 Antiplatel et agent therapy 513277510 Z79.02 Benign pro static hyperplasia without outflow obstruction 045206435 N40.0 On 09/11/19, patient reported benefit from tamsulosin and finasterid e in treating his urinary symptoms from BPH. Essential tremor 8743356 09 G25.0 Patient with history of essential tremor status post bilateral VIM DBS placement using Medtronic system in 07/[address] Delgadillo. Polyp of colon 30862983 K63.5 On 11/07/18, patient had a colonoscop y by Dr. Schmidt which revealed colon polyps. Pathology revealed tubular adenoma. Follow-up colonoscop y was recommende d in 1 year per patient report. Upper resp iratory infection 91195710 J06.9 On 11/27/19, patient reported having a [...] Keflex as this had helped previously . [id number] IRINA ROBINS MD [facility] [address] [place] [address] 12/18/2019 13:14:51 12/18/2019 14:51:20 Upper respiratory infection 09580793 J06.9 On 11/27/19, patient reported having a [...] At that time, patient was referred for fire suppression captain evaluation of his allergies and pulmonolog y evaluation of his asthma. Seasonal allergy 1726552 04 J30.2 On 09/26/19, patient had a [...] At that time, patient was referred for fire suppression captain evaluation of his allergies and pulmonolog y evaluation of his asthma. Asthma 457828618 J45.90 9 Primary er ectile dysfunction 620681759 N52.9 On 09/11/19, patient reported little benefit from Viagra in the past. On 11/27/19, patient requested urology evaluation for erectile dysfunctio n. Chest wall pain 86309890 6 R07.89 On 09/26/19, patient reported having [...] d chest pain had resolved. Restless legs 01449323 G 25.81 On 09/11/19, patient reported benefit from gabapentin in treating his restless legs. Type 2 abhinav betes mellitus without complication 489879504 E11.9 On 02/08/19, his microalbum in was >12, so a ratio was not calculated . On 08/27/19, his A1c was 6.9. On 11/27/19, his A1c was 6.4. Hyperlipidemia 32939332 E78.5 On 02/05/19, his total cholestero l was 112, HDL 38, triglyceri demetra 159, LDL 42. On 09/11/19, his total cholestero l was 113, HDL 38, triglyceri demetra 146, LDL 46. On 11/30/19, his total cholestero l was 111, HDL 39, triglyceri demetra 122, LDL 48. Hypertensive disorder 38 038792 I10 Antiplatel et agent therapy 087725683 Z79.02 Benign pro static hyperplasia without outflow obstruction 637858861 N40.0 On 09/11/19, patient reported benefit from tamsulosin and finasterid e in treating his urinary symptoms from BPH. Essential tremor 0808137 09 G25.0 Patient with history of essential tremor status post bilateral VIM DBS placement using Medtronic system in 07/[address] Delgadillo. Polyp of colon 09387733 K63.5 On 11/07/18, patient had a colonoscop y by Dr. Schmidt which revealed colon polyps. Pathology revealed tubular adenoma. Follow-up colonoscop y was recommende d in 1 year per patient report. [id number] IRINA ROBINS MD [facility] [address] ,[address] [place] [address] 12/28/2019 12:56:40 12/28/2019 14:40:19 Upper respiratory infection 93021776 J06.9 On 11/27/19, patient reported having a [...] At that time, patient was referred for fire suppression captain evaluation of his allergies and pulmonolog y evaluation of his asthma. On 12/28/19, patient reported feeling much better, and stated that his cough and wheezing had resolved. Seasonal allergy 9473207 04 J30.2 On 09/26/19, patient had a [...] At that time, patient was referred for fire suppression captain evaluation of his allergies and pulmonolog y evaluation of his asthma. On 12/28/19, patient reported feeling much better, and stated that his cough and wheezing had resolved. Asthma 480934664 J45.90 9 Primary er ectile dysfunction 600279459 N52.9 On 09/11/19, patient reported little benefit from Viagra in the past. On 11/27/19, patient requested urology evaluation for erectile dysfunctio n. Chest wall pain 54186835 6 R07.89 On 09/26/19, patient reported having [...] d chest pain had resolved. Restless legs 89199585 G 25.81 On 09/11/19, patient reported benefit from gabapentin in treating his restless legs. Type 2 abhinav betes mellitus without complication 947550347 E11.9 On 02/08/19, his microalbum in was >12, so a ratio was not calculated . On 08/27/19, his A1c was 6.9. On 11/27/19, his A1c was 6.4. Hyperlipidemia 22676012 E78.5 On 02/05/19, his total cholestero l was 112, HDL 38, triglyceri demetra 159, LDL 42. On 09/11/19, his total cholestero l was 113, HDL 38, triglyceri demetra 146, LDL 46. On 11/30/19, his total cholestero l was 111, HDL 39, triglyceri demetra 122, LDL 48. Hypertensive disorder 38 916885 I10 Antiplatel et agent therapy 384260442 Z79.02 Benign pro static hyperplasia without outflow obstruction 681802543 N40.0 On 09/11/19, patient reported benefit from tamsulosin and finasterid e in treating his urinary symptoms from BPH. Essential tremor 8011208 09 G25.0 Patient with history of essential tremor status post bilateral VIM DBS placement using Repligen system in 07/[address] Delgadillo. Polyp of colon 17036577 K63.5 On 11/07/18, patient had a colonoscop y by Dr. Schmidt which revealed colon polyps. Pathology revealed tubular adenoma. Follow-up colonoscop y was recommende d in 1 year per patient report. [id number] RAPHAEL RANDLE MD ALLERGY [address] [place] [address] 01/14/2020 13:12:05 01/15/2020 08:54:37 Allergic rhinitis 46353696 J30.9 Perennial with seasonal exacerbati on. we could not perform allergy skin testing due to recent zyrtec intake recommend blood IgE test continue Flonase 1 spray each nostril twice per day. continue zyrtec continue montelukas t daily consider allergy IT Adverse re action to drug 71320237 T50.905A avoid codein Chronic cough 42943297 R 05 asthma is very likely he has an appointmen t with Dr. Kahn in 4 days continue wixela daily combivent daily albuterol PRN Recurrent upper respiratory tract infection 847375209 J06.9 anti-aller gy as above recommend allergy IT if not improving Wheezing 50722196 R06.2 improving with oral prednisone [id number] BRYSON ALVARADO PA-C PULMONARY [address] [facility], [address] [place] [address] 01/18/2020 12:58:43 01/21/2020 08:54:19 Asthma 294020784 J45.909 overall, I am unsure if this [...] questions, concerns or to return of symptoms. [id number] MARCK VALENZUELA DO [address] [place] [place] [address] 04/14/2020 12:27:40 04/14/2020 13:15:24 Asthma 119704348 J45.909 Stable,Due for methacholi ne challenge, reschedule d due to 's health Restless legs 61352414 G 25.81 Remains well controlled with prn Gabapentin use. Andrade and csa appropriat e. Erx refills. Will recheck in 3 months. Chronic ki dney disease 177320862 N18.9 Continue to avoid nephrotoxi c medication s, maintain adequate hydration Depressive disorder 3548 9007 F32.9 Stable Hypertensive disorder 38 881140 I10 Stable, continue current regimen Propranolo l, triamteren e hydrochlor othiazide. Unclear why no acei/arb. 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 Seasonal allergy 8632258 04 J30.2 Stable, Continue follow-up with Dr. Randle for skin testing Type 2 abhinav betes mellitus without complication 199947858 E11.9 Previously well controlled , fasting sugars remain typically around 100. Continue current regimen. Due for diabetic eye exam which he prefers to have done with his ophthalmol ogist in [place]. Administra tion of influenza vaccine 58379497 Z23 [id number] MARCK VALENZUELA DO [address] [place] [place] [address] 05/14/2020 14:07:04 05/14/2020 15:24:59 Type 2 diabetes mellitus without complication 718205128 E11.9 Previously well controlled , fasting sugars remain typically around 100. Continue current regimen. Recheck A1c. Patient will return to provide urine sample for microalbum in Hypertensive disorder 38 835129 I10 Stable, continue current regimen Propranolo l, triamteren e hydrochlor othiazide. 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 Chronic ki dney disease 228928979 N18.9 Continue to avoid nephrotoxi c medication s, maintain adequate hydration Depressive disorder 3548 9007 F32.9 Stable despite increased stress of late with his 's health. He appears to be coping/ada pting well but this does clearly weigh on him. Has cancelled appointmen ts of his own because he is caring for her including follow up with Dr Schmidt Asthma 949849314 J45.90 9 Stable, Due for methacholi ne challenge, reschedule d due to 's health Adult heal th examination 510951106 Z00.00 Patient presented to office today for [...] living. Screening for malignant neoplasm of prostate 681326712 Z12.5 Risks and benefits of screening reviewed including possible need for further testing if PSA is elevated. Polyp of colon 59721827 K63.5 Hx colon ca s/p resection. Colon polyps last year 10/2018. Cont f/u with Dr Schmidt Restless legs 47996873 G 25.81 Remains well controlled with prn Gabapentin use. Andrade and csa appropriat e. Erx refills. Will recheck in 3 months. Essential tremor 9057498 09 G25.0 Has DBS but often will not use when in public due to affecting his speech, particular ly S sounds. Good effect when he does use it at home. [id number] MARCK VALENZUELA, DO [facility] [address] [place] [address] 08/14/2020 12:57:20 08/14/2020 14:21:17 Hypertensive disorder 87152600 I10 Stable, continue current regimen Propranolo l, triamteren e hydrochlor othiazide. 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 Continue current regimen. Discussed that with weight loss and continued improvemen t of glycemic control may eventually need to back down on glyburide prevent fasting los. Monitor and call if any concerns. Familial c ombined hyperlipidemia 514073088 E78.49 Statin will tolerated, continue Restless legs 23622438 G 25.81 Remains well controlled with prn Gabapentin use. Andrade and csa appropriat e. Erx refills. Will recheck in 6 months. Allergic rhinitis 488267 04 J30.9 Stable [id number] JOSE WEISS MD DERMATOLO GY EAST [address] [place] [address] 12/05/2020 13:34:40 12/05/2020 14:21:42 History of malignant basal cell neoplasm of skin 539337010 Z85.828 Status post BCC on right sideburn - doing well History of squamous cell carcinoma in situ 5018243757 9105 Z86.008 Status post SCC on right inguinal crease - doing well Right inguinal crease - doing well Lentigo 686270160 L81.4 reassuranc e Recommende d Equate Ultra Sunscreen 30+ and sun protecting hats/cloth ing Neoplasm o f uncertain behavior of skin 34155458 D48.5 Morrison of toe 38047325 L84 edu re padding 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 Did not [...] on symptoms or difficulty in managing asthma. [id number] MARCK VALENZUELA, DO [facility] EAST [address] [place] [address] 02/13/2021 12:56:21 02/13/2021 14:16:36 Disorder of nervous system due to type 2 diabetes mellitus 513290791 E11.49 Previous a1c 6.4. Diabetes remains well controlled per home monitoring , will recheck A1c.Contin ue Jardiance 25 mg qdCont Glimepirid e 4mg BIDCont actos 15mg qdCont Januvia 100mg qd Continue to work on carbohydra te control and work to lose 6 pounds he recently gained. Monitor and call if any concerns. Hypertensive disorder 38 151810 I10 Blood pressure remains well controlled . Continue Propranolo l, triamteren e hydrochlor othiazide. 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 Andrade and csa appropriat e. Refills not needed today. Will recheck in 6 months. Peripheral edema 8456578 00 R60.9 Discussed potential etiologies for peripheral edema, in his case feel this is most likely dependent edema. Work on losing weight he recently gained and continue to remain active. Elevate legs when resting and would recommend compressiv e stockings. Call or RTC if new/worsen ing symptoms [id number] JOSE WEISS MD DERMATOLO [facility] E[facility] [address] [place] [address] 04/24/2021 14:03:03 04/24/2021 14:25:47 History of malignant basal cell neoplasm of skin 432435677 Z85.828 Status post BCC on right sideburn - doing well History of squamous cell carcinoma in situ 5730828170 9105 Z86.008 Status post SCC on right inguinal crease - doing well Lentigo 401701988 L81.4 reassuranc e Recommende d Equate Ultra Sunscreen 30+ and sun protecting hats/cloth ing Raised christine orrheic keratosis 2931875177 34191 L82.1 Reassuranc e and education regarding the disorder and options. Morrison of toe 17864973 L84 edu re padding [id number] MARCK VALENZUELA, DO [facility] E[facility] [address] [place] [address] 09/29/2021 13:07:55 09/29/2021 14:07:18 Disorder of nervous system due to type 2 diabetes mellitus 246413947 E11.49 Previous a1c 6.4. Diabetes remains well controlled per home monitoring , will recheck A1c.Contin ue Jardiance 25 mg qdCont Glimepirid e 4mg BIDCont actos 15mg qdCont Januvia 100mg qd Continue to work on carbohydra te control and work to lose 6 pounds he recently gained. Monitor and call if any concerns. Hypertensive disorder 38 522452 I10 Blood pressure remains well controlled . Continue Propranolo l, triamteren e hydrochlor othiazide. 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 Symptoms generally not bothersome , does use Advil on occasion with good effect when needed. Dog scratch 144115244 W5 4.8XXA Continue local wound care and monitor for new or worsening symptoms. Td updated today Benign pro static hyperplasia with outflow obstruction 449077387 N40.1 Recommend f/u with Dr Lorenz [id number] JOSE WEISS MD DERMATOLO G[facility] E[facility] [address] [place] [address] 03/22/2022 14:04:32 03/22/2022 14:49:20 History of malignant basal cell neoplasm of skin 080393744 Z85.828 Status post BCC on right sideburn - doing well History of squamous cell carcinoma in situ 5765096868 9105 Z86.008 Status post SCC on right inguinal crease - doing well Lentigo 061329818 L81.4 reassuranc e Recommende d Equate Ultra Sunscreen 30+ and sun protecting hats/cloth ing Raised christine orrheic keratosis 5192667859 12557 L82.1 Reassuranc e and education regarding the disorder and options. Inflamed s eborrheic keratosis 520544005 L82.0 LN x 1 [id number] MARCK VALENZUELA DO [facility] [address] [facility] [place] [address] 05/03/2022 12:24:17 05/03/2022 13:18:41 Adult health examination 092596213 Z00.00 Patient presented to office today for their Medicare Annual Wellness Visit.[facility] visit Questionna tabitha was reviewed and [...] system due to type 2 diabetes mellitus 795108829 E11.49 08/14/2020 6.4 % 02/18/2021 6.1 % 09/29/2021 6.6 % Diabetes remains well controlled per home monitoring , will recheck A1c.Contin ue Jardiance 25 mg qdCont Glimepirid e 4mg BIDCont actos 15mg qdCont Januvia 100mg qd Continue to work on carbohydra te control. Monitor and call if any concerns. Hypertensive disorder 38 362014 I10 Blood pressure remains well controlled . Continue Propranolo l, triamteren e hydrochlor othiazide. 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 I discussed the importance of sugar control for reducing risk of diabetic complicati ons in the eyes. I recommend they follow up with their PCP/endocr inologist for continue sugar evaluation /managemen t. Also discussed importance of cardiovasc ular risk reduction. Call with changing/f luctuating vision. Posterior vitreous detachment 253861515 H43.818 Discussed vitreous detachment with the patient. 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 Continue to monitor. Hypertensive disorder 38 105957 I10 Blood pressure remains well controlled . [...] symptoms. Chronic ki dney disease stage 2 353111828 N18.2 Continued improvemen t in creatinine and GFR, baseline now averaging 1.1-1.2 with EGFR average 60-70 Continued control of diabetes and hypertensi on important. Continue to avoid anti-infla mmatoriesK eep well-hydra leslie. Type 2 abhinav betes mellitus 63255110 E11.22 E11.40 T2DM w/peripher al neuropathy , [...] eight loss would be beneficial Morbid obesity 709543117 E66.01 Morbid obesity as evidenced by BMI greater than 35 with comorbid diabetes, hypertensi on. Reviewed importance of healthy diet, lifestyle and exercise changes to achieve healthy weight. Will continue to monitor. [id number] MARCK VALENZUELA, DO [facility] [address] [place] [address] 12/01/2022 13:31:43 12/01/2022 14:33:39 Fatigue 07514752 R53.83 Discussed potential etiologies including normal age-relate d changes as well as effects from depression .We discussed strong likelihood that he does have low testostero ne but that at 82 I would not recommend testostero ne replacemen t for him. He is interested in knowing what his testostero ne is but agrees that he would not want testostero ne replacemen t. Dysuria 08453746 R30.0 Urinalysis is normal Reduced libido 3860915 R 68.82 Previous benefit from Viagra, lately not as helpful. Depressive disorder 3548 9007 F32.9 Modest control, Still not interested in pharmacoth erapy.Know s to call or return if any concerns or worsening symptoms. [id number] JOSE WEISS MD DERMATOLO [facility] [address] [place] [address] 01/21/2023 13:25:08 01/21/2023 14:21:35 History of malignant basal cell neoplasm of skin 602068535 Z85.828 Status post BCC on right sideburn - doing well History of squamous cell carcinoma in situ 4689221466 9105 Z86.008 Status post SCC on right inguinal crease - doing well Lentigo 723466789 L81.4 reassuranc e Recommende d Equate Ultra Sunscreen 30+ and sun protecting hats/cloth ing Raised christine orrheic keratosis 6388116940 55067 L82.1 Reassuranc e and education regarding the disorder and options. Inflamed s eborrheic keratosis 631823251 L82.0 LN x 1 [id number] MARCK VALENZUELA, DO [facility] [address] [place] [address] 05/11/2023 13:29:53 05/11/2023 15:39:03 Hypertensive disorder 68187396 I10 Blood pressure remains well controlled . Continue Propranolo l, triamteren e hydrochlor othiazide. Recommend monitoring blood pressure at home. Goal BP 130/80Heal thy diet and cardiovasc ular exercise encouraged with goal 150 minutes weekly.Sod ium moderation recommenda tions reviewed. Hyperlipidemia 57787125 E78.5 Lipitor well-cezar ated, continue.R echeck FLP Chronic ki dney disease stage 2 575574463 N18.2 Continued improvemen t in creatinine and GFR, baseline now averaging 1.1-1.2 with EGFR average 60-70 Continued control of diabetes and hypertensi on important. Continue to avoid anti-infla mmatoriesK eep well-hydra leslie. Type 2 abhinav betes mellitus 60877439 E11.22 E11.40 T2DM w/peripher al neuropathy , [...] loss would be beneficial Monoclonal B-cell lymphocytosis 349493614 D72.820 4% monoclonal B Lymphocyte s, asymp. Continue to monitor Depressive disorder 3548 9007 F32.9 Remains fairly well controlled . Still not interested in pharmacoth erapy.Know s to call or return if any concerns or worsening symptoms. Morbid obesity 526962941 E66.01 Morbid obesity as evidenced by BMI greater than 35 with comorbid diabetes, hypertensi on.Reviewe d importance of healthy diet, lifestyle and exercise changes to achieve healthy weight. Will continue to monitor. Administra tion of influenza vaccine 85825139 Z23 [id number] SUHA PHILLIP MD [facility] [address] [place] [address] 05/17/2023 13:11:18 05/17/2023 14:12:31 Microscopic hematuria 771124268 R31.29 Benign pro static hyperplasia with outflow obstruction 370345858 N40.1 [id number] SUHA PHILLIP MD SURGERY SCHEDULE [address] [place] [address] 05/30/2023 06:53:18 05/30/2023 06:53:44 [id number] MARCK VALENZUELA DO [facility] [address] [place] [address] 06/22/2023 13:29:09 06/22/2023 15:22:53 Adult health examination 062568428 Z00.00 Patient presented to office today for their Medicare Annual Wellness Visit.[facility] Questionna tabitha was reviewed and will [...] A screening: Not indicated Hypertensive disorder 38 962112 I10 Blood pressure remains well controlled . Continue Propranolo l, triamteren e hydrochlor othiazide. Recommend monitoring blood pressure at home. Goal BP 130/80Heal thy diet and cardiovasc ular exercise encouraged with goal 150 minutes weekly.Sod ium moderation recommenda tions reviewed. Hyperlipidemia 74759104 E78.5 Lipitor well-cezar ated, continue.R echeck FLP Type 2 abhinav betes mellitus 61490708 E11.22 E11.40 T2DM w/peripher al neuropathy , [...] beneficial Chronic ki dney disease stage 2 726101758 N18.2 Continued improvemen t in creatinine and GFR, baseline now averaging 1.1-1.2 with EGFR average 60-70 Continued control of diabetes and hypertensi on important. Continue to avoid anti-infla mmatoriesK eep well-hydra leslie. Monoclonal B-cell lymphocytosis 523025234 D72.820 4% monoclonal B Lymphocyte s, asymp. Continue to monitor Obesity 530750575 E66.9 Reviewed importance of healthy diet, lifestyle and exercise changes to achieve healthy weight. Will continue to monitor. 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 This has been slowly declining over the last decade. Continue to monitor and if persistent decline further evaluation will be warranted Recurrent major depression in partial remission 82024072 F33.41 Remains fairly well controlled . Still not interested in pharmacoth erapy.Know s to call or return if any concerns or worsening symptoms. Atheroscle rosis of aorta 41363209 I70.0 Atheroscle rosis of aorta noted on imaging. Continue aspirin and statin. Continue adequate blood pressure control. [id number] SUHA PHILILP MD [facility] [address] [place] [address] 07/05/2023 13:49:05 07/05/2023 14:03:23 Benign prostatic hyperplasia with outflow obstruction 939614587 N40.1 Primary er ectile dysfunction 948125549 N52.9 [id number] MARCK VALENZUELA DO [facility] [address] [place] [address] 09/05/2023 13:45:03 09/05/2023 15:02:05 Post-acute COVID-19 4868208460 U09.9 Discussed potential etiologies for his symptoms [...] evaluation reviewed. Asymmetric al sensorineural hearing loss 513813775 H90.5 Discussed that this may be SSNHL secondary to COVID however he is likely outside the window of benefit for treatment with GC as it has been nearly 8 weeks. He has an appointmen t arranged with Dr. Garcia but not until September. We will try to get him seen sooner if able. [id number] KRISTINE BLUE MD OPHTHALMO LOGY [address] [place] [address] 09/05/2023 15:03:10 09/05/2023 16:48:22 Type 2 diabetes mellitus without complication 473080741 E11.9 no retinopath y ouI discussed diabetes with this patient. I discussed the importance of sugar control for reducing risk of diabetic complicati ons in the eyes. I recommend they follow up with their PCP/endocr inologist for continue sugar evaluation /managemen t. Also discussed importance of cardiovasc ular risk reduction. Call with changing/f luctuating vision. Bilateral pseudophakia [id number] 0064867 Z96.1 After-nory ract with vision obscured following extraction of cataract 406310812 H26.499 progressed os - rec yag laser osscheudle [id number] KRISTINE BLUE MD OPHTHALMO LOGY [address] [place] [address] 09/14/2023 12:38:27 09/14/2023 15:06:59 After-cataract with vision obscured following extraction of cataract 170119667 H26.499 r/b/a discussedp roceed with yag os po check - excellentr d si/sx discussed2 week po dil os [id number] RAPHAEL RANDLE MD ALLERGY [address] [facility] [address] [place] [address] 09/27/2023 14:03:18 09/28/2023 04:36:19 Adverse reaction to drug 52549654 T50.905A avoid codein Persistent cough 0623175 02 R05.3 likely due to post nasal drip and recent infections Recurrent acute sinusitis 084879866 J01.91 anti-aller gy as above Chronic rhinitis 7897693 6 J31.0 blood IgE test showed negative enviroment al allergyrec ommend to use flonase dailyok to use zyrtec PRN Allergy to penicillin 91 824251 Z88.0 No IgE mediated reaction to penicillin [...] patient as well. Moderate p ersistent asthma 011654112 J45.40 continue Fluticason e-salmeter ol 250/50 1 puff BID, rinse mouth after usecontinu e singulair dailyalbut fernanda PRN [id number] KRISTINE BLUE MD OPHTHALMO LOGY E[facility] [address] [facility] [address] [place] [address] 09/28/2023 12:55:14 09/28/2023 14:01:29 After-cataract with vision obscured following extraction of cataract 524756162 H26.499 excellents table post examrd si/sx dsicussed1 year dm, pp, pvd exam [id number] SUHA PHILLIP MD [facility] [address] [place] [address] 07/03/2024 14:40:25 07/03/2024 15:48:12 Benign prostatic hyperplasia with outflow obstruction 862232517 N40.1 Health Concerns Section Related Observation LastModified by Organization Detai ls LastModified Time None Recorded Concern Status LastModified by Organization Details LastModified Time None Recorded Advance Directives Directive None Recorded Payers Insurance Date Sequence Insurance Name Policy Number Policy Isaac Covered Member ID Isaac Member ID Guarantor Name 05/11/2023 1 [place] Jinny Rubio [id number] Jinny Rubio 05/11/2023 [employer] (MEDICARE REPLACEMENT/A DVANTAGE - PPO) Jinny Rubio [id number] Jinny Rubio 05/11/2023 1 [employer] (PPO) Jinny Rubio [id number] Jinny Rubio 05/11/2023 GENERIC INSURANCE - MOVED-HOLD Jinny Rubio 08/27/2024 1 [employer] (MEDICARE REPLACEMENT/A DVANTAGE - PPO) Jinny Rubio [id number] Jinny Rubio 05/11/2023 1 [employer] (MEDICARE REPLACEMENT/A DVANTAGE - PPO) Jinny Rubio [id number] Jinny Rubio Notes Date Note Type Note Provider Name and Address Organization Details Recorded Time 09/05/2023 text/html This is a pleasa nt 83-year-old male presenting for follow-up.He had COVID [...] orthopnea, abdominal pain, nausea vomiting diarrhea. MARCK VALENZUELA, DO [address] [place], [address], [facility] 09/05/2023 14:56:48 09/27/2023 text/html Mr. Rubio is [...] above* no recurrent infections}} RAPHAEL RANDLE MD [address] [place], [address], [facility] 09/27/2023 16:40:28 07/03/2024 text/html He is back [...] provide PSA is 0.25 SUHA PHILLIP MD [facility] [place], [address], [facility] 07/03/2024 15:48:48
[2024-11-29 13:43] LABS: Basophils % 0.8 % (0.1-2.0); Eosinophils # 0.1 Kmm3 (0.0-0.4); Eosinophils % 1.9 % (0.1-12.0); Hematocrit 34.2 % (42.0-52.0); Hemoglobin 10.1 g/dL (14.1-18.0); Immature Granulocytes # 0.04 10^3uL; Immature Granulocytes % 0.8 %; Lymphocytes # 1.5 K/mm3 (0.7-4.5); Lymphocytes % 28.1 % (10-50); Mean Corpuscular HGB Conc 29.5 g/dL (31.8-35.4); Mean Corpuscular Hemoglobin 25.6 pg (27.0-31.2); Mean Corpuscular Volume 86.8 fl (80-94); Mean Platelet Volume 11.7 fl (7.4-10.4); Monocytes # 1.8 K/mm3 (0.1-1.0); Monocytes % 34.2 % (1.7-9.3); Neutrophils # 1.8 K/mm3 (1.8-7.8); Neutrophils % 34.2 % (37.0-80.0); Nucleated Red Blood Cells # 0 10^3/uL; Nucleated Red Blood Cells % 0 %; Platelet Count 157 K/mm3 (142-424); Red Blood Count 3.94 M/mm3 (4.60-6.20); Red Cell Distribution Width 14.9 % (11.5-17.5); Red Cell Distribution Width-SD 47.7 fL; White Blood Count 5.2 K/mm3 (4.8-10.8)
[2024-11-29 13:46] LABS: MANUAL DIFFERENTIAL MANUAL DIFFERENTIAL (MANUAL DIFF)
[2024-11-29 14:21] LABS: Blood Urea Nitrogen 10 mg/dl (9-20); Calcium 8.9 mg/dl (8.4-10.2); Carbon Dioxide 24 mmol/L (22.0-30.0); Chloride 111 mmol/L (98-107); Estimated Glomerular Filt Rate 93 ml/min (>60); GFR (African American) 112 ML/MIN (>60); Glucose 161 mg/dl (74-100); Sodium 134 mmol/L (136-145)
[2024-11-29 14:54] LABS: Eosinophils % 2 % (0-3); Lymphocytes % 43 % (10-50); Monocytes % 23 % (2-9); Neutrophils % 31 % (42-76); Ovalocytes 1+; Platelet Estimate Normal; Poikilocytosis 1+; Target Cells 1+; Tear Drop Cells 1+; Total Cells Counted 100
[2024-11-29 14:55] LABS: Basophilic Stippling 1+
== END 2024-11-29 23:59 | disposition home or self-care (01) ==
LOC: LAB 13:21
PROVIDERS: PCP Internal Medicine; Visit Provider Internal Medicine Adolescent Medicine
DX: I10 Essential (primary) hypertension (principal); Z95.5 Presence of coronary angioplasty implant and graft
CPT/HCPCS: 36415; 80048; 85007; 85025; 85027